=== PATIENT | female | born 1945 | race Caucasian/White ===

== ENCOUNTER 2017-12-04 10:26 | Inpatient (IN) | payer OTHER ==
[2017-12-04] MEDS ORDERED: hydrALAZINE 20 MG/ML VIAL IVP PRN (15:43)
[2017-12-04] MEDS ORDERED: ONDANSETRON 4 MG/2 ML VIAL IV PRN (15:43)
[2017-12-04] MEDS: HYDROCODONE/APAP 5/325 TAB PO PRN ×2 (17:05→21:21)
--- NOTE | 2017-12-04 17:05 | GHP ---
[f rep st] HISTORY AND PHYSICAL POST ADMISSION PHYSICIAN EVALUATION AND REHABILITATION TREATMENT PLAN DATE OF ADMISSION: 12/04/2017 DATE OF EVALUATION: 12/04/2017 TIME OF EVALUATION: 1455 REFERRING FACILITY: [facility] REFERRING PHYSICIAN: Dr. Clemens IMPAIRMENT GROUP: 3.4 DATE OF ONSET: 11/25/2017 REHABILITATION DIAGNOSIS: Debility, status post Guillain-Cushing syndrome. CONSULTING PHYSICIANS: She had consultations with Neurology, Dr. Gill; in Critical Care Dr. Castle. ETIOLOGIC DIAGNOSIS: Guillain-Cushing syndrome. HISTORY OF PRESENT ILLNESS: This patient came to [facility] on 2017, with a 2-day history of fatigue, back pain, and bilateral lower extremity weakness. She was unable to walk. She had been to the emergency department 3 days prior with similar symptoms and was found to be hypokalemic. She was given potassium replacement and sent home at that time, but her symptoms worsened so she came back. She had ascending weakness of the lower extremities , right greater than left. She had loss of reflexes and she had paresthesias bilaterally in the upper and lower extremities. She had an MRI of the lumbar spine, which showed multilevel degenerative disk disease but minimal spinal stenosis. A lumbar puncture was obtained, which showed elevated protein but was otherwise normal. She was diagnosed with Guillain-Cushing syndrome. A PICC line was placed and she received 5 days of IVIG. She had hypoxia. She was monitored in the ICU. She did not require intubation. She had new onset atrial fibrillation and she was noted to be hypertensive. Echocardiogram was done, which showed an ejection fraction of 40% to 45%, grade 2 diastolic dysfunction and elevated right ventricular systolic pressure of 49. There was mild tricuspid insufficiency. Atrial fibrillation was converted with amiodarone. There was constipation and an ileus, which was noted to resolve; there was urinary retention; both were considered to be related to Guillain- Cushing. Other laboratories and studies during her stay, this morning she had a normal white blood cell count. She was mildly anemic with a hemoglobin of 11.7 and hematocrit of 33. Platelets were normal at 279. Basic metabolic profile showed hyponatremia with a sodium of 132. Otherwise, renal function and electrolytes were within normal limits. Liver function tests were normal. Troponin was slightly elevated on 11/30/2017, with a peak of 0.812. TSH was normal. INR was normal. There was a urine culture result collected yesterday and updated today with greater than 100,000 CFU per milliliter of Escherichia coli. MRI of the spine showed multilevel degenerative changes with no greater than mild spinal stenosis. Greatest degree of foraminal stenosis was noted to be moderate at the left L5-S1 level. There was some mild compression of the left S1 nerve. Chest x-ray showed stable perihilar opacities and possible small pleural effusions. It was a single view obtained to evaluate PICC line placement. A nuclear medicine stress test was done. They found normal left ventricle size and wall motion, with symmetric perfusion of the anterior wall, lateral wall, inferior wall, and interventricular septum on stress and resting images. PAST MEDICAL HISTORY: 1. Gastroesophageal reflux disorder. 2. Hypertension. 3. Hypokalemia. 4. Migraine headaches. PAST SURGICAL HISTORY: 1. Cholecystectomy. 2. Eye surgery. 3. Foot fasciotomy on the right. 4. Hysterectomy. 5. Skin biopsy. MEDICATIONS PRIOR TO ADMISSION: 1. Butalbital/acetaminophen/caffeine 1 p.o. daily p.r.n. 2. Diazepam 5 mg p.o. at bedtime p.r.n. 3. Hydrochlorothiazide 25 mg p.o. daily. 4. Hydrocodone/acetaminophen 7.5/325 one p.o. q.6 hours p.r.n. 5. Losartan 50 mg p.o. daily. 6. Omeprazole 20 mg p.o. daily. 7. Zolpidem 10 mg at bedtime p.r.n. ADMISSION MEDICATIONS: 1. Amiodarone 200 mg p.o. daily. 2. Carvedilol 6.25 mg p.o. twice daily. 3. Gabapentin 300 mg p.o. three times daily. 4. Lidocaine patch to lumbar spine daily. 5. Rivaroxaban 20 mg p.o. daily. 6. Butalbital/acetaminophen/caffeine 1 p.o. daily. 7. Diazepam 5 mg p.o. p.r.n. anxiety. 8. Hydrocodone/acetaminophen 7.5/325 one p.o. q.6 hours p.r.n. pain. 9. Losartan 50 mg p.o. daily. 10. Omeprazole 20 mg p.o. daily. 11. Zolpidem 10 mg p.o. at bedtime p.r.n. ALLERGIES: She has GI intolerance to codeine and to penicillin. There are no true allergies. FAMILY HISTORY: Noncontributory. PSYCHOSOCIAL HISTORY: She is retired. She has worked for a [employer] and for the [email or web address]. She is . She has 2 adult children, with a local daughter and a son in [place]. She has 13 grandchildren, including step-grandchildren. She is a nonsmoker. REVIEW OF SYSTEMS: She reports irritation to the left eye. She denies difficulty swallowing. Regarding pain, she has low back pain, which she identifies as sciatic pain, more so down the right leg than the left leg. She has profound weakness of the legs, but she can move her feet and toes. She has weakness of the arms but has better strength than her legs. She has noted that her left eye may not be closing all the way. Sometimes, she feels breathlessness and has accompanying anxiety. She is not sleeping well. She attains sleep adequately, but then awakens and has difficulty regaining sleep. She snores occasionally but this is unchanged from prior to her illness. She denies cough. She denies chest pain or palpitations. She has had constipation , but then has also had frequent bowel movements after taking laxatives. She was found to have urinary retention with a postvoid residual greater than 600 cc in the hospital and she has a Solis catheter in place. She denies joint pain or joint swelling. She denies skin rash or skin breakdown. Otherwise, a 10-point review of systems is negative. PHYSICAL EXAMINATION: VITAL SIGNS: Vitals are not yet available in the chart. Per the hospital discharge summary, blood pressure this morning was 123/64, heart rate 69, respiratory rate 18, oxygen saturation was 95%. GENERAL: This is a well-nourished, well-developed woman, who appears her chronologic age, cooperative, and in no acute distress. HEENT: Extraocular movements are intact. Pupils are equal, round, and reactive to light. She has lid lag, especially with the upper lid on the left eye. Mucous membranes are mildly dry. Dentition is in good condition. She has a crowded airway, Mallampati class III. NECK: Supple. HEART: Regular rate and rhythm with no murmurs, rubs, or gallops. LUNGS: Clear to auscultation bilaterally. ABDOMEN: Soft, somewhat distended, nontender, with normoactive bowel sounds and no hepatosplenomegaly. EXTREMITIES: 1+ edema bilaterally to the lower extremities. There is no cyanosis or clubbing. Radial and dorsalis pedis pulses are 2+ bilaterally. NEUROLOGIC: She is alert and oriented x3. She has impaired ability to close the left labial seal and leaks air when she puffs her cheek out. She has lid lag on the left eye. Otherwise, cranial nerves 2-12 are grossly intact. 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 0/5 at the hip flexors, hamstrings, and quadriceps. 4/5 at the plantar flexors and 3/5 at the foot and great toe dorsiflexors. Sensation is intact to light touch. Deep tendon reflexes are globally absent. Plantar reflex is indeterminate bilaterally. SKIN: No skin rash and there is no skin breakdown. CURRENT LEVEL OF FUNCTION: Per the preadmission screen, regarding diet, feeding , and swallowing, she was on a regular diet. For grooming, she needed maximal assistance of 1-2 people. For bathing, she needed maximal assistance of 1-2 people. For dressing, she needed maximal assistance of 1-2 people. For toileting, she needed maximal assistance of 1-2 people. Regarding bladder, she was placed on a Solis catheter due to urinary retention. Regarding bowel, she was noted to be continent. She had an ileus earlier in her hospital stay, which had resolved. Bed mobility required minimal assist for rolling. Transfers required maximal assist from supine to sit. Static sitting balance required contact guard. Dynamic sitting balance required minimal assist. Endurance was fair. Communication and cognition were noted to be normal. IMPRESSION: This is a 72-year-old woman, who has Guillain-Cushing syndrome with profound weakness, more so in the lower extremities than the upper extremities, following an upper respiratory infection approximately 10 days prior. Hospital complications included ileus, urinary retention, hypoxemia, hyponatremia, and atrial fibrillation. She additionally was diagnosed by echocardiogram with reduced ejection fraction, grade 2 diastolic dysfunction and pulmonary hypertension. She has pain, likely neuropathic, with a likely contribution of lumbar degenerative disk disease of the spine noted on MRI. She has been treated with amiodarone and carvedilol for atrial fibrillation, as well as rivaroxaban due to risk of embolic stroke. She is on a low dose of gabapentin, a lidocaine patch, and hydrocodone/acetaminophen for pain. She knows that the hydrocodone/acetaminophen is effective. She is not sure about the gabapentin and she does not think that the lidocaine has helped her at all. She has anxiety and has been continued on a benzodiazepine. She has hypertension, for which hydrochlorothiazide was discontinued due to hypokalemia, and her blood pressure is controlled with losartan and carvedilol. She has a history of gastroesophageal reflux and has been on omeprazole. She has sleep disturbance, for which she is treated with zolpidem on a p.r.n. basis. Her goal is to complete a rehabilitation stay and then return home with family and supportive services. For a safe discharge, it is anticipated that she will achieve independence with eating and grooming. She will achieve modified independence to contact guard assist for bed mobility and transfers. If she has adequate improvement in her lower extremity strength, she will be able to use a front-wheeled walker for household distances; if not, she will have wheelchair mobility. It is likely she will require assistance for bathing and dressing, and that she will use a wheelchair for community distances. She will have normal bowel and bladder function. She will have therapy with Physical Therapy and Occupational Therapy for 90 minutes per day for each discipline on 5-7 days of the week. Her expected duration of stay is 10-14 days. It is anticipated that upon discharge, she will continue to benefit from home health services, including Nursing, OT and PT. PLAN: 1. Debility, status post Guillain-Cushing syndrome. PT and OT to optimize mobility and functional status with goal of discharge home and ambulation if possible. 2. 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 Assessment and treatment per Speech and Language Pathology. Ophthalmic ouintment at night as she is unable to maintain clsure of the left eye. 3. Neuropathic pain, possible sciatic pain. Will increase gabapentin from 300 mg p.o. three times daily to 600 mg three times daily. Continue Brooks. Lidocaine patch does not appear to have added any benefit and this will now be continued. She will be monitored regarding pain control and medications adjusted as needed. 4. Atrial fibrillation. Continue amiodarone, carvedilol, and rivaroxaban. There is a plan discussed in discharge paperwork regarding followup with Cardiology for a 30-day monitor and for a repeat echocardiogram in 2-3 months. 5. Cardiomyopathy and pulmonary hypertension. She has a low ejection fraction of 40% to 45%, pulmonary hypertension, and and grade 2 diastolic dysfunction. These may complicate her respiratory status and may be etiologic regarding edema. Losartan and carvedilol are appropriate antihypertensives. We will consider diuresis. Will check BNP with labs tomorrow morning. 6. Hypertension. Continue carvedilol and losartan. Monitor blood pressures and adjust as needed. 7. Anxiety related to a sense of breathlessness. Treatment is complicated as she was previously taking diazepam. Will continue current orders, but if she has frequent need for diazepam will consider initiating SSRI. 8. Bowel status with ileus, which resolved. Will initiate the rehabilitation bowel program with a daily suppository. 9. Urinary retention, thought to be a consequence of Guillain-Cushing syndrome. Will not remove Solis catheter immediately. Will hope for improved mobility in terms of being able to transfer to the [facility] and for return of normal bladder function prior to initiating rehabilitation bladder program and removing Solis catheter. 10. History of migraine headaches. Continue the butalbital/acetaminophen/ caffeine combination. 11. Insomnia. A trial of trazodone, as it is likely to be less harmful than zolpidem or diazepam. 12. History of gastroesophageal reflux disorder. Will continue proton pump inhibitor. 13. Hyponatremia. Will repeat labs in the morning. Followup. The patient is to follow up with [facility], Dr. Gill, after discharge and with Cardiology in 2-3 months. /[id number]/MODL MTDD
[2017-12-04] MEDS: GABAPENTIN 300 MG CAP PO SCH ×2 (17:06→20:15)
[2017-12-04] MEDS: CARVEDILOL 6.25 MG TAB PO SCH (18:03)
[2017-12-04] MEDS: LORazepam 0.5 MG TAB PO PRN (19:44)
[2017-12-04] MEDS: PETROLAT,WHT/MIN OIL/SOD CHL 3.5 GM OPHT.OINT LEFTEYE SCH (19:45)
[2017-12-04] MEDS: AMIODARONE HCL 200 MG TAB PO SCH (20:15)
[2017-12-04] MEDS: SENNOSIDES/DOCUSATE SODIUM TAB PO SCH (20:15)
[2017-12-04] MEDS ORDERED: traZODone 50 MG TAB PO SCH (21:00)
[2017-12-05] MEDS: HYDROCODONE/APAP 5/325 TAB PO PRN ×2 (01:25→06:16)
[2017-12-05] MEDS: ACET/CAFFEINE/BUTA FIORICET 1 EACH TAB PO PRN (04:07)
[2017-12-05] MEDS: LORazepam 0.5 MG TAB PO PRN ×2 (04:08→11:13)
[2017-12-05] MEDS: SENNOSIDES/DOCUSATE SODIUM TAB PO SCH ×2 (07:52→21:53)
[2017-12-05] MEDS: AMIODARONE HCL 200 MG TAB PO SCH ×2 (07:59→20:40)
[2017-12-05] MEDS: CARVEDILOL 6.25 MG TAB PO SCH ×2 (07:59→17:12)
[2017-12-05] MEDS: RIVAROXABAN 10 MG TAB PO SCH (08:18)
[2017-12-05] MEDS: GABAPENTIN 300 MG CAP PO SCH ×3 (08:18→20:39)
[2017-12-05 08:49] LABS: PLATELET COUNT 290 10^3/uL (150-400)
[2017-12-05] MEDS ORDERED: BISACODYL 10 MG SUPP PR SCH (09:00)
[2017-12-05] MEDS ORDERED: POLYETHYLENE GLYCOL 3350 17 GM PKT PO SCH (09:00)
[2017-12-05] MEDS ORDERED: GABAPENTIN 300 MG CAP PO ONE (10:00)
--- NOTE | 2017-12-05 10:03 | SOAPPROG ---
SOAP Progress Note Assessment/Plan: Assessment: 72 yo F with Guillaine-[place] syndrome, with onset of symptoms 11/13/2017, and 5 days of IVIG starting 11/25/2017. Had respiratory failure but did not need intubation. Has profound lower > upper extremity weakness. * Debility, status post Guillain-[place] syndrome. * PT and OT to optimize mobility and functional status with goal of discharge home and ambulation if possible. 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 * Assessment and treatment per Speech and Language Pathology. Ophthalmic ointment at night as she is unable to maintain clsure of the left eye. * Neuropathic pain, possible sciatic pain. * Gabapentin increased from 300 mg p.o. three times daily to 600 mg three times daily on 12/04/2017. Increase further to 9-- mg TID n 12/05/2017. * Discontinue Arbela as acetaminophen limits dosing. Initiate oxycodone 5-10 mg q.3 hours p.r.n. starting 12/05/2017. * Lidocaine patch did not provide any benefit and was discontinued on 12/04/2017. * Cardiomyopathy and pulmonary hypertension. She has a low ejection fraction of 40% to 45%, pulmonary hypertension, and and grade 2 diastolic dysfunction. * BNP markedly elevated today 12/05/2017. * Also with hyponatremia. * Will initiate furosemide at 20 mg p.o. q.day and potassium chloride at 10 mEq q.day * Continue losartan and carvedilol. * Repeat BMP, BNP in a.m.. * Hyponatremia. * Unclear whether due to CHF or contribution of SIADH. Serum osmolality and urine studies pending. May improve with furosemide. * Repeat BMP in a.m.. Anxiety related to a sense of breathlessness. Treatment is complicated as she was previously taking diazepam. * Poor response to SSRI in the past. * Will initiate mirtazapine this evening, 12/05/2017. * Psychiatry consult for further management. * Bowel status with ileus, which resolved. * Loose stools this morning 12/05/2017. * Continue scheduled senna as she is also on opiates. Change polyethylene glycol to p.r.n.. * Hypertension. Continue carvedilol and losartan. Monitor blood pressures and adjust as needed. * Atrial fibrillation. * No tachyarrythmia on exam. * Continue amiodarone, carvedilol, and rivaroxaban. * Followup with Cardiology for a 30-day monitor and for a repeat echocardiogram in 2-3 months. * Urinary retention, thought to be a consequence of Guillain-[place] syndrome. * Will not remove Solis catheter immediately. * Initiate rehabilitation bladder program and plan to remove Solis when her neurologic status otherwise improving. * History of migraine headaches. Continue the butalbital/acetaminophen/ caffeine combination. * Insomnia. * Trazodone did not help. * Trial of mirtazapine this evening 12/05/2017. * History of gastroesophageal reflux disorder. Will continue proton pump inhibitor. Followup. The patient is to follow up with [facility], Dr. Gill, after discharge and with Cardiology in 2-3 months. Plan: 12/05/17 10:03 12/05/17 11:59 Subjective: Poor sleep overnight. Awoke with a headache. Was due with Fioricet at 4 in the morning as well as lorazepam. Taken lorazepam to attain sleep earlier at night. Complains of anxiety especially when she feels breathless. Complains of back pain and sciatic pain radiating down both legs left greater than right. Discussed positive urine culture though she had a normal urinalysis at the hospital. She denies having had any in her symptoms other than urinary retention Clotilde no fevers or chills, no flank pain and pelvic discomfort. Objective: Vital Signs Temp Pulse Resp BP Pulse Ox 36.4 C 77 16 121/65 H 97 12/05/17 06:44 12/05/17 09:00 12/05/17 06:44 12/05/17 09:00 12/05/17 06:44 Laboratory Results 12/05/17 06:30 12/05/17 06:30 12/04/17 12/05/17 12/06/17 05:59 05:59 05:59 Intake Total 800 590 Output Total 800 Balance 0 590 Physical Exam - Physical Exam General Appearance: WD/WN, alert, no apparent distress, obese Respiratory: normal breath sounds, No crackles, No rhonchi, No wheezing Cardiac/Chest: regular rate, rhythm, No diastolic murmur, No systolic murmur Skin: normal color, warm/dry Neuro/Psych: alert, normal mood/affect, oriented x 3, motor weakness ICD10 Worksheet Patient Problems: Problems Problem Status Onset Atrial fibrillation Acute Guillain-[place] syndrome Acute
[2017-12-05] MEDS: oxyCODONE IR 5 MG TAB PO PRN ×3 (10:16→23:48)
[2017-12-05] MEDS: BISACODYL 10 MG SUPP PR SCH (12:35)
--- NOTE | 2017-12-05 12:38 | PDOREHIP ---
Admission [facility] - Admission - 3 Day Assessment Period Admission Date/Day 1: 12/04/17 Day 2: 12/05/17 Day 3: 12/06/17 - Active Diagnoses Comorbidities and Co-existing Conditions at Admission: 52077. None of the Above - Skin Conditions Unhealed Pressure Ulcer (1 or more/Stage 1 or >)-Admission: 0. No
[2017-12-05] MEDS: FUROSEMIDE 20 MG TAB PO SCH (13:26)
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
[2017-12-05] MEDS ORDERED: DIAZEPAM 2 MG TAB PO PRN (14:38)
[2017-12-05] MEDS ORDERED: GABAPENTIN 300 MG CAP PO SCH (16:00)
[2017-12-05] MEDS: DIAZEPAM 2 MG TAB PO SCH (20:41)
[2017-12-05] MEDS: TEARS/DEXTRAN 70/HYPROMELLOSE 15 ML OPHT.BTL LEFTEYE PRN (20:41)
[2017-12-05] MEDS: PETROLAT,WHT/MIN OIL/SOD CHL 3.5 GM OPHT.OINT LEFTEYE SCH (20:55)
[2017-12-05] MEDS ORDERED: MIRTAZAPINE 15 MG TAB PO SCH (21:00)
[2017-12-06] MEDS: ACET/CAFFEINE/BUTA FIORICET 1 EACH TAB PO PRN ×2 (02:03→23:30)
[2017-12-06] MEDS: oxyCODONE IR 5 MG TAB PO PRN ×5 (04:36→21:09)
[2017-12-06] MEDS: AMIODARONE HCL 200 MG TAB PO SCH ×2 (09:05→20:54)
[2017-12-06] MEDS: CARVEDILOL 6.25 MG TAB PO SCH ×2 (09:05→18:05)
[2017-12-06] MEDS: GABAPENTIN 300 MG CAP PO SCH ×3 (09:05→20:54)
[2017-12-06] MEDS: FUROSEMIDE 20 MG TAB PO SCH (09:06)
[2017-12-06] MEDS: RIVAROXABAN 10 MG TAB PO SCH (09:06)
[2017-12-06] MEDS: POTASSIUM CL 20 MEQ PKT PO SCH (09:07)
[2017-12-06] MEDS: TEARS/DEXTRAN 70/HYPROMELLOSE 15 ML OPHT.BTL LEFTEYE PRN ×2 (09:19→11:22)
[2017-12-06] MEDS: SENNOSIDES/DOCUSATE SODIUM TAB PO SCH (09:19)
[2017-12-06] MEDS: BISACODYL 10 MG SUPP PR SCH (11:47)
[2017-12-06] MEDS ORDERED: DIAZEPAM 2 MG TAB PO PRN (13:00)
[2017-12-06] MEDS ORDERED: PROMETHAZINE HCL 25 MG/ML INJ IVP PRN (13:10)
[2017-12-06] MEDS ORDERED: ONDANSETRON DISINTEGRATING 4 MG TAB PO PRN (13:10)
[2017-12-06] MEDS: TEARS/DEXTRAN 70/HYPROMELLOSE 15 ML OPHT.BTL EACHEYE PRN ×3 (13:46→18:05)
[2017-12-06] MEDS: CIPROFLOXACIN 3.5 GM OPHT.OINT LEFTEYE SCH ×2 (14:32→16:14)
--- NOTE | 2017-12-06 16:37 | HOSPPROG ---
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 Had respiratory failure but did not need intubation. Has profound lower > upper extremity weakness and subsequent debility, sx outlined below - PT and OT to optimize mobility and functional status with goal of discharge home and ambulation if possible. 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 Controlled on current pain regimen - Cont gabapentin 600 mg three times daily, increase to 900mg tid if requiring ongoing PRNs - Cont oxycodone 5-10 mg q.3 hours p.r.n. # Diarrhea. Acute, likely 2/2 poor anal sphincter control w/ GBS - CDiff neg - give bisacodyl/metamucil at 6 a.m. 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 EF 40% to 45%, pulmonary hypertension, grade 2 diastolic dysfunction. No e/o acute exacerbation - BNP elevated, unclear baseline - Cont on lasix 20/K 10 daily, monitor BMP - Cont ARB/bblocker - Monitor weights, I/O # Hyponatremia. Unclear baseline, Rashid 34, appears euvolemic - Relatively unchanged w/ addition of lasix - Cont to monitor # Anxiety w/ chronic benzodiazepine dependency. Acute on chronic, likely exacerbated by sense of breathlessness. Treatment is complicated as she was previously taking diazepam. - Psych consult appreciated - Per recs, remain on low dose scheduled HS valium and get PRN daily - Psych will reassess this week, consider alternative agent (BuSpar) - Will check TSH/B12 # Hypertension. Chronic, continue carvedilol and losartan. # Atrial fibrillation. Paroxysmal, in NSR on exam - Continue amiodarone, carvedilol, and rivaroxaban. - Followup with Cardiology for a 30-day monitor and for a repeat echocardiogram in 2-3 months. # Acute Urinary retention, thought to be a consequence of Guillain-Tyndall syndrome. - Cont Malhotra catheter immediately. - Initiate rehabilitation bladder program and plan to remove Malhotra when her neurologic status otherwise improving. # History of migraine headaches. Continue the butalbital/acetaminophen/ caffeine combination. # Insomnia. Cont Mirtaz trial # History of gastroesophageal reflux disorder. Will continue proton pump inhibitor. Diet. Regular PPx. High risk, on lovenox Code. Full Followup. The patient is to follow up with [facility], Dr. Gill, after discharge and with Cardiology in 2-3 months. Subjective: nausea this AM w/ PO Rx Objective: Vital Signs Temp Pulse Resp BP Pulse Ox 36.7 C 73 16 145/87 H 96 12/06/17 06:07 12/06/17 09:05 12/06/17 06:07 12/06/17 09:05 12/06/17 06:07 Laboratory Results 12/05/17 06:30 12/06/17 06:00 12/05/17 12/06/17 12/07/17 05:59 05:59 05:59 Intake Total 800 1008 200 Output Total 800 500 Balance 0 508 200 - Physical Exam Constitutional: no apparent distress, appears nourished, not in pain, chronically ill appearing Eyes: PERRL, other (left eye w/ conjuctivitis, viscous exudate, blephritis, R eye w/o conjunctivitis) Cardiovascular: regular rate and rhythym, systolic murmur (I/ at sternum), tachycardia, edema (trace, but reportedly improved), No irregularly irregular Respiratory: no respiratory distress, no rales or rhonchi, clear to auscultation Gastrointestinal: normoactive bowel sounds, no palpable masses, tenderness ( very mild in LLQ), No guarding, No distension Genitourinary: malhotra in urethra Neurologic: AAOx3, weakness (3/5 motor bilat LE; 4/5 motor prox UE), other ( paresthesias bilat hands, legs; left eyelid palsy; left tongue dev) Psychiatric: interacting appropriately, not anxious, not encephalopathic, thought process linear ICD10 Worksheet Patient Problems: Problems Problem Status Onset Sedative dependence with current use Chronic Generalized anxiety disorder Chronic Insomnia Chronic Atrial fibrillation Acute Guillain-Tyndall syndrome Acute
[2017-12-06] MEDS: DIAZEPAM 2 MG TAB PO SCH (20:54)
[2017-12-06] MEDS: PETROLAT,WHT/MIN OIL/SOD CHL 3.5 GM OPHT.OINT EACHEYE SCH (21:03)
[2017-12-06] MEDS: CIPROFLOXACIN 3.5 GM OPHT.OINT EACHEYE SCH (22:16)
[2017-12-07] MEDS: oxyCODONE IR 5 MG TAB PO PRN ×6 (00:36→19:31)
[2017-12-07] MEDS: DIAZEPAM 2 MG TAB PO PRN ×2 (00:37→22:16)
[2017-12-07] MEDS: PANTOPRAZOLE SODIUM 40 MG TAB PO SCH (05:56)
[2017-12-07] MEDS: BISACODYL 10 MG SUPP PR SCH (05:57)
[2017-12-07] MEDS: PSYLLIUM METAMUCIL 1 PKT PO SCH (05:57)
[2017-12-07] MEDS: CARVEDILOL 6.25 MG TAB PO SCH ×2 (08:43→17:40)
[2017-12-07] MEDS: AMIODARONE HCL 200 MG TAB PO SCH ×2 (08:44→20:44)
[2017-12-07] MEDS: RIVAROXABAN 10 MG TAB PO SCH (08:44)
[2017-12-07] MEDS: GABAPENTIN 300 MG CAP PO SCH ×3 (08:44→20:45)
[2017-12-07] MEDS: CIPROFLOXACIN 3.5 GM OPHT.OINT EACHEYE SCH ×3 (08:44→20:46)
[2017-12-07] MEDS: FUROSEMIDE 20 MG TAB PO SCH (08:44)
[2017-12-07] MEDS: POTASSIUM CL 20 MEQ PKT PO SCH (08:44)
--- NOTE | 2017-12-07 12:54 | HOSPPROG ---
Hospitalist Progress Note Assessment/Plan: Assessment: 72 yo F p/w GBS, worsening dysphagia and fatigue Plan: # Fatigue. Worsening today, unclear if 2/2 poor night's sleep, med effect ( received valium PRN and oxy IR o/n), brewing infxn, or worsening GBS - get CBC/liver panel now - lower oxy IR dose range PRN - monitor for improvement/worsening and consider neuro consult if no improvement # Guillaine-Petros Syndrome. Onset of symptoms 11/13/2017, s/p 5 days of IVIG starting 11/25/2017. Had respiratory failure but did not need intubation. Has profound lower > upper extremity weakness and subsequent debility, sx outlined below - PT and OT to optimize mobility and functional status with goal of discharge home and ambulation if possible. 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 Worsening, went from meds w/ sips to meds w/ applesauce - unclear if 2/2 fatigue vs. worsening GBS - cont safe swallow w/ RN - cont BANQUET WAITER/WAITRESS evals - get dietary consult, encourage ensure # Neuropathic pain, possible sciatic pain. Controlled on current pain regimen - increased to 900mg tid today - Cont oxycodone 2.5-10 mg q.3 hours p.r.n. - cont turning patient to prevent pressure injury # Diarrhea. Acute, likely 2/2 poor anal sphincter control w/ GBS - CDiff neg - given bisacodyl/metamucil at 6 a.m. 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 EF 40% to 45%, pulmonary hypertension, grade 2 diastolic dysfunction. No e/o acute exacerbation - BNP elevated, unclear baseline - net neg 1.5L o/n - Cont on lasix 20 daily, monitor BMP - Cont ARB/bblocker - Monitor weights, I/O - if Cr rising or becoming hypovolemic, stop lasix, as her PO intake has begun to decline # Hyponatremia. Unclear baseline, Rashid 34, appears euvolemic - improved w/ lasix - Cont to monitor # Anxiety w/ chronic benzodiazepine dependency. Acute on chronic, likely exacerbated by sense of breathlessness. Treatment is complicated as she was previously taking diazepam. - Psych consult appreciated - Per recs, remain on low dose scheduled HS valium and get PRN daily - Psych will reassess this week, consider alternative agent (BuSpar) - B12/TSH wnl # Hypertension. Chronic, continue carvedilol and losartan. # Atrial fibrillation. Paroxysmal, in NSR on exam - Continue amiodarone, carvedilol, and rivaroxaban. - Followup with Cardiology for a 30-day monitor and for a repeat echocardiogram in 2-3 months. # Acute Urinary retention, thought to be a consequence of Guillain-Petros syndrome. - Cont Malhotra catheter immediately. - Initiate rehabilitation bladder program and plan to remove Malhotra when her neurologic status otherwise improving. # History of migraine headaches. Continue the butalbital/acetaminophen/ caffeine combination. # Insomnia. Added Mirtaz 15 HS, increasing gabapentin today, monitor effect # History of gastroesophageal reflux disorder. Will continue proton pump inhibitor. Diet. Regular PPx. High risk, on xarelto Code. Full Followup. The patient is to follow up with [facility], Dr. Gill, after discharge and with Cardiology in 2-3 months. Subjective: patient w/ pain o/n preventing sleep, fatigued today, poor appetite , watery BM Objective: Vital Signs Temp Pulse Resp BP Pulse Ox 36.5 C 72 15 148/83 H 95 12/07/17 07:30 12/07/17 08:43 12/07/17 07:30 12/07/17 08:43 12/07/17 07:30 Laboratory Results 12/05/17 06:30 12/07/17 06:00 12/06/17 12/07/17 12/08/17 05:59 05:59 05:59 Intake Total 1008 500 Output Total 500 2000 Balance 508 -1500 - Physical Exam Constitutional: no apparent distress, not in pain, chronically ill appearing, uncomfortable Cardiovascular: systolic murmur (I/ at sternum), No irregularly irregular, No tachycardia, No edema Respiratory: no respiratory distress, no rales or rhonchi, clear to auscultation Gastrointestinal: normoactive bowel sounds, soft, non-tender abdomen, no palpable masses Genitourinary: no bladder fullness, malhotra in urethra Musculoskeletal: other (tenderness over right buttock/R lateral troch bursa, sciatic pain w/ straight leg raise RLE, no joint effusion) Neurologic: AAOx3, sensation intact bilaterally (subj paresthesia LE), weakness (significant prox muscles paresis bilat LE, LUE), facial droop (left mouth, left tongue deviation) Psychiatric: interacting appropriately, not anxious, not encephalopathic, thought process linear ICD10 Worksheet Patient Problems: Problems Problem Status Onset Atrial fibrillation Acute Guillain-Petros syndrome Acute Generalized anxiety disorder Chronic Insomnia Chronic Sedative dependence with current use Chronic
[2017-12-07] MEDS: ACETAMINOPHEN 325 MG TAB PO PRN (12:59)
[2017-12-07] MEDS: TEARS/DEXTRAN 70/HYPROMELLOSE 15 ML OPHT.BTL EACHEYE PRN (13:01)
[2017-12-07] MEDS: DIAZEPAM 2 MG TAB PO SCH (20:43)
[2017-12-07] MEDS: MIRTAZAPINE 15 MG ODTAB PO SCH (20:43)
[2017-12-07] MEDS: PETROLAT,WHT/MIN OIL/SOD CHL 3.5 GM OPHT.OINT EACHEYE SCH (23:23)
[2017-12-08] MEDS: oxyCODONE IR 5 MG TAB PO PRN ×5 (00:11→14:37)
[2017-12-08] MEDS: PANTOPRAZOLE SODIUM 40 MG TAB PO SCH (05:53)
[2017-12-08] MEDS: PSYLLIUM METAMUCIL 1 PKT PO SCH (05:53)
[2017-12-08] MEDS: BISACODYL 10 MG SUPP PR SCH (05:53)
[2017-12-08 08:30] LABS: PLATELET COUNT 287 10^3/uL (150-400)
[2017-12-08] MEDS: GABAPENTIN 300 MG CAP PO SCH ×3 (09:24→20:53)
[2017-12-08] MEDS: AMIODARONE HCL 200 MG TAB PO SCH ×2 (09:24→20:54)
[2017-12-08] MEDS: RIVAROXABAN 10 MG TAB PO SCH (09:24)
[2017-12-08] MEDS: FUROSEMIDE 20 MG TAB PO SCH (09:24)
[2017-12-08] MEDS: CARVEDILOL 6.25 MG TAB PO SCH ×2 (09:25→17:50)
[2017-12-08] MEDS: CIPROFLOXACIN 3.5 GM OPHT.OINT EACHEYE SCH ×3 (09:33→20:56)
--- NOTE | 2017-12-08 12:24 | SOAPPROG ---
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 Had respiratory failure but did not need intubation. Has profound lower > upper extremity weakness. * Debility, status post Guillain-Bethlehem syndrome. * Initial FIM 47. Able to sit on edge of bed up to 10 min with 2 assist. Therapy staff concerned regarding continued deterioration. * PT and OT to optimize mobility and functional status with goal of discharge home and ambulation if possible. * Dysphagia. * Diet texture has been downgraded to dysphagia 1. Has decreased oral motor function and has declined during her stay. * CN 7 neuropathy, with left facial weakness. * Assessment and treatment per Speech and Language Pathology. Ophthalmic ointment at night as she is unable to maintain clsure of the left eye. * Neuropathic pain, possible sciatic pain. * Gabapentin increased from 300 mg p.o. three times daily to 600 mg three times daily on 12/04/2017. Increase further to 900 mg TID n 12/05/2017. * Discontinue [place] as acetaminophen limits dosing. Initiate oxycodone 5-10 mg q.3 hours p.r.n. starting 12/05/2017. * Lidocaine patch did not provide any benefit and was discontinued on 12/04/2017. * Cardiomyopathy and pulmonary hypertension. She has a low ejection fraction of 40% to 45%, pulmonary hypertension, and and grade 2 diastolic dysfunction. * BNP markedly elevated 12/05/2017; improved after 1 dose of furosemide on 2017. * Also with hyponatremia, improving. * Continue furosemide at 20 mg p.o. q.day and potassium chloride at 10 mEq q.day * Continue losartan and carvedilol. * Repeat BMP, BNP in a.m.. * Hyponatremia. * Unclear whether due to CHF or contribution of SIADH. 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 * Sodium 134 this morning; was 132 on 12/05/2017; was 136 on 12/07/2017. Continue to monitor. * Intake is too low to institute a meaningful fluid restriction. Anxiety related to a sense of breathlessness. Treatment is complicated as she was previously taking diazepam. * Poor response to SSRI in the past. * Initiated mirtazapine this evening. * Appreciate assistance of Psychiatry. She has had chronic diazepam use. At their recommendation have initiated diazepam 2.5 mg at bedtime and 1 mg during the day p.r.n.. * Bowel status with ileus, which resolved. * Has had loose stools, C diff negative. * Continue scheduled senna as she is also on opiates. Change polyethylene glycol to p.r.n.. * Hypertension. Continue carvedilol and losartan. Monitor blood pressures and adjust as needed. * Atrial fibrillation. * No tachyarrythmia on exam. * Continue amiodarone, carvedilol, and rivaroxaban. * Followup with Cardiology for a 30-day monitor and for a repeat echocardiogram in 2-3 months. * Urinary retention, thought to be a consequence of Guillain-Bethlehem syndrome. * Will not remove Solis catheter immediately. * Initiate rehabilitation bladder program and plan to remove Solis when her neurologic status otherwise improving. * History of migraine headaches. Continue the butalbital/acetaminophen/ caffeine combination. * Insomnia. * Trazodone did not help. * Improved with met as a Pean. * History of gastroesophageal reflux disorder. Will continue proton pump inhibitor. Attended staffing, 15 min. 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 Expect 4-6 weeks to cover sufficient function for discharge home with her . Unclear at present whether she can benefit from inpatient rehabilitation in her current condition; consider discharge to SNF until she has improved function. Discussed with neurologist Dr. Mccall. Efficacy of IVIG can take 10-20 days. Weight 3 4 weeks to assess for failure. However if she declines and is unable to take any nutrition or if she has respiratory decline would intervene sooner. His choice would be plasma exchange rather than repeat IVIG. Will continue therapies and continue to assess on inpatient rehabilitation for several more days. Followup. The patient is to follow up with [facility], Dr. Gill, after discharge and with Cardiology in 2-3 months. 12/08/17 11:19 Objective: Vital Signs Temp Pulse Resp BP Pulse Ox 36.9 C 82 17 161/87 H 87 L 12/07/17 18:16 12/08/17 09:25 12/07/17 18:16 12/08/17 09:25 12/08/17 04:34 Laboratory Results 12/08/17 06:30 12/08/17 06:30 12/07/17 12/08/17 12/09/17 05:59 05:59 05:59 Intake Total 500 218 Output Total 1999 114 Xzcdylo -[id number] -[id number] - Time Spent With Patient Time Spent With Patient: Greater than 35 min 4 times a day, including more than 50% of time in coordination of care during staffing meeting and in discussion with neurologist Dr. Mccall, and counseling patient and family. ICD10 Worksheet Patient Problems: Problems Problem Status Onset Atrial fibrillation Acute Guillain-Bethlehem syndrome Acute Generalized anxiety disorder Chronic Insomnia Chronic Sedative dependence with current use Chronic
[2017-12-08] MEDS: morphINE SR 15 MG TAB PO SCH (20:53)
[2017-12-08] MEDS: MIRTAZAPINE 15 MG ODTAB PO SCH (20:53)
[2017-12-08] MEDS: DIAZEPAM 2 MG TAB PO SCH (20:53)
[2017-12-08] MEDS: PETROLAT,WHT/MIN OIL/SOD CHL 3.5 GM OPHT.OINT EACHEYE SCH (21:25)
[2017-12-09] MEDS: oxyCODONE IR 5 MG TAB PO PRN ×6 (00:54→22:13)
[2017-12-09] MEDS: PANTOPRAZOLE SODIUM 40 MG TAB PO SCH (06:47)
[2017-12-09] MEDS: PSYLLIUM METAMUCIL 1 PKT PO SCH (06:51)
[2017-12-09] MEDS: RIVAROXABAN 10 MG TAB PO SCH (08:35)
[2017-12-09] MEDS: GABAPENTIN 300 MG CAP PO SCH ×3 (08:35→22:11)
[2017-12-09] MEDS: AMIODARONE HCL 200 MG TAB PO SCH ×2 (08:35→22:11)
[2017-12-09] MEDS: CARVEDILOL 6.25 MG TAB PO SCH ×3 (08:35→19:45)
[2017-12-09] MEDS: CIPROFLOXACIN 3.5 GM OPHT.OINT EACHEYE SCH (09:12)
--- NOTE | 2017-12-09 13:52 | SOAPPROG ---
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 Had respiratory failure but did not need intubation. Has profound lower > upper extremity weakness. * Debility, status post Guillain-Orlando syndrome. * Initial FIM 47 on 12/08/2017. Able to sit on edge of bed up to 10 min with 2 assist. Therapy staff concerned regarding continued deterioration. Seems to be stable or slightly improved today 12/09/2017. * PT and OT to optimize mobility and functional status with goal of discharge home and ambulation if possible. * Dysphagia. * Diet texture has been downgraded to dysphagia 1 as of : Back to dysphagia 2 on 12/09/2016. Has decreased oral motor function and has declined during her stay. * CN 7 neuropathy, with left facial weakness. * Assessment and treatment per Speech and Language Pathology. * Ophthalmic ointment at night and monocular goggle as she is unable to maintain closure of the left eye. * Blurred vision, bilateral. * No afferent pupillary defect argues against any optic nerve involvement. Brief literature review revealed very rare cases of optic neuritis with Guillain -Orlando syndrome. * Discontinue ciprofloxacin ointment. Continue to monitor. * Neuropathic pain, possible sciatic pain. * Gabapentin increased from 300 mg p.o. three times daily to 600 mg three times daily on 12/04/2017. Increased further to 900 mg TID n 12/05/2017. * Discontinue [place] as acetaminophen limits dosing. Initiate oxycodone 5-10 mg q.3 hours p.r.n. starting 12/05/2017. * Lidocaine patch did not provide any benefit and was discontinued on 12/04/2017. * Better pain relief and better sleep with long-acting morphine 15 mg at HS starting 12/08/2017. * Cardiomyopathy and pulmonary hypertension. She has a low ejection fraction of 40% to 45%, pulmonary hypertension, and and grade 2 diastolic dysfunction. * BNP markedly elevated 12/05/2017; improved after 1 dose of furosemide on 2017. * Also with hyponatremia, improving. * Discontinued furosemide at 20 mg p.o. q.day and potassium chloride at 10 mEq q.day 12/09/2017. Continue daily weight. * Continue losartan and carvedilol. * BNP much improved 12/09/2017, from greater than 10,000 to 6180. * Monitor for signs and symptoms of congestive heart failure with furosemide discontinued. * Hyponatremia. * Unclear whether due to CHF or contribution of SIADH. 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 * Sodium 134 this morning; was 132 on 12/05/2017; was 136 on 12/07/2017. Overall stable at 134 on 12/08/2017 and 12/09/2017. * Intake is too low to institute a meaningful fluid restriction. Anxiety related to a sense of breathlessness. Treatment is complicated as she was previously taking diazepam. * Poor response to SSRI in the past. * Initiated mirtazapine 12/05/2017. * Appreciate assistance of Psychiatry. She has had chronic diazepam use. At their recommendation have initiated diazepam 2.5 mg at bedtime and 1 mg during the day p.r.n.. * Bowel status with ileus, which resolved. * Has had loose stools, C diff negative. * Has had frequent bowel movements with incontinence. Laxatives changed to p.r.n. on 12/08/2017. * Hypertension. Continue carvedilol and losartan. Monitor blood pressures and adjust as needed. * Check orthostatics supine and seated 12/09/2017. * Atrial fibrillation. * No tachyarrythmia on exam. * Continue amiodarone, carvedilol, and rivaroxaban. * Followup with Cardiology for a 30-day monitor and for a repeat echocardiogram in 2-3 months. 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 * Will not remove Solis catheter immediately. * Initiate rehabilitation bladder program and plan to remove Solis when her neurologic status otherwise improving. * History of migraine headaches. Continue the butalbital/acetaminophen/ caffeine combination PRN. * Insomnia. * Trazodone did not help. * Improved with mirtazapine. * History of gastroesophageal reflux disorder. Will continue proton pump inhibitor. Expect 4-6 weeks to cover sufficient function for discharge home with her . Unclear at present whether she can benefit from inpatient rehabilitation in her current condition; consider discharge to SNF until she has improved function. Discussed with neurologist Dr. Mccall, 12/08/2017. Efficacy of IVIG can take 10 -20 days. Wait 3 4 weeks to assess for failure. However if she declines and is unable to take any nutrition or if she has respiratory decline would intervene sooner. His choice would be plasma exchange rather than repeat IVIG. Will continue therapies and continue to assess on inpatient rehabilitation for several more days. Followup. The patient is to follow up with [facility], Dr. Gill, after discharge and with Cardiology in 2-3 months. 12/09/17 12:56 Subjective: Complains of blurred vision bilateral. OT reports that she was then unable to see any details in o'clock on the wall today. Much better sleep last night and pain better controlled with long-acting morphine. No bowel movement yet today. Objective: Vital Signs Temp Pulse Resp BP Pulse Ox 36.8 C 81 17 168/80 H 94 12/09/17 07:44 12/09/17 08:35 12/09/17 07:44 12/09/17 08:35 12/09/17 07:44 Laboratory Results 12/08/17 06:30 12/09/17 06:45 12/08/17 12/09/17 12/10/17 05:59 05:59 05:59 Intake Total 218 250 240 Output Total 0540 7163 Balance -1727 -1223 240 Physical Exam - Physical Exam General Appearance: WD/WN, alert, no apparent distress Respiratory: normal breath sounds, other (Speaks short sentences.), No crackles , No rhonchi, No wheezing Cardiac/Chest: regular rate, rhythm, No edema, No diastolic murmur, No systolic murmur Skin: normal color, warm/dry Neuro/Psych: alert, normal mood/affect, oriented x 3, motor weakness, speech abnormalities (Mild dysarthria), other (Pupils round and reactive, no afferent pupillary defect) ICD10 Worksheet Patient Problems: Problems Problem Status Onset Atrial fibrillation Acute 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
[2017-12-09] MEDS: TEARS/DEXTRAN 70/HYPROMELLOSE 15 ML OPHT.BTL EACHEYE PRN (18:46)
[2017-12-09] MEDS: MIRTAZAPINE 15 MG ODTAB PO SCH (22:11)
[2017-12-09] MEDS: morphINE SR 15 MG TAB PO SCH (22:11)
[2017-12-09] MEDS: DIAZEPAM 2 MG TAB PO SCH (22:12)
[2017-12-09] MEDS: PETROLAT,WHT/MIN OIL/SOD CHL 3.5 GM OPHT.OINT EACHEYE SCH (22:12)
[2017-12-10] MEDS: ACET/CAFFEINE/BUTA FIORICET 1 EACH TAB PO PRN (01:52)
[2017-12-10] MEDS: oxyCODONE IR 5 MG TAB PO PRN ×6 (03:05→21:03)
[2017-12-10] MEDS: PANTOPRAZOLE SODIUM 40 MG TAB PO SCH (05:50)
[2017-12-10] MEDS: PSYLLIUM METAMUCIL 1 PKT PO SCH (05:50)
[2017-12-10] MEDS: TEARS/DEXTRAN 70/HYPROMELLOSE 15 ML OPHT.BTL EACHEYE PRN ×4 (06:06→21:04)
[2017-12-10] MEDS: GABAPENTIN 300 MG CAP PO SCH ×3 (09:05→21:03)
[2017-12-10] MEDS: RIVAROXABAN 10 MG TAB PO SCH (09:07)
[2017-12-10] MEDS: AMIODARONE HCL 200 MG TAB PO SCH ×2 (09:09→21:03)
[2017-12-10] MEDS: CARVEDILOL 6.25 MG TAB PO SCH ×2 (09:09→17:20)
[2017-12-10] MEDS: LIDOCAINE 5% 1 EA PATCH TD SCH (10:24)
--- NOTE | 2017-12-10 13:57 | SOAPPROG ---
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 Had respiratory failure but did not need intubation. Has profound lower > upper extremity weakness. * Debility, status post Guillain-[place] syndrome. * Initial FIM 47 on 12/08/2017. Able to sit on edge of bed up to 10 min with 2 assist. Therapy staff noting small gains date today. Minimal assist for upper body dressing, maximal assist for lower body. * PT and OT to optimize mobility and functional status with goal of discharge home and ambulation if possible. * Dysphagia. * Diet texture has been downgraded to dysphagia 1 as of : Back to dysphagia 2 on 12/09/2016. * CN 7 neuropathy, with left facial weakness. * Assessment and treatment per Speech and Language Pathology. * Ophthalmic ointment at night and monocular goggle as she is unable to maintain closure of the left eye. * Blurred vision, bilateral. * No afferent pupillary defect argues against any optic nerve involvement. Brief literature review revealed very rare cases of optic neuritis with Guillain -[place] syndrome. * Improved after discontinuation of ciprofloxacin ointment 12/09/2017. Continue to monitor. * Neuropathic pain, possible sciatic pain. * Gabapentin increased from 300 mg p.o. three times daily to 600 mg three times daily on 12/04/2017. Increased further to 900 mg TID n 12/05/2017. * Discontinue [place] as acetaminophen limits dosing. Initiate oxycodone 5-10 mg q.3 hours p.r.n. starting 12/05/2017. * Lidocaine patch did not provides some benefit. * Better pain relief and better sleep with long-acting morphine 15 mg at HS starting 12/08/2017. * Cardiomyopathy and pulmonary hypertension. She has a low ejection fraction of 40% to 45%, pulmonary hypertension, and and grade 2 diastolic dysfunction. * BNP markedly elevated 12/05/2017; improved after 1 dose of furosemide on 2017. * Also with hyponatremia, improving. * Discontinued furosemide at 20 mg p.o. q.day and potassium chloride at 10 mEq q.day 12/09/2017. Continue daily weight. * Continue losartan and carvedilol. * BNP much improved 12/09/2017, from greater than 10,000 to 6180. Recheck . * Monitor for signs and symptoms of congestive heart failure with furosemide discontinued. * Hyponatremia. * Unclear whether due to CHF or contribution of SIADH. 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 * Sodium 134 this morning; was 132 on 12/05/2017; was 136 on 12/07/2017. Overall stable at 134 on 12/08/2017 and 12/09/2017. * Intake is too low to institute a meaningful fluid restriction. * Recheck BMP 12/12/17. Anxiety related to a sense of breathlessness. Treatment is complicated as she was previously taking diazepam. * Poor response to SSRI in the past. * Initiated mirtazapine 12/05/2017. * Appreciate assistance of Psychiatry. She has had chronic diazepam use. At their recommendation have initiated diazepam 2.5 mg at bedtime and 1 mg during the day p.r.n.. * Bowel status with ileus, which resolved. * Has had loose stools, C diff negative. * Has had frequent bowel movements with incontinence. Laxatives changed to p.r.n. on 12/08/2017. * Hypertension. Continue carvedilol and losartan. Monitor blood pressures and adjust as needed. * Check orthostatics supine and seated 12/09/2017. * Atrial fibrillation. * No tachyarrythmia on exam. * Continue amiodarone, carvedilol, and rivaroxaban. * Followup with Cardiology for a 30-day monitor and for a repeat echocardiogram in 2-3 months. 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 * Will not remove Solis catheter immediately. * Initiate rehabilitation bladder program and plan to remove Solis when her neurologic status otherwise improving. * History of migraine headaches. Continue the butalbital/acetaminophen/ caffeine combination PRN. Advised to not use during hours of sleep. * Insomnia. * Trazodone did not help. * Improved with mirtazapine. * History of gastroesophageal reflux disorder. Will continue proton pump inhibitor. Expect 4-6 weeks to cover sufficient function for discharge home with her . Unclear at present whether she can benefit from inpatient rehabilitation in her current condition; consider discharge to SNF until she has improved function. Discussed with neurologist Dr. Mccall, 12/08/2017. Efficacy of IVIG can take 10 -20 days. Wait 3 4 weeks to assess for failure. However if she declines and is unable to take any nutrition or if she has respiratory decline would intervene sooner. His choice would be plasma exchange rather than repeat IVIG. Will continue therapies and continue to assess on inpatient rehabilitation for several more days. Followup. The patient is to follow up with [facility], Dr. Gill, after discharge and with Cardiology in 2-3 months. 12/10/17 13:52 Subjective: Did not sleep well last night as she did the night before. She woke with a headache around 1 o'clock and took a Fioricet. Currently she is fatigued from multiple repositioning stand therapy through the morning. Otherwise without complaint. She thinks lidocaine patches to her back for sciatica are giving her a little bit of relief. Objective: Vital Signs Temp Pulse Resp BP Pulse Ox 36.5 C 73 16 122/62 H 95 12/10/17 06:41 12/10/17 09:09 12/10/17 06:41 12/10/17 09:09 12/10/17 06:41 Laboratory Results 12/08/17 06:30 12/09/17 06:45 12/09/17 12/10/17 12/11/17 05:59 05:59 05:59 Intake Total 250 1005 120 Output Total 1475 1150 325 [facility]7150 -675 -186 Physical Exam - Physical Exam General Appearance: WD/WN, alert, no apparent distress Respiratory: normal breath sounds, No crackles, No rhonchi, No wheezing Cardiac/Chest: regular rate, rhythm, edema (Trace to 1+ bilateral ankles), JVD ( Approximately 5 cm above clavicle), No diastolic murmur, No systolic murmur Skin: normal color, warm/dry Neuro/Psych: alert, normal mood/affect, oriented x 3, motor weakness (Max assist to arise to seated from supine) ICD10 Worksheet Patient Problems: Problems Problem Status Onset Atrial fibrillation Acute 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
[2017-12-10] MEDS: MIRTAZAPINE 15 MG ODTAB PO SCH (21:03)
[2017-12-10] MEDS: morphINE SR 15 MG TAB PO SCH (21:03)
[2017-12-10] MEDS: DIAZEPAM 2 MG TAB PO SCH (21:03)
[2017-12-10] MEDS: PATCH REMOVAL 1 EA PATCH TD SCH (21:03)
[2017-12-10] MEDS: PETROLAT,WHT/MIN OIL/SOD CHL 3.5 GM OPHT.OINT EACHEYE SCH (21:04)
[2017-12-11] MEDS: oxyCODONE IR 5 MG TAB PO PRN ×7 (00:23→19:43)
[2017-12-11] MEDS: TEARS/DEXTRAN 70/HYPROMELLOSE 15 ML OPHT.BTL EACHEYE PRN ×5 (00:32→14:54)
[2017-12-11] MEDS: PANTOPRAZOLE SODIUM 40 MG TAB PO SCH (06:15)
[2017-12-11] MEDS: PSYLLIUM METAMUCIL 1 PKT PO SCH (06:16)
[2017-12-11] MEDS: CARVEDILOL 6.25 MG TAB PO SCH ×2 (07:41→19:44)
[2017-12-11] MEDS: AMIODARONE HCL 200 MG TAB PO SCH ×2 (07:41→21:31)
[2017-12-11] MEDS: RIVAROXABAN 10 MG TAB PO SCH (07:41)
[2017-12-11] MEDS: GABAPENTIN 300 MG CAP PO SCH ×3 (07:42→21:31)
[2017-12-11] MEDS: LIDOCAINE 5% 1 EA PATCH TD SCH (07:42)
[2017-12-11] MEDS ORDERED: BIOTENE DRY MOUTH MOUTHWASH 237 ML BTL MM PRN (07:52)
--- NOTE | 2017-12-11 10:17 | SOAPPROG ---
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 Had respiratory failure but did not need intubation. Has profound lower > upper extremity weakness. Today's update: Weak cough and involvement of proximal muscles concerning for respiratory compromise, getting in touch with Magen Chavarria of respiratory therapy for evaluation and consideration of mechanical insufflator exsufflator, spirometry. He recommended MIP and IS, and will eval the patient in the coming day. Patient otherwise making neurological progress, no anxiety. Significant weight loss since 12/08 going from 77 kg to 58 kg. Ordering labs for tomorrow for monitoring of electrolytes. A total of 35 min was spent on the floor in the care of the patient, the majority of which was spent in the counseling and coordination of care regarding respiratory management. Remainder of rehab plan is relatively unchanged * Debility, status post Guillain-[place] syndrome. * Initial FIM 47 on 12/08/2017. Able to sit on edge of bed up to 10 min with 2 assist. Therapy staff noting small gains date today. Minimal assist for upper body dressing, maximal assist for lower body. * PT and OT to optimize mobility and functional status with goal of discharge home and ambulation if possible. * Dysphagia. * Diet texture has been downgraded to dysphagia 1 as of : Back to dysphagia 2 on 12/09/2016. *Respiratory impairment: Significant proximal muscle involvement from Guillain- [place] syndrome, impaired cough on exam. * RT evaluation for further recommendations, further testing, consideration for cough assist. * CN 7 neuropathy, with left facial weakness. * Assessment and treatment per Speech and Language Pathology. * Ophthalmic ointment at night and monocular goggle as she is unable to maintain closure of the left eye. * Blurred vision, bilateral. * No afferent pupillary defect argues against any optic nerve involvement. Brief literature review revealed very rare cases of optic neuritis with Guillain -[place] syndrome. * Improved after discontinuation of ciprofloxacin ointment 12/09/2017. Continue to monitor. * Neuropathic pain, possible sciatic pain. * Gabapentin increased from 300 mg p.o. three times daily to 600 mg three times daily on 12/04/2017. Increased further to 900 mg TID n 12/05/2017. * Discontinue [place] as acetaminophen limits dosing. Initiate oxycodone 5-10 mg q.3 hours p.r.n. starting 12/05/2017. * Lidocaine patch did not provides some benefit. * Better pain relief and better sleep with long-acting morphine 15 mg at HS starting 12/08/2017. * Cardiomyopathy and pulmonary hypertension. She has a low ejection fraction of 40% to 45%, pulmonary hypertension, and and grade 2 diastolic dysfunction. * BNP markedly elevated 12/05/2017; improved after 1 dose of furosemide on 2017. * Also with hyponatremia, improving. * Discontinued furosemide at 20 mg p.o. q.day and potassium chloride at 10 mEq q.day 12/09/2017. Continue daily weight. * Continue losartan and carvedilol. * BNP much improved 12/09/2017, from greater than 10,000 to 6180. Recheck . * Monitor for signs and symptoms of congestive heart failure with furosemide discontinued. * Hyponatremia. * Unclear whether due to CHF or contribution of SIADH. 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 * Sodium 134 this morning; was 132 on 12/05/2017; was 136 on 12/07/2017. Overall stable at 134 on 12/08/2017 and 12/09/2017. * Intake is too low to institute a meaningful fluid restriction. * Recheck BMP 12/12/17. Anxiety related to a sense of breathlessness. Treatment is complicated as she was previously taking diazepam. * Poor response to SSRI in the past. * Initiated mirtazapine 12/05/2017. * Appreciate assistance of Psychiatry. She has had chronic diazepam use. At their recommendation have initiated diazepam 2.5 mg at bedtime and 1 mg during the day p.r.n.. * Bowel status with ileus, which resolved. * Has had loose stools, C diff negative. * Has had frequent bowel movements with incontinence. Laxatives changed to p.r.n. on 12/08/2017. * Hypertension. Continue carvedilol and losartan. Monitor blood pressures and adjust as needed. * Check orthostatics supine and seated 12/09/2017. * Atrial fibrillation. * No tachyarrythmia on exam. * Continue amiodarone, carvedilol, and rivaroxaban. * Followup with Cardiology for a 30-day monitor and for a repeat echocardiogram in 2-3 months. 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 * Will not remove Solis catheter immediately. * Initiate rehabilitation bladder program and plan to remove Solis when her neurologic status otherwise improving. * History of migraine headaches. Continue the butalbital/acetaminophen/ caffeine combination PRN. Advised to not use during hours of sleep. * Insomnia. * Trazodone did not help. * Improved with mirtazapine. * History of gastroesophageal reflux disorder. Will continue proton pump inhibitor. Expect 4-6 weeks to cover sufficient function for discharge home with her . Unclear at present whether she can benefit from inpatient rehabilitation in her current condition; consider discharge to SNF until she has improved function. Discussed with neurologist Dr. Mccall, 12/08/2017. Efficacy of IVIG can take 10 -20 days. Wait 3 4 weeks to assess for failure. However if she declines and is unable to take any nutrition or if she has respiratory decline would intervene sooner. His choice would be plasma exchange rather than repeat IVIG. Will continue therapies and continue to assess on inpatient rehabilitation for several more days. Followup. The patient is to follow up with [facility], Dr. Gill, after discharge and with Cardiology in 2-3 months. 12/11/17 10:07 Subjective: Chief complaint: Impaired cough No acute events overnight. Patient states that she is overall recovering from a neurological standpoint and making progress in all areas of muscle function. Denies any new shortness of breath or chest pain, notes a weak cough. No new numbness, tingling, or weakness. She feels that sensory impairments are also improving Objective: Vital Signs Temp Pulse Resp BP Pulse Ox 36.8 C 71 16 135/63 H 91 L 12/11/17 07:00 12/11/17 07:41 12/11/17 07:00 12/11/17 07:41 12/11/17 07:00 Laboratory Results 12/08/17 06:30 12/09/17 06:45 12/10/17 12/11/17 12/12/17 05:59 05:59 05:59 Intake Total 1005 550 Output Total 1150 1250 Balance -145 -700 Physical Exam - Physical Exam General Appearance: alert, no apparent distress Respiratory: lungs clear, normal breath sounds, accessory muscle use, decreased breath sounds, other (Poor inspiratory effort, extremely weak cough), No respiratory distress, No rales, No rhonchi, No wheezing Skin: normal color, warm/dry, No cyanosis, No diaphoresis Extremities: No pedal edema, No swelling Neuro/Psych: alert, normal mood/affect, oriented x 3, other (Decreased strength in proximal muscles as well as distal comma antigravity strength in the right shoulder but not on the left.) ICD10 Worksheet Patient Problems: Problems Problem Status Onset Atrial fibrillation Acute 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
--- NOTE | 2017-12-11 12:43 | SOAPPROG ---
SOAP Progress Note Assessment/Plan: Assessment: Psychiatry Follow-up of anxiety/insomnia. Late entry. Patient seen and evaluated on 12/09/17, with family present, also consulted with Dr. Yu after review of medications and initial psychiatric consultation dated 12/05/17. Pt reports slept well last night, awakened once but able to return to sleep without difficulty and slept until 7am. Feels good and well-rested this AM. Denied any anxiety. Wants to continue on current meds as Rxd. Feels addition of MSO4 last pm helped b/c pain was contributing to insomnia. Didn't realize she was on Remeron 15mg, which had been continued through the weekend. Provided with education about this medication and both patient and family felt it was reasonable to continue on this medication for now. Patient also feels scheduled low-dose Valium 2.5mg qhs helpful, prefers to Ambien. States she has not used any prn Ativan in a couple of days. This had actually been discontinued, and she has Valium 1mg bid prn available for anxiety. Denied feeling depressed, no SI, no psychosis. Recommendations: -continue Diazepam 2.5mg qhs, with 1mg bid prn for anxiety/sleep and this is also likely helping with d/c of Ambien 10mg hs -mirtazapine 15mg qhs was not d/cd over weekend, but has not been problematic for patient, she would like to continue on it for now since has sleep and appetite benefits. not reporting any depression, and so if pt continues to improve with consistent sleep and appetite, could decrease to 7.5mg hs then d/c or just d/c. -continue with good sleep hygiene, avoiding unnecessary waking in middle of night (ie/avoid waking to check VS if not clinically necessary), and continue pain mgmt which has helped sleep. -psychiatry will continue to follow as indicated/needed. thank you for consulting behavioral health. 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
[2017-12-11] MEDS: DIAZEPAM 2 MG TAB PO SCH (21:31)
[2017-12-11] MEDS: PATCH REMOVAL 1 EA PATCH TD SCH (21:31)
[2017-12-11] MEDS: MIRTAZAPINE 15 MG ODTAB PO SCH (21:31)
[2017-12-11] MEDS: morphINE SR 15 MG TAB PO SCH (21:31)
[2017-12-11] MEDS: PETROLAT,WHT/MIN OIL/SOD CHL 3.5 GM OPHT.OINT EACHEYE SCH (21:32)
[2017-12-12] MEDS: oxyCODONE IR 5 MG TAB PO PRN ×7 (00:20→23:12)
[2017-12-12] MEDS: PSYLLIUM METAMUCIL 1 PKT PO SCH (06:30)
[2017-12-12] MEDS: PANTOPRAZOLE SODIUM 40 MG TAB PO SCH (06:30)
[2017-12-12] MEDS: RIVAROXABAN 10 MG TAB PO SCH (08:47)
[2017-12-12] MEDS: CARVEDILOL 6.25 MG TAB PO SCH ×2 (08:47→18:31)
[2017-12-12] MEDS: LIDOCAINE 5% 1 EA PATCH TD SCH (08:55)
[2017-12-12] MEDS: GABAPENTIN 300 MG CAP PO SCH ×3 (08:57→20:50)
[2017-12-12] MEDS: AMIODARONE HCL 200 MG TAB PO SCH ×2 (08:57→20:50)
--- NOTE | 2017-12-12 14:44 | SOAPPROG ---
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 Had respiratory failure but did not need intubation. Has profound lower > upper extremity weakness. * Debility, status post Guillain-[place] syndrome. * Initial FIM 47 on 12/08/2017. Able to sit on edge of bed up to 10 min with 2 assist. Therapy staff noting small gains. Minimal assist for upper body dressing, maximal assist for lower body. * PT and OT to optimize mobility and functional status with goal of discharge home and ambulation if possible. * Dysphagia. * Diet texture has been downgraded to dysphagia 1 as of : Back to dysphagia 2 on 12/09/2016. * CN 7 neuropathy, with left facial weakness. * Assessment and treatment per Speech and Language Pathology. * Monocular goggle at night as she is unable to maintain closure of the left eye. She does not like the ophthalmic ointment; prefers eyedrops. Will d/c ophthalmic ointment. Monitor for eye irritation. * Blurred vision, bilateral. * No afferent pupillary defect argues against any optic nerve involvement. Brief literature review revealed very rare cases of optic neuritis with Guillain -[place] syndrome. * Improved after discontinuation of ciprofloxacin ointment 12/09/2017. Continue to monitor. * Neuropathic pain, sciatic pain. * Gabapentin increased from 300 mg p.o. three times daily to 600 mg three times daily on 12/04/2017. Increased further to 900 mg TID n 12/05/2017. * Discontinue [place] as acetaminophen limits dosing. Initiate oxycodone 5-10 mg q.3 hours p.r.n. starting 12/05/2017. * Lidocaine patch did not provides some benefit. * Better pain relief and better sleep with long-acting morphine 15 mg at HS starting 12/08/2017. * Trial of acupuncture, ordered 12/12/2018. * Cardiomyopathy and pulmonary hypertension. She has a low ejection fraction of 40% to 45%, pulmonary hypertension, and and grade 2 diastolic dysfunction. * BNP markedly elevated 12/05/2017; improved after 1 dose of furosemide on 2017. * Also with hyponatremia, resolved. * Discontinued furosemide at 20 mg p.o. q.day and potassium chloride at 10 mEq q.day 12/09/2017. Continue daily weight. * Continue losartan and carvedilol. * BNP much improved 12/09/2017, from greater than 10,000 to 6180. Recheck . * Monitor for signs and symptoms of congestive heart failure with furosemide discontinued. * Hyponatremia. * Resolved on labs 12/12/2018. * Unclear whether due to CHF or contribution of SIADH. 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 * Intake has been too low to institute a meaningful fluid restriction. Anxiety related to a sense of breathlessness. Treatment is complicated as she was previously taking diazepam. * Poor response to SSRI in the past. * Initiated mirtazapine 12/05/2017. * Appreciate assistance of Psychiatry. She has had chronic diazepam use. At their recommendation have initiated diazepam 2.5 mg at bedtime and 1 mg during the day p.r.n.. * Bowel status with ileus, which resolved. * Has had loose stools, C diff negative. * Has had frequent bowel movements with incontinence. Laxatives changed to p.r.n. on 12/08/2017. * Hypertension. Continue carvedilol and losartan. Monitor blood pressures and adjust as needed. * Check orthostatics supine and seated 12/09/2017. * Atrial fibrillation. * No tachyarrythmia on exam. * Continue amiodarone, carvedilol, and rivaroxaban. * Followup with Cardiology for a 30-day monitor and for a repeat echocardiogram in 2-3 months. * Urinary retention, thought to be a consequence of Guillain-Cand[place] syndrome. * Will not remove Solis catheter immediately. * Initiate rehabilitation bladder program and plan to remove Solis when her neurologic status otherwise improving. * History of migraine headaches. Continue the butalbital/acetaminophen/ caffeine combination PRN. Advised to not use during hours of sleep. * Insomnia. * Trazodone did not help. * Improved with mirtazapine. * History of gastroesophageal reflux disorder. Will continue proton pump inhibitor. Expect 4-6 weeks to recover sufficient function for discharge home with her . Unclear at present whether she can benefit from inpatient rehabilitation in her current condition; consider discharge to SNF until she has improved function. Discussed with neurologist Dr. Mccall, 12/08/2017. Efficacy of IVIG can take 10 -20 days. Wait 3 4 weeks to assess for failure. However if she declines and is unable to take any nutrition or if she has respiratory decline would intervene sooner. His choice would be plasma exchange rather than repeat IVIG. Will continue therapies and continue to assess on inpatient rehabilitation for several more days. Followup. The patient is to follow up with [facility], Dr. Gill, after discharge and with Cardiology in 2-3 months. 12/12/17 14:33 Subjective: Requests acupuncture to treat pain. Hopes that will help the tingling sensation in her feet. Otherwise pain is adequately controlled though she needed several doses of oxycodone through the night on top of her 15 mg of long-acting morphine. She notes improvement in her use of her upper extremities but reports fatigue after transfer by [facility]. Objective: Vital Signs Temp Pulse Resp BP Pulse Ox 37.0 C 79 16 131/59 H 93 12/12/17 06:03 12/12/17 08:47 12/12/17 06:03 12/12/17 08:47 12/12/17 06:03 Laboratory Results 12/08/17 06:30 12/12/17 06:20 12/11/17 12/12/17 12/13/17 05:59 05:59 05:59 Intake Total 550 300 300 Output Total 1250 1350 100 Balance -700 -1050 200 Physical Exam - Physical Exam General Appearance: WD/WN, alert, no apparent distress Respiratory: normal breath sounds, decreased breath sounds (Bilateral lower lobes), No crackles, No rhonchi, No wheezing Cardiac/Chest: regular rate, rhythm, No edema, No diastolic murmur, No systolic murmur Skin: normal color, warm/dry Neuro/Psych: alert, normal mood/affect, oriented x 3, motor weakness (Able to use arms to comb her own hair. Maximal assist to arise to seated from supine for lung exam. Has meant bilaterally in her lower legs.) ICD10 Worksheet Patient Problems: Problems Problem Status Onset Atrial fibrillation Acute Guillain-Candor syndrome Acute Generalized anxiety disorder Chronic Insomnia Chronic Sedative dependence with current use Chronic
[2017-12-12] MEDS: DIAZEPAM 2 MG TAB PO SCH (20:50)
[2017-12-12] MEDS: MIRTAZAPINE 15 MG ODTAB PO SCH (20:50)
[2017-12-12] MEDS: morphINE SR 15 MG TAB PO SCH (20:51)
[2017-12-12] MEDS: PATCH REMOVAL 1 EA PATCH TD SCH (20:51)
[2017-12-12] MEDS: PETROLAT,WHT/MIN OIL/SOD CHL 3.5 GM OPHT.OINT EACHEYE SCH (20:52)
[2017-12-13] MEDS: oxyCODONE IR 5 MG TAB PO PRN ×5 (04:11→20:04)
[2017-12-13] MEDS: PANTOPRAZOLE SODIUM 40 MG TAB PO SCH (05:14)
[2017-12-13] MEDS: PSYLLIUM METAMUCIL 1 PKT PO SCH (05:14)
[2017-12-13] MEDS: LIDOCAINE 5% 1 EA PATCH TD SCH (08:15)
[2017-12-13] MEDS: RIVAROXABAN 10 MG TAB PO SCH (08:16)
[2017-12-13] MEDS: GABAPENTIN 300 MG CAP PO SCH ×3 (08:17→21:25)
[2017-12-13] MEDS: AMIODARONE HCL 200 MG TAB PO SCH ×2 (08:17→21:25)
[2017-12-13] MEDS: CARVEDILOL 6.25 MG TAB PO SCH ×2 (08:19→17:26)
[2017-12-13] MEDS: TEARS/DEXTRAN 70/HYPROMELLOSE 15 ML OPHT.BTL EACHEYE PRN ×3 (08:25→21:26)
[2017-12-13] MEDS: ACETAMINOPHEN 325 MG TAB PO PRN (10:02)
--- NOTE | 2017-12-13 14:20 | SOAPPROG ---
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 Had respiratory failure but did not need intubation. Has profound lower > upper extremity weakness. * Debility, status post Guillain-Milan syndrome. * Initial FIM 47 on 12/08/2017. Able to sit on edge of bed up to 10 min with 2 assist. Therapy staff noting small gains. Minimal assist for upper body dressing, maximal assist for lower body. * PT and OT to optimize mobility and functional status with goal of discharge home and ambulation if possible. * Dysphagia. * Diet texture has been downgraded to dysphagia 1 as of : Back to dysphagia 2 on 12/09/2016. * CN 7 neuropathy, with left facial weakness. * Assessment and treatment per Speech and Language Pathology. * Monocular goggle at night as she is unable to maintain closure of the left eye. She does not like the ophthalmic ointment; prefers eyedrops. Will d/c ophthalmic ointment. Monitor for eye irritation. * Blurred vision, bilateral. * No afferent pupillary defect argues against any optic nerve involvement. Brief literature review revealed very rare cases of optic neuritis with Guillain -Milan syndrome. * Improved after discontinuation of ciprofloxacin ointment 12/09/2017. Continue to monitor. * Neuropathic pain, sciatic pain. * Gabapentin increased from 300 mg p.o. three times daily to 600 mg three times daily on 12/04/2017. Increased further to 900 mg TID n 12/05/2017. * Discontinue [place] as acetaminophen limits dosing. Initiate oxycodone 5-10 mg q.3 hours p.r.n. starting 12/05/2017. * Lidocaine patch did not provides some benefit. * Better pain relief and better sleep with long-acting morphine 15 mg at HS starting 12/08/2017. * Trial of acupuncture, ordered 12/12/2018. * Cardiomyopathy and pulmonary hypertension. She has a low ejection fraction of 40% to 45%, pulmonary hypertension, and and grade 2 diastolic dysfunction. * BNP markedly elevated 12/05/2017; improved after 1 dose of furosemide on 2017. * Also with hyponatremia, resolved. * Discontinued furosemide at 20 mg p.o. q.day and potassium chloride at 10 mEq q.day 12/09/2017. Continue daily weight. * Continue losartan and carvedilol. * BNP much improved 12/09/2017, from greater than 10,000 to 6180. Recheck . * Monitor for signs and symptoms of congestive heart failure with furosemide discontinued. * Hyponatremia. * Resolved on labs 12/12/2018. * Unclear whether due to CHF or contribution of SIADH. 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 * Intake has been too low to institute a meaningful fluid restriction. Anxiety related to a sense of breathlessness. Treatment is complicated as she was previously taking diazepam. * Poor response to SSRI in the past. * Initiated mirtazapine 12/05/2017. * Appreciate assistance of Psychiatry. She has had chronic diazepam use. At their recommendation have initiated diazepam 2.5 mg at bedtime and 1 mg during the day p.r.n.. * Bowel status with ileus, which resolved. * Has had loose stools, C diff negative. * Has had frequent bowel movements with incontinence. Laxatives changed to p.r.n. on 12/08/2017. * Hypertension. Continue carvedilol and losartan. Monitor blood pressures and adjust as needed. * Check orthostatics supine and seated 12/09/2017. * Atrial fibrillation. * No tachyarrythmia on exam. * Continue amiodarone, carvedilol, and rivaroxaban. * Followup with Cardiology for a 30-day monitor and for a repeat echocardiogram in 2-3 months. * Urinary retention, thought to be a consequence of Guillain-Milan syndrome. * Will not remove Solis catheter immediately. * Initiate rehabilitation bladder program and plan to remove Solis when her neurologic status otherwise improving. * History of migraine headaches. Continue the butalbital/acetaminophen/ caffeine combination PRN. Advised to not use during hours of sleep. * Insomnia. * Trazodone did not help. * Improved with mirtazapine. * History of gastroesophageal reflux disorder. Will continue proton pump inhibitor. Will continue therapies and continue to assess on inpatient rehabilitation for several more days. Followup. The patient is to follow up with [facility], Dr. Gill, after discharge and with Cardiology in 2-3 months. Plan: 12/13/17 14:19 Subjective: getting stronger especially over last 2 days. pain managable. eating ok. Bp dropping some at night after coreg given but asymptomatic Objective: Vital Signs Temp Pulse Resp BP Pulse Ox 37.2 C 74 18 135/68 H 92 12/13/17 08:00 12/13/17 08:19 12/13/17 08:00 12/13/17 08:19 12/13/17 08:00 Laboratory Results 12/08/17 06:30 12/12/17 06:20 12/12/17 12/13/17 12/14/17 05:59 05:59 05:59 Intake Total 300 660 358 Output Total 1350 1660 Balance -1050 -1000 358 Physical Exam - Physical Exam General Appearance: WD/WN, alert, no apparent distress Respiratory: lungs clear, normal breath sounds Cardiac/Chest: regular rate, rhythm, No edema Neuro/Psych: alert ICD10 Worksheet Patient Problems: Problems Problem Status Onset Atrial fibrillation Acute Guillain-Milan syndrome Acute Generalized anxiety disorder Chronic Insomnia Chronic Sedative dependence with current use Chronic
[2017-12-13] MEDS: PATCH REMOVAL 1 EA PATCH TD SCH (18:29)
--- NOTE | 2017-12-13 21:10 | SOAPPROG ---
SOAP Progress Note Assessment/Plan: 72 yo F with sciatica pain, on and off for 4 years. Currently pain level 9 out of 10, 10 being the worst. Better with pressure. Unable to lift left arm/ shoulder. PT did fascial movement taping aka rock tape around deltoid area. Lower limbs completely weak, can not walk or feel sensation fully. Left eye not able to close completely, constant lacrimation from both eyes but left eye is worse. Has loose stools/diarrhea, was constipated before. Feels extremely cold but to the touch she is warm. Unable to sleep but managed by medications. Extremely thirsty and dry mouth, due to medications. Lastly urinary retention, maybe do to the Guillain- [place] syndrome. Tongue is purple/red, midline cracks. DX: Yin fire. TX: Nourish yin, drain fire. Treatment: Body Acupuncture: Bilateral GB30, 29 Scalp acupuncture: Lower limbs, hip, shoulder, head/face, abdomen Burns retained for one hour and 30 minutes. Patient was able to lift left shoulder completely up without pain! Patient pain level for both sides of glute due to sciatica was reduced to 1/2 out 10(10 being the worst pain). Patient was able to have strong sensation on lower limbs , can feel touch and slight movement in legs. 12/13/17 20:34 12/13/17 21:10 Objective: Vital Signs Temp Pulse Resp BP Pulse Ox 37.2 C 73 18 138/78 H 92 12/13/17 08:00 12/13/17 17:26 12/13/17 08:00 12/13/17 17:26 12/13/17 08:00 Laboratory Results 12/08/17 06:30 12/12/17 06:20 12/12/17 12/13/17 12/14/17 05:59 05:59 05:59 Intake Total 883 925 5403 Output Total 7430 1660 1650 Balance -1050 -1000 -192 ICD10 Worksheet Patient Problems: Problems Problem Status Onset Atrial fibrillation Acute Guillain-[place] syndrome Acute Generalized anxiety disorder Chronic Insomnia Chronic Sedative dependence with current use Chronic
[2017-12-13] MEDS: DIAZEPAM 2 MG TAB PO SCH (21:25)
[2017-12-13] MEDS: MIRTAZAPINE 15 MG ODTAB PO SCH (21:25)
[2017-12-13] MEDS: morphINE SR 15 MG TAB PO SCH (21:25)
[2017-12-13] MEDS: PETROLAT,WHT/MIN OIL/SOD CHL 3.5 GM OPHT.OINT EACHEYE SCH (22:00)
[2017-12-13] MEDS ORDERED: PATCH REMOVAL 1 EA PATCH TD PRN (22:40)
[2017-12-13] MEDS ORDERED: LIDOCAINE 5% 1 EA PATCH TD PRN (22:40)
[2017-12-14] MEDS: TEARS/DEXTRAN 70/HYPROMELLOSE 15 ML OPHT.BTL EACHEYE PRN ×3 (00:42→20:18)
[2017-12-14] MEDS: oxyCODONE IR 5 MG TAB PO PRN ×5 (01:30→18:20)
[2017-12-14] MEDS: PSYLLIUM METAMUCIL 1 PKT PO SCH (05:19)
[2017-12-14] MEDS: PANTOPRAZOLE SODIUM 40 MG TAB PO SCH (05:19)
[2017-12-14] MEDS: LIDOCAINE 5% 1 EA PATCH TD SCH (08:41)
[2017-12-14] MEDS: ACETAMINOPHEN 325 MG TAB PO PRN ×3 (08:42→18:21)
[2017-12-14] MEDS: RIVAROXABAN 10 MG TAB PO SCH (08:42)
[2017-12-14] MEDS: GABAPENTIN 300 MG CAP PO SCH ×3 (08:43→20:16)
[2017-12-14] MEDS: AMIODARONE HCL 200 MG TAB PO SCH ×2 (08:43→20:16)
[2017-12-14] MEDS: CARVEDILOL 6.25 MG TAB PO SCH ×2 (08:44→17:45)
[2017-12-14] MEDS: BISACODYL 10 MG SUPP PR PRN (14:25)
[2017-12-14] MEDS: PHENYLEPHRINE/SHK LV/MO/PET,WH 1 APP/GM OINT PR PRN (18:01)
--- NOTE | 2017-12-14 19:49 | SOAPPROG ---
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 Had respiratory failure but did not need intubation. Has profound lower > upper extremity weakness. * Debility, status post Guillain-Veyo syndrome. * Initial FIM 47 on 12/08/2017. Able to sit on edge of bed up to 10 min with 2 assist. Therapy staff noting small gains. Minimal assist for upper body dressing, maximal assist for lower body. * PT and OT to optimize mobility and functional status with goal of discharge home and ambulation if possible. * Dysphagia. * Diet texture has been downgraded to dysphagia 1 as of : Back to dysphagia 2 on 12/09/2016. * CN 7 neuropathy, with left facial weakness. * Assessment and treatment per Speech and Language Pathology. * Monocular goggle at night as she is unable to maintain closure of the left eye. She does not like the ophthalmic ointment; prefers eyedrops. Will d/c ophthalmic ointment. Monitor for eye irritation. * Blurred vision, bilateral. * No afferent pupillary defect argues against any optic nerve involvement. Brief literature review revealed very rare cases of optic neuritis with Guillain -Veyo syndrome. * Improved after discontinuation of ciprofloxacin ointment 12/09/2017. Continue to monitor. * Neuropathic pain, sciatic pain. * Gabapentin increased from 300 mg p.o. three times daily to 600 mg three times daily on 12/04/2017. Increased further to 900 mg TID n 12/05/2017. * Discontinue [place] as acetaminophen limits dosing. Initiate oxycodone 5-10 mg q.3 hours p.r.n. starting 12/05/2017. * Lidocaine patch did not provides some benefit. * Better pain relief and better sleep with long-acting morphine 15 mg at HS starting 12/08/2017. * Trial of acupuncture, ordered 12/12/2018. * Cardiomyopathy and pulmonary hypertension. She has a low ejection fraction of 40% to 45%, pulmonary hypertension, and and grade 2 diastolic dysfunction. * BNP markedly elevated 12/05/2017; improved after 1 dose of furosemide on 2017. * Also with hyponatremia, resolved. * Discontinued furosemide at 20 mg p.o. q.day and potassium chloride at 10 mEq q.day 12/09/2017. Continue daily weight. * Continue losartan and carvedilol. * BNP much improved 12/09/2017, from greater than 10,000 to 6180. Recheck . * Monitor for signs and symptoms of congestive heart failure with furosemide discontinued. * Hyponatremia. * Resolved on labs 12/12/2018. * Unclear whether due to CHF or contribution of SIADH. 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 * Intake has been too low to institute a meaningful fluid restriction. Anxiety related to a sense of breathlessness. Treatment is complicated as she was previously taking diazepam. * Poor response to SSRI in the past. * Initiated mirtazapine 12/05/2017. * Appreciate assistance of Psychiatry. She has had chronic diazepam use. At their recommendation have initiated diazepam 2.5 mg at bedtime and 1 mg during the day p.r.n.. * Bowel status with ileus, which resolved. * Has had loose stools, C diff negative. * Has had frequent bowel movements with incontinence. Laxatives changed to p.r.n. on 12/08/2017. * Hypertension. Continue carvedilol and losartan. Monitor blood pressures and adjust as needed. * Check orthostatics supine and seated 12/09/2017. * Atrial fibrillation. * No tachyarrythmia on exam. * Continue amiodarone, carvedilol, and rivaroxaban. * Followup with Cardiology for a 30-day monitor and for a repeat echocardiogram in 2-3 months. * Urinary retention, thought to be a consequence of Guillain-Veyo syndrome. * Will not remove Solis catheter immediately. * Initiate rehabilitation bladder program and plan to remove Solis when her neurologic status otherwise improving. * History of migraine headaches. Continue the butalbital/acetaminophen/ caffeine combination PRN. Advised to not use during hours of sleep. * Insomnia. * Trazodone did not help. * Improved with mirtazapine. * History of gastroesophageal reflux disorder. Will continue proton pump inhibitor. Will continue therapies and continue to assess on inpatient rehabilitation for several more days. Followup. The patient is to follow up with [facility], Dr. Gill, after discharge and with Cardiology in 2-3 months. Plan: 12/13/17 14:19 Subjective: doing well. acupuncture helping Objective: Vital Signs Temp Pulse Resp BP Pulse Ox 36.7 C 71 16 124/68 H 93 12/14/17 17:57 12/14/17 17:57 12/14/17 17:57 12/14/17 17:57 12/14/17 17:57 Laboratory Results 12/08/17 06:30 12/12/17 06:20 12/13/17 12/14/17 12/15/17 05:59 05:59 05:59 Intake Total 660 2638 1340 Output Total 1660 2850 1800 Balance -1000 -212 -460 Physical Exam - Physical Exam General Appearance: WD/WN, alert, no apparent distress Respiratory: No respiratory distress Cardiac/Chest: regular rate, rhythm Neuro/Psych: alert, normal mood/affect, oriented x 3 ICD10 Worksheet Patient Problems: Problems Problem Status Onset Atrial fibrillation Acute Guillain-Veyo syndrome Acute Generalized anxiety disorder Chronic Insomnia Chronic Sedative dependence with current use Chronic
[2017-12-14] MEDS: MIRTAZAPINE 15 MG ODTAB PO SCH (20:16)
[2017-12-14] MEDS: morphINE SR 15 MG TAB PO SCH (20:16)
[2017-12-14] MEDS: DIAZEPAM 2 MG TAB PO SCH (20:17)
[2017-12-14] MEDS: PETROLAT,WHT/MIN OIL/SOD CHL 3.5 GM OPHT.OINT EACHEYE SCH (20:18)
[2017-12-15] MEDS: oxyCODONE IR 5 MG TAB PO PRN ×5 (00:36→22:27)
[2017-12-15] MEDS: PSYLLIUM METAMUCIL 1 PKT PO SCH (06:00)
[2017-12-15] MEDS: PANTOPRAZOLE SODIUM 40 MG TAB PO SCH (06:12)
[2017-12-15] MEDS: ACETAMINOPHEN 325 MG TAB PO PRN ×3 (08:21→22:28)
[2017-12-15] MEDS: LIDOCAINE 5% 1 EA PATCH TD SCH (08:22)
[2017-12-15] MEDS: GABAPENTIN 300 MG CAP PO SCH ×3 (08:22→20:36)
[2017-12-15] MEDS: AMIODARONE HCL 200 MG TAB PO SCH ×2 (08:23→20:36)
[2017-12-15] MEDS: CARVEDILOL 6.25 MG TAB PO SCH ×2 (08:23→18:19)
[2017-12-15] MEDS: RIVAROXABAN 10 MG TAB PO SCH (08:23)
--- NOTE | 2017-12-15 12:51 | SOAPPROG ---
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 Had respiratory failure but did not need intubation. Has profound lower > upper extremity weakness. * Debility, status post Guillain-Chester syndrome. * Initial FIM 46 on 12/08/2017, improved to 53 as of 12/15/2017. Continues to require max to total assist for bed mobility, 2 person max assist for sliding board transfer. Transfers by [facility] for nursing. Upper body dressing with minimal to moderate assistance, lower body dressing with maximal assistance, toileting with total assistance. Able to feed herself but fatigues. * Continue PT and OT to optimize mobility and functional status with goal of discharge home and ambulation if possible. * Dysphagia. * Diet texture has been downgraded to dysphagia 1 as of : Back to dysphagia 2 on 12/09/2016. Has oropharyngeal weakness. * Continue [employer]. * CN 7 neuropathy, with left facial weakness. * Assessment and treatment per Speech and Language Pathology. * Monocular goggle at night as she is unable to maintain closure of the left eye. She does not like the ophthalmic ointment; prefers eyedrops. Will d/c ophthalmic ointment. Monitor for eye irritation. * Does not yet have sufficient nerve function to respond to electronic stimulation of muscles. * Neuropathic pain, sciatic pain. * Gabapentin increased from 300 mg p.o. three times daily to 600 mg three times daily on 12/04/2017. Increased further to 900 mg TID n 12/05/2017. She does not want for titration of gabapentin. Discussed 12/15/2017. * Continue oxycodone 5-10 mg q.3 hours p.r.n. starting 12/05/2017. Add long- acting morphine 15 mg q.a.m. starting 12/15/2017. * Lidocaine patch provides some benefit. * Better pain relief and better sleep with long-acting morphine 15 mg at HS starting 12/08/2017. * Blurred vision, bilateral. * No afferent pupillary defect argues against any optic nerve involvement. Brief literature review revealed very rare cases of optic neuritis with Guillain -Chester syndrome. * Improved after discontinuation of ciprofloxacin ointment 12/09/2017. Continue to monitor. Chronic/stable conditions: * Cardiomyopathy and pulmonary hypertension. She has a low ejection fraction of 40% to 45%, pulmonary hypertension, and and grade 2 diastolic dysfunction. * BNP markedly elevated 12/05/2017; improved after 1 dose of furosemide on 2017. * Also with hyponatremia, resolved. * Discontinued furosemide at 20 mg p.o. q.day and potassium chloride at 10 mEq q.day 12/09/2017. Continue daily weight. * Continue losartan and carvedilol. * BNP much improved 12/09/2017, from greater than 10,000 to 6180. Recheck . * Monitor for signs and symptoms of congestive heart failure with furosemide discontinued. * Hyponatremia. * Resolved on labs 12/12/2018. * Unclear whether due to CHF or contribution of SIADH. 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 * Intake has been too low to institute a meaningful fluid restriction. Anxiety related to a sense of breathlessness. Treatment is complicated as she was previously taking diazepam. * Poor response to SSRI in the past. * Initiated mirtazapine 12/05/2017. * Appreciate assistance of Psychiatry. She has had chronic diazepam use. At their recommendation have initiated diazepam 2.5 mg at bedtime and 1 mg during the day p.r.n.. * Bowel status with ileus, which resolved. * Has had loose stools, C diff negative. * Has had frequent bowel movements with incontinence. Laxatives changed to p.r.n. on 12/08/2017. * Hypertension. * Adequate control with carvedilol and losartan. * Atrial fibrillation. * No tachyarrythmia on exam. * Continue amiodarone, carvedilol, and rivaroxaban. * Followup with Cardiology for a 30-day monitor and for a repeat echocardiogram in 2-3 months. * Urinary retention, thought to be a consequence of Guillain-Chester syndrome. * Will not remove Solis catheter immediately. * Initiate rehabilitation bladder program and plan to remove Solis when her neurologic status otherwise improving. * History of migraine headaches. Continue the butalbital/acetaminophen/ caffeine combination PRN. Advised to not use during hours of sleep. * Insomnia. * Trazodone did not help. * Improved with mirtazapine. * History of gastroesophageal reflux disorder. Will continue proton pump inhibitor. Attended staffing, 15 min. Discussed with case management, dietitian, nursing, PT, OT, A[employer] INSTRUCTOR. Making progress. Discharge plan is home family; has good family support. Expect 4-6 weeks rehabilitation stay. Discussed with neurologist Dr. Mccall, 12/08/2017. Efficacy of IVIG can take 10 -20 days. Wait 3 4 weeks to assess for failure. However if she declines and is unable to take any nutrition or if she has respiratory decline would intervene sooner. His choice would be plasma exchange rather than repeat IVIG. Followup. The patient is to follow up with [facility], Dr. Gill, after discharge and with Cardiology in 2-3 months. 12/15/17 12:43 Subjective: Continues with pain, across her back and sciatic type pain down her right leg more than her left leg. Has new tilt in space wheelchair which allows positioning for better comfort. Also has constant tingling in her lower legs. Bowels moving. No cough or dyspnea and no longer needing oxygen. Objective: Vital Signs Temp Pulse Resp BP Pulse Ox 36.6 C 75 18 128/69 H 94 12/15/17 06:27 12/15/17 08:23 12/15/17 06:27 12/15/17 08:23 12/15/17 06:27 Laboratory Results 12/08/17 06:30 12/12/17 06:20 12/14/17 12/15/17 12/16/17 05:59 05:59 05:59 Intake Total 2638 1990 320 Output Total 2850 2900 Balance -212 -910 320 Physical Exam - Physical Exam General Appearance: WD/WN, alert, no apparent distress Respiratory: No respiratory distress, No accessory muscle use Cardiac/Chest: No edema Skin: normal color, warm/dry Neuro/Psych: alert, normal mood/affect, oriented x 3, motor weakness (Able to move feet but unable to extend legs at knees.) ICD10 Worksheet Patient Problems: Problems Problem Status Onset Atrial fibrillation Acute Guillain-Chester syndrome Acute Generalized anxiety disorder Chronic Insomnia Chronic Sedative dependence with current use Chronic
[2017-12-15] MEDS: TEARS/DEXTRAN 70/HYPROMELLOSE 15 ML OPHT.BTL EACHEYE PRN ×2 (14:20→18:23)
[2017-12-15] MEDS: morphINE SR 15 MG TAB PO SCH (18:20)
[2017-12-15] MEDS: PATCH REMOVAL 1 EA PATCH TD SCH ×2 (19:54→23:43)
[2017-12-15] MEDS: DIAZEPAM 2 MG TAB PO SCH (20:36)
[2017-12-15] MEDS: MIRTAZAPINE 15 MG ODTAB PO SCH (20:37)
[2017-12-15] MEDS: PETROLAT,WHT/MIN OIL/SOD CHL 3.5 GM OPHT.OINT EACHEYE SCH (22:29)
[2017-12-16] MEDS: PANTOPRAZOLE SODIUM 40 MG TAB PO SCH (04:56)
[2017-12-16] MEDS: oxyCODONE IR 5 MG TAB PO PRN ×5 (04:56→23:13)
[2017-12-16] MEDS: PSYLLIUM METAMUCIL 1 PKT PO SCH (04:57)
[2017-12-16] MEDS: morphINE SR 15 MG TAB PO SCH ×2 (06:07→18:26)
[2017-12-16] MEDS: AMIODARONE HCL 200 MG TAB PO SCH ×2 (07:38→20:17)
[2017-12-16] MEDS: GABAPENTIN 300 MG CAP PO SCH ×3 (07:38→20:22)
[2017-12-16] MEDS: RIVAROXABAN 10 MG TAB PO SCH (07:38)
[2017-12-16] MEDS: TEARS/DEXTRAN 70/HYPROMELLOSE 15 ML OPHT.BTL EACHEYE PRN ×4 (07:39→20:33)
[2017-12-16] MEDS: LIDOCAINE 5% 1 EA PATCH TD SCH (07:39)
[2017-12-16] MEDS: CARVEDILOL 6.25 MG TAB PO SCH ×2 (07:43→18:37)
--- NOTE | 2017-12-16 08:39 | SOAPPROG ---
SOAP Progress Note Assessment/Plan: 72 yo F with Guillain-[place]to[place] syndrome, with onset of symptoms 11/13/2017, and 5 days of IVIG starting 11/25/2017. Had respiratory failure but did not need intubation. Has profound lower > upper extremity weakness. Today's update: Good participation, has not had any nausea, anxiety limited only to when she is using the Sadie lift. I health appears to be good and symptoms are improving. She is having progressive neurological recovery. Appreciate assistance from respiratory therapy. * Debility and impaired mobility and self-care, status post Guillain-Altoona syndrome. * Initial FIM 46 on 12/08/2017, improved to 53 as of 12/15/2017. Continues to require max to total assist for bed mobility, 2 person max assist for sliding board transfer. Transfers by [facility] for nursing. Upper body dressing with minimal to moderate assistance, lower body dressing with maximal assistance, toileting with total assistance. Able to feed herself but fatigues. * Continue PT and OT to optimize mobility and functional status with goal of discharge home and ambulation if possible. * Dysphagia. * Diet texture has been downgraded to dysphagia 1 as of : Back to dysphagia 2 on 12/09/2016. Has oropharyngeal weakness. * Continue [employer]. * CN 7 neuropathy, with left facial weakness. * Assessment and treatment per Speech and Language Pathology. * Monocular goggle at night as she is unable to maintain closure of the left eye. She does not like the ophthalmic ointment; prefers eyedrops. Will d/c ophthalmic ointment during day, continue at night. Monitor for eye irritation. * Does not yet have sufficient nerve function to respond to electronic stimulation of muscles. * Neuropathic pain, sciatic pain. * Gabapentin increased from 300 mg p.o. three times daily to 600 mg three times daily on 12/04/2017. Increased further to 900 mg TID n 12/05/2017. She does not want for titration of gabapentin. Discussed 12/15/2017. * Continue oxycodone 5-10 mg q.3 hours p.r.n. starting 12/05/2017. Added long- acting morphine 15 mg q.a.m. starting 12/15/2017. * Lidocaine patch provides some benefit. * Better pain relief and better sleep with long-acting morphine 15 mg at HS starting 12/08/2017. * Blurred vision, bilateral. Improving on the right, still blurry on the left * No afferent pupillary defect argues against any optic nerve involvement. Brief literature review revealed very rare cases of optic neuritis with Guillain -Altoona syndrome. * Improved after discontinuation of ciprofloxacin ointment 12/09/2017. Continue to monitor. Chronic/stable conditions: * Cardiomyopathy and pulmonary hypertension. She has a low ejection fraction of 40% to 45%, pulmonary hypertension, and and grade 2 diastolic dysfunction. * BNP markedly elevated 12/05/2017; improved after 1 dose of furosemide on 2017. * Also with hyponatremia, resolved. * Discontinued furosemide at 20 mg p.o. q.day and potassium chloride at 10 mEq q.day 12/09/2017. Continue daily weight. * Continue losartan and carvedilol. * BNP much improved 12/09/2017, from greater than 10,000 to 6180. Recheck . * Monitor for signs and symptoms of congestive heart failure with furosemide discontinued. * Hyponatremia. * Resolved on labs 12/12/2018. * Unclear whether due to CHF or contribution of SIADH. 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 * Intake has been too low to institute a meaningful fluid restriction. Anxiety related to a sense of breathlessness. Treatment is complicated as she was previously taking diazepam. * Poor response to SSRI in the past. * Initiated mirtazapine 12/05/2017. * Appreciate assistance of Psychiatry. She has had chronic diazepam use. At their recommendation have initiated diazepam 2.5 mg at bedtime and 1 mg during the day p.r.n.. * Bowel status with ileus, which resolved. * Has had loose stools, C diff negative. * Has had frequent bowel movements with incontinence. Laxatives changed to p.r.n. on 12/08/2017. * Hypertension. * Adequate control with carvedilol and losartan. * Atrial fibrillation. * No tachyarrythmia on exam. * Continue amiodarone, carvedilol, and rivaroxaban. * Followup with Cardiology for a 30-day monitor and for a repeat echocardiogram in 2-3 months. * Urinary retention, thought to be a consequence of Guillain-Altoona syndrome. * Will not remove Solis catheter immediately. * Initiate rehabilitation bladder program and plan to remove Solis when her neurologic status otherwise improving. * History of migraine headaches. Continue the butalbital/acetaminophen/ caffeine combination PRN. Advised to not use during hours of sleep. * Insomnia. * Trazodone did not help. * Improved with mirtazapine. * History of gastroesophageal reflux disorder. Will continue proton pump inhibitor. Continue promethazine for occasional nausea she experienced as patient on acute care Discharge plan is home family; has good family support. Expect 4-[address] Yu Discussed with neurologist Dr. Mccall, 12/08/2017. Efficacy of IVIG can take 10-20 days. Wait 3-4 weeks to assess for failure. However if she declines and is unable to take any nutrition or if she has respiratory decline would intervene sooner. His choice would be plasma exchange rather than repeat IVIG. Followup. The patient is to follow up with [facility], Dr. Gill, after discharge and with Cardiology in 2-3 months. 12/11/17 10:07 12/16/17 08:36 12/16/17 09:17 Subjective: Chief complaint: Neurological recovery new No acute events overnight. Patient continues to endorse increasing strength and sensation in her hands and feet. No new shortness of breath or chest pain, no new numbness, tingling, or weakness. Patient was evaluated by respiratory therapy and the patient has been following through with recommendations. No cough assist was recommended. Patient is appreciating the orange spent in her left eye at night, drops during the day. She endorses that she has a history of nausea and would prefer to leave the promethazine on her medication list. She feels therapy is going well and she is making progress. No new concerns. Objective: Vital Signs Temp Pulse Resp BP Pulse Ox 36.5 C 74 16 148/74 H 92 12/16/17 06:03 12/16/17 07:43 12/16/17 06:03 12/16/17 07:43 12/16/17 06:03 Laboratory Results 12/08/17 06:30 12/12/17 06:20 12/15/17 12/16/17 12/17/17 05:59 05:59 05:59 Intake Total 1989 1370 Output Total 2900 1200 Balance -910 170 Physical Exam - Physical Exam General Appearance: alert, no apparent distress Neck: No lymphadenopathy (R), No lymphadenopathy (L) Respiratory: No respiratory distress, No accessory muscle use Cardiac/Chest: normal peripheral pulses, regular rate, rhythm, No edema Peripheral Pulses: 2+: dorsalis-pedis (R), dorsalis-pedis (L) Skin: normal color, warm/dry, No cyanosis, No diaphoresis Extremities: No pedal edema, No swelling Neuro/Psych: alert, normal mood/affect, other (Weakness bilaterally in upper and lower limbs, she has greater than 3 at great toe extensors, however less than 3 on ankle dorsiflexors.) ICD10 Worksheet Patient Problems: Problems Problem Status Onset Atrial fibrillation Acute Guillain-Altoona syndrome Acute Generalized anxiety disorder Chronic Insomnia Chronic Sedative dependence with current use Chronic
[2017-12-16] MEDS: ACETAMINOPHEN 325 MG TAB PO PRN ×3 (10:30→23:12)
[2017-12-16] MEDS: BISACODYL 10 MG SUPP PR PRN (16:11)
[2017-12-16] MEDS: PHENYLEPHRINE/SHK LV/MO/PET,WH 1 APP/GM OINT PR PRN (18:27)
[2017-12-16] MEDS: MIRTAZAPINE 15 MG ODTAB PO SCH (20:17)
[2017-12-16] MEDS: DIAZEPAM 2 MG TAB PO SCH (20:17)
[2017-12-16] MEDS: PETROLAT,WHT/MIN OIL/SOD CHL 3.5 GM OPHT.OINT EACHEYE SCH (20:33)
[2017-12-16] MEDS: PATCH REMOVAL 1 EA PATCH TD SCH (21:49)
[2017-12-17] MEDS: oxyCODONE IR 5 MG TAB PO PRN ×5 (02:49→20:38)
[2017-12-17] MEDS: PSYLLIUM METAMUCIL 1 PKT PO SCH (05:11)
[2017-12-17] MEDS: PANTOPRAZOLE SODIUM 40 MG TAB PO SCH (06:05)
[2017-12-17] MEDS: morphINE SR 15 MG TAB PO SCH ×2 (06:05→18:12)
[2017-12-17] MEDS: RIVAROXABAN 10 MG TAB PO SCH (08:27)
[2017-12-17] MEDS: CARVEDILOL 6.25 MG TAB PO SCH ×2 (08:27→18:12)
[2017-12-17] MEDS: GABAPENTIN 300 MG CAP PO SCH ×3 (08:27→20:04)
[2017-12-17] MEDS: AMIODARONE HCL 200 MG TAB PO SCH ×2 (08:27→20:05)
[2017-12-17] MEDS: ACETAMINOPHEN 325 MG TAB PO PRN ×2 (08:29→16:22)
[2017-12-17] MEDS: LIDOCAINE 5% 1 EA PATCH TD SCH (10:44)
[2017-12-17] MEDS: TEARS/DEXTRAN 70/HYPROMELLOSE 15 ML OPHT.BTL EACHEYE PRN ×3 (10:44→18:18)
--- NOTE | 2017-12-17 12:36 | SOAPPROG ---
SOAP Progress Note Assessment/Plan: Assessment: 72 yo F with Guillain-[place] syndrome, with onset of symptoms 11/13/2017, and 5 days of IVIG starting 11/25/2017. Had respiratory failure but did not need intubation. Has profound lower > upper extremity weakness. * Debility, status post Guillain-[place] syndrome. * Initial FIM 46 on 12/08/2017, improved to 53 as of 12/15/2017. Continues to require max to total assist for bed mobility, 2 person max assist for sliding board transfer. Transfers by [facility] for nursing. Upper body dressing with minimal to moderate assistance, lower body dressing with maximal assistance, toileting with total assistance. Able to feed herself but fatigues. Can do grooming and hygiene from a seated position with only setup required. * Continue PT and OT to optimize mobility and functional status with goal of discharge home and ambulation if possible. * Dysphagia. * Diet texture has been downgraded to dysphagia 1 as of : Back to dysphagia 2 on 12/09/2016. Has oropharyngeal weakness. * Continue [employer]. * CN 7 neuropathy, with left facial weakness. * Assessment and treatment per Speech and Language Pathology. * Monocular goggle at night as she is unable to maintain closure of the left eye. She does not like the ophthalmic ointment; prefers eyedrops. Will d/c ophthalmic ointment. Monitor for eye irritation. * Does not yet have sufficient nerve function to respond to electronic stimulation of muscles. * Neuropathic pain, sciatic pain. * Gabapentin increased from 300 mg p.o. three times daily to 600 mg three times daily on 12/04/2017. Increased further to 900 mg TID n 12/05/2017. She does not want for titration of gabapentin. Discussed 12/15/2017. * Continue oxycodone 5-10 mg q.3 hours p.r.n. starting 12/05/2017. Add long- acting morphine 15 mg q.a.m. starting 12/15/2017. * Lidocaine patch provides some benefit. * Better pain relief and better sleep with long-acting morphine 15 mg at HS starting 12/08/2017. * Blurred vision, bilateral. * No afferent pupillary defect argues against any optic nerve involvement. Brief literature review revealed very rare cases of optic neuritis with Guillain -[place] syndrome. * Improved after discontinuation of ciprofloxacin ointment 12/09/2017. Continue to monitor. * Bowel status with ileus, which resolved. * Has had loose stools, C diff negative. * Had frequent bowel movements with incontinence. Laxatives changed to p.r.n. on 12/08/2017. * Resume scheduled polyethylene glycol 12/17/2017 for distention and discomfort. * Urinary retention, possible neurogenic bladder. * Discussed removing Solis 12/17/2017; she prefers to wait several days. Chronic/stable conditions: * Cardiomyopathy and pulmonary hypertension. She has a low ejection fraction of 40% to 45%, pulmonary hypertension, and and grade 2 diastolic dysfunction. * BNP markedly elevated 12/05/2017; improved after 1 dose of furosemide on 2017. * Also with hyponatremia, resolved. * Discontinued furosemide at 20 mg p.o. q.day and potassium chloride at 10 mEq q.day 12/09/2017. Continue daily weight. * Continue losartan and carvedilol. * BNP much improved 12/09/2017, from greater than 10,000 to 6180. Recheck . * Monitor for signs and symptoms of congestive heart failure with furosemide discontinued. * Hyponatremia. * Resolved on labs 12/12/2018. * Unclear whether due to CHF or contribution of SIADH. 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 * Intake has been too low to institute a meaningful fluid restriction. Anxiety related to a sense of breathlessness. Treatment is complicated as she was previously taking diazepam. * Poor response to SSRI in the past. * Initiated mirtazapine 12/05/2017. * Appreciate assistance of Psychiatry. She has had chronic diazepam use. At their recommendation have initiated diazepam 2.5 mg at bedtime and 1 mg during the day p.r.n.. * Hypertension. * Adequate control with carvedilol and losartan. * Atrial fibrillation. * No tachyarrythmia on exam. * Continue amiodarone, carvedilol, and rivaroxaban. * Followup with Cardiology for a 30-day monitor and for a repeat echocardiogram in 2-3 months. * Urinary retention, thought to be a consequence of Guillain-[place] syndrome. * Will not remove Solis catheter immediately. * Initiate rehabilitation bladder program and plan to remove Solis when her neurologic status otherwise improving. * History of migraine headaches. Continue the butalbital/acetaminophen/ caffeine combination PRN. Advised to not use during hours of sleep. * Insomnia. * Trazodone did not help. * Improved with mirtazapine. * History of gastroesophageal reflux disorder. Will continue proton pump inhibitor. * Discontinue PICC line today, 12/17/2017. Attended family conference, 30 min. Patient and daughter in attendance , other daughter participating by cell phone. Discussed with case management, dietitian, nursing, PT, OT, [employer]. Making progress. Has good family support. Discharge date set for 01/02/2018, home with family verses to [facility] facility depending on progress. Discussed with neurologist Dr. Mccall, 12/08/2017. Efficacy of IVIG can take 10 -20 days. Wait 3 4 weeks to assess for failure. However if she declines and is unable to take any nutrition or if she has respiratory decline would intervene sooner. His choice would be plasma exchange rather than repeat IVIG. Followup. The patient is to follow up with [facility], Dr. Gill, after discharge and with Cardiology in 2-3 months. 12/17/17 12:36 Subjective: No complaints. Pain is adequately controlled. Daughter has some concern about fatigue which seems to have increased with the initiation of long-acting morphine during the day. She has some increased abdominal distension and some lower abdominal discomfort. She finds the SCDs uncomfortable especially when she also has an ankle contracture boot; through the night the ankle contracts boot and the multiple his mood are placed on alternating legs. She is awakened every 2 hr to be turned but otherwise is sleeping well. Objective: Vital Signs Temp Pulse Resp BP Pulse Ox 36.7 C 76 18 132/76 H 91 L 12/17/17 08:00 12/17/17 08:27 12/17/17 08:00 12/17/17 08:27 12/17/17 08:00 Laboratory Results 12/08/17 06:30 12/12/17 06:20 12/16/17 12/17/17 12/18/17 05:59 05:59 05:59 Intake Total 1370 2280 118 Output Total 1200 1300 850 Balance 170 485 -202 - Time Spent With Patient Time Spent With Patient: Greater than 35 min floor time today, including more than 50% of time in coordination of care and counseling patient and family during family conference. Physical Exam - Physical Exam General Appearance: WD/WN, alert, no apparent distress Respiratory: No respiratory distress, No accessory muscle use Abdomen: normal bowel sounds, non-tender (Except mild tenderness bilateral lower abdomen), soft, distended (Mildly) Skin: normal color, warm/dry Neuro/Psych: alert, normal mood/affect, oriented x 3, motor weakness (Improving and upper extremities. Continues to have significant weakness in the lower extremities.) ICD10 Worksheet Patient Problems: Problems Problem Status Onset Atrial fibrillation Acute Guillain-[place] syndrome Acute Generalized anxiety disorder Chronic Insomnia Chronic Sedative dependence with current use Chronic
--- NOTE | 2017-12-17 12:56 | SOAPPROG ---
SOAP Progress Note Assessment/Plan: Assessment: 72 yo F with Guillain-[place] syndrome, with onset of symptoms 11/13/2017, and 5 days of IVIG starting 11/25/2017. Had respiratory failure but did not need intubation. Has profound lower > upper extremity weakness. * Debility, status post Guillain-[place] syndrome. * Initial FIM 46 on 12/08/2017, improved to 53 as of 12/15/2017. Continues to require max to total assist for bed mobility, 2 person max assist for sliding board transfer. Transfers by [facility] for nursing. Upper body dressing with minimal to moderate assistance, lower body dressing with maximal assistance, toileting with total assistance. Able to feed herself but fatigues. Can do grooming and hygiene from a seated position with only setup required. * Continue PT and OT to optimize mobility and functional status with goal of discharge home and ambulation if possible. * Dysphagia. * Diet texture has been downgraded to dysphagia 1 as of : Back to dysphagia 2 on 12/09/2016. Has oropharyngeal weakness. * Continue [employer]. * CN 7 neuropathy, with left facial weakness. * Assessment and treatment per Speech and Language Pathology. * Monocular goggle at night as she is unable to maintain closure of the left eye. She does not like the ophthalmic ointment; prefers eyedrops. Will d/c ophthalmic ointment. Monitor for eye irritation. * Does not yet have sufficient nerve function to respond to electronic stimulation of muscles. * Neuropathic pain, sciatic pain. * Gabapentin increased from 300 mg p.o. three times daily to 600 mg three times daily on 12/04/2017. Increased further to 900 mg TID n 12/05/2017. She does not want for titration of gabapentin. Discussed 12/15/2017. * Continue oxycodone 5-10 mg q.3 hours p.r.n. starting 12/05/2017. Add long- acting morphine 15 mg q.a.m. starting 12/15/2017. * Lidocaine patch provides some benefit. * Better pain relief and better sleep with long-acting morphine 15 mg at HS starting 12/08/2017. * Blurred vision, bilateral. * No afferent pupillary defect argues against any optic nerve involvement. Brief literature review revealed very rare cases of optic neuritis with Guillain -Rochester syndrome. * Improved after discontinuation of ciprofloxacin ointment 12/09/2017. Continue to monitor. * Bowel status with ileus, which resolved. * Has had loose stools, C diff negative. * Had frequent bowel movements with incontinence. Laxatives changed to p.r.n. on 12/08/2017. * Resume scheduled polyethylene glycol 12/17/2017 for distention and discomfort. * Urinary retention, possible neurogenic bladder. * Discussed removing Solis 12/17/2017; she prefers to wait several days. Chronic/stable conditions: * Cardiomyopathy and pulmonary hypertension. She has a low ejection fraction of 40% to 45%, pulmonary hypertension, and and grade 2 diastolic dysfunction. * BNP markedly elevated 12/05/2017; improved after 1 dose of furosemide on 2017. * Also with hyponatremia, resolved. * Discontinued furosemide at 20 mg p.o. q.day and potassium chloride at 10 mEq q.day 12/09/2017. Continue daily weight. * Continue losartan and carvedilol. * BNP much improved 12/09/2017, from greater than 10,000 to 6180. Recheck . * Monitor for signs and symptoms of congestive heart failure with furosemide discontinued. * Hyponatremia. * Resolved on labs 12/12/2018. * Unclear whether due to CHF or contribution of SIADH. 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 * Intake has been too low to institute a meaningful fluid restriction. Anxiety related to a sense of breathlessness. Treatment is complicated as she was previously taking diazepam. * Poor response to SSRI in the past. * Initiated mirtazapine 12/05/2017. * Appreciate assistance of Psychiatry. She has had chronic diazepam use. At their recommendation have initiated diazepam 2.5 mg at bedtime and 1 mg during the day p.r.n.. * Hypertension. * Adequate control with carvedilol and losartan. * Atrial fibrillation. * No tachyarrythmia on exam. * Continue amiodarone, carvedilol, and rivaroxaban. * Followup with Cardiology for a 30-day monitor and for a repeat echocardiogram in 2-3 months. 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 * Will not remove Solis catheter immediately. * Initiate rehabilitation bladder program and plan to remove Solis when her neurologic status otherwise improving. * History of migraine headaches. Continue the butalbital/acetaminophen/ caffeine combination PRN. Advised to not use during hours of sleep. * Insomnia. * Trazodone did not help. * Improved with mirtazapine. * History of gastroesophageal reflux disorder. Will continue proton pump inhibitor. * Discontinue PICC line today, 12/17/2017. Attended family conference, 30 min. Patient and daughter in attendance , other daughter participating by cell phone. Discussed with case management, dietitian, nursing, PT, OT, [employer]. Making progress. Has good family support. Discharge date set for 01/02/2018, home with family verses to halfway facility depending on progress. Discussed with neurologist Dr. Mccall, 12/08/2017. Efficacy of IVIG can take 10 -20 days. Wait 3 4 weeks to assess for failure. However if she declines and is unable to take any nutrition or if she has respiratory decline would intervene sooner. His choice would be plasma exchange rather than repeat IVIG. Followup. The patient is to follow up with [facility], Dr. Gill, after discharge and with Cardiology in 2-3 months. 12/17/17 12:36 Subjective: Right foot is leasing machine tender. No fevers or chills. Slept well on increased dose of trazodone last night however was awakened at midnight for dose of cephalexin. Continues to have positional vertigo; symptoms lasts a few seconds with position changes; does not interfere with therapy. No nausea or vomiting. Objective: Vital Signs Temp Pulse Resp BP Pulse Ox 36.7 C 76 18 132/76 H 91 L 12/17/17 08:00 12/17/17 08:27 12/17/17 08:00 12/17/17 08:27 12/17/17 08:00 Laboratory Results 12/08/17 06:30 12/12/17 06:20 12/16/17 12/17/17 12/18/17 05:59 05:59 05:59 Intake Total 1370 2280 118 Output Total 1200 1300 850 Balance 170 980 -732 Physical Exam - Physical Exam General Appearance: WD/WN, alert, no apparent distress Respiratory: No respiratory distress, No accessory muscle use Cardiac/Chest: edema (Trace to 1+ bilateral lower extremities) Skin: normal color, warm/dry Extremities: other (Right ankle and foot warm, no erythema, tender proximal lateral volar foot.) Neuro/Psych: alert, normal mood/affect, oriented x 3, motor weakness (Left upper and lower extremity) ICD10 Worksheet Patient Problems: Problems Problem Status Onset Atrial fibrillation Acute Guillain-[place] syndrome Acute Generalized anxiety disorder Chronic Insomnia Chronic Sedative dependence with current use Chronic
[2017-12-17] MEDS: POLYETHYLENE GLYCOL 3350 17 GM PKT PO PRN (18:17)
[2017-12-17] MEDS: DIAZEPAM 2 MG TAB PO SCH (20:05)
[2017-12-17] MEDS: MIRTAZAPINE 15 MG ODTAB PO SCH (20:05)
[2017-12-17] MEDS: PETROLAT,WHT/MIN OIL/SOD CHL 3.5 GM OPHT.OINT EACHEYE SCH (20:09)
[2017-12-17] MEDS: PATCH REMOVAL 1 EA PATCH TD SCH (21:41)
[2017-12-18] MEDS: oxyCODONE IR 5 MG TAB PO PRN ×7 (01:06→23:35)
[2017-12-18] MEDS: ACETAMINOPHEN 325 MG TAB PO PRN ×2 (04:11→16:05)
[2017-12-18] MEDS: PANTOPRAZOLE SODIUM 40 MG TAB PO SCH (05:37)
[2017-12-18] MEDS: morphINE SR 15 MG TAB PO SCH ×2 (05:37→18:14)
[2017-12-18] MEDS: PSYLLIUM METAMUCIL 1 PKT PO SCH (05:37)
[2017-12-18] MEDS: CARVEDILOL 6.25 MG TAB PO SCH ×2 (08:17→18:14)
[2017-12-18] MEDS: RIVAROXABAN 10 MG TAB PO SCH (08:17)
[2017-12-18] MEDS: GABAPENTIN 300 MG CAP PO SCH ×3 (08:17→21:26)
[2017-12-18] MEDS: AMIODARONE HCL 200 MG TAB PO SCH ×2 (08:17→21:26)
[2017-12-18] MEDS: POLYETHYLENE GLYCOL 3350 17 GM PKT PO PRN (08:18)
[2017-12-18] MEDS: TEARS/DEXTRAN 70/HYPROMELLOSE 15 ML OPHT.BTL EACHEYE PRN ×3 (08:18→15:58)
[2017-12-18] MEDS: LIDOCAINE 5% 1 EA PATCH TD SCH (08:18)
--- NOTE | 2017-12-18 08:49 | SOAPPROG ---
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 Had respiratory failure but did not need intubation. Has profound lower > upper extremity weakness. Today's update: Participating well in therapies, making slow but steady neurological recovery. I symptoms on the left are similar if not improving. Counseled her on adjustment of the boot for prevention of contractures. 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 * Initial FIM 46 on 12/08/2017, improved to 53 as of 12/15/2017. Continues to require max to total assist for bed mobility, 2 person max assist for sliding board transfer. Transfers by [facility] for nursing. Upper body dressing with minimal to moderate assistance, lower body dressing with maximal assistance, toileting with total assistance. Able to feed herself but fatigues. Can do grooming and hygiene from a seated position with only setup required. * Continue PT and OT to optimize mobility and functional status with goal of discharge home and ambulation if possible. * Dysphagia. * Diet texture has been downgraded to dysphagia 1 as of : Back to dysphagia 2 on 12/09/2016. Has oropharyngeal weakness. 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 * CN 7 neuropathy, with left facial weakness. * Assessment and treatment per Speech and Language Pathology. * Monocular goggle at night as she is unable to maintain closure of the left eye. She does not like the ophthalmic ointment; prefers eyedrops. Will d/c ophthalmic ointment. Monitor for eye irritation. * Does not yet have sufficient nerve function to respond to electronic stimulation of muscles. * Neuropathic pain, sciatic pain. * Gabapentin increased from 300 mg p.o. three times daily to 600 mg three times daily on 12/04/2017. Increased further to 900 mg TID n 12/05/2017. She does not want for titration of gabapentin. Discussed 12/15/2017. * Continue oxycodone 5-10 mg q.3 hours p.r.n. starting 12/05/2017. Add long- acting morphine 15 mg q.a.m. starting 12/15/2017. * Lidocaine patch provides some benefit. * Better pain relief and better sleep with long-acting morphine 15 mg at HS starting 12/08/2017. * Blurred vision, bilateral. * No afferent pupillary defect argues against any optic nerve involvement. Brief literature review revealed very rare cases of optic neuritis with Guillain -[place] syndrome. * Improved after discontinuation of ciprofloxacin ointment 12/09/2017. Continue to monitor. * Bowel status with ileus, which resolved. * Has had loose stools, C diff negative. * Had frequent bowel movements with incontinence. Laxatives changed to p.r.n. on 12/08/2017. * Resume scheduled polyethylene glycol 12/17/2017 for distention and discomfort. * Urinary retention, possible neurogenic bladder. * Discussed removing Solis 12/17/2017; she prefers to wait several days. Chronic/stable conditions: * Cardiomyopathy and pulmonary hypertension. She has a low ejection fraction of 40% to 45%, pulmonary hypertension, and and grade 2 diastolic dysfunction. * BNP markedly elevated 12/05/2017; improved after 1 dose of furosemide on 2017. * Also with hyponatremia, resolved. * Discontinued furosemide at 20 mg p.o. q.day and potassium chloride at 10 mEq q.day 12/09/2017. Continue daily weight. * Continue losartan and carvedilol. * BNP much improved 12/09/2017, from greater than 10,000 to 6180. Recheck . * Monitor for signs and symptoms of congestive heart failure with furosemide discontinued. * Hyponatremia. * Resolved on labs 12/12/2018. * Unclear whether due to CHF or contribution of SIADH. 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 * Intake has been too low to institute a meaningful fluid restriction. Anxiety related to a sense of breathlessness. Treatment is complicated as she was previously taking diazepam. * Poor response to SSRI in the past. * Initiated mirtazapine 12/05/2017. * Appreciate assistance of Psychiatry. She has had chronic diazepam use. At their recommendation have initiated diazepam 2.5 mg at bedtime and 1 mg during the day p.r.n.. * Hypertension. * Adequate control with carvedilol and losartan. * Atrial fibrillation. * No tachyarrythmia on exam. * Continue amiodarone, carvedilol, and rivaroxaban. * Followup with Cardiology for a 30-day monitor and for a repeat echocardiogram in 2-3 months. * Urinary retention, thought to be a consequence of Guillain-Glen [place] syndrome. * Will not remove Solis catheter immediately. * Initiate rehabilitation bladder program and plan to remove Solis when her neurologic status otherwise improving. * History of migraine headaches. Continue the butalbital/acetaminophen/ caffeine combination PRN. Advised to not use during hours of sleep. * Insomnia. * Trazodone did not help. * Improved with mirtazapine. * History of gastroesophageal reflux disorder. Will continue proton pump inhibitor. * Discontinue PICC line today, 12/17/2017. Making progress. Has good family support. Discharge date set for 01/02/2018, home with family verses to [facility] facility depending on progress. Dr. Yu Discussed with neurologist Dr. Mccall, 12/08/2017. Efficacy of IVIG can take 10-20 days. Wait 3 4 weeks to assess for failure. However if she declines and is unable to take any nutrition or if she has respiratory decline would intervene sooner. His choice would be plasma exchange rather than repeat IVIG. Followup. The patient is to follow up with [facility], Dr. Gill, after discharge and with Cardiology in 2-3 months. 12/11/17 10:07 12/16/17 08:36 12/16/17 09:17 12/18/17 08:45 Subjective: Chief complaint: Neurological progress No acute events overnight. Patient is participating well in therapies. Denies any new shortness of breath or chest pain, no new numbness, tingling, or weakness, also notes that she is getting improved sensation in her feet and hands and also improve strength in her ankle dorsiflexion and internal and external rotation. She is somewhat constipated today, requesting a suppository that is scheduled as needed. She had good effect with the last 1. She has no left eye pain, still has difficulty closing the completely and is using ointment at night. She had no other concerns or questions, she felt things are going well today, she had a bit of a rough day in therapy yesterday but felt better at the end of the day. Objective: Vital Signs Temp Pulse Resp BP Pulse Ox 36.8 C 67 18 112/60 91 L 12/18/17 07:41 12/18/17 08:17 12/18/17 07:41 12/18/17 08:17 12/18/17 07:41 Laboratory Results 12/08/17 06:30 12/12/17 06:20 12/17/17 12/18/17 12/19/17 05:59 05:59 05:59 Intake Total 7900 518 Output Total 7652 1270 Balance 980 -1232 Physical Exam - Physical Exam General Appearance: alert, no apparent distress Respiratory: normal breath sounds, No respiratory distress, No accessory muscle use Cardiac/Chest: normal peripheral pulses, regular rate, rhythm, No edema Abdomen: distended Skin: normal color, warm/dry, No cyanosis, No diaphoresis Extremities: other (No ankle plantar flexion contractures), No pedal edema, No swelling Neuro/Psych: alert, normal mood/affect, oriented x 3, other (Still has weakness of the bilateral lower limbs, less than 3 ankle dorsiflexion, 4/5 great toe extension on both sides.) ICD10 Worksheet Patient Problems: Problems Problem Status Onset Atrial fibrillation Acute Guillain-Glen [place] syndrome Acute Generalized anxiety disorder Chronic Insomnia Chronic Sedative dependence with current use Chronic
[2017-12-18] MEDS: BETHANECHOL 10 MG TAB PO SCH ×3 (15:58→21:32)
[2017-12-18] MEDS: PETROLAT,WHT/MIN OIL/SOD CHL 3.5 GM OPHT.OINT EACHEYE SCH (21:26)
[2017-12-18] MEDS: MIRTAZAPINE 15 MG ODTAB PO SCH (21:26)
[2017-12-18] MEDS: PATCH REMOVAL 1 EA PATCH TD SCH (21:27)
[2017-12-18] MEDS: DIAZEPAM 2 MG TAB PO SCH (21:27)
[2017-12-19] MEDS: oxyCODONE IR 5 MG TAB PO PRN ×6 (04:23→22:09)
[2017-12-19] MEDS: BETHANECHOL 10 MG TAB PO SCH ×3 (05:02→18:34)
[2017-12-19] MEDS: PSYLLIUM METAMUCIL 1 PKT PO SCH (05:02)
[2017-12-19] MEDS: morphINE SR 15 MG TAB PO SCH ×2 (05:02→18:47)
[2017-12-19] MEDS: PANTOPRAZOLE SODIUM 40 MG TAB PO SCH (05:02)
[2017-12-19] MEDS: TEARS/DEXTRAN 70/HYPROMELLOSE 15 ML OPHT.BTL EACHEYE PRN ×3 (08:09→17:05)
[2017-12-19] MEDS: ACETAMINOPHEN 325 MG TAB PO PRN ×2 (08:09→18:46)
[2017-12-19] MEDS: GABAPENTIN 300 MG CAP PO SCH ×3 (08:09→21:10)
[2017-12-19] MEDS: LIDOCAINE 5% 1 EA PATCH TD SCH (08:10)
[2017-12-19] MEDS: RIVAROXABAN 10 MG TAB PO SCH (08:10)
[2017-12-19] MEDS: AMIODARONE HCL 200 MG TAB PO SCH ×2 (08:10→21:10)
[2017-12-19] MEDS: POLYETHYLENE GLYCOL 3350 17 GM PKT PO PRN (08:10)
[2017-12-19] MEDS: CARVEDILOL 6.25 MG TAB PO SCH ×2 (08:10→18:51)
[2017-12-19 11:40] LABS: PLATELET COUNT 284 10^3/uL (150-400)
--- NOTE | 2017-12-19 12:20 | SOAPPROG ---
SOAP Progress Note Assessment/Plan: Assessment: 72 yo F with Guillain-[place] syndrome, with onset of symptoms 11/13/2017, and 5 days of IVIG starting 11/25/2017. Had respiratory failure but did not need intubation. Has profound lower > upper extremity weakness. * Debility, status post Guillain-[place] syndrome. * Initial FIM 46 on 12/08/2017, improved to 53 as of 12/15/2017. Continues to require max to total assist for bed mobility, 2 person max assist for sliding board transfer. Transfers by [facility] for nursing. Upper body dressing with minimal to moderate assistance, lower body dressing with maximal assistance, toileting with total assistance. Able to feed herself but fatigues. Can do grooming and hygiene from a seated position with only setup required. * Continue PT and OT to optimize mobility and functional status with goal of discharge home and ambulation if possible. * Dysphagia. * Diet texture has been downgraded to dysphagia 1 as of : Back to dysphagia 2 on 12/09/2016. Has oropharyngeal weakness. 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 * CN 7 neuropathy, with left facial weakness. * Assessment and treatment per Speech and Language Pathology. * Monocular goggle at night as she is unable to maintain closure of the left eye. Continue ophthalmic ointment at HS. Monitor for eye irritation. * Does not yet have sufficient nerve function to respond to electronic stimulation of muscles. * Neuropathic pain, sciatic pain. * Gabapentin increased from 300 mg p.o. three times daily to 600 mg three times daily on 12/04/2017. Increased further to 900 mg TID n 12/05/2017. She does not want for titration of gabapentin. Discussed 12/15/2017. * Continue oxycodone 5-10 mg q.3 hours p.r.n. starting 12/05/2017. Add long- acting morphine 15 mg q.a.m. starting 12/15/2017. * Lidocaine patch provides some benefit. * Better pain relief and better sleep with long-acting morphine 15 mg at HS starting 12/08/2017. * Urinary retention, possible neurogenic bladder. * Solis removed 12/18/2017 in urinalysis obtained due to hematuria in the morning. * Continues to have urinary retention and is requiring straight catheterization. * Increased bethanechol from 10 mg four times daily to 20 mg four times daily. If she continues to require straight catheterization by the end of today 2017, will replace Solis. UTI? * Lacks specific symptoms. More likely colonization. Await culture but will not plan to treat unless she has specific symptoms. * Blurred vision, bilateral. * No afferent pupillary defect argues against any optic nerve involvement. Brief literature review revealed very rare cases of optic neuritis with Guillain -[place] syndrome. * Improved after discontinuation of ciprofloxacin ointment 12/09/2017. Continue to monitor. * Bowel status with ileus, which resolved. * Has had loose stools, C diff negative. * Had frequent bowel movements with incontinence. Laxatives changed to p.r.n. on 12/08/2017. * Resume scheduled polyethylene glycol 12/17/2017 for distention and discomfort. Chronic/stable conditions: * Cardiomyopathy and pulmonary hypertension. She has a low ejection fraction of 40% to 45%, pulmonary hypertension, and and grade 2 diastolic dysfunction. * BNP markedly elevated 12/05/2017; improved after 1 dose of furosemide on 2017. * Also with hyponatremia, resolved. * Discontinued furosemide at 20 mg p.o. q.day and potassium chloride at 10 mEq q.day 12/09/2017. Continue daily weight. * Continue losartan and carvedilol. * BNP much improved 12/09/2017, from greater than 10,000 to 6180. Recheck . * Monitor for signs and symptoms of congestive heart failure with furosemide discontinued. * Hyponatremia. * Resolved on labs 12/12/2018. * Unclear whether due to CHF or contribution of SIADH. 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 * Intake has been too low to institute a meaningful fluid restriction. Anxiety related to a sense of breathlessness. Treatment is complicated as she was previously taking diazepam. * Poor response to SSRI in the past. * Initiated mirtazapine 12/05/2017. * Appreciate assistance of Psychiatry. She has had chronic diazepam use. At their recommendation have initiated diazepam 2.5 mg at bedtime and 1 mg during the day p.r.n.. * Hypertension. * Adequate control with carvedilol and losartan. * Atrial fibrillation. * No tachyarrythmia on exam. * Continue amiodarone, carvedilol, and rivaroxaban. * Followup with Cardiology for a 30-day monitor and for a repeat echocardiogram in 2-3 months. * Urinary retention, thought to be a consequence of Guillain-[place] syndrome. * Will not remove Solis catheter immediately. * Initiate rehabilitation bladder program and plan to remove Solis when her neurologic status otherwise improving. * History of migraine headaches. Continue the butalbital/acetaminophen/ caffeine combination PRN. Advised to not use during hours of sleep. * Insomnia. * Trazodone did not help. * Improved with mirtazapine. * History of gastroesophageal reflux disorder. Will continue proton pump inhibitor. * Discontinue PICC line today, 12/17/2017. Making progress. Has good family support. Discharge date set for 01/02/2018, [facility] on progress. Discussed with neurologist Dr. Mccall, 12/08/2017. Efficacy of IVIG can take 10 -20 days. Wait 3 4 weeks to assess for failure. However if she declines and is unable to take any nutrition or if she has respiratory decline would intervene sooner. His choice would be plasma exchange rather than repeat IVIG. Followup. The patient is to follow up with [facility], Dr. Gill, after discharge and with Cardiology in 2-3 months. Plan: 12/19/17 12:13 Subjective: Has left thoracic back pain. Not aware of dysuria. Had a mildly elevated temperature but has not experienced fevers or chills. Objective: Vital Signs Temp Pulse Resp BP Pulse Ox 37.2 C 64 16 122/64 H 91 L 12/19/17 08:00 12/19/17 08:10 12/19/17 08:00 12/19/17 08:10 12/19/17 08:00 Laboratory Results 12/19/17 11:00 12/12/17 06:20 12/18/17 12/19/17 12/20/17 05:59 05:59 05:59 Intake Total 518 386 220 Output Total 1750 3550 525 [facility]1232 -[id number] -305 Physical Exam - Physical Exam General Appearance: WD/WN, alert, no apparent distress Respiratory: normal breath sounds, No crackles, No rhonchi, No wheezing Cardiac/Chest: regular rate, rhythm, No edema, No diastolic murmur, No systolic murmur Abdomen: other (No flank tenderness) Skin: normal color, warm/dry Neuro/Psych: alert, normal mood/affect, oriented x 3, motor weakness ICD10 Worksheet Patient Problems: Problems Problem Status Onset Atrial fibrillation Acute Guillain-[place] syndrome Acute Generalized anxiety disorder Chronic Insomnia Chronic Sedative dependence with current use Chronic
[2017-12-19] MEDS: MIRTAZAPINE 15 MG ODTAB PO SCH (21:10)
[2017-12-19] MEDS: DIAZEPAM 2 MG TAB PO SCH (21:11)
[2017-12-19] MEDS: PATCH REMOVAL 1 EA PATCH TD SCH (21:11)
[2017-12-19] MEDS: PETROLAT,WHT/MIN OIL/SOD CHL 3.5 GM OPHT.OINT EACHEYE SCH (21:11)
[2017-12-20] MEDS: oxyCODONE IR 5 MG TAB PO PRN ×7 (01:15→22:11)
[2017-12-20] MEDS: PANTOPRAZOLE SODIUM 40 MG TAB PO SCH (05:55)
[2017-12-20] MEDS: morphINE SR 15 MG TAB PO SCH ×2 (05:55→18:06)
[2017-12-20] MEDS: PSYLLIUM METAMUCIL 1 PKT PO SCH (05:55)
[2017-12-20] MEDS: GABAPENTIN 300 MG CAP PO SCH ×3 (07:54→20:49)
[2017-12-20] MEDS: LIDOCAINE 5% 1 EA PATCH TD SCH (07:54)
[2017-12-20] MEDS: RIVAROXABAN 10 MG TAB PO SCH (07:55)
[2017-12-20] MEDS: CARVEDILOL 6.25 MG TAB PO SCH ×2 (07:55→18:03)
[2017-12-20] MEDS: TEARS/DEXTRAN 70/HYPROMELLOSE 15 ML OPHT.BTL EACHEYE PRN ×4 (07:58→21:11)
[2017-12-20] MEDS: AMIODARONE HCL 200 MG TAB PO SCH ×2 (07:59→20:50)
--- NOTE | 2017-12-20 14:13 | SOAPPROG ---
SOAP Progress Note Assessment/Plan: Assessment: 72 yo F with Guillain-[place] syndrome, with onset of symptoms 11/13/2017, and 5 days of IVIG starting 11/25/2017. Had respiratory failure but did not need intubation. Has profound lower > upper extremity weakness. * Debility, status post Guillain-[place] syndrome. * Initial FIM 46 on 12/08/2017, improved to 53 as of 12/15/2017. Continues to require max to total assist for bed mobility, 2 person max assist for sliding board transfer. Transfers by [facility] for nursing. Upper body dressing with minimal to moderate assistance, lower body dressing with maximal assistance, toileting with total assistance. Able to feed herself but fatigues. Can do grooming and hygiene from a seated position with only setup required. * Continue PT and OT to optimize mobility and functional status with goal of discharge home and ambulation if possible. * Dysphagia. * Diet texture dysphagia 2 on 12/09/2016. 2/2 oropharyngeal weakness. 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 * CN 7 neuropathy, with left facial weakness. * Assessment and treatment per Speech and Language Pathology. * Monocular goggle at night as she is unable to maintain closure of the left eye. Continue ophthalmic ointment at HS. Monitor for eye irritation. * Does not yet have sufficient nerve function to respond to electronic stimulation of muscles. * Neuropathic pain, sciatic pain. * Gabapentin increased from 300 mg p.o. three times daily to 600 mg three times daily on 12/04/2017. Increased further to 900 mg TID n 12/05/2017. She does not want for titration of gabapentin. Discussed 12/15/2017. * Continue oxycodone 5-10 mg q.3 hours p.r.n. starting 12/05/2017. Add long- acting morphine 15 mg q.a.m. starting 12/15/2017. * Lidocaine patch provides some benefit. * Better pain relief and better sleep with long-acting morphine 15 mg at HS starting 12/08/2017. * Urinary retention, possible neurogenic bladder. * Solis removed 12/18/2017 and then reinserted 12/19 2/2 retention. UTI? * Only symptom is day 3 of chills. 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 Will initiate treatment with Levoquin which covers GNR's, recheck when final ID and sensitivities avail * Blurred vision, bilateral. * No afferent pupillary defect argues against any optic nerve involvement. Brief literature review revealed very rare cases of optic neuritis with Guillain -[place] syndrome. * Improved after discontinuation of ciprofloxacin ointment 12/09/2017. Continue to monitor. * Bowel status with ileus, which resolved. * Has had loose stools, C diff negative. * Had frequent bowel movements with incontinence. Laxatives changed to p.r.n. on 12/08/2017. * Resume scheduled polyethylene glycol 12/17/2017 for distention and discomfort. Chronic/stable conditions: * Cardiomyopathy and pulmonary hypertension. She has a low ejection fraction of 40% to 45%, pulmonary hypertension, and and grade 2 diastolic dysfunction. * BNP markedly elevated 12/05/2017; improved after 1 dose of furosemide on 2017. * Also with hyponatremia, resolved. * Discontinued furosemide at 20 mg p.o. q.day and potassium chloride at 10 mEq q.day 12/09/2017. Continue daily weight. * Continue losartan and carvedilol. * BNP much improved 12/09/2017, from greater than 10,000 to 6180. Recheck . * Monitor for signs and symptoms of congestive heart failure with furosemide discontinued. * Hyponatremia. * Resolved on labs 12/12/2018. * Unclear whether due to CHF or contribution of SIADH. 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 * Intake has been too low to institute a meaningful fluid restriction. Anxiety related to a sense of breathlessness. Treatment is complicated as she was previously taking diazepam. * Poor response to SSRI in the past. * Initiated mirtazapine 12/05/2017. * Appreciate assistance of Psychiatry. She has had chronic diazepam use. At their recommendation have initiated diazepam 2.5 mg at bedtime and 1 mg during the day p.r.n.. * Hypertension. * Adequate control with carvedilol and losartan. * Atrial fibrillation. * No tachyarrythmia on exam. * Continue amiodarone, carvedilol, and rivaroxaban. * Followup with Cardiology for a 30-day monitor and for a repeat echocardiogram in 2-3 months. * Urinary retention, thought to be a consequence of Guillain-[place] syndrome. * Will re-trial removing Solis catheter at later date * Initiate rehabilitation bladder program and plan to remove Solis when her neurologic status otherwise improving. * History of migraine headaches. Continue the butalbital/acetaminophen/ caffeine combination PRN. Advised to not use during hours of sleep. * Insomnia. * Trazodone did not help. * Improved with mirtazapine. * History of gastroesophageal reflux disorder. Will continue proton pump inhibitor. * Discontinue PICC line 12/17/2017. Making progress. Has good family support. Discharge date set for 01/02/2018, home with family verses to group home facility depending on progress. Discussed with neurologist Dr. Mccall, 12/08/2017. Efficacy of IVIG can take 10 -20 days. Wait 3- 4 weeks to assess for failure. However if she declines and is unable to take any nutrition or if she has respiratory decline would intervene sooner. His choice would be plasma exchange rather than repeat IVIG. Followup. The patient is to follow up with [facility], Dr. Gill, after discharge and with Cardiology in 2-3 months. Plan: Cont Dr Oden rehab treatment plan. Initiate antibiotic for probable GNR UTI 12/20/17 14:13 12/20/17 14:40 Subjective: Comfortable, despite the chills Cant get warm Temp 98.8 O2 low at rest (high 80's) normalize with deep breathing or upright positioning No N/V No SOB/CP Objective: Vital Signs Temp Pulse Resp BP Pulse Ox 36.7 C 71 16 125/70 H 95 12/20/17 08:00 12/20/17 08:00 12/20/17 08:00 12/20/17 08:00 12/20/17 08:00 Microbiology 12/18/17 16:40 Urine Culture - Final Urine,Clean Catch Gram Neg Kam Lactose Displayer Laboratory Results 12/19/17 11:00 12/12/17 06:20 12/19/17 12/20/17 12/21/17 05:59 05:59 05:59 Intake Total 386 560 290 Output Total 2608 9563 300 [facility] -4 Physical Exam - Physical Exam General Appearance: alert, no apparent distress Neck: supple Respiratory: lungs clear Cardiac/Chest: regular rate, rhythm Abdomen: normal bowel sounds, soft Skin: normal color, warm/dry, No cyanosis, No decubitus (mild blanching errythema on sacrum, protected with occlusive dressing.) Extremities: No pedal edema, No calf tenderness Neuro/Psych: alert, normal mood/affect, oriented x 3, facial droop, motor weakness, other (No acute changes), No cognition abnormalities ICD10 Worksheet Patient Problems: Problems Problem Status Onset Atrial fibrillation Acute Guillain-[place] syndrome Acute Generalized anxiety disorder Chronic Insomnia Chronic Sedative dependence with current use Chronic
[2017-12-20] MEDS: PROMETHAZINE HCL 25 MG TAB PO PRN (18:05)
[2017-12-20] MEDS: MIRTAZAPINE 15 MG ODTAB PO SCH (20:49)
[2017-12-20] MEDS: PETROLAT,WHT/MIN OIL/SOD CHL 3.5 GM OPHT.OINT EACHEYE SCH (20:50)
[2017-12-20] MEDS: PATCH REMOVAL 1 EA PATCH TD SCH (20:50)
[2017-12-20] MEDS: DIAZEPAM 2 MG TAB PO SCH (20:50)
[2017-12-20] MEDS ORDERED: ONDANSETRON DISINTEGRATING 4 MG TAB PO ONE (23:15)
[2017-12-21] MEDS: PROMETHAZINE HCL 25 MG TAB PO PRN ×3 (00:21→19:38)
[2017-12-21] MEDS: oxyCODONE IR 5 MG TAB PO PRN ×7 (03:28→23:01)
[2017-12-21] MEDS: morphINE SR 15 MG TAB PO SCH ×2 (06:01→17:50)
[2017-12-21] MEDS: PANTOPRAZOLE SODIUM 40 MG TAB PO SCH (06:02)
[2017-12-21] MEDS: PSYLLIUM METAMUCIL 1 PKT PO SCH (06:02)
[2017-12-21] MEDS: LIDOCAINE 5% 1 EA PATCH TD SCH (09:11)
[2017-12-21] MEDS: GABAPENTIN 300 MG CAP PO SCH ×3 (09:12→21:01)
[2017-12-21] MEDS: AMIODARONE HCL 200 MG TAB PO SCH ×2 (09:12→21:01)
[2017-12-21] MEDS: RIVAROXABAN 10 MG TAB PO SCH (09:12)
[2017-12-21] MEDS: CARVEDILOL 6.25 MG TAB PO SCH ×2 (09:12→17:42)
[2017-12-21] MEDS: TEARS/DEXTRAN 70/HYPROMELLOSE 15 ML OPHT.BTL EACHEYE PRN ×3 (09:15→15:26)
--- NOTE | 2017-12-21 12:01 | SOAPPROG ---
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 Had respiratory failure but did not need intubation. Has profound lower > upper extremity weakness. Weekend update: Getting stronger daily. Mild dysuria associated with indwelling malhotra. Still with chills if not under the K-pad. * Debility, status post Guillain-Temple syndrome. * FIM 53 as of 12/15/2017. Continues to require max to total assist for bed mobility, 2 person max assist for sliding board transfer. Transfers by [facility] for nursing. Upper body dressing with minimal to moderate assistance, lower body dressing with maximal assistance, toileting with total assistance. Able to feed herself but fatigues. Can do grooming and hygiene from a seated position with only setup required. * Continue PT and OT to optimize mobility and functional status with goal of discharge home and ambulation if possible. * Dysphagia. * Diet texture dysphagia 2 on 12/09/2016. 2/2 oropharyngeal weakness. 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 * CN 7 neuropathy, with left facial weakness. * Assessment and treatment per Speech and Language Pathology. * Monocular goggle at night as she is unable to maintain closure of the left eye. Continue ophthalmic ointment at HS. Monitor for eye irritation. * Does not yet have sufficient nerve function to respond to electronic stimulation of muscles. * Neuropathic pain, sciatic pain. * Gabapentin increased from 300 mg p.o. three times daily to 600 mg three times daily on 12/04/2017. Increased further to 900 mg TID n 12/05/2017. She does not want for titration of gabapentin. Discussed 12/15/2017. * Continue oxycodone 5-10 mg q.3 hours p.r.n. starting 12/05/2017. Add long- acting morphine 15 mg q.a.m. starting 12/15/2017. * Lidocaine patch provides some benefit. * Better pain relief and better sleep with long-acting morphine 15 mg at HS starting 12/08/2017. * Urinary retention, possible neurogenic bladder. * Failed voiding trial (malhotra removed) 12/18/2017 and then reinserted 12/19 2/2 retention. UTI? * Only symptom is day 4 of chills. 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 Initiated treatment with Levoquin 750mg daily PO on 12/19/17, which covers GNR's, recheck when final ID and sensitivities avail. Formal ID and BERNADETTE requested Wednesday 12/20. Monitor for improvement of SX. * Blurred vision, bilateral. * No afferent pupillary defect argues against any optic nerve involvement. Brief literature review revealed very rare cases of optic neuritis with Guillain -Temple syndrome. * Improved after discontinuation of ciprofloxacin ointment 12/09/2017. Continue to monitor. * Bowel status with ileus, which resolved. * Has had loose stools, C diff negative. * Had frequent bowel movements with incontinence. Laxatives changed to p.r.n. on 12/08/2017. * Resume scheduled polyethylene glycol 12/17/2017 for distention and discomfort. Chronic/stable conditions: * Cardiomyopathy and pulmonary hypertension. She has a low ejection fraction of 40% to 45%, pulmonary hypertension, and and grade 2 diastolic dysfunction. * BNP markedly elevated 12/05/2017; improved after 1 dose of furosemide on 2017. * Also with hyponatremia, resolved. * Discontinued furosemide at 20 mg p.o. q.day and potassium chloride at 10 mEq q.day 12/09/2017. Continue daily weight. * Continue losartan and carvedilol. * BNP much improved 12/09/2017, from greater than 10,000 to 6180. Recheck . * Monitor for signs and symptoms of congestive heart failure with furosemide discontinued. * Hyponatremia. * Resolved on labs 12/12/2018. * Unclear whether due to CHF or contribution of SIADH. 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 * Intake has been too low to institute a meaningful fluid restriction. Anxiety related to a sense of breathlessness. Treatment is complicated as she was previously taking diazepam. * Poor response to SSRI in the past. * Initiated mirtazapine 12/05/2017. * Appreciate assistance of Psychiatry. She has had chronic diazepam use. At their recommendation have initiated diazepam 2.5 mg at bedtime and 1 mg during the day p.r.n.. * Hypertension. * Adequate control with carvedilol and losartan. * Atrial fibrillation. * No tachyarrythmia on exam. * Continue amiodarone, carvedilol, and rivaroxaban. * Followup with Cardiology for a 30-day monitor and for a repeat echocardiogram in 2-3 months. * Urinary retention, thought to be a consequence of Guillain-Temple syndrome. * Will re-trial removing Malhotra catheter at later date * Initiate rehabilitation bladder program and plan to remove Malhotra when her neurologic status otherwise improving. * History of migraine headaches. Continue the butalbital/acetaminophen/ caffeine combination PRN. Advised to not use during hours of sleep. * Insomnia. * Trazodone did not help. * Improved with mirtazapine. * History of gastroesophageal reflux disorder. Will continue proton pump inhibitor. * Discontinue PICC line 12/17/2017. Making progress. Has good family support. Discharge date set for 01/02/2018, home with family verses to intermediate facility depending on progress. Discussed with neurologist Dr. Mccall, 12/08/2017. Efficacy of IVIG can take 10 -20 days. Wait 3- 4 weeks to assess for failure. However if she declines and is unable to take any nutrition or if she has respiratory decline would intervene sooner. His choice would be plasma exchange rather than repeat IVIG. Followup. The patient is to follow up with [facility], Dr. Gill, after discharge and with Cardiology in 2-3 months. Plan: Cont Dr Yu's rehab treatment plan. Initiated antibiotic for probable GNR UTI 12/21/17 12:03 Subjective: Feeling overall better, tolerating the chills No F/SOB/CP/D/C Has some nausea associated with Levaquin. 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 Laboratory Results 12/19/17 11:00 12/12/17 06:20 12/20/17 12/21/17 12/22/17 05:59 05:59 05:59 Intake Total 560 290 175 Output Total 2127 4220 Balance -2014 175 Physical Exam - Physical Exam General Appearance: alert, no apparent distress Neck: supple Respiratory: normal breath sounds, decreased breath sounds (R base), No crackles , No rales, No rhonchi Cardiac/Chest: regular rate, rhythm Skin: normal color, warm/dry Extremities: No pedal edema, No calf tenderness Neuro/Psych: alert, normal mood/affect, oriented x 3, motor weakness (moving hand and feet better.), other (no gross changes) ICD10 Worksheet Patient Problems: Problems Problem Status Onset Atrial fibrillation Acute Guillain-Temple syndrome Acute Generalized anxiety disorder Chronic Insomnia Chronic Sedative dependence with current use Chronic
[2017-12-21] MEDS: BISACODYL 10 MG SUPP PR PRN (13:54)
[2017-12-21] MEDS: DIAZEPAM 2 MG TAB PO SCH (21:01)
[2017-12-21] MEDS: MIRTAZAPINE 15 MG ODTAB PO SCH (21:01)
[2017-12-21] MEDS: PETROLAT,WHT/MIN OIL/SOD CHL 3.5 GM OPHT.OINT EACHEYE SCH (21:22)
[2017-12-21] MEDS: PATCH REMOVAL 1 EA PATCH TD SCH (21:22)
[2017-12-22] MEDS: oxyCODONE IR 5 MG TAB PO PRN ×5 (02:15→20:25)
[2017-12-22] MEDS: PSYLLIUM METAMUCIL 1 PKT PO SCH (05:59)
[2017-12-22] MEDS: PANTOPRAZOLE SODIUM 40 MG TAB PO SCH (05:59)
[2017-12-22] MEDS: morphINE SR 15 MG TAB PO SCH ×2 (05:59→17:58)
[2017-12-22] MEDS: CARVEDILOL 6.25 MG TAB PO SCH ×2 (08:33→17:57)
[2017-12-22] MEDS: GABAPENTIN 300 MG CAP PO SCH ×3 (08:36→20:24)
[2017-12-22] MEDS: RIVAROXABAN 10 MG TAB PO SCH (08:37)
[2017-12-22] MEDS: AMIODARONE HCL 200 MG TAB PO SCH ×2 (08:37→20:26)
[2017-12-22] MEDS: POLYETHYLENE GLYCOL 3350 17 GM PKT PO PRN (08:43)
[2017-12-22] MEDS: LIDOCAINE 5% 1 EA PATCH TD SCH (08:48)
[2017-12-22] MEDS: TEARS/DEXTRAN 70/HYPROMELLOSE 15 ML OPHT.BTL EACHEYE PRN ×3 (08:50→15:24)
--- NOTE | 2017-12-22 11:26 | SOAPPROG ---
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 Had respiratory failure but did not need intubation. Has profound lower > upper extremity weakness. * Debility, status post Guillain-Sherman syndrome. * Initial FIM 46 on 12/08/2017, improved to 53 as of 12/15/2017; stable at 53 as of 12/22/2017; has improved balance and participation in transfers ut not yet reflected in FIM.. Continues to require max to total assist for bed mobility, 2 person max assist for sliding board transfer. Transfers by [facility] for nursing. Upper body dressing with minimal to moderate assistance, lower body dressing with maximal assistance, toileting with total assistance. Able to feed herself but fatigues. Can do grooming and hygiene from a seated position with only setup required. * Continue PT and OT to optimize mobility and functional status with goal of discharge home and ambulation if possible. * Dysphagia. * Diet texture has been downgraded to dysphagia 1 as of 12/08/2017: Back to dysphagia 2 on 12/09/2017. Upgraded to DD 3 as of 12/22/2017. Has oropharyngeal weakness. * Continue EDGE BASTER. * CN 7 neuropathy, with left facial weakness. * Assessment and treatment per Speech and Language Pathology. * Monocular goggle at night as she is unable to maintain closure of the left eye. Continue ophthalmic ointment at HS. Monitor for eye irritation. * Does not yet have sufficient nerve function to respond to electronic stimulation of muscles. * Neuropathic pain, sciatic pain. * Gabapentin increased from 300 mg p.o. three times daily to 600 mg three times daily on 12/04/2017. Increased further to 900 mg TID n 12/05/2017. She does not want for titration of gabapentin. Discussed 12/15/2017. * Continue oxycodone 5-10 mg q.3 hours p.r.n. starting 12/05/2017. Added long- acting morphine 15 mg q.a.m. starting 12/15/2017; subsequently increased to twice daily. * Lidocaine patch provides some benefit. * Better pain relief and better sleep with long-acting morphine 15 mg at HS starting 12/08/2017. * Urinary retention, possible neurogenic bladder. * Solis removed 12/18/2017 in urinalysis obtained due to hematuria in the morning. * Continues to have urinary retention and is requiring straight catheterization. * Increased bethanechol from 10 mg four times daily to 20 mg four times daily. If she continues to require straight catheterization by the end of today 2017, will replace Solis. UTI? * On levofloxacin x2 days. Id and susceptibility will be available 12/23/2017. Chronic/stable conditions: * Blurred vision, bilateral. * No afferent pupillary defect argues against any optic nerve involvement. Brief literature review revealed very rare cases of optic neuritis with Guillain -Sherman syndrome. * Improved after discontinuation of ciprofloxacin ointment 12/09/2017. Continue to monitor. * Bowel status with ileus, which resolved. * Has had loose stools, C diff negative. * Had frequent bowel movements with incontinence. Laxatives changed to p.r.n. on 12/08/2017. * Resume scheduled polyethylene glycol 12/17/2017 for distention and discomfort. * Cardiomyopathy and pulmonary hypertension. She has a low ejection fraction of 40% to 45%, pulmonary hypertension, and and grade 2 diastolic dysfunction. * BNP markedly elevated 12/05/2017; improved after 1 dose of furosemide on 2017. * Also with hyponatremia, resolved. * Discontinued furosemide at 20 mg p.o. q.day and potassium chloride at 10 mEq q.day 12/09/2017. Continue daily weight. * Continue losartan and carvedilol. * BNP much improved 12/09/2017, from greater than 10,000 to 6180. Recheck . * Monitor for signs and symptoms of congestive heart failure with furosemide discontinued. * Hyponatremia. * Resolved on labs 12/12/2018. * Unclear whether due to CHF or contribution of SIADH. 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 * Intake has been too low to institute a meaningful fluid restriction. Anxiety related to a sense of breathlessness. Treatment is complicated as she was previously taking diazepam. * Poor response to SSRI in the past. * Initiated mirtazapine 12/05/2017. * Appreciate assistance of Psychiatry. She has had chronic diazepam use. At their recommendation have initiated diazepam 2.5 mg at bedtime and 1 mg during the day p.r.n.. * Hypertension. * Adequate control with carvedilol and losartan. * Atrial fibrillation. * No tachyarrythmia on exam. * Continue amiodarone, carvedilol, and rivaroxaban. * Followup with Cardiology for a 30-day monitor and for a repeat echocardiogram in 2-3 months. * Urinary retention, thought to be a consequence of Guillain-Sherman syndrome. * Will not remove Solis catheter immediately. * Initiate rehabilitation bladder program and plan to remove Solis when her neurologic status otherwise improving. * History of migraine headaches. Continue the butalbital/acetaminophen/ caffeine combination PRN. Advised to not use during hours of sleep. * Insomnia. * Trazodone did not help. * Improved with mirtazapine. * History of gastroesophageal reflux disorder. Will continue proton pump inhibitor. * Discontinue PICC line today, 12/17/2017. Attended staffing, 15 min. Discussed with case management in a dietitian, nursing, PT, OT, EDGE BASTER. Making progress but not yet reflected in FIM gain. Has good family support. Discharge date set for 01/02/2018, home with family verses to alf facility depending on progress. Continue tentative discharge date of 01/02/2018. Discussed with neurologist Dr. Mccall, 12/08/2017. Efficacy of IVIG can take 10 -20 days. Wait 3 4 weeks to assess for failure. However if she declines and is unable to take any nutrition or if she has respiratory decline would intervene sooner. His choice would be plasma exchange rather than repeat IVIG. Followup. The patient is to follow up with [facility], Dr. Gill, after discharge and with Cardiology in 2-3 months. Plan: 12/19/17 12:13 12/22/17 11:22 Subjective: She thinks chills are a little bit better. Still has back pain. Denies cough or dyspnea. She has some nausea and thinks that it may be the antibiotics. Objective: Vital Signs Temp Pulse Resp BP Pulse Ox 36.6 C 76 18 128/60 H 94 12/22/17 06:10 12/22/17 08:33 12/22/17 06:10 12/22/17 08:33 12/22/17 06:10 Laboratory Results 12/19/17 11:00 12/12/17 06:20 12/21/17 12/22/17 12/23/17 05:59 05:59 05:59 Intake Total 290 915 236 Output Total 8988 4331 Balance -8891 -8191 236 - Time Spent With Patient Time Spent With Patient: Greater than 35 min floor time today, including more than 50% of time in coordination of care during staffing meeting, and counseling patient and . Physical Exam - Physical Exam General Appearance: WD/WN, alert, no apparent distress Respiratory: normal breath sounds, No crackles, No rhonchi, No wheezing Cardiac/Chest: regular rate, rhythm, No edema, No JVD, No diastolic murmur, No systolic murmur Skin: normal color, warm/dry Neuro/Psych: alert, normal mood/affect, oriented x 3 ICD10 Worksheet Patient Problems: Problems Problem Status Onset Atrial fibrillation Acute Guillain-Sherman syndrome Acute Generalized anxiety disorder Chronic Insomnia Chronic Sedative dependence with current use Chronic
[2017-12-22] MEDS: ACETAMINOPHEN 325 MG TAB PO PRN (15:21)
[2017-12-22] MEDS: DIAZEPAM 2 MG TAB PO SCH (20:25)
[2017-12-22] MEDS: MIRTAZAPINE 15 MG ODTAB PO SCH (20:26)
[2017-12-22] MEDS: PETROLAT,WHT/MIN OIL/SOD CHL 3.5 GM OPHT.OINT EACHEYE SCH (20:33)
[2017-12-22] MEDS: PATCH REMOVAL 1 EA PATCH TD SCH (20:34)
[2017-12-23] MEDS: oxyCODONE IR 5 MG TAB PO PRN ×6 (01:05→21:42)
[2017-12-23] MEDS: morphINE SR 15 MG TAB PO SCH ×2 (05:15→18:19)
[2017-12-23] MEDS: PSYLLIUM METAMUCIL 1 PKT PO SCH (05:15)
[2017-12-23] MEDS: PANTOPRAZOLE SODIUM 40 MG TAB PO SCH (05:21)
[2017-12-23] MEDS: RIVAROXABAN 10 MG TAB PO SCH (08:03)
[2017-12-23] MEDS: LIDOCAINE 5% 1 EA PATCH TD SCH (08:05)
[2017-12-23] MEDS: GABAPENTIN 300 MG CAP PO SCH ×3 (08:06→20:48)
[2017-12-23] MEDS: AMIODARONE HCL 200 MG TAB PO SCH ×2 (08:06→20:47)
[2017-12-23] MEDS: CARVEDILOL 6.25 MG TAB PO SCH ×2 (08:07→18:21)
[2017-12-23] MEDS: POLYETHYLENE GLYCOL 3350 17 GM PKT PO PRN (08:53)
[2017-12-23] MEDS: ACETAMINOPHEN 325 MG TAB PO PRN ×3 (09:31→18:41)
[2017-12-23] MEDS: TEARS/DEXTRAN 70/HYPROMELLOSE 15 ML OPHT.BTL EACHEYE PRN (09:34)
[2017-12-23] MEDS: PROMETHAZINE HCL 25 MG TAB PO PRN (10:41)
--- NOTE | 2017-12-23 13:15 | SOAPPROG ---
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 Had respiratory failure but did not need intubation. Has profound lower > upper extremity weakness. * Debility, status post Guillain-Custer syndrome. * Initial FIM 46 on 12/08/2017, improved to 53 as of 12/15/2017; stable at 53 as of 12/22/2017; has improved balance and participation in transfers but not yet reflected in FIM. Continues to require max to total assist for bed mobility, 2 person max assist for sliding board transfer. Transfers by [facility] for nursing. Upper body dressing with minimal to moderate assistance, lower body dressing with maximal assistance, toileting with total assistance. Able to feed herself but fatigues. Can do grooming and hygiene from a seated position with only setup required. * Continue PT and OT to optimize mobility and functional status with goal of discharge home and ambulation if possible. * Dysphagia. * Diet texture has been downgraded to dysphagia 1 as of 12/08/2017: Back to dysphagia 2 on 12/09/2017. Upgraded to DD 3 as of 12/22/2017. Has oropharyngeal weakness. 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 * CN 7 neuropathy, with left facial weakness. * Assessment and treatment per Speech and Language Pathology. * Monocular goggle at night as she is unable to maintain closure of the left eye. Continue ophthalmic ointment at HS. Monitor for eye irritation. * Does not yet have sufficient nerve function to respond to electronic stimulation of muscles. * Neuropathic pain, sciatic pain. * Gabapentin increased from 300 mg p.o. three times daily to 600 mg three times daily on 12/04/2017. Increased further to 900 mg TID n 12/05/2017. She does not want for titration of gabapentin. Discussed 12/15/2017. * Continue oxycodone 5-10 mg q.3 hours p.r.n. starting 12/05/2017. Added long- acting morphine 15 mg q.a.m. starting 12/15/2017; subsequently increased to twice daily. Adequate pain control; used 35 mg oxyIR yesterday 12/22/2017; down from 55 mg the previous day. * Lidocaine patch provides some benefit. * Better pain relief and better sleep with long-acting morphine 15 mg at HS starting 12/08/2017. * Urinary retention, possible neurogenic bladder. * Failed voiding trial 12/19/- 12/21/2017 despite titration of bethanechol to 20 mg QID. * Plan to repeat voiding trial when improved mobility is consistent with more neurologic recovery. UTI? * On levofloxacin since 12/20/2017. 5000 CFU/ml E. coli. Change to nitrofurantoin 100 mg BID on 12/23/2017 to complete 7 days; she's taken it previously and tolerated without nausea. Still unclear re infection vs. colonization. Chronic/stable conditions: * Blurred vision, bilateral. * No afferent pupillary defect argues against any optic nerve involvement. Brief literature review revealed very rare cases of optic neuritis with Guillain -Custer syndrome. * Improved after discontinuation of ciprofloxacin ointment 12/09/2017. Continue to monitor. * Bowel status with ileus, which resolved. * Has had loose stools, C diff negative. * Had frequent bowel movements with incontinence. Laxatives changed to p.r.n. on 12/08/2017. * Resume scheduled polyethylene glycol 12/17/2017 for distention and discomfort. * Cardiomyopathy and pulmonary hypertension. She has a low ejection fraction of 40% to 45%, pulmonary hypertension, and and grade 2 diastolic dysfunction. * BNP markedly elevated 12/05/2017; improved after 1 dose of furosemide on 2017. * Also with hyponatremia, resolved. * Discontinued furosemide at 20 mg p.o. q.day and potassium chloride at 10 mEq q.day 12/09/2017. Continue daily weight. * Continue losartan and carvedilol. * BNP much improved 12/09/2017, from greater than 10,000 to 6180. * Monitor for signs and symptoms of congestive heart failure with furosemide discontinued. * Hyponatremia. * Resolved on labs 12/12/2018. * Unclear whether due to CHF or contribution of SIADH. 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 * Intake has been too low to institute a meaningful fluid restriction. Anxiety related to a sense of breathlessness. Treatment is complicated as she was previously taking diazepam. * Poor response to SSRI in the past. * Initiated mirtazapine 12/05/2017. * Appreciate assistance of Psychiatry. She has had chronic diazepam use. At their recommendation have initiated diazepam 2.5 mg at bedtime and 1 mg during the day p.r.n.. * Hypertension. * Adequate control with carvedilol and losartan. * Atrial fibrillation. * No tachyarrythmia on exam. * Continue amiodarone, carvedilol, and rivaroxaban. * Followup with Cardiology for a 30-day monitor and for a repeat echocardiogram in 2-3 months. * History of migraine headaches. Continue the butalbital/acetaminophen/ caffeine combination PRN. Advised to not use during hours of sleep. * Insomnia. * Trazodone did not help. * Improved with mirtazapine. * History of gastroesophageal reflux disorder. Will continue proton pump inhibitor. * Discontinued PICC line, 12/17/2017. Making progress but not yet reflected in FIM gain. Has good family support. Discharge date set for 01/02/2018, home with family verses to custodial facility depending on progress. Continue tentative discharge date of 01/02/2018. Discussed with neurologist Dr. Mccall, 12/08/2017. Efficacy of IVIG can take 10 -20 days. Wait 3 4 weeks to assess for failure. However if she declines and is unable to take any nutrition or if she has respiratory decline would intervene sooner. His choice would be plasma exchange rather than repeat IVIG. Followup. The patient is to follow up with [facility], Dr. Gill, after discharge and with Cardiology in 2-3 months. Plan: 12/19/17 12:13 12/22/17 11:22 12/23/17 13:15 Subjective: C/O nausea from levofloxacin. Feels that she's getting stronger. Has done some transfers with therapies. Objective: Vital Signs Temp Pulse Resp BP Pulse Ox 36.7 C 71 14 110/52 L 93 12/23/17 09:01 12/23/17 09:01 12/23/17 09:01 12/23/17 09:01 12/23/17 09:01 Microbiology 12/18/17 16:40 Urine Culture - Final Urine,Clean Catch Escherichia Coli Laboratory Results 12/19/17 11:00 12/12/17 06:20 12/22/17 12/23/17 12/24/17 05:59 05:59 05:59 Intake Total 915 1234 250 Output Total 2100 1400 Balance -1185 -166 250 Physical Exam - Physical Exam General Appearance: WD/WN, alert, no apparent distress Respiratory: normal breath sounds, No crackles, No rhonchi, No wheezing Cardiac/Chest: regular rate, rhythm, No edema, No diastolic murmur, No systolic murmur Abdomen: normal bowel sounds, non-tender, soft, No distended Skin: normal color, warm/dry Neuro/Psych: alert, normal mood/affect, oriented x 3, motor weakness (Assist to arise to seated from supine.) ICD10 Worksheet Patient Problems: Problems Problem Status Onset Atrial fibrillation Acute Guillain-Custer syndrome Acute Generalized anxiety disorder Chronic Insomnia Chronic Sedative dependence with current use Chronic
[2017-12-23] MEDS: PHENYLEPHRINE/SHK LV/MO/PET,WH 1 APP/GM OINT PR PRN (20:46)
[2017-12-23] MEDS: MIRTAZAPINE 15 MG ODTAB PO SCH (20:47)
[2017-12-23] MEDS: DIAZEPAM 2 MG TAB PO SCH (20:47)
[2017-12-23] MEDS: NITROFURANTOIN MACROBID 100 MG CAP PO SCH (20:48)
[2017-12-23] MEDS: PETROLAT,WHT/MIN OIL/SOD CHL 3.5 GM OPHT.OINT EACHEYE SCH (20:49)
[2017-12-24] MEDS: oxyCODONE IR 5 MG TAB PO PRN ×5 (01:50→20:45)
[2017-12-24] MEDS: PATCH REMOVAL 1 EA PATCH TD SCH ×2 (05:22→20:46)
[2017-12-24] MEDS: PSYLLIUM METAMUCIL 1 PKT PO SCH (05:30)
[2017-12-24] MEDS: morphINE SR 15 MG TAB PO SCH ×2 (05:30→18:53)
[2017-12-24] MEDS: PANTOPRAZOLE SODIUM 40 MG TAB PO SCH (05:30)
[2017-12-24] MEDS: LIDOCAINE 5% 1 EA PATCH TD SCH (07:20)
[2017-12-24] MEDS: BISACODYL 10 MG SUPP PR PRN (07:21)
[2017-12-24] MEDS: RIVAROXABAN 10 MG TAB PO SCH (09:28)
[2017-12-24] MEDS: GABAPENTIN 300 MG CAP PO SCH ×3 (09:29→20:45)
[2017-12-24] MEDS: CARVEDILOL 6.25 MG TAB PO SCH ×2 (09:29→16:53)
[2017-12-24] MEDS: AMIODARONE HCL 200 MG TAB PO SCH ×2 (09:29→20:45)
[2017-12-24] MEDS: NITROFURANTOIN MACROBID 100 MG CAP PO SCH ×2 (09:29→20:45)
[2017-12-24] MEDS: PHENYLEPHRINE/SHK LV/MO/PET,WH 1 APP/GM OINT PR PRN (09:46)
[2017-12-24] MEDS: TEARS/DEXTRAN 70/HYPROMELLOSE 15 ML OPHT.BTL EACHEYE PRN (09:46)
[2017-12-24] MEDS: ACETAMINOPHEN 325 MG TAB PO PRN ×2 (11:20→16:45)
--- NOTE | 2017-12-24 11:50 | SOAPPROG ---
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 Had respiratory failure but did not need intubation. Has profound lower > upper extremity weakness. 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 * Initial FIM 46 on 12/08/2017, improved to 53 as of 12/15/2017; stable at 53 as of 12/22/2017; has improved balance and participation in transfers but not yet reflected in FIM. Continues to require max to total assist for bed mobility, 2 person max assist for sliding board transfer. Transfers by [facility] for nursing. Upper body dressing with minimal to moderate assistance, lower body dressing with maximal assistance, toileting with total assistance. Able to feed herself but fatigues. Can do grooming and hygiene from a seated position with only setup required. * Continue PT and OT to optimize mobility and functional status with goal of discharge home and ambulation if possible. * Dysphagia. * Diet texture has been downgraded to dysphagia 1 as of 12/08/2017: Back to dysphagia 2 on 12/09/2017. Upgraded to DD 3 as of 12/22/2017. Has oropharyngeal weakness. 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 * CN 7 neuropathy, with left facial weakness. * Assessment and treatment per Speech and Language Pathology. * Monocular goggle at night as she is unable to maintain closure of the left eye. Continue ophthalmic ointment at HS. Monitor for eye irritation. * Does not yet have sufficient nerve function to respond to electronic stimulation of muscles. * Neuropathic pain, sciatic pain. * Gabapentin increased from 300 mg p.o. three times daily to 600 mg three times daily on 12/04/2017. Increased further to 900 mg TID n 12/05/2017. She does not want for titration of gabapentin. Discussed 12/15/2017. * Continue oxycodone 5-10 mg q.3 hours p.r.n. starting 12/05/2017. Added long- acting morphine 15 mg q.a.m. starting 12/15/2017; subsequently increased to twice daily. Adequate pain control; used 35 mg oxyIR 12/22/2017; down from 55 mg the previous day. 30 mg used on 12/23/2017. * Lidocaine patch provides some benefit. * Better pain relief and better sleep with long-acting morphine 15 mg at HS starting 12/08/2017. * Urinary retention, possible neurogenic bladder. * Failed voiding trial - 12/21/2017 despite titration of bethanechol to 20 mg QID. * Plan to repeat voiding trial when improved mobility is consistent with more neurologic recovery. UTI? * On levofloxacin since 12/20/2017. 5000 CFU/ml E. coli. Change to nitrofurantoin 100 mg BID on 12/23/2017 to complete 7 days; she's taken it previously and tolerated without nausea. Still unclear re infection vs. colonization. * Hypertension. * Adequate control with carvedilol. * Occasionally elevated. Watch for trend. Consider resuming losartan. Chronic/stable conditions: * Blurred vision, bilateral. * No afferent pupillary defect argues against any optic nerve involvement. Brief literature review revealed very rare cases of optic neuritis with Guillain -Wolf [place] syndrome. * Improved after discontinuation of ciprofloxacin ointment 12/09/2017. Continue to monitor. * Bowel status with ileus, which resolved. * Has had loose stools, C diff negative. * Had frequent bowel movements with incontinence. Laxatives changed to p.r.n. on 12/08/2017. * Resume scheduled polyethylene glycol 12/17/2017 for distention and discomfort. * Cardiomyopathy and pulmonary hypertension. She has a low ejection fraction of 40% to 45%, pulmonary hypertension, and and grade 2 diastolic dysfunction. * BNP markedly elevated 12/05/2017; improved after 1 dose of furosemide on 2017. * Also with hyponatremia, resolved. * Discontinued furosemide at 20 mg p.o. q.day and potassium chloride at 10 mEq q.day 12/09/2017. Continue daily weight. * Continue losartan and carvedilol. * BNP much improved 12/09/2017, from greater than 10,000 to 6180. * Monitor for signs and symptoms of congestive heart failure with furosemide discontinued. * Hyponatremia. * Resolved on labs 12/12/2018. * Unclear whether due to CHF or contribution of SIADH. 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 * Intake has been too low to institute a meaningful fluid restriction. Anxiety related to a sense of breathlessness. Treatment is complicated as she was previously taking diazepam. * Poor response to SSRI in the past. * Initiated mirtazapine 12/05/2017. * Appreciate assistance of Psychiatry. She has had chronic diazepam use. At their recommendation have initiated diazepam 2.5 mg at bedtime and 1 mg during the day p.r.n.. * Atrial fibrillation. * No tachyarrythmia on exam. * Continue amiodarone, carvedilol, and rivaroxaban. * Followup with Cardiology for a 30-day monitor and for a repeat echocardiogram in 2-3 months. * History of migraine headaches. Continue the butalbital/acetaminophen/ caffeine combination PRN. Advised to not use during hours of sleep. * Insomnia. * Trazodone did not help. * Improved with mirtazapine. * History of gastroesophageal reflux disorder. Will continue proton pump inhibitor. * Discontinued PICC line, 12/17/2017. Making progress but not yet reflected in FIM gain. Has good family support. Discharge date set for 01/02/2018, home with family verses to retirement facility depending on progress. Continue tentative discharge date of 01/02/2018. Discussed with neurologist Dr. Mccall, 12/08/2017. Efficacy of IVIG can take 10 -20 days. Wait 3 4 weeks to assess for failure. However if she declines and is unable to take any nutrition or if she has respiratory decline would intervene sooner. His choice would be plasma exchange rather than repeat IVIG. Followup. The patient is to follow up with [facility], Dr. Gill, after discharge and with Cardiology in 2-3 months. Plan: 12/19/17 12:13 12/22/17 11:22 12/23/17 13:15 12/24/17 11:46 Subjective: No complaints. pain is improving. Says she stood with therapies today. Sleeping well. Had bowel movement after suppository today. Objective: Vital Signs Temp Pulse Resp BP Pulse Ox 36.9 C 71 16 138/82 H 91 L 12/24/17 10:45 12/24/17 10:45 12/24/17 10:45 12/24/17 10:45 12/24/17 10:45 Microbiology 12/18/17 16:40 Urine Culture - Final Urine,Clean Catch Escherichia Coli Laboratory Results 12/19/17 11:00 12/12/17 06:20 12/23/17 12/24/17 12/25/17 05:59 05:59 05:59 Intake Total 1234 750 100 Output Total 1400 950 Balance -166 -200 100 Physical Exam - Physical Exam General Appearance: WD/WN, alert, no apparent distress EENT: other (Able to close L eye completely but still has upper lid lag otherwise) Respiratory: No respiratory distress, No accessory muscle use Skin: normal color, warm/dry Neuro/Psych: alert, normal mood/affect, oriented x 3 ICD10 Worksheet Patient Problems: Problems Problem Status Onset Atrial fibrillation Acute 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
[2017-12-24] MEDS ORDERED: BISACODYL 10 MG SUPP PR PRN (11:52)
[2017-12-24] MEDS: PROMETHAZINE HCL 25 MG TAB PO PRN (20:45)
[2017-12-24] MEDS: MIRTAZAPINE 15 MG ODTAB PO SCH (20:45)
[2017-12-24] MEDS: PETROLAT,WHT/MIN OIL/SOD CHL 3.5 GM OPHT.OINT EACHEYE SCH (20:46)
[2017-12-24] MEDS: DIAZEPAM 2 MG TAB PO SCH (20:46)
[2017-12-25] MEDS: oxyCODONE IR 5 MG TAB PO PRN ×6 (02:01→22:55)
[2017-12-25] MEDS: PANTOPRAZOLE SODIUM 40 MG TAB PO SCH (06:22)
[2017-12-25] MEDS: PSYLLIUM METAMUCIL 1 PKT PO SCH (06:22)
[2017-12-25] MEDS: morphINE SR 15 MG TAB PO SCH ×2 (06:22→16:59)
[2017-12-25] MEDS: LIDOCAINE 5% 1 EA PATCH TD SCH (07:14)
[2017-12-25] MEDS: GABAPENTIN 300 MG CAP PO SCH ×3 (07:49→21:10)
[2017-12-25] MEDS: RIVAROXABAN 10 MG TAB PO SCH (07:50)
[2017-12-25] MEDS: NITROFURANTOIN MACROBID 100 MG CAP PO SCH ×2 (07:50→21:10)
[2017-12-25] MEDS: AMIODARONE HCL 200 MG TAB PO SCH ×2 (07:50→21:10)
[2017-12-25] MEDS: CARVEDILOL 6.25 MG TAB PO SCH ×2 (07:50→16:59)
[2017-12-25] MEDS: TEARS/DEXTRAN 70/HYPROMELLOSE 15 ML OPHT.BTL EACHEYE PRN ×3 (07:51→14:47)
--- NOTE | 2017-12-25 08:38 | SOAPPROG ---
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 Had respiratory failure but did not need intubation. Has profound lower > upper extremity weakness. Today's update: Patient doing well in therapy, making slow but steady progress. Continue rehabilitation plan below. Consider AFO particularly on the left foot for functional mobility with a goal of discharge home. * Debility, and impaired mobility and self-care status post Guillain-Wooster syndrome. * Initial FIM 46 on 12/08/2017, improved to 53 as of 12/15/2017; stable at 53 as of 12/22/2017; has improved balance and participation in transfers but not yet reflected in FIM. Continues to require max to total assist for bed mobility, 2 person max assist for sliding board transfer. Transfers by [facility] for nursing. Upper body dressing with minimal to moderate assistance, lower body dressing with maximal assistance, toileting with total assistance. Able to feed herself but fatigues. Can do grooming and hygiene from a seated position with only setup required. * Continue PT and OT to optimize mobility and functional status with goal of discharge home and ambulation if possible. * Dysphagia. * Diet texture has been downgraded to dysphagia 1 as of 12/08/2017: Back to dysphagia 2 on 12/09/2017. Upgraded to DD 3 as of 12/22/2017. Has oropharyngeal weakness. 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 * CN 7 neuropathy, with left facial weakness. * Assessment and treatment per Speech and Language Pathology. * Monocular goggle at night as she is unable to maintain closure of the left eye. Continue ophthalmic ointment at . Monitor for eye irritation. * Does not yet have sufficient nerve function to respond to electronic stimulation of muscles. * Neuropathic pain, sciatic pain. * Gabapentin increased from 300 mg p.o. three times daily to 600 mg three times daily on 12/04/2017. Increased further to 900 mg TID n 12/05/2017. She does not want for titration of gabapentin. Discussed 12/15/2017. * Continue oxycodone 5-10 mg q.3 hours p.r.n. starting 12/05/2017. Added long- acting morphine 15 mg q.a.m. starting 12/15/2017; subsequently increased to twice daily. Adequate pain control; used 35 mg oxyIR 12/22/2017; down from 55 mg the previous day. 30 mg used on 12/23/2017. * Lidocaine patch provides some benefit. * Better pain relief and better sleep with long-acting morphine 15 mg at HS starting 12/08/2017. * Urinary retention, possible neurogenic bladder. * Failed voiding trial - 12/21/2017 despite titration of bethanechol to 20 mg QID. * Plan to repeat voiding trial when improved mobility is consistent with more neurologic recovery. UTI? * On levofloxacin since 12/20/2017. 5000 CFU/ml E. coli. Change to nitrofurantoin 100 mg BID on 12/23/2017 to complete 7 days; she's taken it previously and tolerated without nausea. Still unclear re infection vs. colonization. * Hypertension. * Adequate control with carvedilol. * Occasionally elevated. Watch for trend. Consider resuming losartan. Chronic/stable conditions: * Blurred vision, bilateral. * No afferent pupillary defect argues against any optic nerve involvement. Brief literature review revealed very rare cases of optic neuritis with Guillain -Wooster syndrome. * Improved after discontinuation of ciprofloxacin ointment 12/09/2017. Continue to monitor. * Bowel status with ileus, which resolved. * Has had loose stools, C diff negative. * Had frequent bowel movements with incontinence. Laxatives changed to p.r.n. on 12/08/2017. * Resume scheduled polyethylene glycol 12/17/2017 for distention and discomfort. * Cardiomyopathy and pulmonary hypertension. She has a low ejection fraction of 40% to 45%, pulmonary hypertension, and and grade 2 diastolic dysfunction. * BNP markedly elevated 12/05/2017; improved after 1 dose of furosemide on 2017. * Also with hyponatremia, resolved. * Discontinued furosemide at 20 mg p.o. q.day and potassium chloride at 10 mEq q.day 12/09/2017. Continue daily weight. * Continue losartan and carvedilol. * BNP much improved 12/09/2017, from greater than 10,000 to 6180. * Monitor for signs and symptoms of congestive heart failure with furosemide discontinued. * Hyponatremia. * Resolved on labs 12/12/2018. * Unclear whether due to CHF or contribution of SIADH. 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 * Intake has been too low to institute a meaningful fluid restriction. Anxiety related to a sense of breathlessness. Treatment is complicated as she was previously taking diazepam. * Poor response to SSRI in the past. * Initiated mirtazapine 12/05/2017. * Appreciate assistance of Psychiatry. She has had chronic diazepam use. At their recommendation have initiated diazepam 2.5 mg at bedtime and 1 mg during the day p.r.n.. * Atrial fibrillation. * No tachyarrythmia on exam. * Continue amiodarone, carvedilol, and rivaroxaban. * Followup with Cardiology for a 30-day monitor and for a repeat echocardiogram in 2-3 months. * History of migraine headaches. Continue the butalbital/acetaminophen/ caffeine combination PRN. Advised to not use during hours of sleep. * Insomnia. * Trazodone did not help. * Improved with mirtazapine. * History of gastroesophageal reflux disorder. Will continue proton pump inhibitor. * Discontinued PICC line, 12/17/2017. Making progress but not yet reflected in FIM gain. Has good family support. Discharge date set for 01/02/2018, home with family verses to residential facility depending on progress. Continue tentative discharge date of 01/02/2018. Dr. Yu Discussed with neurologist Dr. Mccall, 12/08/2017. Efficacy of IVIG can take 10-20 days. Wait 3-4 weeks to assess for failure. However if she declines and is unable to take any nutrition or if she has respiratory decline would intervene sooner. His choice would be plasma exchange rather than repeat IVIG. Followup. The patient is to follow up with [facility], Dr. Gill, after discharge and with Cardiology in 2-3 months. 12/11/17 10:07 12/16/17 08:36 12/16/17 09:17 12/18/17 08:45 12/25/17 08:32 Subjective: Chief complaint: Neurological recovery Patient doing well today without any new concerns. No new shortness of breath or chest pain, no new numbness, tingling, or weakness. She states that her strength is getting better and she has not had any anxiety. Able to better close her left eye Objective: Vital Signs Temp Pulse Resp BP Pulse Ox 36.6 C 73 16 118/62 90 L 12/25/17 07:48 12/25/17 07:50 12/25/17 07:48 12/25/17 07:50 12/25/17 07:48 Laboratory Results 12/19/17 11:00 12/12/17 06:20 12/24/17 12/25/17 12/26/17 05:59 05:59 05:59 Intake Total 750 670 Output Total 1200 1350 Balance -450 -680 Physical Exam - Physical Exam General Appearance: alert, no apparent distress Respiratory: other (Cough still weak but increasingly strong), No respiratory distress, No accessory muscle use Skin: normal color, warm/dry, No cyanosis, No diaphoresis Extremities: No pedal edema, No swelling Neuro/Psych: alert, normal mood/affect (Global weakness, but improving facial gestures. Right ankle dorsiflexion is 4-/5, left-sided ankle dorsiflexion is less than 3) ICD10 Worksheet Patient Problems: Problems Problem Status Onset Atrial fibrillation Acute Guillain-Wooster syndrome Acute Generalized anxiety disorder Chronic Insomnia Chronic Sedative dependence with current use Chronic
[2017-12-25] MEDS: MIRTAZAPINE 15 MG ODTAB PO SCH (21:10)
[2017-12-25] MEDS: PATCH REMOVAL 1 EA PATCH TD SCH (21:10)
[2017-12-25] MEDS: DIAZEPAM 2 MG TAB PO SCH (21:10)
[2017-12-25] MEDS: PETROLAT,WHT/MIN OIL/SOD CHL 3.5 GM OPHT.OINT EACHEYE SCH (21:10)
[2017-12-25] MEDS: PROMETHAZINE HCL 25 MG TAB PO PRN (21:16)
[2017-12-26] MEDS: oxyCODONE IR 5 MG TAB PO PRN ×6 (03:08→23:49)
[2017-12-26] MEDS: PSYLLIUM METAMUCIL 1 PKT PO SCH (05:31)
[2017-12-26] MEDS: PANTOPRAZOLE SODIUM 40 MG TAB PO SCH (05:31)
[2017-12-26] MEDS: morphINE SR 15 MG TAB PO SCH ×2 (05:31→17:26)
[2017-12-26] MEDS: CARVEDILOL 6.25 MG TAB PO SCH ×2 (08:36→17:26)
[2017-12-26] MEDS: AMIODARONE HCL 200 MG TAB PO SCH ×2 (08:36→20:19)
[2017-12-26] MEDS: GABAPENTIN 300 MG CAP PO SCH ×3 (08:37→23:50)
[2017-12-26] MEDS: RIVAROXABAN 10 MG TAB PO SCH (08:40)
[2017-12-26] MEDS: NITROFURANTOIN MACROBID 100 MG CAP PO SCH (08:40)
[2017-12-26] MEDS: ACETAMINOPHEN 325 MG TAB PO PRN (08:41)
[2017-12-26] MEDS: LIDOCAINE 5% 1 EA PATCH TD SCH (10:43)
--- NOTE | 2017-12-26 11:46 | SOAPPROG ---
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 Had respiratory failure but did not need intubation. Has profound lower > upper extremity weakness. Today's update: Staffing meeting today with therapy team. Patient is max assist x2 for bed mobility, transfers with a [facility] lift. Patient's fem score has improved by 2 this past week. And therapy team indicates patient most likely will need transfer to nursing home facility unless she make significant improvement in functional scores by Friday. * Debility, and impaired mobility and self-care status post Guillain-Avilla syndrome. Discussed with therapy team that it would not be unusual for patient to start making dramatic improvement in the next few days due to natural course of Guillain-Avilla recovery. Hopefully her FIM scores will improve by 7 or 8 in the next few days. * Initial FIM 46 on 12/08/2017, improved to 53 as of 12/15/2017; stable at 53 as of 12/22/2017; has improved balance and participation in transfers but not yet reflected in FIM. Continues to require max to total assist for bed mobility, 2 person max assist for sliding board transfer. Transfers by [facility] for nursing. Upper body dressing with minimal to moderate assistance, lower body dressing with maximal assistance, toileting with total assistance. Able to feed herself but fatigues. Can do grooming and hygiene from a seated position with only setup required. * Continue PT and OT to optimize mobility and functional status with goal of discharge home and ambulation if possible. * Dysphagia. * Diet texture has been downgraded to dysphagia 1 as of 12/08/2017: Back to dysphagia 2 on 12/09/2017. Upgraded to DD 3 as of 12/22/2017. Has oropharyngeal weakness. * Continue PSYCHOLOGIST. * CN 7 neuropathy, with left facial weakness. * Assessment and treatment per Speech and Language Pathology. * Monocular goggle at night as she is unable to maintain closure of the left eye. Continue ophthalmic ointment at HS. Monitor for eye irritation. * Does not yet have sufficient nerve function to respond to electronic stimulation of muscles. * Neuropathic pain, sciatic pain. * Gabapentin increased from 300 mg p.o. three times daily to 600 mg three times daily on 12/04/2017. Increased further to 900 mg TID n 12/05/2017. She does not want for titration of gabapentin. Discussed 12/15/2017. REPORTS CURRENT PAIN LEVEL 4-5/10 BUT THIS WAS INCREASED SECONDARY TO TRFER W/[facility] LIFT. * Continue oxycodone 5-10 mg q.3 hours p.r.n. starting 12/05/2017. Added long- acting morphine 15 mg q.a.m. starting 12/15/2017; subsequently increased to twice daily. Adequate pain control; used 35 mg oxyIR 12/22/2017; down from 55 mg the previous day. 30 mg used on 12/23/2017. * Lidocaine patch provides some benefit. * Better pain relief and better sleep with long-acting morphine 15 mg at HS starting 12/08/2017. * Urinary retention, possible neurogenic bladder. * Failed voiding trial - 12/21/2017 despite titration of bethanechol to 20 mg QID. * Plan to repeat voiding trial when improved mobility is consistent with more neurologic recovery. UTI? * On levofloxacin since 12/20/2017. 5000 CFU/ml E. coli. Change to nitrofurantoin 100 mg BID on 12/23/2017 to complete 7 days; she's taken it previously and tolerated without nausea. Still unclear re infection vs. colonization. * Hypertension. bp this am 115/62 * Adequate control with carvedilol. * Occasionally elevated. Watch for trend. Consider resuming losartan. Chronic/stable conditions: * Blurred vision, bilateral. * No afferent pupillary defect argues against any optic nerve involvement. Brief literature review revealed very rare cases of optic neuritis with Guillain -Avilla syndrome. * Improved after discontinuation of ciprofloxacin ointment 12/09/2017. Continue to monitor. * Bowel status with ileus, which resolved. * Has had loose stools, C diff negative. * Had frequent bowel movements with incontinence. Laxatives changed to p.r.n. on 12/08/2017. * Resume scheduled polyethylene glycol 12/17/2017 for distention and discomfort. * Cardiomyopathy and pulmonary hypertension. She has a low ejection fraction of 40% to 45%, pulmonary hypertension, and and grade 2 diastolic dysfunction. * BNP markedly elevated 12/05/2017; improved after 1 dose of furosemide on 2017. * Also with hyponatremia, resolved. * Discontinued furosemide at 20 mg p.o. q.day and potassium chloride at 10 mEq q.day 12/09/2017. Continue daily weight. * Continue losartan and carvedilol. * BNP much improved 12/09/2017, from greater than 10,000 to 6180. * Monitor for signs and symptoms of congestive heart failure with furosemide discontinued. Anxiety related to a sense of breathlessness. WILL ASK PHYSICAL THERAPY TO INSTRUCT PATIENT ON EXERCISES TO STRENGTHEN THE ACCESSORY BREATHING MUSCLES, INCENTIVE SPIROMETRY 10 PUFFS SEVERAL TIMES PER DAY. Treatment is complicated as she was previously taking diazepam. * Poor response to SSRI in the past. * Initiated mirtazapine 12/05/2017. * Appreciate assistance of Psychiatry. She has had chronic diazepam use. At their recommendation have initiated diazepam 2.5 mg at bedtime and 1 mg during the day p.r.n.. * Atrial fibrillation. * No tachyarrythmia on exam. * Continue amiodarone, carvedilol, and rivaroxaban. * Followup with Cardiology for a 30-day monitor and for a repeat echocardiogram in 2-3 months. * History of migraine headaches. Continue the butalbital/acetaminophen/ caffeine combination PRN. Advised to not use during hours of sleep. * Insomnia. CONTINUES TO BE AN ISSUE INTERMITTENTLY. * Trazodone did not help. * Improved with mirtazapine. * History of gastroesophageal reflux disorder. Will continue proton pump inhibitor. * Discontinued PICC line, 12/17/2017. Making progress but not yet reflected in FIM gain. Has good family support. Discharge date set for 01/02/2018, home with family verses to nursing home facility depending on progress. Continue tentative discharge date of 01/02/2018. Dr. Yu Discussed with neurologist Dr. Mccall, 12/08/2017. Efficacy of IVIG can take 10-20 days. Wait 3-4 weeks to assess for failure. However if she declines and is unable to take any nutrition or if she has respiratory decline would intervene sooner. His choice would be plasma exchange rather than repeat IVIG. Followup. The patient is to follow up with [facility], Dr. Gill, after discharge and with Cardiology in 2-3 months. Plan: 12/26/17 11:48 12/26/17 11:58 Subjective: She reports she has low back and bilateral lower extremity pain due to sciatica , superimposed on lower extremity neuropathic pain from Guillain-Avilla syndrome. Nursing and therapy staff indicate that she is beginning to make improvements in lower extremity strength. Objective: Vital Signs Temp Pulse Resp BP Pulse Ox 36.6 C 69 16 116/52 L 89 L 12/26/17 07:25 12/26/17 07:25 12/26/17 07:25 12/26/17 07:25 12/26/17 07:25 Laboratory Results 12/19/17 11:00 12/12/17 06:20 12/25/17 12/26/17 12/27/17 05:59 05:59 05:59 Intake Total 670 250 100 Output Total 1350 1125 Balance -680 -875 100 Physical Exam - Physical Exam General Appearance: WD/WN, alert, no apparent distress Respiratory: lungs clear, normal breath sounds Cardiac/Chest: No edema Abdomen: normal bowel sounds, non-tender Pelvic Exam: other (malhotra in place) Extremities: No swelling, No Davonte's sign Neuro/Psych: motor weakness (Distal greater than proximal upper and lower extremity motor return 4-/5 right and left ankle plantar flexors, 2/5 right and left ankle dorsiflexors. 2-/5 right and left hip flexors. 2-3/5 biceps and triceps, 2/5 wrist extensors.) ICD10 Worksheet Patient Problems: Problems Problem Status Onset Atrial fibrillation Acute Guillain-Avilla syndrome Acute Generalized anxiety disorder Chronic Insomnia Chronic Sedative dependence with current use Chronic
[2017-12-26] MEDS: TEARS/DEXTRAN 70/HYPROMELLOSE 15 ML OPHT.BTL EACHEYE PRN ×3 (13:46→20:25)
[2017-12-26] MEDS: DIAZEPAM 2 MG TAB PO SCH (20:19)
[2017-12-26] MEDS: MIRTAZAPINE 15 MG ODTAB PO SCH (20:19)
[2017-12-26] MEDS: PETROLAT,WHT/MIN OIL/SOD CHL 3.5 GM OPHT.OINT EACHEYE SCH (22:36)
[2017-12-26] MEDS: PATCH REMOVAL 1 EA PATCH TD SCH (22:36)
[2017-12-27] MEDS: oxyCODONE IR 5 MG TAB PO PRN ×3 (03:12→16:28)
[2017-12-27] MEDS: PSYLLIUM METAMUCIL 1 PKT PO SCH (05:26)
[2017-12-27] MEDS: PANTOPRAZOLE SODIUM 40 MG TAB PO SCH (05:26)
[2017-12-27] MEDS: morphINE SR 15 MG TAB PO SCH ×2 (05:26→18:31)
[2017-12-27] MEDS: CARVEDILOL 6.25 MG TAB PO SCH ×2 (09:11→18:30)
[2017-12-27] MEDS: RIVAROXABAN 10 MG TAB PO SCH (09:12)
[2017-12-27] MEDS: GABAPENTIN 300 MG CAP PO SCH ×2 (09:15→16:28)
[2017-12-27] MEDS: AMIODARONE HCL 200 MG TAB PO SCH (09:15)
--- NOTE | 2017-12-27 09:50 | SOAPPROG ---
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 Had respiratory failure but did not need intubation. Has profound lower > upper extremity weakness. * Debility, and impaired mobility and self-care status post Guillain-Lansford syndrome. Discussed with therapy team that it would not be unusual for patient to start making dramatic improvement in the next few days due to natural course of Guillain-Lansford recovery. Hopefully her FIM scores will improve by 7 or 8 in the next few days. * Initial FIM 46 on 12/08/2017, improved to 53 as of 12/15/2017; stable at 53 as of 12/22/2017; has improved balance and participation in transfers but not yet reflected in FIM. Continues to require max to total assist for bed mobility, 2 person max assist for sliding board transfer. Transfers by Sadie for nursing. Upper body dressing with minimal to moderate assistance, lower body dressing with maximal assistance, toileting with total assistance. Able to feed herself but fatigues. Can do grooming and hygiene from a seated position with only setup required. * Continue PT and OT to optimize mobility and functional status with goal of discharge home and ambulation if possible. * Dysphagia. * Diet texture has been downgraded to dysphagia 1 as of 12/08/2017: Back to dysphagia 2 on 12/09/2017. Upgraded to DD 3 as of 12/22/2017. Has oropharyngeal weakness. * Continue [employer]. * CN 7 neuropathy, with left facial weakness. * Assessment and treatment per Speech and Language Pathology. * Monocular goggle at night as she is unable to maintain closure of the left eye. Continue ophthalmic ointment at . Monitor for eye irritation. * Does not yet have sufficient nerve function to respond to electronic stimulation of muscles. * Neuropathic pain, sciatic pain. * Gabapentin increased from 300 mg p.o. three times daily to 600 mg three times daily on 12/04/2017. Increased further to 900 mg TID n 12/05/2017. She does not want for titration of gabapentin. Discussed 12/15/2017. REPORTS CURRENT PAIN LEVEL 4-5/10 BUT THIS WAS INCREASED SECONDARY TO TRFER W/SADIE LIFT. * Continue oxycodone 5-10 mg q.3 hours p.r.n. starting 12/05/2017. Added long- acting morphine 15 mg q.a.m. starting 12/15/2017; subsequently increased to twice daily. Adequate pain control; used 35 mg oxyIR 12/22/2017; down from 55 mg the previous day. 30 mg used on 12/23/2017. * Lidocaine patch provides some benefit. * Better pain relief and better sleep with long-acting morphine 15 mg at HS starting 12/08/2017. * Urinary retention, possible neurogenic bladder. * Failed voiding trial - 12/21/2017 despite titration of bethanechol to 20 mg QID. * Plan to repeat voiding trial when improved mobility is consistent with more neurologic recovery. UTI? * On levofloxacin since 12/20/2017. 5000 CFU/ml E. coli. Change to nitrofurantoin 100 mg BID on 12/23/2017 to complete 7 days; she's taken it previously and tolerated without nausea. Still unclear re infection vs. colonization. * Hypertension. bp this am 115/62 * Adequate control with carvedilol. * Occasionally elevated. Watch for trend. Consider resuming losartan. Chronic/stable conditions: * Blurred vision, bilateral. * No afferent pupillary defect argues against any optic nerve involvement. Brief literature review revealed very rare cases of optic neuritis with Guillain -Lansford syndrome. * Improved after discontinuation of ciprofloxacin ointment 12/09/2017. Continue to monitor. * Bowel status with ileus, which resolved. * Has had loose stools, C diff negative. * Had frequent bowel movements with incontinence. Laxatives changed to p.r.n. on 12/08/2017. * Resume scheduled polyethylene glycol 12/17/2017 for distention and discomfort. * Cardiomyopathy and pulmonary hypertension. She has a low ejection fraction of 40% to 45%, pulmonary hypertension, and and grade 2 diastolic dysfunction. * BNP markedly elevated 12/05/2017; improved after 1 dose of furosemide on 2017. * Also with hyponatremia, resolved. * Discontinued furosemide at 20 mg p.o. q.day and potassium chloride at 10 mEq q.day 12/09/2017. Continue daily weight. * Continue losartan and carvedilol. * BNP much improved 12/09/2017, from greater than 10,000 to 6180. * Monitor for signs and symptoms of congestive heart failure with furosemide discontinued. Anxiety related to a sense of breathlessness. WILL ASK PHYSICAL THERAPY TO INSTRUCT PATIENT ON EXERCISES TO STRENGTHEN THE ACCESSORY BREATHING MUSCLES, INCENTIVE SPIROMETRY 10 PUFFS SEVERAL TIMES PER DAY. Treatment is complicated as she was previously taking diazepam. * Poor response to SSRI in the past. * Initiated mirtazapine 12/05/2017. * Appreciate assistance of Psychiatry. She has had chronic diazepam use. At their recommendation have initiated diazepam 2.5 mg at bedtime and 1 mg during the day p.r.n.. * Atrial fibrillation. * No tachyarrythmia on exam. * Continue amiodarone, carvedilol, and rivaroxaban. * Followup with Cardiology for a 30-day monitor and for a repeat echocardiogram in 2-3 months. * History of migraine headaches. Continue the butalbital/acetaminophen/ caffeine combination PRN. Advised to not use during hours of sleep. * Insomnia. CONTINUES TO BE AN ISSUE INTERMITTENTLY. * Trazodone did not help. * Improved with mirtazapine. * History of gastroesophageal reflux disorder. Will continue proton pump inhibitor. * Discontinued PICC line, 12/17/2017. * Increase O2 Requirement - Potentially multiple instigators - pt without reports of difficulty recently with diet but has altered diet. Known CHF - potentially increased fluid accumulation. Also could have HAP - mild fevers. Will get CXR today and repeat labs - CBC, CMP, BNP. Making progress but not yet reflected in FIM gain. Has good family support. Discharge date set for 01/02/2018, home with family verses to group home facility depending on progress. Continue tentative discharge date of 01/02/2018. Dr. Yu Discussed with neurologist Dr. Mccall, 12/08/2017. Efficacy of IVIG can take 10-20 days. Wait 3-4 weeks to assess for failure. However if she declines and is unable to take any nutrition or if she has respiratory decline would intervene sooner. His choice would be plasma exchange rather than repeat IVIG. Followup. The patient is to follow up with [facility], Dr. Gill, after discharge and with Cardiology in 2-3 months. Changes Today - Pt with slightly increased O2 needs today. Had mild fevers overnight to 100.8. Has several factors that could be contributing include CHF/ Cardiomyopathy vs Aspiration vs Respiratory fatigue 2/2 GBS. Will need to get a CXR to determine PNA vs fluid overload - will also get associated labs to guide interventions. Just completed a course of ABX - nitrofurantoin for bladder infection. Not toxic appearing at time of visit. Less likely that PE given weakness has been present for 6 weeks already and on Xeralto full dosing at baseline 12/27/17 09:44 Subjective: Feeling a little more SOB today- per RN is requiring more O2 today- had required higher levels at admission but recently these have decreased and was doing pretty well even on RA during the day but now back on on O2. no other concerns. No fevers/chills right now - did have Fever last night. no recent obvious episodes of aspiration. Objective: Vital Signs Temp Pulse Resp BP Pulse Ox 37.1 C 73 16 128/61 H 93 12/27/17 09:35 12/27/17 09:18 12/27/17 06:28 12/27/17 09:18 12/27/17 09:18 Laboratory Results 12/19/17 11:00 12/12/17 06:20 12/26/17 12/27/17 12/28/17 05:59 05:59 05:59 Intake Total 250 600 Output Total 1125 1500 Balance -875 -900 Physical Exam - Physical Exam General Appearance: alert, mild distress EENT: normal ENT inspection Respiratory: other (Minimally decreased at bases - no overt crackles appreciated on exam. Slightly decreased respiratory effort) Cardiac/Chest: regular rate, rhythm Abdomen: normal bowel sounds, non-tender Skin: other (no LE sores -) Extremities: other (Did not appreciate LE edema ) Neuro/Psych: alert ICD10 Worksheet Patient Problems: Problems Problem Status Onset Atrial fibrillation Acute Guillain-Lansford syndrome Acute Generalized anxiety disorder Chronic Insomnia Chronic Sedative dependence with current use Chronic
[2017-12-27] MEDS: TEARS/DEXTRAN 70/HYPROMELLOSE 15 ML OPHT.BTL EACHEYE PRN ×2 (10:45→16:29)
[2017-12-27 12:21] LABS: PLATELET COUNT 241 10^3/uL (150-400)
[2017-12-27] MEDS ORDERED: FUROSEMIDE 40 MG TAB PO ONE (12:53)
[2017-12-27] MEDS: LIDOCAINE 5% 1 EA PATCH TD SCH (13:19)
[2017-12-27 16:24] VITALS: RESP 20; O2SAT 89
[2017-12-27 18:24] VITALS: TEMP 99.5
[2017-12-27 18:29] VITALS: BP 105/50; PULSE 78
--- NOTE | 2017-12-29 20:39 | GDS ---
[f rep st] DISCHARGE SUMMARY ADMITTING DIAGNOSIS: Debility due to Guillain-Deering syndrome. DISCHARGE DIAGNOSIS: Debility due to Guillain-Deering syndrome. OTHER DISCHARGE DIAGNOSES: 1. Congestive heart failure. 2. Dysphagia. 3. Cranial nerve 7 neuropathy. 4. Neuropathic pain. 5. Urinary retention. 6. Atrial fibrillation. CONSULTATIONS: Psychiatry, Dr. Reyes and by acupuncture Dr. Romero. PROCEDURES: She had acupuncture. COMPLICATIONS: Fever and hypoxia and diagnosis of congestive heart failure. HISTORY AND HOSPITAL COURSE: This patient was admitted from [facility], where she had been diagnosed with Guillain-Deering syndrome. She received 5 days of IVIG. She had new onset atrial fibrillation and an echocardiogram which showed ejection fraction of 40% to 45%, grade 2 diastolic dysfunction, and an elevated right ventricular systolic pressure of 49. Atrial fibrillation converted with amiodarone. She had improvement in rehabilitation, but it was gradual. Her initial functional independence measure was 46 on 12/08/2017, which is consistent with needing assistance with all aspects of mobility and activities of daily living at the residential level. She required a Sadie lift for transfers. She had marked lower extremity and truncal weakness, and she had weakness of the upper extremities as well. She had improvement in balance and participation in transfers, but these were not yet reflected in her functional independence measure. She had improvement in dysphagia and improvement in her cranial nerve 7 neuropathy. Diet texture improved from dysphagia 1 on 12/08/2017 to dysphagia 3 diet on 12/22/2017. Regarding the cranial nerve neuropathy on the left, she was treated with ophthalmic ointment at night and with a monocular goggle, as she was unable to maintain eye closure. She had neuropathic pain related to the Guillain-Deering syndrome, and she had sciatic pain with a known history of sciatica. It was thought that this was likely exacerbated due to core and truncal weakness. She was titrated on gabapentin to 900 mg t.i.d., and she was treated with oxycodone. Long-acting morphine was added at 15 mg b.i.d. Additionally, a lidocaine patch provided some benefit. Overall, she had adequate pain relief . There was urinary retention and possibly neurogenic bladder. She failed a voiding trial, despite titration of bethanechol, and it was thought that a voiding trial would be appropriate again when her mobility was considerably improved. She was treated for a possible UTI. Symptoms were subtle. She grew 5000 CFU per milliliter of E coli. Initially, she was treated with levofloxacin and, ultimately, she was changed to nitrofurantoin to complete a 7-day course. Hypertension was adequately controlled with carvedilol which also provided rate control, and she was maintained on rivaroxaban as well for anticoagulation. She developed acutely worsening hypoxemia and a fever. X-ray showed mild interstitial edema with left greater than right pleural effusion. She did not have leukocytosis. She had a trial of furosemide, but her symptoms did not improve, so she was discharged to the [facility] Emergency Department and, from there, she was admitted for further treatment of congestive heart failure. DISCHARGE PLAN: Condition upon discharge is fair. Activity is mobilize as much as possible and continue therapies to encourage functional improvement while she is hospitalized. Diet is regular with a dysphagia 3 texture. Date of next appointment: She will follow up with the hospitalist service. MEDICATIONS AT DISCHARGE: 1. Albuterol nebulizer q.6 hours. 2. Albuterol nebulizer q.2 hours p.r.n. 3. Amiodarone 200 mg p.o. twice daily. 4. Bisacodyl 10 mg daily p.r.n. 5. Carvedilol 6.25 mg p.o. b.i.d. 6. Diazepam 1 mg p.o. b.i.d. p.r.n. and 2.5 mg at h.s. scheduled. 7. Gabapentin 900 mg p.o. t.i.d. 8. Mirtazapine 15 mg p.o. q.h.s. 9. Morphine 15 mg p.o. b.i.d. 10. Oxycodone 2.5 to 10 mg p.o. q.3 hours p.r.n. 11. Pantoprazole 40 mg p.o. daily. 12. Polyethylene glycol 17 g p.o. daily. 13. Rivaroxaban 20 mg p.o. daily. 14. Senna/docusate 1-2 tabs p.o. daily. ISSUES TO BE ADDRESSED AT FOLLOWUP: It is expected that she will be treated for congestive heart failure and, when she has responded, she can return to the inpatient rehabilitation unit to continue her recovery from Guillain-Deering syndrome. /[id number]/MODL MTDD
== END 2017-12-27 23:30 | disposition still patient (30) | DRG 95 ==
LOC: BREH 14:05 → UNDODISIN 12-25 23:30
PROVIDERS: ADMIT Internal Medicine; ATTEND Internal Medicine
PROC: F0636ZZ Communicative/Cognitive Integration Skills Treatment of Neurological System - Whole Body (ICD-10-PCS; principal; 2017-12-04)
PROC: F08Z7ZZ Vocational Activities and Functional Community or Work Reintegration Skills Treatment (ICD-10-PCS; principal; 2017-12-04)
PROC: F07M3ZZ Motor Function Treatment of Musculoskeletal System - Whole Body (ICD-10-PCS; principal; 2017-12-04)
DX: G61.0 Guillain-Barre syndrome (principal); H02.534 Eyelid retraction left upper eyelid; M79.2 Neuralgia and neuritis, unspecified; N31.8 Other neuromuscular dysfunction of bladder; E87.1 Hypo-osmolality and hyponatremia; I48.0 Paroxysmal atrial fibrillation; I42.9 Cardiomyopathy, unspecified; I27.20 Pulmonary hypertension, unspecified; G47.00 Insomnia, unspecified; F41.9 Anxiety disorder, unspecified; K21.9 Gastro-esophageal reflux disease without esophagitis; I10 Essential (primary) hypertension; G43.909 Migraine, unspecified, not intractable, without status migrainosus
CPT/HCPCS: 82607-90; 92507-GN; 92526-GN; 92610-GN; 97110-GO; 97110-GP; 97112-GO; 97112-GP; 97140-GO; 97140-GP; 97162-GP; 97167-GO; 97530-GO; 97530-GP; 97535-GO; 97542-GO; 99366-GO

== ENCOUNTER 2017-12-27 19:17 | Inpatient (IN) | payer OTHER ==
--- NOTE | 2017-12-27 19:35 | CPEKG ---
Heart Rate: 72 RR Interval: 833 P-R Interval: 160 QRSD Interval: 112 QT Interval: 476 QTC Interval: 522 P [place]: 56 QRS [place]: 49 T Wave [place]: 94 EKG Severity - ABNORMAL ECG - EKG Impression: SINUS RHYTHM EKG Impression: INCOMPLETE RIGHT BUNDLE BRANCH BLOCK Electronically Signed By: Ramone Dean 27-Dec-2017 20:50:49
[2017-12-27] MEDS ORDERED: IOPAMIDOL (ISOVUE-300) 100 ML BTL ONE (20:02)
[2017-12-27 20:06] LABS: PLATELET COUNT 251 10^3/uL (150-400)
--- NOTE | 2017-12-27 20:28 | EDPHY ---
H & P Stated Complaint: SOB Time Seen by Provider: 12/27/17 19:21 HPI/ROS: Chief Complaint: Shortness of breath HPI: 72-year-old woman who is diagnosed with Guillain-Linden on the beginning of November of this year. She has been in the rehab facility at the [facility] for the last couple of weeks. She has had increasing shortness of breath and fevers for the last 2 days. Chest x-ray showed worsening pleural effusions consistent with congestive heart failure. She has had increasing oxygen requirements and now requires 2 L via nasal cannula with increasing tachypnea. She also been complaining of increasing abdominal pain and distension. No nausea or vomiting. No diarrhea. Has had some constipation. She has got generalized extremity weakness but improving sensations secondary to her Guillain-Linden. ROS: 10 point Review of Systems is negative except as noted in the HPI. PMH: Guillain-Linden Social History: No smoking, no alcohol, no recreational drug use Family History: non-contributory Physical Exam: Gen: Awake, Alert, No Distress HEENT: Nose: no rhinorrhea Eyes: PERRLA, EOMI Mouth: Moist mucosa Neck: Supple, no JVD Chest: nontender, breath sounds at both lung bases Heart: S1, S2 normal, no murmur Abd: Soft, distended, mild to moderate diffuse tenderness Back: no CVA tenderness, no midline tenderness Ext: no edema, non-tender Skin: no rash Neuro: CN II-XII intact, Sensation grossly intact, strength is 3/5 proximally and 4/5 distally in bilateral upper lower extremities - Personal History Current Tetanus/Diphtheria Vaccine: Unsure Current Tetanus Diphtheria and Acellular Pertussis (TDAP): Unsure - Medical/Surgical History Hx Asthma: No Hx Chronic Respiratory Disease: No Hx Diabetes: No Hx Cardiac Disease: No Hx Renal Disease: No Hx Cirrhosis: No Hx Alcoholism: No Hx HIV/AIDS: No Hx Splenectomy or Spleen Trauma: No Other PMH: htn, hystorectomy, cateracts x2, basil cell - Social History Smoking Status: Never smoked Constitutional: Initial Vital Signs Temperature (C) 38.0 C 12/27/17 19:27 Heart Rate 75 12/27/17 19:27 Respiratory Rate 18 12/27/17 19:27 Blood Pressure 130/60 H 02/03/18 19:27 O2 Sat (%) 85 L 12/27/17 19:27 O2 Delivery Mode Room Air Allergies/Adverse Reactions: codeine Allergy (Mild, Verified 12/27/17 19:26) Penicillins Allergy (Unknown, Verified 12/27/17 19:26) Home Medications: Medication Instructions Recorded Acetaminophen [Tylenol 325mg (*)] 650 mg PO Q4 PRN 12/04/17 Amiodarone HCl [Pacerone (*)] 200 mg PO BID 12/04/17 Bisacodyl [Dulcolax] 10 mg RC DAILY 12/04/17 Bisacodyl [Dulcolax] 10 mg RC DAILY PRN 12/04/17 Carvedilol [Coreg (*)] 6.25 mg PO BIDMEAL 12/04/17 Gabapentin [Neurontin 300 MG (*)] 300 mg PO TID 12/04/17 Hydrocodone/Acetaminophen [Bath 1 - 2 tab PO Q4H PRN 12/04/17 5/325 (*)] LORazepam [Ativan (*)] 0.5 - 1 mg PO Q4 PRN 12/04/17 Lidocaine 5% [Lidoderm 5% Patch 1 ea TD DAILY 12/04/17 (*)] Ondansetron HCl Pf [Zofran 4 mg 4 mg IV Q4 PRN 12/04/17 Inj (*)] Pantoprazole Sodium [Protonix IV 40 mg IV DAILY 12/04/17 (*)] Polyethylene Glycol 3350 [Miralax 17 gm PO DAILY 12/04/17 17 gm (*)] Promethazine HCl [Phenergan 6.25 mg IV Q6 PRN 12/04/17 Injection (RX)] Rivaroxaban [Xarelto 10mg (*)] 20 mg PO DAILY 12/04/17 Sennosides/Docusate Sodium 1 each PO BID 12/04/17 [Senna-S Tablet] hydrALAZINE [Apresoline] 10 mg IV Q8 PRN 12/04/17 morphINE [morphINE 2mg/ml Inj (*)] 1 - 2 mg IVP Q4 PRN 12/04/17 Medical Decision Making ED Course/Re-evaluation: 72-year-old with Guillain-Linden with worsening shortness of breath abdominal distention and a chest x-ray consistent with congestive heart failure. Patient has had increasing oxygen requirements and fever. She has abdominal tenderness. Bloods have been ordered. CT scan of her abdomen and pelvis has been ordered as well. Urinalysis will be sent as well. The patient is not tachycardic or hypotensive. Her oxygen saturations are in the low 90s on supplemental oxygen. She is not septic in appearance. I have discussed with Dr. Ayala, hospitalist. She will admit to her service for further care. - Data Points Laboratory Results: Laboratory Results 12/27/17 19:30 12/27/17 12/27/17 12/27/17 19:40 19:30 19:30 WBC 8.29 10^3/uL 10^3/uL (3.80-9.50) RBC 3.30 10^6/uL L 10^6/uL (4.18-5.33) Hgb 10.7 g/dL L g/dL (12.6-16.3) Hct 32.1 % L % (38.0-47.0) MCV 97.3 fL fL (81.5-99.8) MCH 32.4 pg pg (27.9-34.1) MCHC 33.3 g/dL g/dL (32.4-36.7) RDW 14.6 % % (11.5-15.2) Plt Count 251 10^3/uL 10^3/uL (150-400) MPV 9.6 fL fL (8.7-11.7) Neut % (Auto) 84.7 % H % (39.3-74.2) Lymph % (Auto) 7.8 % L % (15.0-45.0) Smyth % (Auto) 6.9 % % (4.5-13.0) Eos % (Auto) 0.0 % L % (0.6-7.6) Baso % (Auto) 0.2 % L % (0.3-1.7) Nucleat RBC Rel Count 0.0 % % (0.0-0.2) Absolute Neuts (auto) 7.02 10^3/uL H 10^3/uL (1.70-6.50) Absolute Lymphs (auto) 0.65 10^3/uL L 10^3/uL (1.00-3.00) Absolute Monos (auto) 0.57 10^3/uL 10^3/uL (0.30-0.80) Absolute Eos (auto) 0.00 10^3/uL L 10^3/uL (0.03-0.40) Absolute Basos (auto) 0.02 10^3/uL 10^3/uL (0.02-0.10) Absolute Nucleated RBC 0.00 10^3/uL 10^3/uL (0-0.01) Immature Gran % 0.4 % % (0.0-1.1) Immature Gran # 0.03 10^3/uL 10^3/uL (0.00-0.10) Sodium Pending Potassium Pending Chloride Pending Carbon Dioxide Pending Anion Gap Pending BUN Pending Creatinine Pending Estimated GFR Pending Glucose Pending Calcium Pending Total Bilirubin Pending AST Pending ALT Pending Alkaline Phosphatase Pending Troponin I Pending Total Protein Pending Albumin Pending Urine Color Pending Urine Appearance Pending Urine pH Pending Ur Specific [place] Pending Urine Protein Pending Urine Ketones Pending Urine Blood Pending Urine Nitrate Pending Urine Bilirubin Pending Urine Urobilinogen Pending Ur Leukocyte Esterase Pending Urine Glucose Pending Departure - Departure Disposition: [facility] Inpatient Acute Clinical Impression: Guillain-Linden syndrome, Congestive heart failure, Fever Condition: Fair Referrals: BRIAN HICKEY [Primary Care Provider] - As per Instructions
[2017-12-27] MEDS ORDERED: MAGNESIUM HYDROXIDE 30 ML UDCUP PO PRN (22:35)
[2017-12-27] MEDS ORDERED: LACTULOSE 20 GM/30 ML UDCUP PO PRN (22:36)
[2017-12-27] MEDS ORDERED: BISACODYL 10 MG SUPP PR PRN (22:36)
[2017-12-27] MEDS ORDERED: POLYETHYLENE GLYCOL 3350 17 GM PKT PO PRN (22:36)
[2017-12-27] MEDS ORDERED: FUROSEMIDE 40 MG/4 ML VIAL IVP ONE (22:40)
--- NOTE | 2017-12-27 22:58 | PDGENHP ---
History and Physical - Chief Complaint Shortness of breath, fever - History of Present Illness Source-patient provides history appears reliable. Case discussed with ED provider in EMR reviewed. Attempted to review [facility] records from [facility] but was not successful in finding documentation. HPI - very pleasant 72-year-old female with past medical history recently of Guillain-Medway who was admitted seen [facility] in November for upper respiratory viral illness with subsequent lower and upper extremity weakness. 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 Patient reports that during her hospital stay she did develop atrial fibrillation on and was placed on amiodarone and Pradaxa. Patient was subsequently discharged to [facility] acute rehab where she reports her strength had been improving significantly. In the last 3 days however patient states that she subsequently has developed teeth chattering chills an yesterday developed a fever to 100.8 and again this afternoon to 100.6. Patient denies any nasal congestion, rhinorrhea, sore throat, cough. He has been experiencing some dyspnea with exertion and more fatigued than normal. She has had significantly declined appetite in the last 3 days as well and feels dry. Patient has had increasing oxygen requirement from 1 up to 3 L this afternoon with increasing could tachypnea. Patient's chest x-ray obtained outpatient was also noted to have a left greater than right pleural effusion. Per H&P from rehab department this does not appear to be new. I spoke with the franchise field consultant PMNR provider who reported that patient had a documented history of pulmonary hypertension and CHF however patient denies when this is reviewed. She only is aware of atrial fibrillation. Patient denies any increased lower extremity edema from baseline. She denies any orthopnea. No PND reported. Patient has a chronic indwelling Malhotra catheter in place for urinary retention suspected due to neurogenic bladder with her history of Guillain-Medway. Patient states that she was diagnosed with UTI and completed a few days of antibiotic which is noted in the chart to be Levaquin and subsequently transitioned to Macrobid. Patient denies any bladder pain or flank pain. She does report increasing abdominal distention and discomfort related constipation. Her last bowel movement was 40 patient without any previous history of diarrhea. She responds appropriately to suppositories. History Information - Allergies/Home Medication List Allergies/Adverse Reactions: codeine Allergy (Mild, Verified 02/03/18 19:26) Penicillins Allergy (Unknown, Verified 12/27/17 19:26) Home Medications: Acetaminophen [Tylenol 325mg (*)] 650 mg PO Q4 PRN 12/04/17 [Last Taken 12/26/17 ] Amiodarone HCl [Pacerone (*)] 200 mg PO BID 12/04/17 [Last Taken 12/31/17 09:00] Carvedilol [Coreg (*)] 6.25 mg PO BIDMEAL 12/04/17 [Last Taken 12/31/17 08:09] Gabapentin [Neurontin 300 MG (*)] 900 mg PO TID 12/04/17 [Last Taken 12/31/17 09 :00] Lidocaine 5% [Lidoderm 5% Patch (*)] 2 ea TD DAILY 12/04/17 [Last Taken 12/31/17 ] Rivaroxaban [Xarelto 10mg (*)] 20 mg PO DAILY 12/04/17 [Last Taken 12/31/17 08: 09] Diazepam 1 mg PO BID PRN 12/27/17 [Last Taken 12/30/17 23:19] Gluc Oxid/l-Peroxid/Muramidase [Biotene Mouthwash (*)] 30 ml MM QID PRN [Last Taken 12/31/17 09:00] MIRTAZAPINE [Remeron 7.5 mg] 15 mg PO HS 12/27/17 [Last Taken 12/30/17 20:40] Morphine Sulfate [Ms Contin] 15 mg PO 12/27/17 [Last Taken 12/31/17 06:18] Ondansetron HCl Pf [Zofran 4 mg Inj (*)] 4 mg IV Q4 PRN 12/27/17 [Last Taken ] Ondansetron Odt [Zofran Odt 4 mg (*)] 4 mg PO Q4 PRN 12/27/17 [Last Taken Unknown] Pantoprazole Sodium [Protonix 40mg (*)] 40 mg PO DAILY@0600 12/27/17 [Last Taken 12/31/17 06:18] Petrolat,Wht/Min Oil/Sod Chl [REFRESH P.M. OINTMENT P-F] 1 pasquale OP HS 12/27/17 [ Last Taken 12/30/17] Promethazine HCl [Phenergan 25mg (*)] 6.25 - 12.5 mg PO Q6 PRN 12/27/17 [Last Taken Unknown] Promethazine HCl [Phenergan] 6.25 - 12.5 mg IVP Q6 PRN 12/27/17 [Last Taken Unknown] Psyllium Husk/Aspartame [Metamucil Fiber Singles Packet] 3.4 gm PO DAILY@0600 [Last Taken 12/31/17] Tears/Dextran 70/Hypromellose [Natural Balance Tears (*)] 1 drop EACHEYE Q2 PRN 12/27/17 [Last Taken 12/30/17] oxyCODONE IR [Oxycodone Ir (*)] 2.5 - 10 mg PO Q3 PRN 12/27/17 [Last Taken 12/31 11:13] I have personally reviewed and updated: family history, medical history, social history, surgical history - Past Medical History Additional medical history: Guillain barre with peripheral paresthesias, GERD, HTN, hypokalemia, migraine headaches, bilateral sciatica - Surgical History Additional surgical history: Cholecystectomy, bilateral cataract extraction with lens placement, right foot fasciotomy, hysterectomy, skin biopsy on her nose, tendon repair on the left wrist after, - Family History Additional family history: Mother-diabetes, mother and father with history CHF in ther 80s - Social History Smoking Status: Former smoker (Quitting teen 70s) Tobacco Use: Cigarettes Alcohol Use: None Drug Use: None Additional social history: . Patient lives with her . Two adult children are supportive. One is local. Cor status is full Review of Systems Review of Systems: ROS: 10pt was reviewed & negative except for what was stated in HPI & below Constitutional: Reports: chills, fever, malaise, recent illness, weakness. Denies: weight loss EENMT: Reports: blurred vision (Chronic nothing acute.). Denies: ear discharge , ear pain, nose congestion, sore throat, throat swelling Cardiac: Reports: no symptoms. Denies: edema, palpitations Respiratory: Reports: shortness of breath. Denies: cough, orthopnea Gastrointestinal: Reports: no symptoms, abdominal distention, constipation. Denies: black stools, blood streaked stools, abdominal pain, nausea Genitourinary: Reports: other (Chronic indwelling Malhotra catheter.). Denies: dysuria, incontinence Muscolosketal: Reports: back pain, other (Bilateral lower extremity weakness> distal upper extremities.) Skin: Reports: no symptoms, change in color. Denies: rash Neurological: Reports: numbness, paresthesia, tingling, weakness (See HPI). Denies: anxiety, depressed, emotional problems, headache Hematologic/Lymphatic: Reports: anemia, other (Bruising to abdomen at sites of Lovenox injections small left abdomen) Physical Exam Physical Exam: Selected Entries 12/27/17 19:27 Blood Pressure Automatic Method Heart Rate 75 Respiratory 18 Rate O2 Sat (%) 85 L Temperature (C) 38.0 C Blood Pressure 130/60 H Mean Arterial 83 Pressure (MAP) O2 Delivery Room Air Mode Temperature Oral Source Temp Pulse Resp BP Pulse Ox 37.6 C 78 16 126/52 H 98 12/27/17 22:00 12/27/17 22:00 12/27/17 22:00 12/27/17 22:00 12/27/17 22:00 O2 (L/minute) 3 Constitutional: no apparent distress, chronically ill appearing, other (ND. Frail acute on chronically ill female is lying quietly in bed awake. Patient does not appear toxic. is at bedside.) Eyes: PERRL, anicteric sclera, EOMI, No scleral injection Ears, Nose, Mouth, Throat: hearing normal, dry mucous membranes, No poor dentition Cardiovascular: regular rate and rhythym (Slightly distant heart sounds), no murmur, rub, or gallop, No edema Peripheral Pulses: 1+: dorsalis-pedis (R), dorsalis-pedis (L) Respiratory: no respiratory distress, clear to auscultation, reduced air movement (Basilar. Diminished on the left greater than the right lower lung shukla.) Gastrointestinal: normoactive bowel sounds, soft, non-tender abdomen, no palpable masses, distension (Soft but full abdomen), No tenderness, No guarding Genitourinary: no bladder tenderness, malhotra in urethra Skin: warm, normal color, no rashes or abrasions, other (Pallor) Musculoskeletal: generalized weakness, other (Slightly weaker on the left lower extremity compared to the right. Patient's distal strength of her upper extremities is diminished but.) Neurologic: AAOx3, sensation intact bilaterally, weakness (See note above), CN II-XII Intact, No facial droop Lab Data & Imaging Review 12/29/17 03:16 12/31/17 03:11 WBC 8.29 10^3/uL (3.80-9.50) 12/27/17 19:30 RBC 3.30 10^6/uL (4.18-5.33) L 12/27/17 19:30 Hgb 10.7 g/dL (12.6-16.3) L 12/27/17 19:30 Hct 32.1 % (38.0-47.0) L 12/27/17 19:30 MCV 97.3 fL (81.5-99.8) 12/27/17 19:30 MCH 32.4 pg (27.9-34.1) 12/27/17 19:30 MCHC 33.3 g/dL (32.4-36.7) 12/27/17 19:30 RDW 14.6 % (11.5-15.2) 12/27/17 19:30 Plt Count 251 10^3/uL (150-400) 12/27/17 19:30 MPV 9.6 fL (8.7-11.7) 12/27/17 19:30 Neut % (Auto) 84.7 % (39.3-74.2) H 12/27/17 19:30 Lymph % (Auto) 7.8 % (15.0-45.0) L 12/27/17 19:30 Baldwin % (Auto) 6.9 % (4.5-13.0) 12/27/17 19:30 Eos % (Auto) 0.0 % (0.6-7.6) L 12/27/17 19:30 Baso % (Auto) 0.2 % (0.3-1.7) L 12/27/17 19:30 Nucleat RBC Rel Count 0.0 % (0.0-0.2) 12/27/17 19:30 Absolute Neuts (auto) 7.02 10^3/uL (1.70-6.50) H 12/27/17 19:30 Absolute Lymphs (auto) 0.65 10^3/uL (1.00-3.00) L 12/27/17 19:30 Absolute Monos (auto) 0.57 10^3/uL (0.30-0.80) 12/27/17 19:30 Absolute Eos (auto) 0.00 10^3/uL (0.03-0.40) L 12/27/17 19:30 Absolute Basos (auto) 0.02 10^3/uL (0.02-0.10) 12/27/17 19:30 Absolute Nucleated RBC 0.00 10^3/uL (0-0.01) 12/27/17 19:30 Immature Gran % 0.4 % (0.0-1.1) 12/27/17 19:30 Immature Gran # 0.03 10^3/uL (0.00-0.10) 12/27/17 19:30 VBG Lactic Acid 1.0 mmol/L (0.7-2.1) 12/27/17 21:00 Sodium 141 mEq/L (135-145) 12/27/17 19:30 Potassium 4.1 mEq/L (3.5-5.2) 12/27/17 19:30 Chloride 103 mEq/L (97-110) 12/27/17 19:30 Carbon Dioxide 24 mEq/l (22-31) 12/27/17 19:30 Anion Gap 14 mEq/L (8-16) 12/27/17 19:30 BUN 14 mg/dL (7-23) 12/27/17 19:30 Creatinine 0.7 mg/dL (0.6-1.0) 12/27/17 19:30 Estimated GFR > 60 12/27/17 19:30 Glucose 140 mg/dL (70-100) H 12/27/17 19:30 Calcium 8.6 mg/dL (8.5-10.4) 12/27/17 19:30 Total Bilirubin 0.6 mg/dL (0.1-1.4) 12/27/17 19:30 AST 22 IU/L (14-46) 12/27/17 19:30 ALT 33 IU/L (9-52) 12/27/17 19:30 Alkaline Phosphatase 62 IU/L (38-126) 12/27/17 19:30 Troponin I < 0.012 ng/mL (0.000-0.034) 12/27/17 19:30 Total Protein 6.3 g/dL (6.3-8.2) 12/27/17 19:30 Albumin 3.0 g/dL (3.5-5.0) L 12/27/17 19:30 Urine Color PALE YELLOW 12/27/17 19:40 Urine Appearance CLEAR 12/27/17 19:40 Urine pH 5.0 (5.0-7.5) 12/27/17 19:40 Ur Specific Soldier 1.004 (1.002-1.030) 12/27/17 19:40 Urine Protein NEGATIVE (NEGATIVE) 12/27/17 19:40 Urine Ketones NEGATIVE (NEGATIVE) 12/27/17 19:40 Urine Blood NEGATIVE (NEGATIVE) 12/27/17 19:40 Urine Nitrate NEGATIVE (NEGATIVE) 12/27/17 19:40 Urine Bilirubin NEGATIVE (NEGATIVE) 12/27/17 19:40 Urine Urobilinogen NEGATIVE EU (0.2-1.0) 12/27/17 19:40 Ur Leukocyte Esterase NEGATIVE (NEGATIVE) 12/27/17 19:40 Urine Glucose NEGATIVE (NEGATIVE) 12/27/17 19:40 Imaging Review: PA and Lateral Chest Indication: Shortness of breath. Comparison: None Findings: Small to moderate left pleural effusion and left basilar consolidation obscures left costophrenic angle. Trace edema is present right base. Heart is enlarged with cephalization and minimal interstitial edema. Impression: Mild CHF with associated effusions, larger left than right, and bibasilar atelectasis. Findings discussed with physician, Allen Cuello MD at 12/27/2017 11:47. 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 Her surgical history is notable for a prior cholecystectomy and a hysterectomy. Technique: Neither antegrade oral nor retrograde rectal contrast was administered. Following the uncomplicated intravenous administration of 80 mL of Isovue-300, a multidetector helical CT scan was obtained from the lung bases inferiorly through the proximal femora, with images reformatted at 5.00 and 1.50 mm increments, and reviewed at a variety of window and level settings. Parasagittal and paracoronal reconstructed images are reviewed on the workstation. The DFOV is 39.0 cm. Dose reduction techniques were utilized. Comparison Study: Chest radiography from earlier this morning at 11:25 AM. Findings: Lung Bases: There are small bilateral pleural effusions with bibasilar parenchymal consolidation, consistent with compressive atelectasis and pneumonia (there are a few air bronchograms present), and there is peribronchial thickening. There is mild cardiomegaly, and a tiny pericardial effusion is present. Liver: There is an 8 x 8 mm "too small to characterize" hypodensity in the anterior portion of the caudate lobe. There is mild intra and extrahepatic bile duct dilatation, with a capacious common duct which tapers at the pancreatic head and ampulla. The common hepatic duct measures 11 mm in diameter, and the periportal aspect of the common bile duct measures 13 mm in diameter, however at the pancreatic head level, the common bile duct measures 6 mm in diameter. This could represent a capacious "reservoir" type affect in this postcholecystectomy patient. Does she have elevation of her bilirubin level? Gallbladder: Surgically absent. Pancreas: Normal. Spleen: Normal. Adrenal Glands: Normal. Kidneys/Ureters/Urinary Bladder: The kidneys are normal in position and there are bilateral renal cortical cysts. The largest is seen in the posteromedial mid pole of the left kidney measuring 3.9 x 4.4 cm with a Hounsfield unit measurement of -1. There is no hydronephrosis or perinephric fluid. The ureters are not dilated. There is a Malhotra catheter in the nondistended urinary bladder. GI Tract: The stomach, small bowel, and the appendix appear normal.] There is moderate constipation , from the cecum to the rectosigmoid. Retroperitoneum: There is no adenopathy. Mesentery/Omentum/Peritoneum: There is no ascites, free air, or localized fluid collection.] There is no mesenteric edema or adenopathy. Vessels: The abdominal aorta is normal in size, and tapers normally. There are renal veins passing anterior and posterior in a circumaortic fashion. The IVC is normal in caliber. The splenic vein, superior mesenteric vein, and the main portal vein are patent. Reproductive Organs: The uterus is surgically absent. There is no adnexal mass. There is some mild presacral edema versus fibrosis. Abdominal Wall: There is a benign-appearing lipoma seen anterior to the right femoral diaphysis. Osseous Structures: There is mild degenerative disk space narrowing L3-L4. Ventral traction osteophytes are observed. There is no aggressive osseous lesion. There is a mild levolumbar scoliosis. There are mild degenerative changes of the hips. Impression: 1. Moderate constipation, with no mechanical bowel obstruction. 2. Cardiomegaly with small pleural effusions and bibasilar consolidation, consistent with atelectasis and infiltrates (and previously demonstrated CHF). 3. Subcentimeter (too small to characterize) caudate lobe hypodense lesion. 4. Status post cholecystectomy with mild intra and extrahepatic bile duct dilatation; correlation with bilirubin level is suggested to determine if this is merely related to a capacious reservoir type effect. 5. Bilateral renal cortical cysts. 6. Status post hysterectomy. The patient was admitted to the hospitalist service, and this information was made available for Tiny Ayala M.D. Chest X-Ray results: effusion Visualized and Interpreted EKG results: Yes EKG Interpretation: Positive for: normal sinsus rhythm, right bundle branch block EKG additional interpertation: NSR in the 70s. Incomplete right bundle branch block. No acute ST changes. QT 476, QTC 522. Assessment & Plan Assessment: Assessment and plan: Pleasant 72-year-old female with recent history of Guillain-Medway status post IV IG transferred to acute rehab at [facility] who is now transferred to ER for further evaluation of increasing oxygen needs due to hypoxia with finding is a of bilateral pleural effusions. #Hypoxia-patient with bilateral pleural effusions evidence of CHF. Will plan to continue with diuresis and further echocardiogram in the morning as noted below. Continue with supplemental oxygen to maintain saturation greater than 90 %. Try to titrate down as tolerated. Incentive spirometry has been ordered. #Congestive heart failure (Acute) per report diastolic and systolic but awaiting echo in AM- patient with evidence of CHF on imaging. Per report it was discussed with Dr. Oneill that patient has an underlying history of CHF and pulmonary hypertension. When asked the patient she denies. I do not have sufficient records available for review in [facility] at this time. Will plan to obtain an echocardiogram in the morning. Patient will continue with IV diuresis. Per previous discussions with PM&R patient had underlying systolic diastolic CHF with pulmonary hypertension. Will need to monitor patient's fluid status and mobilization quite closely. Also Monitor blood pressures which are currently normal low normal. #Fever (Acute) - etiology is not quite clear. UA is unremarkable. lactic acid WNL. Patient without significant change per review available records regarding these pleural effusions. She also has some atelectasis which could be contributing. Patient will have incentive spirometer ordered. Patient without any evidence of abdominal etiology in but is current constipated. #Atrial fibrillation - patient currently normal sinus rhythm. rate is controlled at this time. Resume patient's Xarelto, amiodarone, and Coreg. #Guillain-Medway syndrome (Acute) - status post IV IG. PT OT consultation #Constipation-changes in BM related to Guillain-Medway. Patient will have bowel regimen ordered and particular stops suppository which patient reports she responds very well to. No evidence of obstruction on imaging. #Lung nodule-may require additional follow-up on outpatient basis. #Dilated intra and extrahepatic ducts height in setting of cholecystectomy with normal LFTs postsurgical related. Patient denies any right upper quadrant abdominal pain. #GERD-resume patient's Protonix. #Benign essential hypertension-patient's blood pressure is kind of low normal. Will continue with aggressive IV diuresis and monitor blood pressures. Once stabilized patient will require replacement on her beta-tylor for rate control with history of [place] #Anemia of chronic disease. Monitor H&H. No evidence of active bleeding. #Hypoalbuminemia-likely secondary to patient's chronic illnesses. Patient also admits to poor dietary intake recently. Dietary consult will be ordered. FEN - SLIV. fluid restriction 1500 mls/ 24 hours. salt restricted. PPX - on xarelto. will continue once med list avail for reconciliation. COR - FULL. Dispo - Admit to inpatient status on PCU for close cardiac monitoring in CHF exacerbation.
--- NOTE | 2017-12-28 00:01 | PDMN ---
Medical Necessity Medical necessity: C/M review: est. > 2 MN LOS for eval and TX of acute and persistent CHF exacerbation, hypoxia, bilateral pleural effusions, fever, hypoalbuminemia requiring planned echocardiogram, Dietary consult, ongoing IV Lasix, cardiac monitoring, pulse oximetry, supplemental O2, acute inpt PT/OT, comorbid recent history of Guillain-[place] syndrome S/P IV IG with hospitalization at [facility] acute inpt rehab just prior to this admission, atrial fibrillation, constipation, lung nodule, dilated intra and extrahepatic ducts in the setting of acute cholecystitis with normal LFTs postsurgical related, GERD, benign essential hypertension, neurogenic bladder with chronic indwelling Solis catheter per H/P.
[2017-12-28] MEDS ORDERED: DIAZEPAM 2 MG TAB PO PRN (00:29)
[2017-12-28] MEDS: DIAZEPAM 5 MG TAB PO SCH ×3 (01:09→21:03)
[2017-12-28] MEDS: oxyCODONE IR 5 MG TAB PO PRN ×6 (01:10→21:02)
[2017-12-28 04:15] LABS: PLATELET COUNT 195 10^3/uL (150-400)
[2017-12-28 04:23] LABS: CREATINE KINASE < 20 IU/L (0-156)
[2017-12-28] MEDS: morphINE SR 15 MG TAB PO SCH ×2 (06:09→17:59)
[2017-12-28] MEDS: PANTOPRAZOLE SODIUM 40 MG TAB PO SCH (06:10)
[2017-12-28] MEDS: FUROSEMIDE 40 MG/4 ML VIAL IVP SCH ×2 (10:11→16:45)
[2017-12-28] MEDS: SENNOSIDES/DOCUSATE SODIUM TAB PO SCH ×3 (10:15→21:04)
[2017-12-28] MEDS: GABAPENTIN 300 MG CAP PO SCH ×3 (10:15→21:02)
[2017-12-28] MEDS: AMIODARONE HCL 200 MG TAB PO SCH ×3 (10:16→21:04)
[2017-12-28] MEDS: RIVAROXABAN 20 MG TAB PO SCH (10:16)
[2017-12-28] MEDS: CARVEDILOL 6.25 MG TAB PO SCH ×2 (10:16→17:59)
--- NOTE | 2017-12-28 10:27 | ECHO ---
[email or web address] [address] [address] Main: [phone] Fax: Transthoracic Echocardiogram Name: WALDEMAR MATAMOROS MR#: [id number] Study Date: 12/28/2017 Study Time: 08:24 AM Date of : 1945 Age: 72 year(s) Height: 157.5 cm (62 in.) Weight: 65.77 kg (145 lb.) BSA: 1.67 m2 Gender: Female Examination: Echo Indication: Dyspnea/effusions/CHF Image Quality: Contrast: Requested by: Tiny Ayala BP: 138 mmHg/55 mmHg Heart Rate: Rhythm: Indication: Dyspnea/effusions/CHF Procedure Staff Consumer Insights Intern: Rubina Valentin [facility] Reading Physician: Nolan Rene Requesting Provider: Conclusions: Mild concentric LV hypertrophy. Normal global systolic LV function. No regional wall motion abnormality. Trivial mitral valve regurgitation. Trivial tricuspid valve regurgitation. There is no previous echocardiogram for comparison. Measurements: Chambers Valvular Assessment AV/MV Valvular Assessment TV/PV Normal Normal Normal Name Value Range Name Value Range Name Value Range Ao Briana (MM): 2.8 cm (2.2 cm-3.7 AV meanP mmHg ( - ) cm) MV E Vmax: 0.63 m/s ( - ) IVSd (2D): 0.9 cm (0.6 cm-1.1 MV A Vmax: 0.91 m/s ( - ) cm) MV E/A: 0.69 ( - ) LVDd (2D): 4.3 cm (3.9 cm-5.3 cm) LVDs (2D): 2.1 cm (2.1 cm-4 cm) LVPWd (2D): 1.0 cm ( - ) LVEF (2D): 84 (>=54 %) EF Range: 70-75 % Continued Measurements: Chambers Valvular Assessment AV/MV Name Value Name Value LADs: 3.0 cm MV E/E' Septal: 12.90 MV E/E' Lateral: 11.90 Patient: WALDEMAR MATAMOROS Study Date: 12/28/2017 Page 1 of 2 08:24 AM Findings: Left Ventricle: Normal size left ventricle. Mild concentric LV hypertrophy. Normal global systolic LV function. The ejection fraction is estimated to be 70-75 %. No regional wall motion abnormality. Normal diastolic LV function. Right Ventricle: Normal size right ventricle. Left Atrium: The left atrium is normal in size. Right Atrium: The right atrium is normal in size. Mitral Valve: The mitral valve is normal in appearance and function. Trivial mitral valve regurgitation. Aortic Valve: The aortic valve is normal in appearance and function. Tricuspid Valve: The tricuspid valve is normal in appearance and function. Trivial tricuspid valve regurgitation. Pulmonic Valve: The pulmonic valve is normal in appearance and function. Aorta: The aorta is normal. Pericardium: No pericardial effusion. Left side pleural effusion. (No Signature Object) Patient: WALDEMAR MATAMOROS Study Date: 12/28/2017 Page 2 of 2 08:24 AM [id number]
--- NOTE | 2017-12-28 12:24 | WOCRNPDOC ---
WOCRN Advanced Assessment Note - Skin Integrity Problem, Advanced Assess Coccyx Dressing Type: Allevyn Life Dressing Description: Soiled (stool on distal aspect of dressing) Exudate Amount: None Exudate Characteristic(s): None Integumentary Issue Intervention: Dressing Removed Dipika Wound Tissue: Blanching, Intact Dipika Wound Swelling: None Skin Integrity Problem Comment: Two discrete areas of blanching erythema noted, one over patient's coccyx and one on patient's L medial buttocks. Not a pressure injury at this point, but given patient's diagnosis of Guillain-Mad[place] and her inability to reposition herself, she is high-risk for skin breakdown. Removed existing Allevyn placed by nursing, as there is no wound present at this time. Recommend turns q2, off-loading sacrum/coccyx at all times using TAPS wedges. In addition, will have nursing apply dimethicone cream to patient' s buttocks and perineum during pericare to help keep skin moisturized and intact. Wound RN does not need to follow patient ongoing. Please reconsult if site worsens.
[2017-12-28] MEDS: POLYETHYLENE GLYCOL 3350 17 GM PKT PO SCH (12:44)
[2017-12-28] MEDS ORDERED: ALBUTEROL 3 ML DEYVIAL IH PRN (13:38)
--- NOTE | 2017-12-28 13:39 | HOSPPROG ---
Hospitalist Progress Note Assessment/Plan: Assessment and plan: Massimo 72-year-old female with recent history of Guillain-Gambell status post IV IG transferred to acute rehab at [facility] who is now transferred to ER for further evaluation of increasing oxygen needs due to hypoxia with finding is a of bilateral pleural effusions. # acute diastolic Congestive heart failure * Echocardiogram with normal EF but could have diastolic dysfunction * Does have bilateral pleural effusions and some pulmonary edema * Will continue with IV Lasix # chills with low-grade fever * etiology is not quite clear. UA is unremarkable. lactic acid WNL * CT abdomen does not show source * Prolactin is fairly low * Respiratory panel negative * I guess it could be atelectasis #Atrial fibrillation - patient currently normal sinus rhythm. rate is controlled at this time. Resume patient's Xarelto, amiodarone, and Coreg. 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 PT OT consultation #Constipation-changes in BM related to Guillain-Gambell. Patient will have bowel regimen ordered and particular stops suppository which patient reports she responds very well to. No evidence of obstruction on imaging. #Lung nodule-may require additional follow-up on outpatient basis. #Dilated intra and extrahepatic ducts height setting of acute cholecystitis with normal LFTs postsurgical related. Patient denies any right upper quadrant abdominal pain. #GERD-resume patient's Protonix. #Benign essential hypertension-patient's blood pressure is kind of low normal. Will continue with aggressive IV diuresis and monitor blood pressures. Once stabilized patient will require replacement on her beta-tylor for rate control with history of [place] #Anemia of chronic disease. Monitor H&H. No evidence of active bleeding. #Hypoalbuminemia-likely secondary to patient's chronic illnesses. Patient also admits to poor dietary intake recently. Dietary consult will be ordered. Dispo - Admit to inpatient status on PCU for close cardiac monitoring in CHF exacerbation. Subjective: Feels about the same. Having some low-grade fevers. No chills today. No abdominal pain. No diarrhea Objective: Vital Signs Temp Pulse Resp BP Pulse Ox 37.0 C 71 16 92/41 L 95 12/28/17 11:40 12/28/17 11:40 12/28/17 11:40 12/28/17 11:40 12/28/17 11:40 Microbiology 12/27/17 21:40 Respiratory Panel (PCR) - Final Nasal, Sinus - Swab No Organism Detected Laboratory Results 12/28/17 03:28 12/28/17 03:28 12/27/17 12/28/17 12/29/17 05:59 05:59 05:59 Intake Total 1150 Output Total 1000 Balance 150 - Physical Exam Constitutional: no apparent distress, appears nourished, not in pain Eyes: anicteric sclera, EOMI Ears, Nose, Mouth, Throat: moist mucous membranes, hearing normal Cardiovascular: regular rate and rhythym, no murmur, rub, or gallop Respiratory: no respiratory distress, no rales or rhonchi, clear to auscultation Gastrointestinal: normoactive bowel sounds, soft, non-tender abdomen, no palpable masses Skin: warm Neurologic: AAOx3 Psychiatric: interacting appropriately, not anxious, not encephalopathic, thought process linear ICD10 Worksheet Patient Problems: Problems Problem Status Onset Congestive heart failure Acute Fever Acute Guillain-Gambell syndrome Acute Atrial fibrillation Acute Generalized anxiety disorder Chronic Insomnia Chronic Sedative dependence with current use Chronic
--- NOTE | 2017-12-28 14:10 | ASMTCMCOM ---
CM Note CM Note Notes: 72 year old female who was admitted from [facility] In-pt Rehab due to CHF, Fever, L pleural effusion. She was recently at [facility] and dx with Guillain-Burlington's synd. She has a hx of anxiety diso, Insomnia, smoking. Wound Care watching potential reddness on coccyx and L buttocks. Therapies recommending that patient return to In-pt Rehab on discharge. CM to follow. Date Signed: 12/28/2017 02:09 PM Electronically Signed By:Madie Jaquez LCSW
[2017-12-28] MEDS: MIRTAZAPINE 15 MG TAB PO SCH (21:00)
[2017-12-28] MEDS: ALBUTEROL 3 ML DEYVIAL IH SCH ×2 (21:21)
[2017-12-29 04:41] LABS: PLATELET COUNT 192 10^3/uL (150-400)
[2017-12-29] MEDS: ALBUTEROL 3 ML DEYVIAL IH SCH ×4 (05:31→22:30)
[2017-12-29] MEDS: morphINE SR 15 MG TAB PO SCH ×2 (05:59→18:00)
[2017-12-29] MEDS: PANTOPRAZOLE SODIUM 40 MG TAB PO SCH (05:59)
--- NOTE | 2017-12-29 07:57 | HOSPPROG ---
Hospitalist Progress Note Assessment/Plan: #Acute hypoxic resp failure: small effusions. Neg resp panel. -consider PE, but has been on AC #Small BL pleural effusions -query diastolic HFwith milld LVH and elevated BNP. Normal EF. I/Os: -1L #Guillain-Bard: recently hospitalized at OSH, s/p IVIG. PT/OT #Mild fever: 38.1 2/3. Negative CT abd, normal LFTs. Negative blood cultures and resp panel. Prolactin min up. Observe for now #A fib: NSR. Coreg, Amio, Xarelto #Lung nodule: repeat outpatient imaging #GERD: PPI #Benign HTN: home meds #Normocytic anemia: H/H stable #Diet: regular #DVT ppx: Xarelto #Disp: return to rehab once medically stable. Cont IV Lasix Subjective: constipated. SOB improved. Mild abd distention Objective: Vital Signs Temp Pulse Resp BP Pulse Ox 37.6 C 76 12 125/56 H 93 12/29/17 07:34 12/29/17 07:34 12/29/17 07:34 12/29/17 07:34 12/29/17 07:34 Microbiology 12/27/17 21:40 Respiratory Panel (PCR) - Final Nasal, Sinus - Swab No Organism Detected Laboratory Results 12/29/17 03:16 12/29/17 03:16 12/28/17 12/29/17 12/30/17 05:59 05:59 05:59 Intake Total 1150 500 Output Total 1000 1650 Balance 150 -1150 - Physical Exam Constitutional: no apparent distress Eyes: PERRL Ears, Nose, Mouth, Throat: moist mucous membranes Cardiovascular: regular rate and rhythym, no murmur, rub, or gallop, No edema Respiratory: no respiratory distress, other (decreased BS at bases) Gastrointestinal: normoactive bowel sounds, soft, non-tender abdomen Skin: warm Musculoskeletal: other (5/5 UE strength) Neurologic: AAOx3, weakness, CN II-XII Intact Psychiatric: interacting appropriately ICD10 Worksheet Patient Problems: Problems Problem Status Onset Congestive heart failure Acute Fever Acute Guillain-Bard syndrome Acute Atrial fibrillation Acute Generalized anxiety disorder Chronic Insomnia Chronic Sedative dependence with current use Chronic
[2017-12-29] MEDS: POLYETHYLENE GLYCOL 3350 17 GM PKT PO SCH (08:08)
[2017-12-29] MEDS: GABAPENTIN 300 MG CAP PO SCH ×3 (08:12→20:28)
[2017-12-29] MEDS: RIVAROXABAN 20 MG TAB PO SCH (08:12)
[2017-12-29] MEDS: CARVEDILOL 6.25 MG TAB PO SCH ×2 (08:13→18:00)
[2017-12-29] MEDS: FUROSEMIDE 40 MG/4 ML VIAL IVP SCH ×2 (08:14→14:17)
[2017-12-29] MEDS: oxyCODONE IR 5 MG TAB PO PRN ×3 (08:22→16:00)
[2017-12-29] MEDS ORDERED: POTASSIUM CL 20 MEQ/15 ML UDCUP PO ONE (11:09)
[2017-12-29] MEDS: MIRTAZAPINE 15 MG TAB PO SCH (20:20)
[2017-12-29] MEDS: DIAZEPAM 5 MG TAB PO SCH (20:20)
[2017-12-29] MEDS: AMIODARONE HCL 200 MG TAB PO SCH (20:20)
[2017-12-29] MEDS: SENNOSIDES/DOCUSATE SODIUM TAB PO SCH (20:23)
[2017-12-30] MEDS: PANTOPRAZOLE SODIUM 40 MG TAB PO SCH (05:40)
[2017-12-30] MEDS: morphINE SR 15 MG TAB PO SCH ×2 (05:40→17:44)
[2017-12-30] MEDS: ALBUTEROL 3 ML DEYVIAL IH SCH ×4 (05:51→23:51)
[2017-12-30] MEDS: oxyCODONE IR 5 MG TAB PO PRN ×4 (07:42→23:11)
[2017-12-30] MEDS: CARVEDILOL 6.25 MG TAB PO SCH ×2 (09:57→17:24)
[2017-12-30] MEDS: SENNOSIDES/DOCUSATE SODIUM TAB PO SCH ×2 (09:57→20:40)
[2017-12-30] MEDS: AMIODARONE HCL 200 MG TAB PO SCH ×2 (09:57→20:40)
[2017-12-30] MEDS: GABAPENTIN 300 MG CAP PO SCH ×3 (09:57→20:39)
[2017-12-30] MEDS: FUROSEMIDE 40 MG/4 ML VIAL IVP SCH (09:58)
[2017-12-30] MEDS: RIVAROXABAN 20 MG TAB PO SCH (09:58)
[2017-12-30] MEDS: POLYETHYLENE GLYCOL 3350 17 GM PKT PO SCH (09:58)
--- NOTE | 2017-12-30 12:22 | ASMTCMCOM ---
CM Note CM Note Notes: 12/30/2017 Case Management Note Reviewed pt in rounds. Phone call from Katherine at inpatient rehab requesting potential d/c date and new order to assess. Per MD pt likely to d/c Friday or . Case Management d/c poc: anticipating return to inpatient rehab. Case Management to assist with transportation at d/c. Case Management to follow. Date Signed: 12/30/2017 12:22 PM Electronically Signed By:Katie King RN
[2017-12-30] MEDS: FUROSEMIDE 40 MG TAB PO SCH (15:01)
--- NOTE | 2017-12-30 16:36 | HOSPPROG ---
Hospitalist Progress Note Assessment/Plan: #Acute hypoxic resp failure: improved with diuresis. Change to oral Lasix. Neg resp panel. -consider PE, but has been on AC #Small BL pleural effusions: query diastolic HF with milld LVH and elevated BNP. Normal EF. Change to PO Lasix #Guillain-Bearden: recently hospitalized at OSH, s/p IVIG. PT/OT #Mild fever: 38.1 2/3. Negative CT abd, normal LFTs. Negative blood cultures and resp panel. Prolactin min up. Observe for now #A fib: NSR. Coreg, Amio, Xarelto #Lung nodule: repeat outpatient imaging #Constipation: having BMs now #GERD: PPI #Benign HTN: home meds #Normocytic anemia: H/H stable #Diet: regular #DVT ppx: Xarelto #Disp: return to rehab tomorrow if clinically stable with PO Lasix Subjective: had BM last night. SOB improved Objective: Vital Signs Temp Pulse Resp BP Pulse Ox 36.8 C 60 18 110/61 95 12/30/17 12:00 12/30/17 12:08 12/30/17 12:08 12/30/17 12:00 12/30/17 12:08 Laboratory Results 12/29/17 03:16 12/29/17 03:16 12/29/17 12/30/17 12/31/17 05:59 05:59 05:59 Intake Total 500 740 Output Total 1650 1875 Balance -1150 -1135 - Physical Exam Constitutional: no apparent distress Eyes: PERRL Ears, Nose, Mouth, Throat: moist mucous membranes Cardiovascular: regular rate and rhythym Respiratory: other (few crackles left base) Gastrointestinal: normoactive bowel sounds, soft, non-tender abdomen, other ( less distension) Genitourinary: no bladder fullness, malhotra in urethra Skin: warm Neurologic: AAOx3, CN II-XII Intact Psychiatric: interacting appropriately ICD10 Worksheet Patient Problems: Problems Problem Status Onset Congestive heart failure Acute Fever Acute Guillain-Bearden syndrome Acute Atrial fibrillation Acute Generalized anxiety disorder Chronic Insomnia Chronic Sedative dependence with current use Chronic
[2017-12-30] MEDS: DIAZEPAM 5 MG TAB PO SCH (20:40)
[2017-12-30] MEDS: MIRTAZAPINE 15 MG TAB PO SCH (20:40)
[2017-12-31 04:20] VITALS: RESP 16
[2017-12-31] MEDS: ALBUTEROL 3 ML DEYVIAL IH SCH ×2 (05:37→11:34)
[2017-12-31] MEDS: PANTOPRAZOLE SODIUM 40 MG TAB PO SCH (06:18)
[2017-12-31] MEDS: morphINE SR 15 MG TAB PO SCH (06:18)
[2017-12-31] MEDS: RIVAROXABAN 20 MG TAB PO SCH (08:09)
[2017-12-31] MEDS: GABAPENTIN 300 MG CAP PO SCH (08:09)
[2017-12-31] MEDS: FUROSEMIDE 40 MG TAB PO SCH (08:09)
[2017-12-31] MEDS: CARVEDILOL 6.25 MG TAB PO SCH (08:09)
[2017-12-31] MEDS: SENNOSIDES/DOCUSATE SODIUM TAB PO SCH (08:09)
[2017-12-31] MEDS: POLYETHYLENE GLYCOL 3350 17 GM PKT PO SCH (08:09)
[2017-12-31] MEDS: AMIODARONE HCL 200 MG TAB PO SCH (08:09)
[2017-12-31] MEDS: oxyCODONE IR 5 MG TAB PO PRN ×2 (08:14→11:13)
--- NOTE | 2017-12-31 09:47 | PDIAF ---
- Diagnosis Diagnosis: Hypoxia Code Status: Full Code - Medication Management Discharge Medications: Medications to Continue on Transfer Acetaminophen [Tylenol 325mg (*)] 650 mg PO Q4 PRN 12/04/17 [Last Taken 12/26/17 ] Amiodarone HCl [Pacerone (*)] 200 mg PO BID 12/04/17 [Last Taken 12/27/17 09:15] Bisacodyl [Dulcolax] 10 mg RC Q2D PRN 12/04/17 [Last Taken Unknown] Carvedilol [Coreg (*)] 6.25 mg PO BIDMEAL 12/04/17 [Last Taken 12/26/17 08:00] Gabapentin [Neurontin 300 MG (*)] 900 mg PO TID 12/04/17 [Last Taken 12/27/17 16 :20] Lidocaine 5% [Lidoderm 5% Patch (*)] 2 ea TD DAILY 12/04/17 [Last Taken 12/27/17 ] Polyethylene Glycol 3350 [Miralax 17 gm (*)] 17 gm PO DAILY PRN 12/04/17 [Last Taken 12/04/17] Promethazine HCl [Phenergan Injection (RX)] 6.25 mg IV Q6 PRN 12/04/17 [Last Taken Unknown] Rivaroxaban [Xarelto 10mg (*)] 20 mg PO DAILY 12/04/17 [Last Taken 12/27/17] Diazepam 1 mg PO BID PRN 12/27/17 [Last Taken Unknown] Diazepam [Valium 5 MG (*)] 2.5 mg PO HS 12/27/17 [Last Taken 12/26/17] Gluc Oxid/l-Peroxid/Muramidase [Biotene Mouthwash (*)] 30 ml MM QID PRN [Last Taken Unknown] MIRTAZAPINE [Remeron 7.5 mg] 15 mg PO HS 12/27/17 [Last Taken 12/26/17] Morphine Sulfate [Ms Contin] 15 mg PO 12/27/17 [Last Taken 12/27/17 18:31] Ondansetron HCl Pf [Zofran 4 mg Inj (*)] 4 mg IV Q4 PRN 12/27/17 [Last Taken Unknown] Ondansetron Odt [Zofran Odt 4 mg (*)] 4 mg PO Q4 PRN 12/27/17 [Last Taken Unknown] Pantoprazole Sodium [Protonix 40mg (*)] 40 mg PO DAILY@0600 12/27/17 [Last Taken 12/27/17] Petrolat,Wht/Min Oil/Sod Chl [REFRESH P.M. OINTMENT P-F] 1 pasquale OP HS 12/27/17 [ Last Taken Unknown] Promethazine HCl [Phenergan 25mg (*)] 6.25 - 12.5 mg PO Q6 PRN 12/27/17 [Last Taken Unknown] Promethazine HCl [Phenergan] 6.25 - 12.5 mg IJ Q6 PRN 12/27/17 [Last Taken Unknown] Psyllium Husk/Aspartame [Metamucil Fiber Singles Packet] 3.4 gm PO DAILY@0600 [Last Taken 12/27/17] Tears/Dextran 70/Hypromellose [Natural Balance Tears (*)] 1 drop EACHEYE Q2 PRN 12/27/17 [Last Taken Unknown] oxyCODONE IR [Oxycodone Ir (*)] 2.5 - 10 mg PO Q3 PRN 12/27/17 [Last Taken 12/27 16:28 5MG] Discharge Medications: Refer to the Discharge Home Medication list for PRN reason. - Orders Services needed: Registered Nurse, Master Cabinet Installer, Physical Therapy, Occupational Therapy Diet Recommendation: sodium restricted - Labs/Radiology BMP Date: 01/02/18 - Follow Up Care Current Providers and Referrals: BRIAN HICKEY [Primary Care Provider] - As per Instructions
[2017-12-31 12:05] VITALS: BP 93/40; PULSE 62; TEMP 97.6; O2SAT 94
--- NOTE | 2017-12-31 13:12 | GDS ---
[f rep st] DISCHARGE SUMMARY DISCHARGE DIAGNOSES: 1. Acute hypoxic respiratory failure. 2. Volume overload. 3. Guillain-Lubbock. 4. Mild fever. 5. Atrial fibrillation. 6. Lung nodule. 7. Constipation. 8. Gastroesophageal reflux disease. 9. Benign hypertension. HISTORY OF PRESENT ILLNESS: A pleasant 72-year-old female with a recent diagnosis of Guillain-Lubbock, who was seen at [facility] and was treated with IVIG for 5 days. During that stay, she developed atrial fibrillation, was placed on amiodarone and Pradaxa. Echo there showed Grade 2 diastolic HF, pulmonary HTN. She was discharged to [facility] acute rehab, in which she says her strength has been improving. Last few days, she did develop teeth-chattering chills and a fever to 100.8. She denied any nasal congestion, rhinorrhea, sore throat, or cough. She had been experiencing dyspnea and more fatigue than normal. HOSPITAL COURSE BY PROBLEM: 1. Acute hypoxic respiratory failure: Imaging demonstrated bilateral pleural effusions. Echocardiogram showed mild TR, MR, normal LV function and diastolic function. She has diuresed well and will transition to Lasix 20 mg b.i.d. with potassium supplements. Also, encourage incentive spirometry. 2. Fever, low-grade. No evidence of pneumonia. CT abdomen did not show an abscess, along with a normal UA. She has been afebrile since 12/28. Blood cultures remain negative and normal respiratory panel. 3. Atrial fibrillation. Normal sinus rhythm. Rate controlled on Coreg and amiodarone. Continue Xarelto. 4. Constipation: Is now having bowel movements. This was demonstrated on CT. Continue bowel regimen at discharge. 5. Guillain-Lubbock, status post IVIG for 5 days. She is improving with inpatient rehab, as where she will be discharged. 6. Lung nodule noted on imaging. Will need followup as an outpatient. 7. Gastroesophageal reflux disease. Protonix. 8. Anemia of chronic disease. Hemoglobin and hematocrit are stable. Hypoalbuminemia is likely secondary to chronic illness. DISPOSITION: Patient is stable for discharge to inpatient rehab. NEW MEDICATIONS: Lasix 20 mg b.i.d. FOLLOWUP: 1. BMP on 01/02/2018. 2. Monitor oxygen sat, hopefully can discontinue once volume status improves. SUBJECTIVE: Feeling much better today. Denies shortness of breath. PHYSICAL EXAMINATION: VITAL SIGNS: Temperature 36.4, blood pressure 93/40, heart rate in the 70s, respirations 16, 94% on 2 L. HEENT: PERRLA. EOMI. Oropharynx clear. CV: Regular rate and rhythm. No murmurs, gallops, or rubs. LUNGS: Minimal crackles left lower lobe. ABDOMEN: Soft, nondistended. Positive bowel sounds. : Positive Solis. MUSCULOSKELETAL: Moving upper extremities. NEURO: 2 through 12 intact. PSYCH: Alert and oriented x3. /[id number]/MODL MTDD
== END 2017-12-31 13:01 | DRG 291 ==
LOC: EDUNIT# → F2W 22:04
PROVIDERS: ADMIT Family Medicine; ATTEND Family Medicine
DX: I11.0 Hypertensive heart disease with heart failure (principal); I50.31 Acute diastolic (congestive) heart failure; J96.01 Acute respiratory failure with hypoxia; G61.0 Guillain-Barre syndrome; I48.91 Unspecified atrial fibrillation; R91.1 Solitary pulmonary nodule; K59.09 Other constipation; K21.9 Gastro-esophageal reflux disease without esophagitis; I27.20 Pulmonary hypertension, unspecified; D63.8 Anemia in other chronic diseases classified elsewhere; E88.09 Other disorders of plasma-protein metabolism, not elsewhere classified; Z87.891 Personal history of nicotine dependence
CPT/HCPCS: 97112-GO; 97112-GP; 97162-GP; 97167-GO; 97530-GO; 97530-GP; 97535-GO; G8978-GP-CM; G8979-GP-CK; G8987-GO-CN; G8988-GO-CL; J1940; J7613; Q9967

== ENCOUNTER 2017-12-31 13:27 | Inpatient (IN) | payer OTHER ==
[2017-12-31] MEDS ORDERED: PROMETHAZINE HCL 25 MG TAB PO PRN (14:12)
[2017-12-31] MEDS ORDERED: oxyCODONE IR 5 MG TAB PO PRN (14:12)
[2017-12-31] MEDS ORDERED: BIOTENE DRY MOUTH MOUTHWASH 237 ML BTL MM PRN (14:12)
[2017-12-31] MEDS ORDERED: TEARS/DEXTRAN 70/HYPROMELLOSE 15 ML OPHT.BTL EACHEYE PRN (14:12)
[2017-12-31] MEDS ORDERED: ACETAMINOPHEN 325 MG TAB PO PRN (14:12)
[2017-12-31] MEDS ORDERED: BISACODYL 10 MG SUPP PR PRN (14:12)
[2017-12-31] MEDS ORDERED: ALBUTEROL 3 ML DEYVIAL IH PRN (14:12)
[2017-12-31] MEDS ORDERED: POLYETHYLENE GLYCOL 3350 17 GM PKT PO PRN (14:12)
[2017-12-31] MEDS ORDERED: ONDANSETRON DISINTEGRATING 4 MG TAB PO PRN (14:12)
[2017-12-31] MEDS ORDERED: DIAZEPAM 2 MG TAB PO PRN (14:12)
[2017-12-31] MEDS ORDERED: FUROSEMIDE 40 MG TAB PO SCH (15:00)
--- NOTE | 2017-12-31 15:03 | PDOREHIP ---
Admission [facility] - Admission - 3 Day Assessment Period Admission Date/Day 1: 12/31/17 Day 2: 01/01/18 Day 3: 01/02/18 - Active Diagnoses Comorbidities and Co-existing Conditions at Admission: [id number]. None of the Above - Skin Conditions Unhealed Pressure Ulcer (1 or more/Stage 1 or >)-Admission: 0. No
--- NOTE | 2017-12-31 15:58 | GHP ---
[f rep st] HISTORY AND PHYSICAL POST ADMISSION PHYSICIAN EVALUATION AND REHABILITATION TREATMENT PLAN DATE OF ADMISSION: 12/31/2017 DATE OF EVALUATION: 12/31/2017 TIME OF EVALUATION: 1415 REFERRING FACILITY: [facility]. REFERRING PHYSICIAN: Dr. 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 REFERRING PHYSICIAN: Dr. Drummond. CONSULTING PHYSICIANS: None. 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 HISTORY OF PRESENT ILLNESS: This patient returns to [facility] after for a 4-day stay at [facility]. She was transferred from inpatient rehabilitation with hypoxia and fever. BNP was elevated at 2270 and chest x-ray showed mild congestive heart failure with associated pleural effusions, larger on the left than the right, as well as bibasilar atelectasis. She was treated with IV Lasix diuresis, which she tolerated with regard to blood pressure. She continued to have an oxygen requirement. She had gradual improvement overall until she was ready for return to inpatient rehabilitation. For details of her prior rehabilitation stay, please see notes from that stay of 12/04/2017, through 12/27/2017. In brief, she had improvement in balance and participation in rehabilitation but was still requiring Sadie lift for transfer and had marked lower extremity and truncal weakness. She was admitted with dysphagia, which improved and she was on a dysphagia 3 diet. Medications were adjusted to control neuropathic and sciatic pain. She had persistent urinary retention and failed a voiding trial, and she was treated for a possible UTI. Other studies and labs in her recent hospitalization, she had anemia. Hemoglobin on 12/27/2017, was 10.7 and hematocrit was 32.1, and she had some worsening with a hemoglobin of 9.7 and hematocrit of 29.2 on 12/29/2017. She had no leukocytosis and her platelet count remained normal. Chemistry studies on the day of discharge revealed normal renal function and electrolytes. Myocardial ischemia was ruled out with a normal troponin x2. TSH was normal at 0.486. Procalcitonin was mildly elevated at 0.18, not consistent with severe infection or sepsis. Liver function tests were within normal limits. Urinalysis was completely normal and venous blood lactic acid was normal at 1.0. PRECAUTIONS: She is a fall risk and she has aspiration precautions. ACTIVE COMORBIDITIES: She has the tier 2 comorbidity of dysphagia, and she has the tier 3 comorbidity of hemiparesis but actually, it is bilateral and more so in the lower extremities than the upper extremities. PAST MEDICAL HISTORY: 1. Gastroesophageal reflux disorder. 2. Hypertension. 3. Hypokalemia. 4. Migraine headaches. PAST SURGICAL HISTORY: 1. Cholecystectomy. 2. Eye surgery. 3. Foot fasciotomy on the right. 4. Hysterectomy. 5. Skin biopsy. MEDICATIONS PRIOR TO ADMISSION: Unchanged from her current admission medications with the exception of furosemide and potassium chloride. ADMISSION MEDICATIONS: 1. Acetaminophen 650 mg p.o. q.4 hours p.r.n. 2. Albuterol nebulizer q.2 hours p.r.n. 3. Amiodarone 200 mg p.o. twice daily. 4. Bisacodyl 10 mg [place] q. 2 days p.r.n. 5. Carvedilol 6.125 mg p.o. twice daily with meals. 6. Diazepam 1 mg p.o. twice daily p.r.n. 7. Diazepam 2.5 mg p.o. at bedtime. 8. Furosemide 20 mg p.o. twice daily at 0900 and 1500. 9. Gabapentin 900 mg p.o. three times daily. 10. Biotene mouth rinse p.r.n. 11. Lidocaine patches. 12. Mirtazapine 15 mg p.o. at bedtime. 13. Morphine 15 mg p.o. twice daily at 0600 and 1800. 14. Ondansetron 4 mg p.o. q.4 hours p.r.n. 15. Oxycodone 2.5-10 mg p.o. q.3 hours p.r.n. 16. Pantoprazole 40 mg p.o. daily. 17. Petrolatum/mineral oil ophthalmic ointment to the left eye at bedtime. 18. Polyethylene glycol 17 g p.o. daily p.r.n. 19. Potassium chloride 20 mg mEq p.o. daily. 20. Promethazine 12.5 mg p.o. q.6 hours p.r.n. 21. Rivaroxaban 20 mg p.o. daily. 22. Artificial Tears 1 drop q.2 hours each eye p.r.n. PSYCHOSOCIAL HISTORY: She is . She lives with her . 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 She has 2 adult children, including a local adult daughter and a son in [place]. She is a nonsmoker. FAMILY HISTORY: Noncontributory. REVIEW OF SYSTEMS: She denies cough or dyspnea. She says her breathing is not different lying down as compared to sitting up. She denies lightheadedness when she is upright. She denies chest pain or palpitations. She denies fevers or chills. She denies nausea, vomiting, constipation, or diarrhea. She continues to have a Solis catheter in place and denies any pelvic discomfort. She feels that her muscles are getting stronger. Otherwise, a 10-point review of systems is negative. PHYSICAL EXAMINATION: VITAL SIGNS: Vitals are not yet available in the chart. Her weight is 67.4 kg for a body mass index of 27.2. GENERAL: This is a well -nourished, well-developed woman, overweight appearing, lying in bed in a hospital gown, cooperative, and in no acute distress. HEENT: Extraocular movements are intact. Pupils are equal, round, and reactive to light. Mucous membranes are moist. Dentition is in good condition. She has an uncrowded airway, Mallampati class I. There are no oropharyngeal mucosal lesions seen. NECK: Supple. HEART: Regular rate and rhythm with no murmurs, rubs, or gallops. LUNGS: Clear to auscultation bilaterally with somewhat reduced air movement. ABDOMEN: Soft, nontender, nondistended, with normoactive bowel sounds and no hepatosplenomegaly. EXTREMITIES: There is no cyanosis, clubbing , or edema. Radial and dorsalis pedis pulses are 2+ bilaterally. NEUROLOGIC: She is alert and oriented x3. Cranial nerves 2-12 are grossly intact, but she may have mild dysarthria. She has weakness in all extremities. The upper extremities hand voting machine mechanic are 3/5 bilaterally, slightly stronger on the left than on the right. Triceps are 3 to 4 over 5, equal. Biceps are 3/5, slightly stronger on the left. Deltoids are 4/5 on the left and 3/5 on the right. She has antigravity strength in her hip flexors and her quadriceps. Foot plantar flexors are 5/5 and dorsiflexors are 3/5. Sensation is intact to light touch. She requires some assistance to roll in bed. CURRENT LEVEL OF FUNCTION: Per the pre-admission screen. Regarding diet, feeding, and swallowing, she is on a regular textures diet with thin liquids. For grooming, she was encouraged to use the left upper extremity during ADLs. Bathing was done with a sponge and total assist. Dressing required total assist. Toileting required total assist. She was continent of bowel. Bed mobility required moderate assistance of 2 for supine to sit and maximal assistance to return to supine from sitting. Regarding balance, she could sit with contact guard to max assist. Endurance was fair. Communication and cognition were within normal limits. On today's exam, there are no changes from the preadmission screen. 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 She had slow progress in inpatient rehabilitation, but her stay was interrupted by respiratory decompensation. She was diagnosed with congestive heart failure and treated with furosemide. Interestingly, her echocardiogram was read as normal, whereas on a previous hospitalization, echocardiogram showed an ejection fraction of 40% to 45%, grade 2 diastolic dysfunction, and elevated right ventricular systolic pressure of 49 mmHg. 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 Chest x-ray, however, with pleural effusions and pulmonary congestion, as well as brain natriuretic peptide were consistent with congestive heart failure. She was treated with diuretics and has had improvement in her condition. She is appropriate to return to inpatient rehabilitation. She will benefit from physical therapy and occupational therapy to optimize mobility and activities of daily living towards return to home with family and supportive services versus to a [facility] facility, depending on her progress. For a safe discharge home, it is anticipated that she would be able to perform eating and grooming tasks with modified independence, to come to the edge of the bed with minimal assist of 1 person, to do slide board for transfers to wheelchair, toilet, and bath bench with minimal assist of 1 person , and to initiate propulsion of a wheelchair for short distances. She may require minimal to moderate assistance for bathing and dressing. She will require assistance for shopping, meal preparation, and household management. She will receive therapy with Physical Therapy and Occupational Therapy for 60- 90 minutes each day on 5-7 days of the week. Her expected duration of stay is 14-21 days. It is anticipated that upon discharge home, she will continue to benefit from home health services, including nursing, a nurse's aide, occupational therapy, and physical therapy. PLAN: 1. Guillain-[place] syndrome. PT and OT to optimize mobility and activities of daily living towards minimal assist level of 1 person. 2. Congestive heart failure. Continue furosemide as ordered out of the hospital. Recheck basic metabolic profile, as well as brain natriuretic peptide in the morning to assess for tolerance of furosemide, as well as improvement in BNP. Continue carvedilol. Consider restarting losartan if she has adequate blood pressure. With comparison of echocardiogram reports from her recent hospitalization compared to her prior hospitalization, she has had improvement in cardiomyopathy. 3. Diastolic function was not mentioned in the echocardiogram at her recent hospitalization; however, she had diastolic dysfunction as well as pulmonary hypertension on her echocardiogram from her initial hospitalization. 4. Pain management. Continue morphine 15 mg long-acting twice daily, as well as oxycodone 2.5-10 mg q.3 hours p.r.n., gabapentin 900 mg p.o. three times daily, and p.r.n. acetaminophen. 5. Anxiety and insomnia. She had a Psychiatry consult on her initial rehabilitation stay and will continue medications with mirtazapine 15 mg at bedtime, diazepam 2.5 mg at bedtime, and diazepam 1 mg twice daily p.r.n. 6. Atrial fibrillation. Continue rate control with carvedilol, rhythm control with amiodarone, and anticoagulation with rivaroxaban. 7. Anemia, on anticoagulation. Recheck labs in the morning to determine whether it is worsening or improving and consider other diagnostic tests, including an iron panel and reticulocyte count depending on result tomorrow. 8. Lung nodule was noted on imaging and she should have followup for this after her discharge. 9. Bowel function. She had constipation, but it has normalized. She has a p.r.n. order for polyethylene glycol. I will schedule that and also have p.r.n. senna and p.r.n. bisacodyl suppository available. 10. Urinary retention, likely due to Guillain-[place] syndrome. When her mobility improves, will consider repeating a voiding trial. 11. History of hypertension, appears to be adequately controlled on carvedilol. She will be monitored. 12. Prophylaxis. She is at elevated risk for DVT with immobility. Rivaroxaban is adequate for DVT prophylaxis. 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 If this continues to be an issue, she will be continued on the ophthalmic ointment at night, as well as a monocular goggle. /[id number]/MODL MTDD
[2017-12-31] MEDS ORDERED: GABAPENTIN 300 MG CAP PO SCH (16:00)
[2017-12-31 17:18] VITALS: BP 108/54; PULSE 65; RESP 16; TEMP 98.8
--- NOTE | 2017-12-31 17:20 | SOAPPROG ---
SOAP Progress Note Assessment/Plan: Assessment: Hypoxia. Obtained chest XR which shows cardiomegaly and large effusions. Sending to ED for further evaluation. Consider chest CT to R/O PE, consider thoracentesis. 12/31/17 17:19 Subjective: Dramatic desaturation when O2 removed. Neding 3.5 - 4 L to maintain O2 saturation. 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
[2017-12-31] MEDS ORDERED: CARVEDILOL 6.25 MG TAB PO SCH (18:00)
[2017-12-31] MEDS ORDERED: morphINE SR 15 MG TAB PO SCH (18:00)
[2017-12-31] MEDS ORDERED: AMIODARONE HCL 200 MG TAB PO SCH (21:00)
[2017-12-31] MEDS ORDERED: DIAZEPAM 5 MG TAB PO SCH (21:00)
[2017-12-31] MEDS ORDERED: MIRTAZAPINE 15 MG TAB PO SCH (21:00)
[2017-12-31] MEDS ORDERED: PETROLAT,WHT/MIN OIL/SOD CHL 3.5 GM OPHT.OINT OP SCH (21:00)
[2018-01-01] MEDS ORDERED: NON-FORMULARY NEW DRUG (Psyllium Husk/Aspartame [Metamucil Fiber Singles Packet] 3.4 GM) PO SCH (06:00)
[2018-01-01] MEDS ORDERED: PANTOPRAZOLE SODIUM 40 MG TAB PO SCH (06:00)
[2018-01-01 06:27] VITALS: O2SAT 90
[2018-01-01] MEDS ORDERED: POLYETHYLENE GLYCOL 3350 17 GM PKT PO SCH (09:00)
[2018-01-01] MEDS ORDERED: RIVAROXABAN 10 MG TAB PO SCH (09:00)
[2018-01-01] MEDS ORDERED: POTASSIUM CL 20 MEQ TAB PO SCH (09:00)
[2018-01-01] MEDS ORDERED: LIDOCAINE 5% 1 EA PATCH TD SCH (09:00)
== END 2017-12-31 17:10 | disposition still patient (30) | DRG 95 ==
LOC: BREH 13:27
PROVIDERS: ADMIT Internal Medicine; ATTEND Internal Medicine
PROC: F07M3ZZ Motor Function Treatment of Musculoskeletal System - Whole Body (ICD-10-PCS; principal; 2017-12-31)
PROC: F0636ZZ Communicative/Cognitive Integration Skills Treatment of Neurological System - Whole Body (ICD-10-PCS; principal; 2017-12-31)
DX: G61.0 Guillain-Barre syndrome (principal); G81.91 Hemiplegia, unspecified affecting right dominant side; G81.94 Hemiplegia, unspecified affecting left nondominant side; I48.0 Paroxysmal atrial fibrillation; I27.20 Pulmonary hypertension, unspecified; G47.00 Insomnia, unspecified; F41.9 Anxiety disorder, unspecified; K21.9 Gastro-esophageal reflux disease without esophagitis; R09.02 Hypoxemia; I11.0 Hypertensive heart disease with heart failure; I50.9 Heart failure, unspecified; R13.10 Dysphagia, unspecified; G51.8 Other disorders of facial nerve; D64.9 Anemia, unspecified; R91.1 Solitary pulmonary nodule; R33.9 Retention of urine, unspecified

== ENCOUNTER 2017-12-31 17:52 | Inpatient (IN) | payer OTHER ==
--- NOTE | 2017-12-31 18:06 | EDPHY ---
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 She was discharged on 2-3 L and daily Lasix. She does also has a history of atrial fibrillation and is on rivaroxaban. At the rehabilitation facility she had increased shortness of breath and O2 requirements. She required 4 L of oxygen. They did a repeat chest x-ray which showed increased pulmonary edema. They sent her back here for readmission. She did have an echocardiogram while she was admitted in the hospital that was read as normal. She had had previous echocardiograms that revealed an ejection fraction of 40-45 %. She is not febrile. She denies chest pain. No leg pain or swelling. She remains weak in her extremities but at baseline. REVIEW OF SYSTEMS: Constitutional: denies: chills, fever, recent illness, recent injury EENTM: denies: blurred vision, double vision, nose congestion Respiratory: denies: cough, shortness of breath Cardiac: denies: chest pain, irregular heart rate, lightheadedness, palpitations Gastrointestinal/Abdominal: denies: abdominal pain, diarrhea, nausea, vomiting, blood streaked stools Genitourinary: denies: dysuria, frequency, hematuria, pain Musculoskeletal: denies: joint pain, muscle pain Skin: denies: lesions, rash, jaundice, bruising Neurological: denies: headache, numbness, paresthesia, tingling, dizziness, weakness Hematologic/Lymphatic: denies: blood clots, easy bleeding, easy bruising Immunologic/allergic: denies: HIV/AIDS, transplant EXAM: GENERAL: Well-appearing, well-nourished and in no acute distress. HEAD: Atraumatic, normocephalic. EYES: Pupils equal round and reactive to light, extraocular movements intact, sclera anicteric, conjunctiva are normal. ENT: TMs normal, nares patent, oropharynx clear without exudates. Moist mucous membranes. NECK: Normal range of motion, supple without lymphadenopathy or JVD. LUNGS: Diffuse rhonchi HEART: Regular rate and rhythm without murmurs, rubs or gallops. ABDOMEN: Soft, nontender, normoactive bowel sounds. No guarding, no rebound. No masses appreciated. BACK: No CVA tenderness, no spinal tenderness, step-offs or deformities EXTREMITIES: Normal range of motion, no pitting or edema. No clubbing or cyanosis. NEUROLOGICAL: Cranial nerves II through XII grossly intact. Normal speech, normal gait. 3/5 strength in lower extremities, 4/5 in the upper extremities., normal movement in all extremities, normal sensation PSYCH: Normal mood, normal affect. pleasant SKIN: Warm, dry, normal turgor, no visible rashes or lesions. Source: Patient Exam Limitations: No limitations - Personal History Current Tetanus/Diphtheria Vaccine: Unsure Current Tetanus Diphtheria and Acellular Pertussis (TDAP): Unsure - Medical/Surgical History Hx Asthma: No Hx Chronic Respiratory Disease: No Hx Diabetes: No Hx Cardiac Disease: No Hx Renal Disease: No Hx Cirrhosis: No Hx Alcoholism: No Hx HIV/AIDS: No Hx Splenectomy or Spleen Trauma: No Other PMH: htn, hystorectomy, cateracts x2, basil cell - Family History Significant Family History: No pertinent family hx - Social History Smoking Status: Former smoker Alcohol Use: Sober Drug Use: None Constitutional: Initial Vital Signs Temperature (C) 37.7 C 12/31/17 17:58 Heart Rate 75 12/31/17 17:58 Respiratory Rate 18 12/31/17 17:58 Blood Pressure 147/65 H 12/31/17 17:58 O2 Sat (%) 91 L 12/31/17 17:58 O2 Delivery Mode Room Air Allergies/Adverse Reactions: codeine Allergy (Mild, Verified 12/27/17 19:26) Penicillins Allergy (Unknown, Verified 12/27/17 19:26) Home Medications: Medication Instructions Recorded Acetaminophen [Tylenol 325mg (*)] 650 mg PO Q4 PRN 12/04/17 Amiodarone HCl [Pacerone (*)] 200 mg PO BID 12/04/17 Carvedilol [Coreg (*)] 6.25 mg PO BIDMEAL 12/04/17 Gabapentin [Neurontin 300 MG (*)] 900 mg PO TID 12/04/17 Lidocaine 5% [Lidoderm 5% Patch 2 ea TD DAILY 12/04/17 (*)] Rivaroxaban [Xarelto 10mg (*)] 20 mg PO DAILY 12/04/17 Diazepam 1 mg PO BID PRN 12/27/17 Gluc Oxid/l-Peroxid/Muramidase 30 ml MM QID PRN 12/27/17 [Biotene Mouthwash (*)] MIRTAZAPINE [Remeron 7.5 mg] 15 mg PO HS 12/27/17 Morphine Sulfate [Ms Contin] 15 mg PO 06,18 12/27/17 Ondansetron HCl Pf [Zofran 4 mg 4 mg IV Q4 PRN 12/27/17 Inj (*)] Ondansetron Odt [Zofran Odt 4 mg 4 mg PO Q4 PRN 12/27/17 (*)] Pantoprazole Sodium [Protonix 40mg 40 mg PO DAILY@0600 12/27/17 (*)] Petrolat,Wht/Min Oil/Sod Chl 1 pasquale OP HS 12/27/17 [REFRESH P.M. OINTMENT P-F] Promethazine HCl [Phenergan 25mg 6.25 - 12.5 mg PO Q6 PRN 12/27/17 (*)] Promethazine HCl [Phenergan] 6.25 - 12.5 mg IVP Q6 PRN 12/27/17 Psyllium Husk/Aspartame [Metamucil 3.4 gm PO DAILY@0600 12/27/17 Fiber Singles Packet] Tears/Dextran 70/Hypromellose 1 drop EACHEYE Q2 PRN 12/27/17 [Natural Balance Tears (*)] oxyCODONE IR [Oxycodone Ir (*)] 2.5 - 10 mg PO Q3 PRN 12/27/17 Albuterol [Proventil Neb] 3 ml IH Q2 PRN deyvial 12/31/17 Furosemide [Lasix 40 MG (*)] 20 mg PO BID@0900,1500 tab 12/31/17 Polyethylene Glycol 3350 [Miralax 17 gm PO DAILY PRN pkt 12/31/17 17 gm (*)] Potassium Chloride 20 meq PO DAILY #30 tablet.er 12/31/17 Medical Decision Making - Diagnostics EKG Interpretation: An EKG obtained and was read and documented in trace view. Please see trace view for full reading and report. Bundle branch block, T-wave inversions, unchanged from previous ED Course/Re-evaluation: 6:34 p.m. I discussed the case with Dr. Gomez who will admit to the PCU. Patient's family was unhappy with the care she received here previously. We discussed this at length. Initially there requesting to be transferred somewhere else. I apologized and asked that they give us another chance. They eventually agreed. They were unhappy with the speed in which her call rodriguez was answered last time and the fact that she did not get a repeat chest x-ray prior to discharge. I did review the outside images. Differential Diagnosis: Partial list of the Differential diagnosis considered include but were not limited to; pulmonary edema, pleural effusion, CHF and although unlikely based on the history and physical exam, I also considered acute coronary disease, PE. - Data Points Laboratory Results: Laboratory Results 12/31/17 18:00 12/31/17 18:00 Medications Given: Amiodarone HCl (Amiodarone Hcl) 200 mg PO BID [facility] Stop: 06/30/18 08:59 Last Admin: 01/01/18 08:55 Dose: 200 mg Carvedilol (Coreg) 3.125 mg PO BIDMEAL [facility] Stop: 06/30/18 08:59 Last Admin: 01/01/18 08:54 Dose: 3.125 mg Diazepam (Valium) 1 mg PO BID PRN PRN Reason: Anxiety Stop: 06/29/18 22:31 Last Admin: 12/31/17 23:03 Dose: 1 mg Furosemide (Lasix Injection) 40 mg IVP BIDDIUR [facility] Stop: 06/29/18 22:59 Last Admin: 01/01/18 09:03 Dose: 40 mg Gabapentin (Neurontin) 900 mg PO TID [facility] Stop: 06/30/18 08:59 Last Admin: 01/01/18 08:55 Dose: 900 mg Morphine Sulfate (Ms Contin/Oramorph) 15 mg PO [facility] Stop: 01/11/18 05:59 Last Admin: 01/01/18 05:17 Dose: 15 mg Oxycodone HCl (Oxycodone Ir) 2.5 - 10 mg PO Q3 PRN PRN Reason: SEVERE PAIN Stop: 01/10/18 22:31 Last Admin: 01/01/18 08:54 Dose: 5 mg Pantoprazole Sodium (Protonix) 40 mg PO DAILY@0600 [facility] Stop: 06/30/18 05:59 Last Admin: 01/01/18 05:17 Dose: 40 mg Potassium Chloride (Klor-Con) 20 meq PO DAILY [facility] Stop: 06/30/18 08:59 Last Admin: 01/01/18 08:55 Dose: 20 meq Psyllium Hydrophilic Mucilloid (Metamucil/Konsyl) 1 each PO DAILY@0600 [facility] Stop: 06/30/18 05:59 Last Admin: 01/01/18 05:17 Dose: 1 each Discontinued Medications Carvedilol (Coreg) 6.25 mg PO BIDMEAL [facility] Stop: 06/29/18 22:44 Last Admin: 01/01/18 09:04 Dose: Not Given Furosemide (Lasix Injection) 60 mg IVP BIDDIUR [facility] Stop: 06/29/18 22:59 Last Admin: 12/31/17 23:33 Dose: 60 mg Gabapentin (Neurontin) 900 mg PO ONCE ONE Stop: 12/31/17 23:16 Last Admin: 12/31/17 23:34 Dose: 900 mg Morphine Sulfate (Ms Contin/Oramorph) 15 mg PO ONCE ONE Stop: 12/31/17 23:16 Last Admin: 12/31/17 23:34 Dose: 15 mg Departure - Departure Disposition: [facility] Acute Clinical Impression: Acute exacerbation of congestive heart failure, Guillain-Ripley syndrome Condition: Fair
[2017-12-31 18:24] LABS: PLATELET COUNT 265 10^3/uL (150-400)
[2017-12-31 18:32] LABS: INR 4.38 (0.83-1.16); PROTIME(PATIENT) 41.4 SEC (12.0-15.0)
--- NOTE | 2017-12-31 18:43 | CPEKG ---
Heart Rate: 71 RR Interval: 845 P-R Interval: 160 QRSD Interval: 118 QT Interval: 484 QTC Interval: 527 P [place]: 52 QRS [place]: 40 T Wave [place]: 82 EKG Severity - ABNORMAL ECG - EKG Impression: SINUS RHYTHM EKG Impression: INCOMPLETE RIGHT BUNDLE BRANCH BLOCK EKG Impression: Unchanged from previous Electronically Signed By: Eddi Soto 31-Dec-2017 18:46:04
[2017-12-31] MEDS ORDERED: PROMETHAZINE HCL 25 MG TAB PO PRN (22:32)
[2017-12-31] MEDS ORDERED: ONDANSETRON DISINTEGRATING 4 MG TAB PO PRN (22:32)
[2017-12-31] MEDS ORDERED: ACETAMINOPHEN 325 MG TAB PO PRN (22:32)
[2017-12-31] MEDS ORDERED: TEARS/DEXTRAN 70/HYPROMELLOSE 15 ML OPHT.BTL EACHEYE PRN (22:32)
[2017-12-31] MEDS ORDERED: PROMETHAZINE HCL 25 MG/ML INJ IVP PRN (22:32)
[2017-12-31] MEDS ORDERED: ONDANSETRON 4 MG/2 ML VIAL IV PRN (22:32)
[2017-12-31] MEDS ORDERED: ALBUTEROL 3 ML DEYVIAL IH PRN (22:32)
[2017-12-31] MEDS ORDERED: BIOTENE DRY MOUTH MOUTHWASH 237 ML BTL MM PRN (22:32)
[2017-12-31] MEDS ORDERED: FUROSEMIDE 100 MG/10 ML VIAL IVP SCH (23:00)
--- NOTE | 2017-12-31 23:01 | PDGENHP ---
History and Physical - Chief Complaint SOB - History of Present Illness The patient was discharged today to Rehab but became increasingly hypoxic. CXR shows worse pulm edema. O2 needs went up and she was sent to the E.D. for further evaluation She denies any CP. Feels a littler SOB. Is needing 5 L. Afebrile. No new weakness. No significant pedal edema CXR reviewed and per above BNP elevated Afebrile BP ok Most recent TTE shows diastolic dysfunction, preserved LVEF. No wall abnormalities. - Past Medical History Additional medical history: Guillain barre with peripheral paresthesias, GERD, HTN, hypokalemia, migraine headaches, bilateral sciatica - Surgical History Additional surgical history: Cholecystectomy, bilateral cataract extraction with lens placement, right foot fasciotomy, hysterectomy, skin biopsy on her nose, tendon repair on the left wrist after, - Family History Additional family history: Mother-diabetes, mother and father with history CHF in ther 80s - Social History Smoking Status: Former smoker (Quitting teen 70s) Tobacco Use: Cigarettes Alcohol Use: None Drug Use: None Additional social history: . Patient lives with her . Two adult children are supportive. One is local. Cor status is full History Information - Allergies/Home Medication List Allergies/Adverse Reactions: codeine Allergy (Mild, Verified 12/27/17 19:26) Penicillins Allergy (Unknown, Verified 12/27/17 19:26) Home Medications: Acetaminophen [Tylenol 325mg (*)] 650 mg PO Q4 PRN 12/04/17 [Last Taken 12/26/17 ] Amiodarone HCl [Pacerone (*)] 200 mg PO BID 12/04/17 [Last Taken 12/31/17 09:00] Carvedilol [Coreg (*)] 6.25 mg PO BIDMEAL 12/04/17 [Last Taken 12/31/17 08:09] Gabapentin [Neurontin 300 MG (*)] 900 mg PO TID 12/04/17 [Last Taken 12/31/17 09 :00] Lidocaine 5% [Lidoderm 5% Patch (*)] 2 ea TD DAILY 12/04/17 [Last Taken 12/31/17 ] Rivaroxaban [Xarelto 10mg (*)] 20 mg PO DAILY 12/04/17 [Last Taken 12/31/17 08: 09] Diazepam 1 mg PO BID PRN 12/27/17 [Last Taken 12/30/17 23:19] Gluc Oxid/l-Peroxid/Muramidase [Biotene Mouthwash (*)] 30 ml MM QID PRN [Last Taken 12/31/17 09:00] MIRTAZAPINE [Remeron 7.5 mg] 15 mg PO 12/27/17 [Last Taken 12/30/17 20:40] Morphine Sulfate [Ms Contin] 15 mg PO 12/27/17 [Last Taken 12/31/17 06:18] Ondansetron HCl Pf [Zofran 4 mg Inj (*)] 4 mg IV Q4 PRN 12/27/17 [Last Taken ] Ondansetron Odt [Zofran Odt 4 mg (*)] 4 mg PO Q4 PRN 12/27/17 [Last Taken Unknown] Pantoprazole Sodium [Protonix 40mg (*)] 40 mg PO DAILY@0600 12/27/17 [Last Taken 12/31/17 06:18] Petrolat,Wht/Min Oil/Sod Chl [REFRESH P.M. OINTMENT P-F] 1 pasquale OP 12/27/17 [ Last Taken 12/30/17] Promethazine HCl [Phenergan 25mg (*)] 6.25 - 12.5 mg PO Q6 PRN 12/27/17 [Last Taken Unknown] Promethazine HCl [Phenergan] 6.25 - 12.5 mg IVP Q6 PRN 12/27/17 [Last Taken Unknown] Psyllium Husk/Aspartame [Metamucil Fiber Singles Packet] 3.4 gm PO DAILY@0600 [Last Taken 12/31/17] Tears/Dextran 70/Hypromellose [Natural Balance Tears (*)] 1 drop EACHEYE Q2 PRN 12/27/17 [Last Taken 12/30/17] oxyCODONE IR [Oxycodone Ir (*)] 2.5 - 10 mg PO Q3 PRN 12/27/17 [Last Taken 12/31 11:13] I have personally reviewed and updated: medical history, social history - Past Medical History Additional medical history: Guillain barre with peripheral paresthesias, GERD, HTN, hypokalemia, migraine headaches, bilateral sciatica - Surgical History Additional surgical history: Cholecystectomy, bilateral cataract extraction with lens placement, right foot fasciotomy, hysterectomy, skin biopsy on her nose, tendon repair on the left wrist after, - Family History Additional family history: Mother-diabetes, mother and father with history CHF in ther 80s - Social History Smoking Status: Former smoker Alcohol Use: Sober Drug Use: None Additional social history: . Patient lives with her . Two adult children are supportive. One is local. Cor status is full Review of Systems Review of Systems: ROS: 10pt was reviewed & negative except for what was stated in HPI & below Physical Exam Physical Exam: Temp Pulse Resp BP Pulse Ox 37.4 C 69 17 106/42 L 92 12/31/17 20:00 12/31/17 20:00 12/31/17 20:00 12/31/17 20:00 12/31/17 20:00 O2 (L/minute) 5 Constitutional: no apparent distress Eyes: PERRL, EOMI Ears, Nose, Mouth, Throat: moist mucous membranes, hearing normal Cardiovascular: regular rate and rhythym, JVD, edema (trace LE) Respiratory: reduced air movement, other (coarse) Gastrointestinal: normoactive bowel sounds, soft, non-tender abdomen Skin: warm Musculoskeletal: generalized weakness Neurologic: AAOx3 Psychiatric: interacting appropriately, not anxious, not encephalopathic Lymph, Heme, Immunologic: No petechiae Lab Data & Imaging Review 12/31/17 18:00 12/31/17 18:00 WBC 7.29 10^3/uL (3.80-9.50) 12/31/17 18:00 RBC 3.44 10^6/uL (4.18-5.33) L 12/31/17 18:00 Hgb 10.9 g/dL (12.6-16.3) L 12/31/17 18:00 Hct 33.1 % (38.0-47.0) L 12/31/17 18:00 MCV 96.2 fL (81.5-99.8) 12/31/17 18:00 MCH 31.7 pg (27.9-34.1) 12/31/17 18:00 MCHC 32.9 g/dL (32.4-36.7) 12/31/17 18:00 RDW 14.1 % (11.5-15.2) 12/31/17 18:00 Plt Count 265 10^3/uL (150-400) D 12/31/17 18:00 MPV 10.1 fL (8.7-11.7) 12/31/17 18:00 Neut % (Auto) 80.0 % (39.3-74.2) H 12/31/17 18:00 Lymph % (Auto) 10.6 % (15.0-45.0) L 12/31/17 18:00 [place] % (Auto) 8.5 % (4.5-13.0) 12/31/17 18:00 Eos % (Auto) 0.0 % (0.6-7.6) L 12/31/17 18:00 Baso % (Auto) 0.5 % (0.3-1.7) 12/31/17 18:00 Nucleat RBC Rel Count 0.0 % (0.0-0.2) 12/31/17 18:00 Absolute Neuts (auto) 5.83 10^3/uL (1.70-6.50) 12/31/17 18:00 Absolute Lymphs (auto) 0.77 10^3/uL (1.00-3.00) L 12/31/17 18:00 Absolute Monos (auto) 0.62 10^3/uL (0.30-0.80) 12/31/17 18:00 Absolute Eos (auto) 0.00 10^3/uL (0.03-0.40) L 12/31/17 18:00 Absolute Basos (auto) 0.04 10^3/uL (0.02-0.10) 12/31/17 18:00 Absolute Nucleated RBC 0.00 10^3/uL (0-0.01) 12/31/17 18:00 Immature Gran % 0.4 % (0.0-1.1) 12/31/17 18:00 Immature Gran # 0.03 10^3/uL (0.00-0.10) 12/31/17 18:00 PT 41.4 SEC (12.0-15.0) H 12/31/17 18:00 INR 4.38 (0.83-1.16) H 12/31/17 18:00 APTT 44.7 SEC (23.0-38.0) H 12/31/17 18:00 Sodium 135 mEq/L (135-145) 12/31/17 18:00 Potassium 4.0 mEq/L (3.5-5.2) 12/31/17 18:00 Chloride 93 mEq/L (97-110) L 12/31/17 18:00 Carbon Dioxide 33 mEq/l (22-31) H 12/31/17 18:00 Anion Gap 9 mEq/L (8-16) 12/31/17 18:00 BUN 17 mg/dL (7-23) 12/31/17 18:00 Creatinine 0.8 mg/dL (0.6-1.0) 12/31/17 18:00 Estimated GFR > 60 12/31/17 18:00 Glucose 109 mg/dL (70-100) H 12/31/17 18:00 Calcium 8.8 mg/dL (8.5-10.4) 12/31/17 18:00 Total Bilirubin 0.8 mg/dL (0.1-1.4) 12/31/17 18:00 Conjugated Bilirubin 0.6 mg/dL (0.0-0.5) H 12/31/17 18:00 Unconjugated Bilirubin 0.2 mg/dL (0.0-1.1) 12/31/17 18:00 AST 27 IU/L (14-46) 12/31/17 18:00 ALT 32 IU/L (9-52) 12/31/17 18:00 Alkaline Phosphatase 72 IU/L (38-126) 12/31/17 18:00 Troponin I 0.018 ng/mL (0.000-0.034) 12/31/17 18:00 NT-Pro-B Natriuret Pep 1290 pg/mL (0-125) H 12/31/17 18:00 Total Protein 6.9 g/dL (6.3-8.2) 12/31/17 18:00 Albumin 3.1 g/dL (3.5-5.0) L 12/31/17 18:00 Assessment & Plan Assessment: #CHF-E, diastolic per recent TTE #Acute respiratory failure due to pulm edema from CHF-E #volume overload #GB, with recent IVIG #Afib, not in afib -on amio, coreg #chronic AC, on Xarelto #Generalized Weakness Plan: Admission IV Lasix BID Repeat CXR in a.m, would expect some improvement PT/OT Full code
[2017-12-31] MEDS: DIAZEPAM 2 MG TAB PO PRN (23:03)
[2017-12-31] MEDS: oxyCODONE IR 5 MG TAB PO PRN (23:03)
[2017-12-31] MEDS ORDERED: GABAPENTIN 300 MG CAP PO ONE (23:15)
[2017-12-31] MEDS ORDERED: morphINE SR 15 MG TAB PO ONE (23:15)
[2018-01-01] MEDS: CARVEDILOL 6.25 MG TAB PO SCH ×2 (03:51→09:04)
[2018-01-01] MEDS: oxyCODONE IR 5 MG TAB PO PRN ×6 (03:52→21:06)
[2018-01-01 04:36] LABS: PLATELET COUNT 222 10^3/uL (150-400)
[2018-01-01] MEDS: PANTOPRAZOLE SODIUM 40 MG TAB PO SCH (05:17)
[2018-01-01] MEDS: PSYLLIUM METAMUCIL 1 PKT PO SCH (05:17)
[2018-01-01] MEDS: morphINE SR 15 MG TAB PO SCH ×2 (05:17→18:39)
[2018-01-01] MEDS ORDERED: FUROSEMIDE 100 MG/10 ML VIAL IVP SCH (08:06)
--- NOTE | 2018-01-01 08:06 | HOSPPROG ---
Hospitalist Progress Note Assessment/Plan: #Acutely decompensated grade 2 diastolic HF: new flash edema on CXR last night -personally reviewmary ann NEELY. Echo 12/01 with grade 2 diastolic dysfunction, pulm HTN 57mmHg. Negative nuclear stress 12/02 @ [facility]. Repeat TTE here showed reserved systolic/diastolic function. -TSH NL at OSH, negative trops here - EKG here shows incomplete RBBB, no signs a fib with RVR. Consider PE, but on Xarelto -repeat echo today with preserved EF -per literature review, there can be cardiac involvement with Guillain-Franklin including bradycardia, atrial tach, cardiomyopathy -appreciated Cards consultation. Will need L/R heart cath in future -cont IV Lasix #Supratherapeutic INR: suspect due to Xarelto, but may have component of auto- anticoagulation. LFTs normal No bleeding. Will hold and repeat in morning. -if truly due to med, may need different AC #Hypotension: decreased Coreg dose and Lasix dose, improved this afternoon #Guillian-barre: s/p IVIG. PT/OT #Permanent atrial fibrillation: rate-controlled, decreased Coreg with hypotension, hold Xarelto #Acute hypoxic resp failure: increased edema on CXR last night. Edema much improved on CXR today #Diet: 2gm Na, 2L fluid restriction #DVT ppx: SCDs #Dips: warrants inpatient admission for IV diuresis, telemetry Time spent on visit: 60 min reviewing OSH records, labs/imagining here. Discussed treatment plan with daughter and Cardiology Subjective: SOB last night with standing. None this morning Objective: Vital Signs Temp Pulse Resp BP Pulse Ox 37.0 C 65 18 113/49 L 95 01/01/18 07:14 01/01/18 07:14 01/01/18 07:14 01/01/18 07:14 01/01/18 07:14 Laboratory Results 01/01/18 03:59 01/01/18 03:59 12/31/17 01/01/18 01/02/18 05:59 05:59 05:59 Intake Total 440 Output Total 1350 Balance -910 PT 41.4 SEC (12.0-15.0) H 12/31/17 18:00 INR 4.38 (0.83-1.16) H 02/07/18 18:00 - Time Spent With Patient Time Spent with Patient: greater than 35 minutes Time Spent with Patient: Greater than 35 minutes spent on this patients care, greater than 50% of time spent counseling, educating, and coordinating care regarding the above mentioned plan. - Physical Exam Constitutional: no apparent distress Eyes: PERRL Ears, Nose, Mouth, Throat: moist mucous membranes Cardiovascular: regular rate and rhythym, No edema Respiratory: no respiratory distress, inspiratory crackles (at bases) Gastrointestinal: normoactive bowel sounds, soft, non-tender abdomen Genitourinary: no bladder fullness, malhotra in urethra Skin: warm Musculoskeletal: full muscle strength (UEs) Neurologic: AAOx3 ICD10 Worksheet Patient Problems: Problems Problem Status Onset Acute exacerbation of congestive heart failure Acute Guillain-Franklin syndrome Acute chronic disease mgmt/transitional care Acute Atrial fibrillation Acute Congestive heart failure Acute Fever Acute Generalized anxiety disorder Chronic Insomnia Chronic Sedative dependence with current use Chronic
[2018-01-01] MEDS: CARVEDILOL 3.125 MG TAB PO SCH ×2 (08:54→18:37)
[2018-01-01] MEDS: POTASSIUM CL 20 MEQ TAB PO SCH (08:55)
[2018-01-01] MEDS: GABAPENTIN 300 MG CAP PO SCH ×3 (08:55→21:06)
[2018-01-01] MEDS ORDERED: RIVAROXABAN 10 MG TAB PO SCH (09:00)
[2018-01-01] MEDS ORDERED: FUROSEMIDE 40 MG/4 ML VIAL IVP SCH (09:00)
[2018-01-01] MEDS ORDERED: AMIODARONE HCL 200 MG TAB PO SCH (09:00)
--- NOTE | 2018-01-01 10:08 | PDMN ---
Medical Necessity Medical necessity: est los>2mn for acute resp failure r/t pulmonary edema r/t diastolic CHF w/volume overload; admit for IV Lasix, PT/OT; comorbid Roseline [place] w/peripheral paresthesias, GERD, HTN, readmit on day of d/c and readmit from acute rehab for increasing hypoxia, increased O2 needs, and worsening pulmonary edema; per order and H&P
[2018-01-01] MEDS: LIDOCAINE 5% 1 EA PATCH TD SCH (10:36)
--- NOTE | 2018-01-01 11:44 | ASMTCASEMG ---
Living Arrangements What is your living Answers: With Spouse arrangement? Who do you live with? Type Of Residence What kind of residence do Answers: House you live in? Discharge Plan Comments Coordination Status Comments Notes: Discussed pts case in morning rounds. Pt is a 72 y/o female admitted for shortness of breath. Pt was discharged yesterday to [facility] inpatient rehab. Therapies have been ordered. Therapies have been ordered. Inpatient rehab has been ordered. Pt will most likely d/c back to inpatient rehab when medically stable. CM to follow. Plan: TBD; pending therapy recommendations Date Signed: 01/01/2018 11:44 AM Electronically Signed By:HEBER Benjamin
--- NOTE | 2018-01-01 15:32 | GCON ---
[f rep st] CONSULTATION CARDIAC CONSULTATION DATE OF CONSULTATION: 01/01/2018 CHIEF COMPLAINT: Acute shortness of breath. HISTORY OF PRESENT ILLNESS: The patient is a 72-year-old female who was recently diagnosed with Gullain-Whitney Point in November, and treated at [facility] with 5 days of IVIG. During her hospitalization, she was diagnosed with paroxysmal atrial fibrillation and started on amiodarone and Pradaxa. After 5 days of treatment, she was discharged to a rehab facility and initially did well. After a few days of residing at the rehab facility, she developed a low- grade fever with fatigue and shortness of breath. She was admitted to [facility] and ruled out for causes of infection. Blood cultures were negative. She was found to be volume overloaded secondary to diastolic dysfunction, and therefore started on IV Lasix. She diuresed well and was discharged back to rehab on December 31. A few hours after residing at rehab facility, she developed increased oxygen requirements with shortness of breath and fatigue. She was readmitted to the hospital with flash pulmonary edema. She has responded well to IV Lasix. Her oxygen requirements have decreased to 3 L. She continues to complain of some fatigue. She had a nuclear stress test done while at [facility], which was negative for ischemia. Her most recent echo was at [facility], which showed preserved LV function without diastolic dysfunction or significant valvular abnormalities. On her most recent admission, her INR was found to be elevated at 4.38. Her BNP was also elevated at 1290. Her troponins have been negative x2. PAST MEDICAL HISTORY: Guillain-Whitney Point, reflux, hypertension, migraines, sciatica. PAST SURGICAL HISTORY: Cholecystectomy, cataract surgery, hysterectomy, tendon repair of the left wrist, and right foot fasciotomy. FAMILY HISTORY: Negative for premature coronary artery disease. SOCIAL HISTORY: She is currently accompanied by her and daughter. She denies any ongoing tobacco or drug use. She currently lives with her and has children nearby. ALLERGIES: Codeine and penicillin. HOME MEDICATIONS: Amiodarone 200 mg twice daily, Coreg 6.25 mg twice daily, Neurontin 300 mg 3 tabs three times daily, Xarelto 20 mg daily, diazepam p.r.n. , Remeron at bedtime, Zofran p.r.n., Protonix 40 mg daily, Phenergan p.r.n., Metamucil daily, oxycodone IR p.r.n. REVIEW OF SYSTEMS: Negative except for what is stated in the History and Physical, but she does complain of mild nausea and abdominal distention. PHYSICAL EXAMINATION: GENERAL: Patient appears in no acute distress, but she is mildly sedated. VITAL SIGNS: Blood pressure 100/44, heart rate 56, oxygen saturation of 94% on room air. Afebrile. NECK: No carotid bruits or JVD present. LUNGS: Mild crackles at the bilateral bases. CARDIAC: Regular rate and rhythm without any significant murmurs, rubs, or gallops appreciated. ABDOMEN: Soft, nontender, nondistended. EXTREMITIES: Palpable pulses bilaterally without any evidence of edema. NEUROLOGIC: Nonfocal. PSYCHIATRIC : Mood and affect appropriate. SKIN: No obvious rashes or ecchymosis identified. LABORATORY: Troponin negative x2. BNP 1290. Sodium 141, potassium 3.6, chloride 99, bicarb 33, BUN 18, creatinine 0.7, AST 27, ALT 32, alkaline phosphatase 72. INR 4.38. Hemoglobin 10.5, hematocrit 31.8, white blood cell count 6.28, platelets 222. REPORTS: Her initial chest x-ray shows bilateral effusions. Her most recent chest x-ray shows an improvement in effusions. Her EKG reveals normal sinus rhythm with diffuse ST-T wave changes which are nonspecific. Her JT is prolonged at just over 400 msec. ASSESSMENT: The patient is a 72-year-old female with a history of diastolic congestive heart failure and recent diagnosis of Guillain-Whitney Point and paroxysmal atrial fibrillation, who presented with acute flash pulmonary edema. PLAN: 1. The patient is a 72-year-old female who has had a complicated course over the last 4-6 weeks. Most recently, she was readmitted to [facility] after only a few hours at her rehab facility with flash pulmonary edema. She has responded well to IV diuretics and her oxygen requirements are down. The cause for her flash pulmonary edema is unclear at this time. Her troponins are negative and she had a normal nuclear stress test at [facility] 4 weeks ago. I would recommend we continue to diurese her with IV Lasix but ultimately, she will need a right and left heart catheterization for further assessment of her coronary status. It is possible that paroxysmal atrial fibrillation played a part in her recent admission. She was asymptomatic with it in the past. I will recheck a limited echo to ensure she does not have a new wall motion abnormality. 2. Paroxysmal atrial fibrillation, was being treated with rate control and anticoagulation. She was asymptomatic with atrial fibrillation in the past. Her Xarelto is currently on hold secondary to an INR of 4.3. I also like to reduce her dose of amiodarone to 200 mg daily secondary to her long QT. 3. Labile blood pressures, likely related to Guillain-Whitney Point. 4. Prolonged QT is likely secondary to amiodarone. Other QTc prolonging agents should be avoided. I have reduced her dose of amiodarone to 200 mg daily. Also, Phenergan and Zofran have been discontinued. 5. Elevated INR of 4.3. Xarelto is currently on hold. LFTs are currently normal. We will plan to repeat an INR tomorrow. /[id number]/MODL MTDD
[2018-01-01] MEDS: FUROSEMIDE 40 MG/4 ML VIAL IVP SCH (16:06)
--- NOTE | 2018-01-01 17:53 | ECHO ---
[email or web address] [address] [address] Main: [phone] Fax: Transthoracic Echocardiogram Name: WALDEMAR MATAMOROS MR#: [id number] Study Date: 01/01/2018 Study Time: 02:19 PM Date of : 1945 Age: 72 year(s) Height: 154.9 cm (61 in.) Weight: 65.32 kg (144 lb.) BSA: 1.64 m2 Gender: Female Examination: Limited Echo Indication: Flash Pulmonary Edema Image Quality: Contrast: Requested by: Radha Antonio BP: 100 mmHg/44 mmHg Heart Rate: Rhythm: Normal sinus rhythm Indication: Flash Pulmonary Edema Procedure Staff Roadability Machine Operator: Marty Aviles RDCS Reading Physician: Hunter Olivarez Requesting Provider: Conclusions: This is a limited echocardiogram to evaluate LV function. The ejection fraction appears to be normal. There is a trivial pericardial effusion. There are no regional wall motion abnormalities. A moderate left pleural effusion is appreciated. Trivial tricuspid regurgitation is noted. Measurements: Chambers Valvular Assessment AV/MV Valvular Assessment TV/PV Normal Normal Normal Name Value Range Name Value Range Name Value Range IVSd (2D): 1.0 cm (0.6 cm-1.1 TR Vmax: 2.25 mm/s ( - ) cm) TR PGmax: 20 mmHg ( - ) LVDd (2D): 3.9 cm (3.9 cm-5.3 syst. PAP: 25 mmHg ( - ) cm) LVDs (2D): 2.2 cm (2.1 cm-4 cm) LVPWd (2D): 1.1 cm ( - ) LVEF (2D): 74 (>=54 %) Continued Measurements: Valvular Assessment TV/PV Name Value CVP (est.): 5 mmHg (No Signature Object) Patient: WALDEMRA MATAMOROS Study Date: 01/01/2018 Page 1 of 2 02:19 PM Patient: WALDEMAR MATAMOROS Study Date: 01/01/2018 Page 2 of 2 02:19 PM [id number]
[2018-01-01] MEDS: MIRTAZAPINE 15 MG TAB PO SCH (21:06)
[2018-01-01] MEDS: DIAZEPAM 2 MG TAB PO PRN (21:06)
[2018-01-01] MEDS: PETROLAT,WHT/MIN OIL/SOD CHL 3.5 GM OPHT.OINT OP SCH (21:18)
[2018-01-02 04:14] LABS: INR 1.38 (0.83-1.16); PROTIME(PATIENT) 17.1 SEC (12.0-15.0)
[2018-01-02] MEDS: PANTOPRAZOLE SODIUM 40 MG TAB PO SCH (05:49)
[2018-01-02] MEDS: morphINE SR 15 MG TAB PO SCH ×2 (05:49→17:19)
[2018-01-02] MEDS: PSYLLIUM METAMUCIL 1 PKT PO SCH (05:49)
[2018-01-02] MEDS: FUROSEMIDE 40 MG/4 ML VIAL IVP SCH ×4 (08:09→17:31)
[2018-01-02] MEDS: GABAPENTIN 300 MG CAP PO SCH ×3 (08:10→21:14)
[2018-01-02] MEDS: POTASSIUM CL 20 MEQ TAB PO SCH (08:10)
[2018-01-02] MEDS: CARVEDILOL 3.125 MG TAB PO SCH ×2 (08:10→17:23)
[2018-01-02] MEDS: LIDOCAINE 5% 1 EA PATCH TD SCH (08:10)
[2018-01-02] MEDS: oxyCODONE IR 5 MG TAB PO PRN ×3 (08:14→21:14)
[2018-01-02] MEDS ORDERED: AMIODARONE HCL 200 MG TAB PO SCH (09:00)
--- NOTE | 2018-01-02 09:05 | CPEKG ---
Heart Rate: 66 RR Interval: 909 P-R Interval: 144 QRSD Interval: 120 QT Interval: 472 QTC Interval: 495 P Melvin: 50 QRS Melvin: 28 T Wave Melvin: 67 EKG Severity - ABNORMAL ECG - EKG Impression: SINUS RHYTHM EKG Impression: IVCD, CONSIDER ATYPICAL RBBB EKG Impression: QTc PROLONGATION NOTED Electronically Signed By: Agustin Villavicencio 03-Jan-2018 08:23:27
--- NOTE | 2018-01-02 09:45 | WOCRNPDOC ---
WOCRN Advanced Assessment Note - Skin Integrity Problem, Advanced Assess Sacrum Dressing Type: Allevyn Life Exudate Amount: None Exudate Characteristic(s): None Integumentary Issue Intervention: Dressing Removed, Lotion/Cream Applied ( dimethicone applied, per order) Dipika Wound Tissue: Blanching, Intact Dipika Wound Swelling: None Skin Integrity Problem Comment: Received additional consult request to assess patient's buttocks and sacrum for pressure injury. Patient assessed and noted to have blanching erythema over her sacrum, no pressure injury noted. Orders already in place for turns q2, TAPS, and dimethicone cream BID. Reported to stone polisher Sandra that patient does not need Allevyn dressing as there is no wound and dressing is not pressure-relieving. No need for wound care to follow this patient. Please reconsult PRN.
[2018-01-02] MEDS ORDERED: ACETAMINOPHEN 325 MG TAB PO PRN (09:54)
[2018-01-02] MEDS ORDERED: FAMOTIDINE 20 MG TAB PO ONE (09:54)
[2018-01-02] MEDS ORDERED: ASPIRIN EC 325 MG TAB PO ONE (09:54)
[2018-01-02] MEDS ORDERED: TEMAZEPAM 15 MG CAP PO PRN (09:54)
[2018-01-02] MEDS ORDERED: diphenhydrAMINE 25 MG CAP PO ONE ×2 (09:54→11:26)
[2018-01-02] MEDS ORDERED: NITROGLYCERIN 0.4 MG BTL SL PRN (09:54)
[2018-01-02 10:47] LABS: PLATELET COUNT 280 10^3/uL (150-400)
--- NOTE | 2018-01-02 11:51 | PDCARPN ---
Cardiology Progress Note Chief Complaint: SOB Assessment/Plan: Assessment: Ansley is a 72 y/o F who was diagnosed with Guillain Cabins in early Nov and treated with IVIG x5 days. She was diagnosed with PAF at that time and started on Amio and Pradaxa. She was d/c to SNF and did well for a few days. She was then admitted with a low grade fever and SOB and found to be in DCHF. No source of infection was identified. She was diuresed and then d/c back to SNF on 12/31. She returned with flash pulmonary edema a few hours later. She has responded well to Lasix and is only mildly fluid overloaded at this time. Her INR was 4.3 on admission. Xarelto was d/c and her INR is now 1.38. Plan: 1. Flash pulmonary edema with normal EF by echo. Trops have been negative and nuclear stress test a month ago was negative for ischemia. Obstructive CAD is unlikely but she will have a R and L heart cath today. R/B/A discussed with the patient and her and she would like to proceed. 2. PAF- Currently in NSR. Continue Amio and Coreg. Anticoagulation is on hold. INR increased to 4.3 while on Xarelto. I would recommended Eliquis 5mg BID post cath. 3. prolonged QT- improved with reducing Amio to 200mg daily. Continue to monitor. 4. Guillain Cabins- Diagnosed and treated 1 month ago. Still complaining of fatigue. 5. Hypotension- variable pressures likely related to Guillain Cabins- 01/02/18 12:33 Subjective: Pt SOB has improved. She denies any CP. Energy level is improving. Reviewed/Discussed With: hospitalist Objective: Vital Signs (8 Hrs) Temp Pulse Resp BP Pulse Ox 01/02/18 07:51 37.5 C 69 18 133/46 H 90 L 01/02/18 04:00 37.1 C 71 14 130/44 H 93 Intake/Output (24 Hrs) 01/01/18 01/02/18 01/03/18 05:59 05:59 05:59 Intake Total 440 1550 Output Total 1350 1375 Balance -910 175 Intake: Oral (ml) 440 1550 Output: Urine (ml) 1350 1375 Catheter 1350 1375 Other: Weight 65.7 kg Intake Quantity Yes Sufficient Result Diagrams: 01/01/18 03:59 01/02/18 03:50 Cardiac Labs: Cardiac Lab Results (72 Hrs) 01/01/18 04:00 Troponin I < 0.012 Telemetry: NSR - Physical Exam Cardiovascular: regular rate and rhythm, no murmurs, no rubs, no gallops Peripheral Pulses: 2+: dorsalis-pedis (R), dorsalis-pedis (L) Respiratory: other (crackles at the bilateral bases.) Skin: no edema Neurologic: AAOx3 ICD10 Worksheet Patient Problems: Problems Problem Status Onset Acute exacerbation of congestive heart failure Acute Guillain-Cabins syndrome Acute chronic disease mgmt/transitional care Acute Atrial fibrillation Acute Congestive heart failure Acute Fever Acute Generalized anxiety disorder Chronic Insomnia Chronic Sedative dependence with current use Chronic
--- NOTE | 2018-01-02 13:30 | PDPROPOC ---
Sedation Plan of Care Sedation Plan of Care: vital signs stable, mental status noted, patient educated of risks, benefits, alternatives, patient can tolerate sedation ASA Classification: ASA 2 Planned drugs: fentanyl, midazolam Mallampati Score: Class 2 Mallampati Reference Image: Patient passed 3-3-2 rule?: Yes
--- NOTE | 2018-01-02 13:30 | PDHPUP ---
History & Physical Update H&P update statement: This history and physical update is based on an assessment of the patient which was completed after admission or registration (within 24 hours), but prior to the surgery/procedure. H&P update: H&P reviewed & patient examined, no change in patient's condition since H&P completed
--- NOTE | 2018-01-02 13:35 | HOSPPROG ---
Hospitalist Progress Note Assessment/Plan: #Acutely decompensated grade 2 diastolic HF: new flash edema -IV Lasix, cont with current dose -Unclear why she decompensated so abruptly -She is scheduled for cardiac cath today #Supratherapeutic INR: -Likely due to Xarelto -INR is improving -Consider starting low dose Eliquis, d/w Cards #Hypotension: decreased Coreg dose and Lasix dose, resolving #Guillian-barre: s/p IVIG. PT/OT #Permanent atrial fibrillation: rate-controlled, decreased Coreg with hypotension, hold Xarelto #Acute hypoxic resp failure: due to pulm edema. cont IV Lasix #Diet: 2gm Na, 2L fluid restriction #DVT ppx: SCDs #Dips: warrants inpatient admission for IV diuresis, telemetry Subjective: will have cardiac cath today. SOB is improving. BP is stable and appropriate. No CP. No palpitations. Objective: Vital Signs Temp Pulse Resp BP Pulse Ox 37.5 C 69 18 133/46 H 90 L 01/02/18 07:51 01/02/18 07:51 01/02/18 07:51 01/02/18 07:51 01/02/18 07:51 Laboratory Results 01/02/18 10:30 01/02/18 03:50 01/01/18 01/02/18 01/03/18 05:59 05:59 05:59 Intake Total 440 1550 Output Total 1350 1375 Balance -910 175 PT 17.1 SEC (12.0-15.0) H D 01/02/18 03:50 INR 1.38 (0.83-1.16) H 01/02/18 03:50 - Physical Exam Constitutional: no apparent distress Eyes: PERRL Ears, Nose, Mouth, Throat: moist mucous membranes, hearing normal Cardiovascular: regular rate and rhythym, No edema Respiratory: reduced air movement Gastrointestinal: normoactive bowel sounds, soft, non-tender abdomen Skin: warm Musculoskeletal: generalized weakness Neurologic: AAOx3 Psychiatric: interacting appropriately, not anxious, not encephalopathic ICD10 Worksheet Patient Problems: Problems Problem Status Onset Acute exacerbation of congestive heart failure Acute Guillain-[place] syndrome Acute chronic disease mgmt/transitional care Acute Atrial fibrillation Acute Congestive heart failure Acute Fever Acute Generalized anxiety disorder Chronic Insomnia Chronic Sedative dependence with current use Chronic
[2018-01-02] MEDS ORDERED: fentaNYL 100 MCG/2 ML INJ ONE (13:39)
[2018-01-02] MEDS ORDERED: LIDOCAINE 1% 300 MG/30 ML SDV ONE (13:39)
[2018-01-02] MEDS ORDERED: MIDAZOLAM 2 MG/2 ML VIAL ONE (13:39)
[2018-01-02] MEDS ORDERED: IOPAMIDOL (ISOVUE-370) 150 ML BTL IV ONE (13:39)
--- NOTE | 2018-01-02 14:54 | PDDXCAT ---
Diagnostic Cath Note - . Date: 01/02/18 Sales Attendant: Juanis Indication: other (Episodes of flash pulmonary edema.) - Procedure Access: right groin Procedure: left heart catheterization, coronary angiography, left ventriculogram , right heart catheterization - Materials Left Heart Cath size: 5F Left Heart Cath materials: standard multipack (JL4, JR4, pigtail) Right Heart Cath size: 7F Right Heart Cath materials: PWP catheter - Findings-Left Heart Catheterization LM: Normal. Appropriate bifurcation into the left anterior descending and circumflex vessels. LAD: Large caliber transapical vessel. Single diagonal branch identified. Angiographically normal. LCX: Large caliber, dominant vessel. 2 obtuse marginal branches and the PDA are identified. Angiographically normal. RCA: Small caliber, non dominant. Angiographically normal. EDP: 86/2/19 mmHg. LVEF: 70%. Wall motion: Normal. - Findings-Right Heart Catheterization RA: 4 mmHg. RV: 30/2/7 mmHg. PA: 30/12/18 mmHg. Pulmonary artery saturation of 67%. PAOP: 9 mmHg. AO: 94/44/58 mmHg. Non selective renal arteriogram performed with single bilateral renal arteries and no significant obstruction. CO: 3.76 liters/minute. CI: 2.26 liters/minute per meter squared. Complications: None. Estimated blood loss: <50ml Closure method: Angioseal Assessment: 1. Angiographically normal epicardial coronary arteries with a left -dominant system. 2. Normal left ventricular systolic function with an ejection fraction of 70% and normal wall motion. 3. Well compensated hemodynamics on right heart catheterization with low normal cardiac output. 4. Normal non selective renal arteriogram. 5. No explanation provided by this study for the patient's episodes of acute respiratory failure. Plan: For her Intervention: None. Patient Problems: Problems Problem Status Onset Acute exacerbation of congestive heart failure Acute Guillain-[place] syndrome Acute chronic disease mgmt/transitional care Acute Atrial fibrillation Acute Congestive heart failure Acute Fever Acute Generalized anxiety disorder Chronic Insomnia Chronic Sedative dependence with current use Chronic
--- NOTE | 2018-01-02 14:54 | ASMTCMCOM ---
CM Note CM Note Notes: 01/02/2018 Case Management Note Spoke w/Katherine from inpatient rehab. Katherine to reassess pt on Friday for possible placement at inpatient rehab. If pt to d/c prior to Friday, will need SNF rehab. Pt is followed by transitional care. Case Management d/c poc: anticipating inpatient rehab on Friday. Case Management to follow. Date Signed: 01/02/2018 02:53 PM Electronically Signed By:Katie King RN
[2018-01-02] MEDS: PETROLAT,WHT/MIN OIL/SOD CHL 3.5 GM OPHT.OINT OP SCH (21:15)
[2018-01-02] MEDS: MIRTAZAPINE 15 MG TAB PO SCH (21:15)
[2018-01-03] MEDS: oxyCODONE IR 5 MG TAB PO PRN ×4 (03:51→19:27)
[2018-01-03 05:09] LABS: INR 1.33 (0.83-1.16); PROTIME(PATIENT) 16.7 SEC (12.0-15.0)
[2018-01-03] MEDS: morphINE SR 15 MG TAB PO SCH ×2 (06:07→17:12)
[2018-01-03] MEDS: PSYLLIUM METAMUCIL 1 PKT PO SCH (06:07)
[2018-01-03] MEDS: PANTOPRAZOLE SODIUM 40 MG TAB PO SCH (06:07)
--- NOTE | 2018-01-03 06:07 | CPEKG ---
Heart Rate: 68 RR Interval: 882 P-R Interval: 164 QRSD Interval: 118 QT Interval: 440 QTC Interval: 469 P Frederick: 57 QRS Frederick: 50 T Wave Frederick: 85 EKG Severity - ABNORMAL ECG - EKG Impression: SINUS ARRHYTHMIA, RATE 61-75 EKG Impression: VENTRICULAR PREMATURE COMPLEX EKG Impression: INCOMPLETE RIGHT BUNDLE BRANCH BLOCK EKG Impression: QTc PROLONGATION CONTINUES TO BE NOTED Electronically Signed By: Agustin Villavicencio 03-Jan-2018 08:23:54
[2018-01-03] MEDS: APIXABAN 5 MG TAB PO SCH ×2 (08:48→21:27)
[2018-01-03] MEDS: POTASSIUM CL 20 MEQ TAB PO SCH (08:48)
[2018-01-03] MEDS: GABAPENTIN 300 MG CAP PO SCH ×3 (08:48→21:27)
[2018-01-03] MEDS: CARVEDILOL 3.125 MG TAB PO SCH ×2 (08:48→17:12)
[2018-01-03] MEDS: LIDOCAINE 5% 1 EA PATCH TD SCH (08:48)
[2018-01-03] MEDS: FUROSEMIDE 20 MG TAB PO SCH (08:48)
--- NOTE | 2018-01-03 12:43 | HOSPPROG ---
Hospitalist Progress Note Assessment/Plan: #Acutely decompensated grade 2 diastolic HF: new flash edema -now on PO Lasix -Unclear why she decompensated so abruptly -cardiac cath negative #Supratherapeutic INR: -Likely due to Xarelto -INR is improving -now on Eliquis #Hypotension: resolved with decreasing meds #Guillian-barre: s/p IVIG. PT/OT #Permanent atrial fibrillation: rate-controlled -Coreg -Amiodarone stopped 01/02 -Eliquis, low dose given high INR #Acute hypoxic resp failure: due to pulm edema #Diet: 2gm Na, 2L fluid restriction #DVT ppx: SCDs #Dips: warrants inpatient admission for IV diuresis, telemetry Plan: PO Lasix Coreg, Eliquis Needs OP Event monitor recheck CXR will likely d/c back to inpatient on Friday Subjective: doing well. No CP or SOB. Can take a deep breath w/o difficuty. Objective: Vital Signs Temp Pulse Resp BP Pulse Ox 36.4 C 90 14 94/42 L 96 01/03/18 11:51 01/03/18 11:51 01/03/18 11:51 01/03/18 11:51 01/03/18 11:51 Laboratory Results 01/02/18 10:30 01/03/18 03:36 01/02/18 01/03/18 01/04/18 05:59 05:59 05:59 Intake Total 1550 1220 Output Total 1375 550 Balance 175 670 PT 16.7 SEC (12.0-15.0) H 01/03/18 03:36 INR 1.33 (0.83-1.16) H 01/03/18 03:36 - Physical Exam Constitutional: no apparent distress Eyes: PERRL, EOMI Ears, Nose, Mouth, Throat: moist mucous membranes Cardiovascular: regular rate and rhythym, No edema Respiratory: no respiratory distress, reduced air movement Gastrointestinal: normoactive bowel sounds Skin: warm Musculoskeletal: generalized weakness Neurologic: AAOx3 Psychiatric: interacting appropriately, not anxious, not encephalopathic Lymph, Heme, Immunologic: No petechiae ICD10 Worksheet Patient Problems: Problems Problem Status Onset Acute exacerbation of congestive heart failure Acute Guillain-[place] syndrome Acute chronic disease mgmt/transitional care Acute Atrial fibrillation Acute Congestive heart failure Acute Fever Acute Generalized anxiety disorder Chronic Insomnia Chronic Sedative dependence with current use Chronic
[2018-01-03] MEDS: MIRTAZAPINE 15 MG TAB PO SCH (21:27)
[2018-01-03] MEDS: PETROLAT,WHT/MIN OIL/SOD CHL 3.5 GM OPHT.OINT OP SCH (21:27)
[2018-01-04] MEDS: oxyCODONE IR 5 MG TAB PO PRN ×3 (04:18→13:26)
[2018-01-04 04:59] LABS: INR 1.59 (0.83-1.16); PROTIME(PATIENT) 19.1 SEC (12.0-15.0)
[2018-01-04] MEDS: PSYLLIUM METAMUCIL 1 PKT PO SCH (05:24)
[2018-01-04] MEDS: morphINE SR 15 MG TAB PO SCH ×2 (05:24→16:15)
[2018-01-04] MEDS: PANTOPRAZOLE SODIUM 40 MG TAB PO SCH (05:24)
[2018-01-04] MEDS: CARVEDILOL 3.125 MG TAB PO SCH ×2 (08:49→16:15)
[2018-01-04] MEDS: APIXABAN 5 MG TAB PO SCH ×2 (08:49→21:09)
[2018-01-04] MEDS: FUROSEMIDE 20 MG TAB PO SCH (08:50)
[2018-01-04] MEDS: LIDOCAINE 5% 1 EA PATCH TD SCH (08:50)
[2018-01-04] MEDS: GABAPENTIN 300 MG CAP PO SCH ×3 (08:50→21:09)
[2018-01-04] MEDS: POTASSIUM CL 20 MEQ TAB PO SCH (08:50)
[2018-01-04] MEDS ORDERED: FUROSEMIDE 20 MG/2 ML VIAL IVP ONE (12:48)
--- NOTE | 2018-01-04 12:51 | HOSPPROG ---
Hospitalist Progress Note Assessment/Plan: #Acutely decompensated grade 2 diastolic HF: new flash edema -now on PO Lasix -Unclear why she decompensated so abruptly -cardiac cath negative #Supratherapeutic INR: -Likely due to Xarelto -INR is improving -now on Eliquis #Hypotension: resolved with decreasing meds #Guillian-barre: s/p IVIG. PT/OT #Permanent atrial fibrillation: rate-controlled -Coreg -Amiodarone stopped 01/02 -Eliquis, low dose given high INR #Acute hypoxic resp failure: due to pulm edema #Diet: 2gm Na, 2L fluid restriction #DVT ppx: SCDs #Dips: warrants inpatient admission for IV diuresis, telemetry Plan: PO Lasix, after reviewing the CXR today, she still has some residual pulm edema , will give one time dose of Lasix IV. Cont scheduled PO Lasix at 20 Coreg, Eliquis Needs OP Event monitor will likely d/c back to inpatient on Friday Subjective: Still on 3-4 LO2 Objective: Vital Signs Temp Pulse Resp BP Pulse Ox 37.2 C 64 13 110/44 L 93 01/04/18 07:26 01/04/18 07:26 01/04/18 07:26 01/04/18 07:26 01/04/18 07:26 Laboratory Results 01/02/18 10:30 01/03/18 03:36 01/03/18 01/04/18 01/05/18 05:59 05:59 05:59 Intake Total 1220 1200 Output Total 550 605 Balance 670 595 PT 19.1 SEC (12.0-15.0) H 01/04/18 04:08 INR 1.59 (0.83-1.16) H 01/04/18 04:08 - Physical Exam Constitutional: no apparent distress Eyes: PERRL, EOMI Ears, Nose, Mouth, Throat: moist mucous membranes, hearing normal Cardiovascular: regular rate and rhythym, No edema Respiratory: no respiratory distress, reduced air movement Gastrointestinal: normoactive bowel sounds, soft, non-tender abdomen Genitourinary: no bladder fullness Skin: warm Musculoskeletal: generalized weakness Neurologic: AAOx3 Psychiatric: interacting appropriately, not anxious, not encephalopathic Lymph, Heme, Immunologic: No petechiae ICD10 Worksheet Patient Problems: Problems Problem Status Onset Acute exacerbation of congestive heart failure Acute Guillain-[place] syndrome Acute chronic disease mgmt/transitional care Acute Atrial fibrillation Acute Congestive heart failure Acute Fever Acute Generalized anxiety disorder Chronic Insomnia Chronic Sedative dependence with current use Chronic
[2018-01-04] MEDS: POLYETHYLENE GLYCOL 3350 17 GM PKT PO PRN (16:15)
[2018-01-04] MEDS: MIRTAZAPINE 15 MG TAB PO SCH (21:09)
[2018-01-04] MEDS: PETROLAT,WHT/MIN OIL/SOD CHL 3.5 GM OPHT.OINT OP SCH (21:10)
[2018-01-05 04:31] LABS: INR 1.68 (0.83-1.16); PROTIME(PATIENT) 19.9 SEC (12.0-15.0)
[2018-01-05] MEDS: morphINE SR 15 MG TAB PO SCH ×2 (05:37→18:02)
[2018-01-05] MEDS: PSYLLIUM METAMUCIL 1 PKT PO SCH (05:37)
[2018-01-05] MEDS: PANTOPRAZOLE SODIUM 40 MG TAB PO SCH (05:37)
[2018-01-05] MEDS: LIDOCAINE 5% 1 EA PATCH TD SCH (09:27)
[2018-01-05] MEDS: FUROSEMIDE 20 MG TAB PO SCH (09:37)
[2018-01-05] MEDS: CARVEDILOL 3.125 MG TAB PO SCH ×2 (09:37→18:02)
[2018-01-05] MEDS: GABAPENTIN 300 MG CAP PO SCH ×3 (09:37→22:11)
[2018-01-05] MEDS: POTASSIUM CL 20 MEQ TAB PO SCH (09:37)
[2018-01-05] MEDS: APIXABAN 5 MG TAB PO SCH ×2 (09:37→19:50)
[2018-01-05] MEDS: oxyCODONE IR 5 MG TAB PO PRN ×3 (09:41→22:50)
[2018-01-05] MEDS ORDERED: FUROSEMIDE 40 MG/4 ML VIAL IVP ONE (15:15)
--- NOTE | 2018-01-05 15:59 | ASMTCMCOM ---
CM Note CM Note Notes: 01/05/2018 Case Management Note Reviewed pt in rounds today. Contacted Katherine at Inpatient Rehab. Katherine to re eval on Friday for admission. RN notified. notified. Case Management d/c poc: to inpatient rehab pending acceptance. Case Management to follow. Date Signed: 01/05/2018 03:59 PM Electronically Signed By:Katie King RN
--- NOTE | 2018-01-05 17:53 | HOSPPROG ---
Hospitalist Progress Note Assessment/Plan: * Acute respiratory failure - due to pulmonary edema and chest wall weakness from GBS * Acute diastolic CHF -cardiac cath negative for ischemia -continue IV lasix * Atelectasis - needs increased support for pulmonary hygiene -OOB with meals (requires Sadie) -start EZ PAP, acapella * GBS s/p IVIG -still profoundly weak, required Sadie -back to inpatient rehab when med stable * Afib -Coreg, eliquis -stop amiodarone per cardiology in case contributing to pulmonary sx -outpatient event monitor * Urinary retention -chronic malhotra * Sciatica -gabapentin + MS contin Subjective: Upset regarding lack of OOB over the weekend Objective: Vital Signs Temp Pulse Resp BP Pulse Ox 37.0 C 67 18 115/45 L 92 01/05/18 15:59 01/05/18 16:02 01/05/18 16:02 01/05/18 15:59 01/05/18 16:02 Laboratory Results 01/02/18 10:30 01/05/18 03:32 01/04/18 01/05/18 01/06/18 05:59 05:59 05:59 Intake Total 1200 900 700 Output Total 605 1800 850 Balance 595 -900 -150 PT 19.9 SEC (12.0-15.0) H 01/05/18 03:32 INR 1.68 (0.83-1.16) H 01/05/18 03:32 case d/w dr anne - desires stable pulmonary status prior to return to rehab CXR viewed, my personal interpretation is - ongoing mild CHF - Physical Exam Constitutional: no apparent distress, appears nourished, not in pain Cardiovascular: regular rate and rhythym, no murmur, rub, or gallop Respiratory: no respiratory distress, no rales or rhonchi, clear to auscultation Gastrointestinal: normoactive bowel sounds, soft, non-tender abdomen, no palpable masses Skin: no rashes or abrasions, no fluctuance, no induration Neurologic: AAOx3, sensation intact bilaterally Psychiatric: interacting appropriately, not anxious, not encephalopathic, thought process linear ICD10 Worksheet Patient Problems: Problems Problem Status Onset Acute exacerbation of congestive heart failure 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
[2018-01-05] MEDS: POLYETHYLENE GLYCOL 3350 17 GM PKT PO PRN (18:05)
[2018-01-05] MEDS: MIRTAZAPINE 15 MG TAB PO SCH (19:50)
[2018-01-05] MEDS: PETROLAT,WHT/MIN OIL/SOD CHL 3.5 GM OPHT.OINT OP SCH (19:53)
[2018-01-06] MEDS: PSYLLIUM METAMUCIL 1 PKT PO SCH (04:53)
[2018-01-06] MEDS: PANTOPRAZOLE SODIUM 40 MG TAB PO SCH (04:53)
[2018-01-06] MEDS: morphINE SR 15 MG TAB PO SCH (04:53)
[2018-01-06 05:09] LABS: PLATELET COUNT 252 10^3/uL (150-400)
[2018-01-06] MEDS: CARVEDILOL 3.125 MG TAB PO SCH (09:01)
[2018-01-06] MEDS: GABAPENTIN 300 MG CAP PO SCH ×2 (09:02→14:57)
[2018-01-06] MEDS: oxyCODONE IR 5 MG TAB PO PRN (09:02)
[2018-01-06] MEDS: POTASSIUM CL 20 MEQ TAB PO SCH (09:03)
[2018-01-06] MEDS ORDERED: RIVAROXABAN 10 MG TAB PO SCH ×2 (12:30→12:45)
[2018-01-06] MEDS: LIDOCAINE 5% 1 EA PATCH TD SCH (13:08)
[2018-01-06 13:11] VITALS: BP 95/42; PULSE 64; RESP 19; TEMP 98.6; O2SAT 95
[2018-01-06] MEDS: APIXABAN 5 MG TAB PO SCH (13:28)
--- NOTE | 2018-01-06 13:43 | GCON ---
[f rep st] CONSULTATION CHEST CONSULTATION REASON FOR CONSULTATION: Nocturnal hypoxemia. HISTORY OF PRESENT ILLNESS: The patient is an extremely pleasant 72-year-old white female with a pas t medical history of Guillain-[place] with peripheral paresthesias, gastroesophageal reflux disease, hy pertension, hypokalemia, migraines. She was admitted to the hospital on 12/31/2017 for hypoxemia and increased oxygen requirements. She was admitted with acute respiratory failure, pulmonary edema fel t to be secondary to congestive heart failure and fluid overload. Over the course of her hospitaliza tion, she has made slow but steady improvement. Her oxygen requirements have diminished but oxygen r equirements do go up at night. In discussion with the patient, she states overall she feels markedly improved. She has begun physical therapy and getting out of bed in the last 48 hours. She states s he has been tested for obstructive sleep apnea and it was negative. She denies any cough or producti on of sputum. There is no chest pain, pleuritic-type chest pain, or angina equivalent. She denies a ny fever or night sweats. Currently, she is resting comfortably on supplemental oxygen. PAST MEDICAL HISTORY: Again, significant for Guaillin-[place], atrial fibrillation, sciatica, hyperten geena, migraines. PAST SURGERIES: Cholecystectomy, cataract repair, hysterectomy, tendon repair to left wrist. FAMILY HISTORY: Noncontributory. SOCIAL HISTORY: Previous tobacco use, none since 1970s. No significant alcohol use. Work history: She is retired. She is and her at the bedside. She has excellent family support. MEDICATIONS: At home include Tylenol, amiodarone, carvedilol, Neurontin, lidocaine patch, Xarelto, d iazepam, Remeron, MS Contin, Zofran, Protonix, Phenergan, and oxycodone. REVIEW OF SYSTEMS: Ten-point review of systems was performed and was negative except for what was re vealed in HPI. PHYSICAL EXAM: VITAL SIGNS: Blood pressure is 108/48, pulse is 62, respirations 18, temperature 37. 1, oxygen saturation 97% on 5 L. GENERAL: She is a well-developed 72-year-old white female who is r esting comfortably on supplemental oxygen. HEENT: Eyes CECILIA, EOMI. Throat shows no erythema nor to nsillar hypertrophy. NECK: Supple. There is no cervical adenopathy. HEART: Regular rate and rhyt hm without murmurs, rubs, or gallops. LUNGS: Diminished breath sounds but no wheeze. There are no crackles present. ABDOMEN: Soft, nontender. Bowel sounds present in all 4 quadrants. EXTREMITIES: No clubbing, cyanosis, or edema. LABORATORIES: White count is 5.8, hemoglobin 9.4, hematocrit 29, platelet count is 252. Sodium 140, potassium 4.1, chloride 102, CO2 is 29, BUN 14, creatinine 0.9, glucose is 106. Echocardiogram date d to 01/01/2018, shows a left ventricular ejection fraction of 74%. Chest x-ray dated 01/04/2018, sh ows improvement in left lower lobe consolidation. IMPRESSION: 1. Guillain-C[place]. 2. Acute diastolic congestive heart failure, stable. 3. Acute respiratory failure, markedly improved. 4. Nocturnal hypoxemia. I feel this is multifactorial, likely a combination of her neuromuscular we akness and the fact that she breathes shallow when she is sleeping. Patient states she has had a neg ative sleep study. 5. Atrial fibrillation, stable. 6. Sciatica. 7. Atelectasis, improved. RECOMMENDATIONS: 1. Would continue supplemental oxygen. My recommendation for nighttime would be to increase her FiO 2 prior to sleep. She is currently on 2 L. I would recommend 4-5 at bedtime. 2. Continue aggressive pulmonary toilet. 3. Continue incentive spirometer, Acapella. 4. Ambulation, if possible. 5. Wean FiO2 keeping sats greater than 90. Thank you very much for allowing me to participate in the care of this patient. If there is any furt her information you require, please do not hesitate to contact me. /[id number]/MODL
--- NOTE | 2018-01-06 14:06 | PDIAF ---
- Diagnosis Diagnosis: GBS, diastolic CHF - Medication Management Discharge Medications: Medications to Continue on Transfer Acetaminophen [Tylenol 325mg (*)] 650 mg PO Q4 PRN 12/04/17 [Last Taken 12/26/17 ] Gabapentin [Neurontin 300 MG (*)] 900 mg PO TID 12/04/17 [Last Taken 12/31/17 09 :00] Lidocaine 5% [Lidoderm 5% Patch (*)] 2 ea TD DAILY 12/04/17 [Last Taken 12/31/17 ] Rivaroxaban [Xarelto 10mg (*)] 20 mg PO DAILY 12/04/17 [Last Taken 12/31/17 08: 09] Diazepam 1 mg PO BID PRN 12/27/17 [Last Taken 12/30/17 23:19] Gluc Oxid/l-Peroxid/Muramidase [Biotene Mouthwash (*)] 30 ml MM QID PRN [Last Taken 12/31/17 09:00] MIRTAZAPINE [Remeron 7.5 mg] 15 mg PO HS 12/27/17 [Last Taken 12/30/17 20:40] Ondansetron Odt [Zofran Odt 4 mg (*)] 4 mg PO Q4 PRN 12/27/17 [Last Taken Unknown] Pantoprazole Sodium [Protonix 40mg (*)] 40 mg PO DAILY@0600 12/27/17 [Last Taken 12/31/17 06:18] Petrolat,Wht/Min Oil/Sod Chl [REFRESH P.M. OINTMENT P-F] 1 pasquale OP 12/27/17 [ Last Taken 12/30/17] Promethazine HCl [Phenergan 25mg (*)] 6.25 - 12.5 mg PO Q6 PRN 12/27/17 [Last Taken Unknown] Promethazine HCl [Phenergan] 6.25 - 12.5 mg IVP Q6 PRN 12/27/17 [Last Taken Unknown] Psyllium Husk/Aspartame [Metamucil Fiber Singles Packet] 3.4 gm PO DAILY@0600 [Last Taken 12/31/17] Tears/Dextran 70/Hypromellose [Natural Balance Tears (*)] 1 drop EACHEYE Q2 PRN 12/27/17 [Last Taken 12/30/17] oxyCODONE IR [Oxycodone Ir (*)] 2.5 - 10 mg PO Q3 PRN 12/27/17 [Last Taken 12/31 11:13] Albuterol [Proventil Neb] 3 ml IH Q2 PRN deyvial 12/31/17 [Last Taken 12/31/17 09:00] Polyethylene Glycol 3350 [Miralax 17 gm (*)] 17 gm PO DAILY PRN pkt 12/31/17 [ Last Taken 12/30/17] Potassium Chloride 20 meq PO DAILY #30 tablet.er 12/31/17 [Last Taken 12/31/17] Carvedilol [Coreg (*)] 3.125 mg PO BIDMEAL #60 tab 01/06/18 [Last Taken Unknown] Furosemide [Lasix] 40 mg PO BID #60 tab 01/06/18 [Last Taken Unknown] Discharge Medications: Refer to the Discharge Home Medication list for PRN reason. - Orders Services needed: Physical Therapy, Occupational Therapy, Speech Language Pathologist Oxygen: 2L during day, 4-5L at night Diet Recommendation: no restrictions on diet Solis: Yes Activity/Weight Bearing Restrictions: Reduce narcotics as able, especially at night. Additional: Spirometer, acapella - hourly while awake - Follow Up Care Current Providers and Referrals: Patient,NotPresent [Unknown] - As per Instructions
--- NOTE | 2018-01-06 15:37 | ASDISCHSUM ---
Discharge Information Plan Status:Inpatient Rehab Medically Cleared to Leave:01/05/2018 Discharge Date:01/06/2018 03:03 PM CM D/C Disposition:[facility] Acute ADT D/C Disposition:[facility] IP Projected Discharge Date:01/06/2018 03:03 PM Transportation at D/C:ALS/BLS Discharge Delay Reason: Follow-Up Date:01/06/2018 03:03 PM Discharge Slot: Final Diagnosis: Placement Information Patient Contact Information Contact Name:MALGORZATA Relationship: Address:[address] City:[place] Alternate Phone: [facility]/Zip Code:[place] [address] Email: Financial Information Financial Class:Medicare Primary Plan Desc:MEDICARE INPATIENT Primary Plan Number:[id number] Secondary Plan Desc:[employer] Secondary Plan Number:[id number] Assessment Information [facility] Initial CM Assessment Living Arrangements What is your living Answers: With Spouse arrangement? Who do you live with? Type Of Residence What kind of residence do Answers: House you live in? Discharge Plan Comments Coordination Status Comments Notes: Discussed pts case in morning rounds. Pt is a 72 y/o female admitted for shortness of breath. Pt was discharged yesterday to [facility] inpatient rehab. Therapies have been ordered. Therapies have been ordered. Inpatient rehab has been ordered. Pt will most likely d/c back to inpatient rehab when medically stable. CM to follow. Plan: TBD; pending therapy recommendations Date Signed: 01/01/2018 11:44 AM Electronically Signed By:HEBER Benjamin [facility] CM Progress Note CM Note CM Note Notes: 01/02/2018 Case Management Note Spoke w/Katherine from inpatient rehab. Katherine to reassess pt on Friday for possible placement at inpatient rehab. If pt to d/c prior to Friday, will need SNF rehab. Pt is followed by transitional care. Case Management d/c poc: anticipating inpatient rehab on Friday. Case Management to follow. Date Signed: 01/02/2018 02:53 PM Electronically Signed By:Katie King RN [facility] CM Progress Note CM Note CM Note Notes: 01/05/2018 Case Management Note Reviewed pt in rounds today. Contacted Katherine at Inpatient Rehab. Katherine to re eval on Friday for admission. RN notified. notified. Case Management d/c poc: to inpatient rehab pending acceptance. Case Management to follow. Date Signed: 01/05/2018 03:59 PM Electronically Signed By:Katie King RN Case Management Discharge Plan Note Case Management Discharge Discharge Order Complete? Answers: Yes Patient to Obtain Answers: Other Notes: Inpatient Rehab Medications Transportation Arranged Answers: [employer] Transport will Pick (Date 01/06/2018 03:00 PM & Time) Case Management Transport Answers: Yes Form Complete Faxed Final Orders Answers: Yes Agency/Facility Transfer Answers: Yes Report Printed & Faxed to Receiving Agency Family Notified Answers: Yes Notes: In room Discharge Comments Notes: 01/06/2018 Case Management Note Arranged transport through [facility] [employer] d/t guiallan barre syndrome. Pt unable to sit upright without assistance. Notified Katherine at Inpatient Rehab of d/c. Faxed final orders. Family in room. Pt d/c to inpatient rehab. Date Signed: 01/06/2018 03:36 PM Electronically Signed By:Katie King RN Intervention Information Intervention Type:*Incorrect Registration Date of Service:01/01/2018 09:55 AM Patient Type:Observation Staff Member:LAURA Duran, Gail Hours: Discipline: Severity: Comment: Intervention Type:*IM-Signed Date of Service:01/06/2018 02:40 PM Patient Type:Inpatient Staff Member:Maglay Florian Hours: Discipline: Severity: Comment:
--- NOTE | 2018-01-06 21:10 | GDS ---
[f rep st] DISCHARGE SUMMARY DISCHARGE DIAGNOSES: 1. 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 2. Acute respiratory failure due to pulmonary edema and chest wall weakness from Guillain-[place] synd andrea. 3. Acute diastolic congestive heart failure. 4. Atelectasis and respiratory muscle weakness. 5. Atrial fibrillation. 6. Urinary retention with chronic Solis catheter. 7. Sciatica. HISTORY: The patient is a 72-year-old female, who was recently hospitalized at [facility] for Guillain-[place] syndrome and received IVIG. During this hospitalization right she recei janeth very large amounts of IV fluid and became massively edematous. She was discharged to rehab and w as being diuresed but she subsequently developed worsening respiratory failure and pulmonary edema an d was transferred to the hospital. She was successfully diuresed here and seen in consultation with Cardiology. Cardiac catheterization was performed and negative for any coronary artery disease. Eventually, she became euvolemic and sh e was switched back to oral Lasix. She has a persistent oxygen requirement of 2 L which goes up to 4-5 L every night. The residual resp iratory issues are felt to be due to ongoing respiratory weakness from her Guillain-[place]. She was s een here in consultation with Pulmonary Medicine. She needs increased support for pulmonary hygiene and received EzPAP, incentive spirometer and Acapella during this hospitalization. She needs to get out of bed as much as possible. Narcotics should be minimized and her MS Contin was discontinued. S he has previously undergone testing for obstructive sleep apnea and is not felt to have this conditio n. Please refer to consultation by Dr. Axel Parry. He recommends 2 L of oxygen during the day and 4 -5 L of oxygen at bedtime, which will likely be her chronic state until she becomes stronger. Regarding her atrial fibrillation, Cardiology stopped her amiodarone in case it was contributing to h er pulmonary symptoms. She is now controlled on Coreg with Xarelto for stroke prevention. She devel oped a rash during this hospitalization and her only new medication was Eliquis. On presentation, sh e was switched from Xarelto to Eliquis for an elevated INR. I do not think she needs to be switched off Xarelto for this indication as INRs are irrelevant on this type of therapy. Given the new rash a nd the concern for Eliquis being the inciting drug, we are switching her back to Xarelto at discharge which she was tolerating without difficulty. Cardiology recommends outpatient event monitoring. DISCHARGE MEDICATIONS: Please see computer record for full detailed list. New medications: 1. Coreg decreased to 3.125 mg p.o. twice daily. 2. Lasix increased to 40 mg p.o. twice daily. 3. Amiodarone, discontinued. 4. MS Contin, discontinued. ADDITIONAL DISCHARGE INSTRUCTIONS: 1. Transfer to [facility] inpatient rehabilitation. 2. This case was discussed with Dr. Yu, rehab physician. 3. Follow up with Cardiology post discharge for outpatient event monitoring. 4. Solis catheter management per rehabilitation with voiding trials when she becomes more ambulatory . 5. Minimize narcotics as much as able as this compromises her already weakened respiratory state. 6. 2 L of oxygen during the day, 4-5 L of oxygen at night. 7. Continue incentive spirometer and Acapella hourly while awake. Greater than 30 minutes of time was spent arranging this discharge. Patient seen and examined by me on the day of discharge. /[id number]/MODL
== END 2018-01-06 15:03 | DRG 94 ==
LOC: EDUNIT# → F2W 20:00 → OBSVTOIN 22:56
PROVIDERS: ADMIT Family Medicine; ATTEND Family Medicine
PROC: B2151ZZ Fluoroscopy of Left Heart using Low Osmolar Contrast (ICD-10-PCS; principal; 2018-01-02)
PROC: 4A023N8 Measurement of Cardiac Sampling and Pressure, Bilateral, Percutaneous Approach (ICD-10-PCS; principal; 2018-01-02)
PROC: B2111ZZ Fluoroscopy of Multiple Coronary Arteries using Low Osmolar Contrast (ICD-10-PCS; principal; 2018-01-02)
DX: G61.0 Guillain-Barre syndrome (principal); J96.01 Acute respiratory failure with hypoxia; I11.0 Hypertensive heart disease with heart failure; I50.31 Acute diastolic (congestive) heart failure; J98.11 Atelectasis; I48.2 Chronic atrial fibrillation; R33.9 Retention of urine, unspecified; Z79.01 Long term (current) use of anticoagulants; Z87.891 Personal history of nicotine dependence
CPT/HCPCS: 97110-GP; 97116-GP; 97162-GP; 97165-GO; 97530-GO; 97530-GP; 97535-GO; C1760; G8978-GP-CM; G8979-GP-CK; G8987-GO-CK; G8988-GO-CI; J1644; J1940; J2250; J3010; Q9967

== ENCOUNTER 2018-01-06 15:30 | Inpatient (IN) | payer OTHER ==
[2018-01-06] MEDS ORDERED: ALBUTEROL 3 ML DEYVIAL IH PRN (16:09)
[2018-01-06] MEDS ORDERED: BIOTENE DRY MOUTH MOUTHWASH 237 ML BTL MM PRN (16:09)
[2018-01-06] MEDS ORDERED: DIAZEPAM 2 MG TAB PO PRN (16:09)
[2018-01-06] MEDS ORDERED: ACETAMINOPHEN 325 MG TAB PO PRN (16:09)
[2018-01-06] MEDS ORDERED: TEARS/DEXTRAN 70/HYPROMELLOSE 15 ML OPHT.BTL EACHEYE PRN (16:09)
[2018-01-06] MEDS ORDERED: ONDANSETRON DISINTEGRATING 4 MG TAB PO PRN (16:09)
[2018-01-06] MEDS: oxyCODONE IR 5 MG TAB PO PRN ×2 (16:26→19:31)
--- NOTE | 2018-01-06 17:26 | PDOREHIP ---
Admission [facility] - Admission - 3 Day Assessment Period Admission Date/Day 1: 01/06/18 Day 2: 01/07/18 Day 3: 01/08/18 - Active Diagnoses Comorbidities and Co-existing Conditions at Admission: 56130. None of the Above - Skin Conditions Unhealed Pressure Ulcer (1 or more/Stage 1 or >)-Admission: 0. No
[2018-01-06] MEDS: CARVEDILOL 3.125 MG TAB PO SCH (18:12)
--- NOTE | 2018-01-06 18:31 | GHP ---
[f rep st] HISTORY AND PHYSICAL POST ADMISSION PHYSICIAN EVALUATION AND REHABILITATION TREATMENT PLAN DATE OF ADMISSION: 01/06/2018 DATE OF EVALUATION: January 06, 2018. TIME OF EVALUATION: 1640. REFERRING FACILITY: [facility]. REFERRING PHYSICIAN: Dr. Anne IMPAIRMENT GROUP: 3.4. DATE OF ONSET: 11/25/2017. CONSULTING PHYSICIAN: She was seen in consultation by Pulmonology, Dr. Garcia and pecan cleaner, Dr. Olivarez. 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 HISTORY OF PRESENT ILLNESS: This patient is readmitted to inpatient rehabilitation following a 6 day stay at [facility] for respiratory failure. She had increased oxygen need and she had marked desaturation into the 70s when oxygen was removed. Evaluation at the hospital included an echocardiogram which was interpreted as having diastolic dysfunction. Cardiac catheterization showed normal heart pressures on the right and left heart and no significant coronary artery disease. She was seen by Respiratory Therapy as well and was noted to have weakened muscles of respiration. She was begun on EzPAP positive airway pressure device to maintain lung expansion and increase functional residual capacity. She was seen by the pulmonology senior management consultant and was noted to have nocturnal hypoxemia which was likely multifactorial, combination of neuromuscular weakness and shallow breathing while sleeping. Recommendation was to increase oxygen overnight to 4-5 L and otherwise she was maintaining on 2 L, to continue incentive spirometer and the EzPAP. Chest x-ray showed resolving left lower lung field consolidation. OTHER LABS AND STUDIES IN THE HOSPITAL: She had anemia. Her hemoglobin was 9.4 , hematocrit 29.4 on day of discharge, 01/06/2018. Previously it had been 10.3 and 31.4. Coagulation studies revealed a coagulopathy with an INR of 4.38. This was thought to be due to apixaban, which was discontinued and she was started on rivaroxaban. Subsequently, she was put back on apixaban, as she had developed a rash on rivaroxaban. Serum chemistries revealed overall normal renal function and electrolytes. Her blood glucoses were elevated most recently at 106 on the day of discharge. BNP 2 days prior to discharge was at 737. Lipid panel showed a low cholesterol of 100, with a low LDL of 54, HDL was also low at 23. PRECAUTIONS: She is a fall risk. ACTIVE COMORBIDITIES: She has the tier 3 comorbidity of hemiparesis, though she is able to move all of her extremities, she has marked weakness in the lower extremities. Otherwise, there are no tier 1, tier 2 or tier 3 comorbidities. 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 2. Atrial fibrillation. 3. Sciatica. 4. Hypertension. 5. Migraines. PAST SURGICAL HISTORY: She has had a cholecystectomy, cataract surgery, hysterectomy and tendon repair to the left wrist. MEDICATIONS: No longer have a good list of pre-hospital medications and she has been hospitalized since early November. ADMISSION MEDICATIONS: Are as follows: 1. Acetaminophen 650 mg p.o. q.4 hours p.r.n. 2. Gabapentin 900 mg p.o. t.i.d. 3. Lidocaine patch daily. 4. Rivaroxaban 20 mg p.o. daily. 5. Diazepam 1 mg p.o. b.i.d. p.r.n. 6. Biotene mouthwash p.r.n. 7. Mirtazapine 15 mg p.o. at q.h.s. 8. Ondansetron 4 mg p.o. q.4 hours p.r.n. 9. Pantoprazole 40 mg p.o. daily. 10. Refresh P.M. ointment q.h.s. 11. Promethazine 6.25 to 12.5 mg p.o. q.6 hours p.r.n. 12. Metamucil daily. 13. Artificial tears 1 drop each eye q.2 hours p.r.n. 14. Oxycodone 2.5 to 10 mg p.o. q.3 hours p.r.n. 15. Albuterol nebulizer q.2 hours p.r.n. 16. Polyethylene glycol 17 g p.o. daily p.r.n. 17. Potassium chloride 20 mEq p.o. daily. 18. Furosemide 40 mg p.o. daily 19. Carvedilol 3.125 mg p.o. b.i.d. ALLERGIES: Listed to codeine and penicillins and per report she also had a reaction to apixaban with a rash. PSYCHOSOCIAL HISTORY: She is . She lives with her . She has adult children who are involved in her care. She is a former smoker. FAMILY HISTORY: Noncontributory. REVIEW OF SYSTEMS: She says she feels stronger. She did not attempt to ambulate during her hospitalization. She sat on the edge of the bed. She says her breathing felt worse and now feels better. She denies a cough. She denies dyspnea. She denies nausea, vomiting, constipation, or diarrhea. She continues to have a Solis catheter. She denies fevers or chills. She denies flank pain. She continues to have some pain in her low back and neuropathic symptoms in her feet. Otherwise, a 10-point review of systems is negative. PHYSICAL EXAMINATION: VITAL SIGNS: Blood pressure is 104/46, heart rate is 66 , respiratory rate is 14, oxygen saturation is 93% on 2 L of oxygen, temperature is 36.8 degrees centigrade. Her last weight in the hospital was 69.3 kg. GENERAL: This is a well-nourished, well-developed woman lying in bed in a hospital gown, cooperative and in no acute distress. HEENT: Extraocular movements are intact. Pupils are equal, round, reactive to light. Mucous membranes are moist. Dentition is in good condition. She has an uncrowded airway, Mallampati class 2. NECK: Supple. HEART: There is a regular rate and rhythm, with no murmurs, rubs, or gallops. There is jugular venous distention, though she is not sitting up fully upright. There is no edema. LUNGS: Clear to auscultation bilaterally. ABDOMEN: Soft, nontender, nondistended with normoactive bowel sounds and no hepatosplenomegaly. EXTREMITIES: There is no cyanosis, clubbing, or edema. Radial and dorsalis pedis pulses are 2+ bilaterally. NEUROLOGIC: She is alert and oriented x3. She has good strength bilaterally in upper extremities. She can move her lower extremities, but in general her lower extremity strength is approximately 3/5. Sensation is intact to light touch. SKIN: She has diffuse lacy rash over her legs and arms it is blanching and nursing reports she has blanching erythema over her buttocks. CURRENT LEVEL OF FUNCTION: Per the pre-admission screen. Regarding diet, feeding, and swallowing, she was on a regular diet but needed assistance to open containers. For grooming she required setup for oral care and washing her face, and assist to open toothpaste. She needed assistance for bathing. She was able to dress the upper body with moderate assistance and the lower body with maximal assistance and voice cues. She required assistance for toileting. Regarding bladder, she was on a Solis catheter. Bed mobility, supine to sit required moderate assistance of 2. Sit to supine required maximal assistance of 2. She was able to sit on the edge of the bed for 20 minutes with standby assist or contact guard assist. Transfers were done with Sadie lift. Balance seated required standby to contact guard assist. Endurance was fair. Communication and cognition were normal. It was noted that she was able to maintain oxygen saturation throughout her activities with PT and OT. There are no changes from the preadmission screen on today's exam. IMPRESSION: This patient is a 72-year-old woman with Guillain-[place] syndrome who has had gradual improvement. Her rehabilitation stay was interrupted by acute respiratory failure. She was treated for congestive heart failure, which was considered diastolic, with a repeat echocardiogram being done while in the hospital. She had extensive diuresis. Cardiac catheterization ruled out ischemic coronary artery disease. Neuromuscular weakness of respiratory muscles was considered also to be etiologic and she was begun on EzPAP positive airway pressure device. Her medical condition stabilized and she was appropriate to return to inpatient rehabilitation. When she was admitted to the hospital, she had a markedly elevated INR greater than 4. This was attributed to rivaroxaban. She was switched to apixaban, but developed a rash and then was returned to rivaroxaban. There were never any bleeding complications. She is appropriate for inpatient rehabilitation where she will benefit from physical and occupational therapy to optimize mobility and activities of daily living. She needs nursing care for fall risk, Sadie lift transfers, bowel and bladder, skin integrity, medication administration, and medication education. She needs the care of a physician regarding cardiopulmonary status, anticoagulation and pain control. Her goal is to complete a rehabilitation stay and then return home with her family and supportive services or possibly to a SNF, with reduced burden of care pending progress in rehabilitation. For a safe discharge it is anticipated that she will achieve modified independence for eating and grooming. She will require minimal to moderate assistance of 1 person for bathing and dressing. She will be on an effective bowel and bladder management program. She will be able to come to the edge of the bed with minimal assistance of 1 person. She will be able to perform slide board transfers to wheelchair, toilet and bath bench with minimal assist of 1. She will be able to propel herself in a wheelchair for short distances. It is likely she will continue to require assistance for shopping, meal preparation and household management. There will need to be family education regarding her impairments and how to assist her. She will have therapy with physical therapy and occupational therapy for 60-90 minutes per day for each discipline on 5-7 days of the week. Her expected duration of stay is 14-21 days. It is expected that upon discharge she will continue to benefit from home health services including a nurse's aide, occupational therapy and physical therapy. PLAN: 1. Debility due to Guillain-[place] syndrome with gradual improvement. Continue physical and occupational therapy towards discharge to home or fpc facility with burden of care reduced to 1 person assist rather than 2 person assist. 2. Hypoxemia, multifactorial,, due to neuromuscular weakness of respiratory muscles as well as diastolic congestive heart failure. Continue furosemide. Continue incentive spirometry and continue EzPAP positive airway pressure device. If she has further respiratory decompensation, consider a chest CT to evaluate for other possible etiologies. 3. Atrial fibrillation. She has rate control with carvedilol and anticoagulation with rivaroxaban. 4. Congestive heart failure. Continue carvedilol and furosemide. We will recheck BMP on 01/08/2018. 5. Anxiety. She has used diazepam for a long time. There was a psychiatric consult on her first rehabilitation stay. We will continue diazepam at 1 mg p.o. twice daily p.r.n., and we will continue mirtazapine. 6. Pain control. Continue gabapentin 900 mg p.o. t.i.d., as well as acetaminophen and oxycodone both on a p.r.n. basis. 7. 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 8. Urinary retention with possible neurogenic bladder. We will continue the plan to attempt a voiding trial once her mobility is improved. 9. Prophylaxis. Continue rivaroxaban. We will check INR from time to time, but is likely not a significant finding as she is on rivaroxaban rather than on a vitamin K antagonist. FOLLOWUP: She is to follow up with [facility], Dr. Gill, after discharge and she is to follow up with Cardiology in 1-2 months. /[id number]/MODL MTDChun
[2018-01-06] MEDS: GABAPENTIN 300 MG CAP PO SCH (20:56)
[2018-01-06] MEDS: MIRTAZAPINE 15 MG TAB PO SCH (20:57)
[2018-01-06] MEDS: FUROSEMIDE 40 MG TAB PO SCH (20:57)
[2018-01-06] MEDS ORDERED: SOD CHL OP SCH (21:00)
[2018-01-06] MEDS ORDERED: MIN OIL OP SCH (21:00)
[2018-01-06] MEDS: PETROLAT,WHT/MIN OIL/SOD CHL 3.5 GM OPHT.OINT OP SCH (21:00)
[2018-01-06] MEDS ORDERED: PETROLAT WHT OP SCH (21:00)
[2018-01-06] MEDS ORDERED: MIRTAZAPINE 15 MG PO SCH (21:00)
[2018-01-07] MEDS: oxyCODONE IR 5 MG TAB PO PRN ×5 (00:33→21:00)
[2018-01-07] MEDS: PANTOPRAZOLE SODIUM 40 MG TAB PO SCH (05:20)
[2018-01-07] MEDS ORDERED: NON-FORMULARY NEW DRUG (Psyllium Husk/Aspartame [Metamucil Fiber Singles Packet] 3.4 GM) PO SCH (06:00)
[2018-01-07] MEDS: LIDOCAINE 5% 1 EA PATCH TD SCH (07:53)
[2018-01-07] MEDS: RIVAROXABAN 10 MG TAB PO SCH (08:19)
[2018-01-07] MEDS: CARVEDILOL 3.125 MG TAB PO SCH ×2 (08:19→17:17)
[2018-01-07] MEDS: GABAPENTIN 300 MG CAP PO SCH ×3 (08:20→21:00)
[2018-01-07] MEDS: POTASSIUM CL 20 MEQ TAB PO SCH (08:20)
[2018-01-07] MEDS: FUROSEMIDE 40 MG TAB PO SCH ×2 (08:20→21:00)
[2018-01-07] MEDS ORDERED: PSYLLIUM METAMUCIL 1 PKT PO SCH (09:00)
--- NOTE | 2018-01-07 09:21 | SOAPPROG ---
SOAP Progress Note Assessment/Plan: Assessment: * Debility due to Guillain-[place] syndrome with gradual improvement. * Continue physical and occupational therapy towards discharge to home or alf facility with burden of care reduced to 1 person assist rather than 2 person assist. *Hypoxemia, multifactorial,, due to neuromuscular weakness of respiratory muscles as well as diastolic congestive heart failure. * Continue furosemide. Continue incentive spirometry and continue EzPAP positive airway pressure device QID, 10 minute treatment. * If she has further respiratory decompensation, consider a chest CT to evaluate for other possible etiologies. * Urinary retention with possible neurogenic bladder. We will continue the plan to attempt a voiding trial once her mobility is improved. * Atrial fibrillation. Continue rate control with carvedilol and anticoagulation with rivaroxaban. * Congestive heart failure. Continue carvedilol and furosemide. We will recheck BMP on 01/08/2018. * Anxiety. Continue diazepam at 1 mg p.o. twice daily p.r.n., and mirtazapine. * Was previously on diazepam 2.5 mg scheduled at bedtime. Observe for withdrawal syndrome, sleep disturbance or increased anxiety. * Pain control. Continue gabapentin 900 mg p.o. t.i.d., as well as acetaminophen and oxycodone both on a p.r.n. basis. 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 * Prophylaxis. Continue rivaroxaban. We will check INR from time to time, but is likely not a significant finding as she is on rivaroxaban rather than on a vitamin K antagonist. FOLLOWUP: She is to follow up with [facility], Dr. Gill, after discharge and she is to follow up with Cardiology in 1-2 months. 01/07/18 13:31 Subjective: No complaints this morning. Slept well. No dyspnea or cough. Happy to be back at inpatient rehabilitation. Objective: Vital Signs Temp Pulse Resp BP Pulse Ox 36.9 C 64 16 100/58 L 93 01/07/18 05:56 01/07/18 08:19 01/07/18 05:56 01/07/18 08:19 01/07/18 05:56 01/06/18 01/07/18 01/08/18 05:59 05:59 05:59 Intake Total 318 Output Total 650 Balance -332 Physical Exam - Physical Exam General Appearance: WD/WN, alert, no apparent distress Respiratory: normal breath sounds, No crackles, No rhonchi, No wheezing Cardiac/Chest: regular rate, rhythm, edema (1+ bilateral lower extremities), JVD (Sitting upright, to angle of jaw.), No diastolic murmur, No systolic murmur Skin: normal color, warm/dry Neuro/Psych: alert, normal mood/affect, oriented x 3, motor weakness (Eating a meal with normal utensils.) ICD10 Worksheet Patient Problems: Problems Problem Status Onset Acute exacerbation of congestive heart failure Acute Atrial fibrillation Acute Congestive heart failure Acute Fever Acute Guillain-[place] syndrome Acute chronic disease mgmt/transitional care Acute Generalized anxiety disorder Chronic Insomnia Chronic Sedative dependence with current use Chronic
[2018-01-07] MEDS ORDERED: PSYLLIUM METAMUCIL 1 PKT PO PRN (09:35)
[2018-01-07] MEDS: MIRTAZAPINE 15 MG TAB PO SCH (21:00)
[2018-01-07] MEDS: PETROLAT,WHT/MIN OIL/SOD CHL 3.5 GM OPHT.OINT OP SCH (21:28)
[2018-01-08] MEDS: oxyCODONE IR 5 MG TAB PO PRN ×5 (04:20→20:25)
[2018-01-08] MEDS: PANTOPRAZOLE SODIUM 40 MG TAB PO SCH (06:17)
[2018-01-08 08:27] LABS: PLATELET COUNT 254 10^3/uL (150-400)
[2018-01-08] MEDS: POTASSIUM CL 20 MEQ TAB PO SCH (09:42)
[2018-01-08] MEDS: FUROSEMIDE 40 MG TAB PO SCH ×2 (09:42→21:09)
[2018-01-08] MEDS: RIVAROXABAN 10 MG TAB PO SCH (09:42)
[2018-01-08] MEDS: GABAPENTIN 300 MG CAP PO SCH ×3 (09:42→21:09)
[2018-01-08] MEDS: CARVEDILOL 3.125 MG TAB PO SCH ×2 (09:43→17:49)
[2018-01-08] MEDS: LIDOCAINE 5% 1 EA PATCH TD SCH (09:43)
--- NOTE | 2018-01-08 11:05 | SOAPPROG ---
SOAP Progress Note Assessment/Plan: 72-year-old female with Guillain-[place] syndrome, diastolic heart failure with acute care rehospitalization for hypoxia and pulmonary edema readmitted for rehabilitation. Today's update: Clinically seems to be doing well but BNP today was 418. She also has an increase in her bicarb. Potassium okay. She may need additional diuresis, currently on Lasix 40 mg twice daily. She still has some symptoms of fluid overload including 1+ pitting edema. Otherwise, participating well in therapies. A total of 35 min was spent on the floor, the majority of which was spent in counseling and coordination of care regarding fluid management. Also ordered weights today. Her positive pressure airway device is pending delivery in a week or so. * Debility due to Guillain-[place] syndrome with gradual improvement. * Continue physical and occupational therapy towards discharge to home or care home facility with burden of care reduced to 1 person assist rather than 2 person assist. *Hypoxemia, multifactorial,, due to neuromuscular weakness of respiratory muscles as well as diastolic congestive heart failure. * Continue furosemide. Continue incentive spirometry and continue EzPAP positive airway pressure device QID, 10 minute treatment. * If she has further respiratory decompensation, consider a chest CT to evaluate for other possible etiologies. * Neuromuscular weakness treated with positive pressure airway device, however device is pending delivery in a week or so. * Urinary retention with possible neurogenic bladder. We will continue the plan to attempt a voiding trial once her mobility is improved. * Atrial fibrillation. Continue rate control with carvedilol and anticoagulation with rivaroxaban. * Congestive heart failure. Continue carvedilol and furosemide. We will recheck BMP on 01/08/2018. * Daily weights, checking now * Anxiety. Continue diazepam at 1 mg p.o. twice daily p.r.n., and mirtazapine. * Was previously on diazepam 2.5 mg scheduled at bedtime. Observe for withdrawal syndrome, sleep disturbance or increased anxiety. * Pain control. Continue gabapentin 900 mg p.o. t.i.d., as well as acetaminophen and oxycodone both on a p.r.n. basis. 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 * Prophylaxis. Continue rivaroxaban. We will check INR from time to time, but is likely not a significant finding as she is on rivaroxaban rather than on a vitamin K antagonist. FOLLOWUP: She is to follow up with [facility], Dr. Gill, after discharge and she is to follow up with Cardiology in 1-2 months. She also needs follow-up with Dr. Davis in Physical Medicine Rehabilitation. 01/08/18 11:02 01/08/18 11:06 Subjective: Chief complaint: Oxygenation status and fluid status No acute events overnight. Patient's family endorses that the patient looks much better and patient denies any new shortness of breath or chest pain, no new numbness, tingling, or weakness. She does not feel particularly fluid overloaded at this point. Her positive pressure airway device is pending delivery in a week or so. Objective: Vital Signs Temp Pulse Resp BP Pulse Ox 36.6 C 72 16 118/64 93 01/08/18 07:06 01/08/18 09:43 01/08/18 07:06 01/08/18 09:43 01/08/18 07:06 Laboratory Results 01/08/18 06:35 01/08/18 06:35 01/07/18 01/08/18 01/09/18 05:59 05:59 05:59 Intake Total 318 350 118 Output Total 650 1550 Balance -332 -1200 118 Physical Exam - Physical Exam General Appearance: WD/WN, alert, no apparent distress EENT: No scleral icterus (R), No scleral icterus (L) Respiratory: lungs clear, normal breath sounds, other (On oxygen by nasal cannula), No respiratory distress, No accessory muscle use Cardiac/Chest: normal peripheral pulses, regular rate, rhythm, edema (1+) Skin: normal color, warm/dry, No cyanosis, No diaphoresis, No pallor Extremities: non-tender, pedal edema, swelling, other (Warm) Neuro/Psych: alert, normal mood/affect, oriented x 3, motor weakness ICD10 Worksheet Patient Problems: Problems Problem Status Onset Acute exacerbation of congestive heart failure Acute Atrial fibrillation Acute Congestive heart failure Acute Fever Acute Guillain-[place] syndrome Acute chronic disease mgmt/transitional care Acute Generalized anxiety disorder Chronic Insomnia Chronic Sedative dependence with current use Chronic
[2018-01-08] MEDS: MIRTAZAPINE 15 MG TAB PO SCH (21:09)
[2018-01-08] MEDS: PETROLAT,WHT/MIN OIL/SOD CHL 3.5 GM OPHT.OINT OP SCH (21:12)
[2018-01-09] MEDS: oxyCODONE IR 5 MG TAB PO PRN ×6 (00:24→21:07)
[2018-01-09] MEDS: PANTOPRAZOLE SODIUM 40 MG TAB PO SCH (06:07)
[2018-01-09] MEDS: POTASSIUM CL 20 MEQ TAB PO SCH (08:21)
[2018-01-09] MEDS: FUROSEMIDE 40 MG TAB PO SCH ×2 (08:21→20:43)
[2018-01-09] MEDS: CARVEDILOL 3.125 MG TAB PO SCH ×2 (08:22→18:12)
[2018-01-09] MEDS: GABAPENTIN 300 MG CAP PO SCH ×3 (08:22→20:43)
[2018-01-09] MEDS: LIDOCAINE 5% 1 EA PATCH TD SCH (08:22)
[2018-01-09] MEDS: RIVAROXABAN 10 MG TAB PO SCH (08:22)
--- NOTE | 2018-01-09 13:44 | SOAPPROG ---
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 NO EVIDENCE ON TODAY'S EXAM OF FLUID OVERLOAD. NO LOWER EXTREMITY EDEMA. LUNGS ARE CLEAR. 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 * PHYSICAL THERAPY REPORTS SHE CONTINUES TO HAVE TRUNK WEAKNESS BUT IS 50% IMPROVED COMPARED TO ADMISSION. PAIN AND SHE IS 1% SLIDING BOARD TRANSFER ON. SHE IS USING 1 L PER O2 DURING PT AND OT SESSIONS. OCCUPATIONAL THERAPY REPORTS SHE HAS LONG SITTING IN BED, DRESSING IN BED, REQUIRES ASSISTANCE WITH LOWER EXTREMITY DRESSING. SHE IS MODERATE TO MAX ASSIST WITH LOWER EXTREMITY DRESSING, CONTACT GUARD ASSIST WITH UPPER EXTREMITY DRESSING. *Hypoxemia, multifactorial,, due to neuromuscular weakness of respiratory muscles as well as diastolic congestive heart failure. * Continue furosemide. Continue incentive spirometry and continue EzPAP positive airway pressure device-I HAVE RECOMMENDED SHE INCREASE THIS TO 10 OR 20 REPETITIONS PER HOUR WHILE AWAKE. * If she has further respiratory decompensation, consider a chest CT to evaluate for other possible etiologies. * Neuromuscular weakness treated with positive pressure airway device, however device is pending delivery in a week or so. * Urinary retention with possible neurogenic bladder. We will continue the plan to attempt a voiding trial once her mobility is improved. WILL DISCUSS WITH NURSING ABOUT DISCONTINUING HER HARLEY CATHETER TODAY WITH VOIDING TRIAL AND POSTVOID BLADDER SCAN. * Atrial fibrillation. Continue rate control with carvedilol and anticoagulation with rivaroxaban. * Congestive heart failure. Continue carvedilol and furosemide. THIS HAS GREATLY IMPROVED BY EXAM. * SHE IS CLOSE TO HER BASELINE WEIGHT. WILL CHECK BMP FOR TOMORROW. * Anxiety. Continue diazepam at 1 mg p.o. twice daily p.r.n., and mirtazapine. * Was previously on diazepam 2.5 mg scheduled at bedtime. Observe for withdrawal syndrome, sleep disturbance or increased anxiety. * Pain control. Continue gabapentin 900 mg p.o. t.i.d., as well as acetaminophen and oxycodone both on a p.r.n. basis. 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 * Prophylaxis. Continue rivaroxaban. We will check INR from time to time, but is likely not a significant finding as she is on rivaroxaban rather than on a vitamin K antagonist. FOLLOWUP: She is to follow up with [facility], Dr. Gill, after discharge and she is to follow up with Cardiology in 1-2 months. She also needs follow-up with Dr. Davis in Physical Medicine Rehabilitation. Plan: 01/09/18 13:46 Subjective: SHE REPORTS THAT THE SENSATION TO HER FEET HAVE BEGUN TO RETURN. NURSING REPORTS SHE WAS 89% ON ROOM AIR AND INCREASED TO 94% ON 1 L O2. LAST NIGHT SHE HAD 600 CC IN HER HARLEY BAG, 2 HR LATER 700 CC. NURSING REPORTS HER WEIGHT IS DOWN TO 141 LB WHICH IS CLOSE TO HER BASELINE. Objective: Vital Signs Temp Pulse Resp BP Pulse Ox 36.8 C 63 15 96/47 L 94 01/09/18 06:35 01/09/18 08:22 01/08/18 19:56 01/09/18 08:22 01/09/18 06:35 Laboratory Results 01/08/18 06:35 01/08/18 06:35 01/08/18 01/09/18 01/10/18 05:59 05:59 05:59 Intake Total 350 354 Output Total 1550 1650 325 Balance -1200 -6789 -325 Physical Exam - Physical Exam General Appearance: WD/WN, alert, no apparent distress Respiratory: lungs clear, normal breath sounds, No crackles Cardiac/Chest: No edema Abdomen: non-tender, other (SLIGHTLY PROTUBERANT) Skin: warm/dry, other (SLIGHT ERYTHEMA RIGHT BUTTOCK) Extremities: No swelling Neuro/Psych: alert, oriented x 3, other (OVERALL UPPER AND LOWER EXTREMITY STRENGTH CONTINUES TO RETURN, ESPECIALLY COMPARED TO 2 WEEKS PRIOR.) ICD10 Worksheet Patient Problems: Problems Problem Status Onset Acute exacerbation of congestive heart failure Acute Atrial fibrillation Acute Congestive heart failure Acute Fever Acute Guillain-Coy syndrome Acute chronic disease mgmt/transitional care Acute Generalized anxiety disorder Chronic Insomnia Chronic Sedative dependence with current use Chronic
[2018-01-09] MEDS: MIRTAZAPINE 15 MG TAB PO SCH (20:43)
[2018-01-09] MEDS: PETROLAT,WHT/MIN OIL/SOD CHL 3.5 GM OPHT.OINT OP SCH ×2 (20:45→20:51)
[2018-01-10] MEDS: oxyCODONE IR 5 MG TAB PO PRN ×6 (01:59→21:28)
[2018-01-10] MEDS: PANTOPRAZOLE SODIUM 40 MG TAB PO SCH (05:55)
[2018-01-10] MEDS: LIDOCAINE 5% 1 EA PATCH TD SCH (08:21)
[2018-01-10] MEDS: CARVEDILOL 3.125 MG TAB PO SCH ×2 (08:23→18:28)
[2018-01-10] MEDS: FUROSEMIDE 40 MG TAB PO SCH ×2 (08:23→20:31)
[2018-01-10] MEDS: GABAPENTIN 300 MG CAP PO SCH ×3 (08:24→20:31)
[2018-01-10] MEDS: POTASSIUM CL 20 MEQ TAB PO SCH (08:25)
[2018-01-10] MEDS: RIVAROXABAN 10 MG TAB PO SCH (08:26)
--- NOTE | 2018-01-10 11:12 | SOAPPROG ---
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 NO EVIDENCE ON TODAY'S EXAM OF FLUID OVERLOAD. NO LOWER EXTREMITY EDEMA. LUNGS ARE CLEAR. * Debility due to Guillain-Clayton syndrome with gradual improvement. * PHYSICAL THERAPY REPORTS SHE CONTINUES TO HAVE TRUNK WEAKNESS BUT IS 50% IMPROVED COMPARED TO ADMISSION. SHE IS USING 1 L PER O2 DURING PT AND OT SESSIONS. OCCUPATIONAL THERAPY REPORTS SHE HAS LONG SITTING IN BED, DRESSING IN BED, REQUIRES ASSISTANCE WITH LOWER EXTREMITY DRESSING. SHE IS MODERATE TO MAX ASSIST WITH LOWER EXTREMITY DRESSING, CONTACT GUARD ASSIST WITH UPPER EXTREMITY DRESSING. *Hypoxemia, multifactorial due to neuromuscular weakness of respiratory muscles as well as diastolic congestive heart failure. LUNGS ARE CLEAR TO AUSCULTATION * Continue furosemide. Continue incentive spirometry and continue EzPAP positive airway pressure device-I HAVE RECOMMENDED SHE INCREASE THIS TO 10 OR 20 REPETITIONS PER HOUR WHILE AWAKE. * If she has further respiratory decompensation, consider a chest CT to evaluate for other possible etiologies. * Neuromuscular weakness treated with positive pressure airway device, however device is pending delivery in a week or so. * Urinary retention with possible neurogenic bladder. We will continue the plan to attempt a voiding trial once her mobility is improved. SHE FAILED VOLUNTARY VOIDING TRIAL YESTERDAY AND THE HARLEY CATHETER WAS REPLACED. HAVE ADVISED PATIENT AND HER THAT WE CAN REPEAT THIS TOMORROW. WILL ALSO ASK PHYSICAL THERAPY IF THEY CAN WORK ON SOME PELVIC FLOOR EXERCISES WITH HER. * Atrial fibrillation. Continue rate control with carvedilol and anticoagulation with rivaroxaban. * Congestive heart failure. Continue carvedilol and furosemide. NO OVERT SIGNS OF CONGESTIVE HEART FAILURE TODAY. BMP THIS MORNING SHOWED SODIUM 141, POTASSIUM 4.1 BUN 11, CREATININE 0.8 * Anxiety. Continue diazepam at 1 mg p.o. twice daily p.r.n., and mirtazapine. * Was previously on diazepam 2.5 mg scheduled at bedtime. Observe for withdrawal syndrome, sleep disturbance or increased anxiety. * Pain control. Continue gabapentin 900 mg p.o. t.i.d., as well as acetaminophen and oxycodone both on a p.r.n. basis. 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 * Prophylaxis. Continue rivaroxaban. We will check INR from time to time, but is likely not a significant finding as she is on rivaroxaban rather than on a vitamin K antagonist. FOLLOWUP: She is to follow up with [facility], Dr. Gill, after discharge and she is to follow up with Cardiology in 1-2 months. She also needs follow-up with Dr. Davis in Physical Medicine Rehabilitation. Plan: 01/09/18 13:46 01/10/18 11:10 Subjective: NO COMPLAINTS PER PATIENT. SHE REPORTS CONTINUED DYSESTHETIC PAIN IN THE LOWER EXTREMITIES PARTICULARLY THE LEGS WELL THE HANDS. THIS IS WELL CONTROLLED WITH HER CURRENT PAIN MEDICATIONS. THE HARLEY WAS REMOVED YESTERDAY AND OF VOLUNTARY VOID WAS ATTEMPTED BUT FAILED. THEREFORE THE HARLEY CATHETER WAS REINSERTED. SHE IS ALSO COMPLAINING OF SOME LOW BACK PAIN UNCHANGED FROM PREVIOUS EXAMS. Objective: Vital Signs Temp Pulse Resp BP Pulse Ox 36.7 C 67 16 112/60 92 01/10/18 08:00 01/10/18 08:00 01/10/18 08:00 01/10/18 08:00 01/10/18 08:00 Laboratory Results 01/08/18 06:35 01/10/18 06:00 01/09/18 01/10/18 01/11/18 05:59 05:59 05:59 Intake Total 354 280 Output Total 1650 2425 Balance -1296 -2425 280 Physical Exam - Physical Exam General Appearance: WD/WN, alert, no apparent distress Respiratory: lungs clear, normal breath sounds Cardiac/Chest: No edema Abdomen: normal bowel sounds, non-tender, soft Back: Other (NO PARATHORACIC OR PARALUMBAR MUSCLE SPASM) Skin: normal color Neuro/Psych: normal mood/affect, oriented x 3, motor weakness, sensory deficit ICD10 Worksheet Patient Problems: Problems Problem Status Onset Acute exacerbation of congestive heart failure Acute Atrial fibrillation Acute Congestive heart failure Acute Fever Acute Guillain-Clayton syndrome Acute chronic disease mgmt/transitional care Acute Generalized anxiety disorder Chronic Insomnia Chronic Sedative dependence with current use Chronic
[2018-01-10] MEDS: POLYETHYLENE GLYCOL 3350 17 GM PKT PO PRN (17:26)
[2018-01-10] MEDS: MIRTAZAPINE 15 MG TAB PO SCH (20:31)
[2018-01-10] MEDS: PETROLAT,WHT/MIN OIL/SOD CHL 3.5 GM OPHT.OINT OP SCH ×2 (20:32→20:33)
[2018-01-11] MEDS: oxyCODONE IR 5 MG TAB PO PRN ×4 (00:39→21:29)
[2018-01-11] MEDS: PANTOPRAZOLE SODIUM 40 MG TAB PO SCH (05:22)
[2018-01-11] MEDS: CARVEDILOL 3.125 MG TAB PO SCH ×3 (07:46→18:12)
[2018-01-11] MEDS: POTASSIUM CL 20 MEQ TAB PO SCH (08:29)
[2018-01-11] MEDS: LIDOCAINE 5% 1 EA PATCH TD SCH (08:29)
[2018-01-11] MEDS: RIVAROXABAN 10 MG TAB PO SCH (08:29)
[2018-01-11] MEDS: FUROSEMIDE 40 MG TAB PO SCH ×2 (08:29→21:30)
[2018-01-11] MEDS: GABAPENTIN 300 MG CAP PO SCH ×4 (08:29→21:31)
--- NOTE | 2018-01-11 10:54 | SOAPPROG ---
SOAP Progress Note Assessment/Plan: Assessment: SOAP Progress Note Assessment/Plan: 72-year-old female with Guillain-[place] syndrome, diastolic heart failure with acute care rehospitalization for hypoxia and pulmonary edema readmitted for rehabilitation. NO EVIDENCE ON TODAY'S EXAM OF FLUID OVERLOAD. NO LOWER EXTREMITY EDEMA. LUNGS ARE CLEAR. * Debility due to Guillain-[place] syndrome with gradual improvement. SHE PULLED HERSELF UP INTO STANDING POSITION 3 TIMES IN THERAPY TODAY. SHE CONTINUES TO HAVE SLOW RETURN OF MOTOR FUNCTION IN THE LOWER EXTREMITIES WITH THE HIP FLEXORS , QUADRICEPS AND HAMSTRINGS THE WEAKEST. SHE HAS FAIRLY GOOD ANKLE DORSI AND PLANTAR FLEXION AND FAIRLY GOOD TOE FLEXION. * PHYSICAL THERAPY REPORTS SHE CONTINUES TO HAVE TRUNK WEAKNESS BUT IS 50% IMPROVED COMPARED TO ADMISSION. SHE IS USING 1 L PER O2 DURING PT AND OT SESSIONS. OCCUPATIONAL THERAPY REPORTS SHE HAS LONG SITTING IN BED, DRESSING IN BED, REQUIRES ASSISTANCE WITH LOWER EXTREMITY DRESSING. SHE IS MODERATE TO MAX ASSIST WITH LOWER EXTREMITY DRESSING, CONTACT GUARD ASSIST WITH UPPER EXTREMITY DRESSING. *Hypoxemia, multifactorial due to neuromuscular weakness of respiratory muscles as well as diastolic congestive heart failure. LUNGS ARE CLEAR TO AUSCULTATION * Continue furosemide. Continue incentive spirometry and continue EzPAP positive airway pressure device-I HAVE RECOMMENDED SHE INCREASE THIS TO 10 OR 20 REPETITIONS PER HOUR WHILE AWAKE. * If she has further respiratory decompensation, consider a chest CT to evaluate for other possible etiologies. * Neuromuscular weakness treated with positive pressure airway device, however device is pending delivery in a week or so. * Urinary retention with possible neurogenic bladder. WILL ASK NURSING TO REPEAT SPONTANEOUS VOLUNTARILY A VOIDING TRIAL TODAY. * Atrial fibrillation. Continue rate control with carvedilol and anticoagulation with rivaroxaban. * Congestive heart failure. Continue carvedilol and furosemide. NO OVERT SIGNS OF CONGESTIVE HEART FAILURE TODAY. BMP THIS MORNING SHOWED SODIUM 141, POTASSIUM 4.1 BUN 11, CREATININE 0.8 * Anxiety. Continue diazepam at 1 mg p.o. twice daily p.r.n., and mirtazapine. * Was previously on diazepam 2.5 mg scheduled at bedtime. Observe for withdrawal syndrome, sleep disturbance or increased anxiety. * Pain control. THIS CONTINUES TO BE AN ISSUE. SHE STATES THAT THE PARESTHESIAS IN HER HANDS AND FEET CONTINUE TO BE SOMEWHAT BOTHERSOME, HOWEVER NURSING HAS INFORMED ME THAT SHE IS TAKING OXYCODONE ON A FAIRLY REGULAR BASIS ; YESTERDAY SHE HAD 5 MG AT 2:00 A.M., 6:15 A.M., 9:40 A.M., 3:30 P.M., 9:30 P.M., MIDNIGHT AND 530 IN THIS MORNING AND THERE IS NEW CONCERN THAT SHE MAY BE COMING DEPENDENT/TOLERANT TO THIS. SHE IS CURRENTLY ON gabapentin 900 mg p.o. t.i.d. AND WILL INCREASE THIS TO 900 FOUR TIMES DAILY. 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 * Prophylaxis. Continue rivaroxaban. We will check INR from time to time, but is likely not a significant finding as she is on rivaroxaban rather than on a vitamin K antagonist. FOLLOWUP: She is to follow up with [facility], Dr. Gill, after discharge and she is to follow up with Cardiology in 1-2 months. She also needs follow-up with Dr. Davis in Physical Medicine Rehabilitation. Plan: 01/09/18 13:46 01/10/18 11:10 01/11/18 10:54 Subjective: SHE REPORTS THAT SHE STOOD UP 3 TIMES IN PHYSICAL THERAPY EARLIER TODAY AND SHE IS QUITE ENCOURAGED ABOUT THIS. SHE ALSO STATES THAT SHE CONTINUES TO HAVE BOTHERSOME PARESTHESIAS IN HER HANDS AND FEET. SHE ALSO RELAYS THAT HER PAIN CONTROL REGARDING THIS COULD BE IMPROVED. SHE ALSO REPORTS THAT SHE HAD A LARGE VOLUNTARY BOWEL MOVEMENT LAST P.M.. SHE REPORTS SHE HAS BEEN USING THE INCENTIVE SPIROMETER AT LEAST 10 PUFFS PER HOUR. Objective: Vital Signs Temp Pulse Resp BP Pulse Ox 36.8 C 67 16 98/37 L 93 01/11/18 05:55 01/11/18 08:25 01/11/18 05:55 01/11/18 08:25 01/11/18 08:25 Laboratory Results 01/08/18 06:35 01/10/18 06:00 01/10/18 01/11/18 01/12/18 05:59 05:59 05:59 Intake Total 1870 Output Total 2270 2000 Balance -2425 -130 Physical Exam - Physical Exam General Appearance: WD/WN, alert, no apparent distress Respiratory: lungs clear, normal breath sounds Cardiac/Chest: No edema Abdomen: non-tender, soft Skin: warm/dry Neuro/Psych: alert, normal mood/affect, oriented x 3, motor weakness, sensory deficit (UPPER EXTREMITY MOTOR EXAM 4/5 DELTOIDS, BICEPS, TRICEPS, WRIST AND FINGER EXTENSORS. LOWER EXTREMITY MOTOR EXAM: 3+ 4-RIGHT AND LEFT TIBIALIS ANTERIOR, GASTROCSOLEUS COMPLEX. UNABLE TO LIFT RIGHT AND LEFT HEEL OFF BED GREATER THAN A FEW MM. DECREASED QUADRICEPS SETTING BILATERALLY.) ICD10 Worksheet Patient Problems: Problems Problem Status Onset Acute exacerbation of congestive heart failure Acute Atrial fibrillation Acute Congestive heart failure Acute Fever Acute Guillain-[place] syndrome Acute chronic disease mgmt/transitional care Acute Generalized anxiety disorder Chronic Insomnia Chronic Sedative dependence with current use Chronic
[2018-01-11] MEDS: traMADol 50 MG TAB PO PRN (18:11)
[2018-01-11] MEDS: MIRTAZAPINE 15 MG TAB PO SCH (21:31)
[2018-01-11] MEDS: PETROLAT,WHT/MIN OIL/SOD CHL 3.5 GM OPHT.OINT OP SCH (23:22)
[2018-01-12] MEDS: oxyCODONE IR 5 MG TAB PO PRN ×2 (02:21→09:08)
[2018-01-12] MEDS: GABAPENTIN 300 MG CAP PO SCH ×4 (06:05→21:19)
[2018-01-12] MEDS: PANTOPRAZOLE SODIUM 40 MG TAB PO SCH (06:06)
[2018-01-12] MEDS: CARVEDILOL 3.125 MG TAB PO SCH ×2 (08:58→17:35)
[2018-01-12] MEDS: RIVAROXABAN 10 MG TAB PO SCH (08:59)
[2018-01-12] MEDS: POTASSIUM CL 20 MEQ TAB PO SCH (09:00)
[2018-01-12] MEDS: FUROSEMIDE 40 MG TAB PO SCH ×2 (09:00→21:18)
[2018-01-12] MEDS: LIDOCAINE 5% 1 EA PATCH TD SCH (09:00)
[2018-01-12] MEDS: traMADol 50 MG TAB PO PRN ×2 (14:57→21:30)
--- NOTE | 2018-01-12 17:43 | SOAPPROG ---
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 NO EVIDENCE ON TODAY'S EXAM OF FLUID OVERLOAD. NO LOWER EXTREMITY EDEMA. LUNGS ARE CLEAR. * Debility due to Guillain-Houston syndrome with gradual improvement. The whole year lift has been DC. She is using the slide board with assistance. He is pulling herself up to standing position several times per therapy session. *Hypoxemia, multifactorial due to neuromuscular weakness of respiratory muscles as well as diastolic congestive heart failure. LUNGS ARE CLEAR TO AUSCULTATION * Continue furosemide. Continue incentive spirometry and continue EzPAP positive airway pressure device-I HAVE RECOMMENDED SHE INCREASE THIS TO 10 OR 20 REPETITIONS PER HOUR WHILE AWAKE. * If she has further respiratory decompensation, consider a chest CT to evaluate for other possible etiologies. * Neuromuscular weakness treated with positive pressure airway device, however device is pending delivery in a week or so. * Urinary retention with possible neurogenic bladder. She is making progress with her voluntary voids. The plan is to keep the [employer] out offer her the urinal every 2 hr and after voluntary voids straight cath if there is postvoid residual of 350-400. * Atrial fibrillation. Continue rate control with carvedilol and anticoagulation with rivaroxaban. * Congestive heart failure. Continue carvedilol and furosemide. NO OVERT SIGNS OF CONGESTIVE HEART FAILURE TODAY. * Anxiety. Continue diazepam at 1 mg p.o. twice daily p.r.n., and mirtazapine. * Was previously on diazepam 2.5 mg scheduled at bedtime. Observe for withdrawal syndrome, sleep disturbance or increased anxiety. * Pain control. -have increased gabapentin 900 four times daily and started tramadol 50 three times daily. Patient encouraged to continue to wean herself off of the Oxycodone. 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 * Prophylaxis. Continue rivaroxaban. We will check INR from time to time, but is likely not a significant finding as she is on rivaroxaban rather than on a vitamin K antagonist. FOLLOWUP: She is to follow up with [facility], Dr. Gill, after discharge and she is to follow up with Cardiology in 1-2 months. She also needs follow-up with Dr. Davis in Physical Medicine Rehabilitation. Plan: 01/09/18 13:46 01/10/18 11:10 01/11/18 10:54 01/12/18 17:40 Subjective: She feels that she is making progress with her bladder program. She voided voluntarily 150 cc this morning and was cathed for 300. She reports no noticeable change in neuropathic pain since the gabapentin was increased to 900 four times daily. She was also started on tramadol 50 three times daily yesterday. She reports that she is weaning herself off the oxycodone. She reports she is very fatigued from physical therapy this morning and reports some chest wall tenderness following therapy. Objective: Vital Signs Temp Pulse Resp BP Pulse Ox 36.6 C 75 16 118/44 L 91 L 01/12/18 06:09 01/12/18 17:35 01/12/18 06:09 01/12/18 17:35 01/12/18 06:09 Laboratory Results 01/08/18 06:35 01/10/18 06:00 01/11/18 01/12/18 01/13/18 05:59 05:59 05:59 Intake Total 1870 1135 360 Output Total 1999 883 1125 Balance -130 396 -765 Physical Exam - Physical Exam General Appearance: no apparent distress Respiratory: lungs clear, normal breath sounds Cardiac/Chest: No edema Abdomen: non-tender, soft Skin: warm/dry Neuro/Psych: motor weakness (Lower extremity motor deficits unchanged from yesterday's exam), sensory deficit (Hyperesthesias in the hands and feet) ICD10 Worksheet Patient Problems: Problems Problem Status Onset Acute exacerbation of congestive heart failure Acute Atrial fibrillation Acute Congestive heart failure Acute Fever Acute Guillain-Houston syndrome Acute chronic disease mgmt/transitional care Acute Generalized anxiety disorder Chronic Insomnia Chronic Sedative dependence with current use Chronic
[2018-01-12] MEDS: MIRTAZAPINE 15 MG TAB PO SCH (21:18)
[2018-01-12] MEDS: PETROLAT,WHT/MIN OIL/SOD CHL 3.5 GM OPHT.OINT OP SCH (21:20)
[2018-01-12] MEDS: BETHANECHOL 10 MG TAB PO SCH (21:21)
[2018-01-13] MEDS: BETHANECHOL 10 MG TAB PO SCH ×4 (05:31→20:59)
[2018-01-13] MEDS: PANTOPRAZOLE SODIUM 40 MG TAB PO SCH (05:31)
[2018-01-13] MEDS: GABAPENTIN 300 MG CAP PO SCH ×4 (05:31→20:59)
[2018-01-13] MEDS: POTASSIUM CL 20 MEQ TAB PO SCH (08:25)
[2018-01-13] MEDS: FUROSEMIDE 40 MG TAB PO SCH (08:26)
[2018-01-13] MEDS: traMADol 50 MG TAB PO PRN ×3 (08:26→20:25)
[2018-01-13] MEDS: RIVAROXABAN 10 MG TAB PO SCH (08:27)
[2018-01-13] MEDS: LIDOCAINE 5% 1 EA PATCH TD SCH (08:56)
[2018-01-13] MEDS: CARVEDILOL 3.125 MG TAB PO SCH ×3 (10:17→17:04)
--- NOTE | 2018-01-13 12:01 | SOAPPROG ---
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 Today's update: Appears euvolemic, creatinine stable at 0.8. Potassium slightly low at 3.5. Plan to decrease the furosemide to 20 mg twice a day, maintaining the potassium supplement at the same level. Rechecking a basic metabolic panel on . Stopping the Lidoderm patch as she has not been using it. Starting tamsulosin 0.4 mg daily for decreased ability to fully void. A total of 35 min was spent on the care of the patient, the majority of which was spent counseling and coordination of care regarding bladder management after neurological compromise. * Debility due to Guillain-Shapleigh syndrome with gradual improvement. She no longer needs a Sadie lift. She is using the slide board with assistance. He is pulling herself up to standing position several times per therapy session. Continuing with physical therapy, occupational therapy. *Hypoxemia, multifactorial due to neuromuscular weakness of respiratory muscles as well as diastolic congestive heart failure. * Continue management of CHF below. * Respiratory therapy to evaluate again, the green threshold PEP device was intended to take the place of the EZ-PAP device that she was using as an inpatient. Appreciate additional recommendations from Magen. * If she has further respiratory decompensation, consider a chest CT to evaluate for other possible etiologies. * Urinary retention with possible neurogenic bladder. She had substantial urinary retention, most recently catheterized for 600 mL. * Reinsert Solis catheter * Start tamsulosin 0.4 mg daily to relax bladder outlet sphincter * Plan to repeat a voiding trial in a few days time. * Atrial fibrillation. Continue rate control with carvedilol and anticoagulation with rivaroxaban. * Congestive heart failure. * Continue carvedilol * Decreasing furosemide to 20 mg twice a day. * Potassium supplementation at the same dose. * Anxiety. Continue diazepam at 1 mg p.o. twice daily p.r.n., and mirtazapine. * Was previously on diazepam 2.5 mg scheduled at bedtime. Observe for withdrawal syndrome, sleep disturbance or increased anxiety. * Pain control. * gabapentin 900 four times daily and started tramadol 50 three times daily. * Patient encouraged to continue to wean herself off of the Oxycodone. 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 * Prophylaxis. * Continue rivaroxaban. * We will check INR from time to time, but is likely not a significant finding as she is on rivaroxaban rather than on a vitamin K antagonist. FOLLOWUP: She is to follow up with [facility], Dr. Gill, after discharge and she is to follow up with Cardiology in 1-2 months. She also needs follow-up with Dr. Davis in Physical Medicine Rehabilitation. Recommend follow up with Urology after discharge. 01/08/18 11:02 01/08/18 11:06 01/13/18 11:54 Subjective: Chief complaint: Fluid status and participation No acute events overnight. The patient endorsed good participation in therapies and feels like she is making good neurological progress as well. She does not feel fluid overloaded, she has had difficulty having complete voids. She was recent catheter eyes for 600 mL after attempting to void. Weight is continuing to improve, last weight was 62.9 kg, down from 64.5 a day or 2 ago. Denies any orthostatic hypotension. She also states that her threshold PEP is broken. Also spoke with Magen from Respiratory therapy who noted that the device is to take the place of the EZ-PAP. He will see her later today Objective: Vital Signs Temp Pulse Resp BP Pulse Ox 37.2 C 72 16 104/48 L 93 01/13/18 06:29 01/13/18 10:17 01/13/18 06:29 01/13/18 10:17 01/13/18 06:29 Laboratory Results 01/08/18 06:35 01/13/18 06:00 01/12/18 01/13/18 01/14/18 05:59 05:59 05:59 Intake Total 1135 560 118 Output Total 850 2125 600 Balance 453 -5842 -646 Physical Exam - Physical Exam General Appearance: WD/WN, alert, no apparent distress EENT: No scleral icterus (R), No scleral icterus (L) Respiratory: lungs clear, normal breath sounds, No respiratory distress, No accessory muscle use, No rales, No rhonchi, No wheezing Cardiac/Chest: normal peripheral pulses, regular rate, rhythm, No edema Skin: normal color, warm/dry, No cyanosis, No diaphoresis Extremities: non-tender, No pedal edema, No swelling Neuro/Psych: alert, normal mood/affect, oriented x 3, other (Continues to have decreased strength in the trunk, extremities, especially in the right leg. Cough is stronger, no longer having difficulty closing the left eye) ICD10 Worksheet Patient Problems: Problems Problem Status Onset Acute exacerbation of congestive heart failure Acute Atrial fibrillation Acute Congestive heart failure Acute Fever Acute Guillain-Shapleigh syndrome Acute chronic disease mgmt/transitional care Acute Generalized anxiety disorder Chronic Insomnia Chronic Sedative dependence with current use Chronic
[2018-01-13] MEDS: TAMSULOSIN HCL 0.4 MG CAP PO SCH (14:10)
[2018-01-13] MEDS: FUROSEMIDE 20 MG TAB PO SCH (14:25)
[2018-01-13] MEDS: MIRTAZAPINE 15 MG TAB PO SCH (20:59)
[2018-01-13] MEDS: PETROLAT,WHT/MIN OIL/SOD CHL 3.5 GM OPHT.OINT OP SCH (23:41)
[2018-01-14] MEDS: traMADol 50 MG TAB PO PRN ×3 (04:05→18:41)
[2018-01-14] MEDS: PANTOPRAZOLE SODIUM 40 MG TAB PO SCH (06:29)
[2018-01-14] MEDS: BETHANECHOL 10 MG TAB PO SCH ×4 (06:29→21:33)
[2018-01-14] MEDS: GABAPENTIN 300 MG CAP PO SCH ×4 (06:30→21:32)
[2018-01-14] MEDS: RIVAROXABAN 10 MG TAB PO SCH (08:16)
[2018-01-14] MEDS: CARVEDILOL 3.125 MG TAB PO SCH ×2 (08:17→17:43)
[2018-01-14] MEDS: FUROSEMIDE 20 MG TAB PO SCH ×2 (08:17→15:02)
[2018-01-14] MEDS: POTASSIUM CL 20 MEQ TAB PO SCH (08:17)
[2018-01-14] MEDS: TAMSULOSIN HCL 0.4 MG CAP PO SCH (08:18)
--- NOTE | 2018-01-14 15:38 | SOAPPROG ---
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 * Beginning to stand with assistance. Moderate assistance for bed mobility. Contact guard to minimal assist for sliding board transfers as of 01/14/2018. * Continue physical and occupational therapy towards discharge to home or assisted facility with burden of care reduced to 1 person assist rather than 2 person assist. *Hypoxemia, multifactorial,, due to neuromuscular weakness of respiratory muscles as well as diastolic congestive heart failure. * Continue furosemide; dose reduced from 40 mg twice daily to 20 mg twice daily on 01/14/2018. Continue incentive spirometry and continue positive airway pressure device per instructions of Respiratory therapy. * If she has further respiratory decompensation, consider a chest CT to evaluate for other possible etiologies. * Urinary retention with possible neurogenic bladder. * Now voiding with improved residuals and no need to catheterize, on bethanechol 10 mg four times daily and tamsulosin 0.4 mg q.day. * Atrial fibrillation. Continue rate control with carvedilol and anticoagulation with rivaroxaban. * Congestive heart failure. Continue carvedilol and furosemide. * Anxiety. Continue mirtazapine. Not using diazepam. * Pain control. Adequate with gabapentin 900 mg four times daily and p.r.n. tramadol 50 mg which she is using approximately three times daily. 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 * Prophylaxis. Continue rivaroxaban. We will check INR from time to time, but is likely not a significant finding as she is on rivaroxaban rather than on a vitamin K antagonist. FOLLOWUP: She is to follow up with [facility], Dr. Gill, after discharge and she is to follow up with Cardiology in 1-2 months. This patient needs a wheelchair. She has a mobility limitation that significantly impairs 1 or more mobility mobility related ADLs in the home. Functional deficit cannot be resolved with a walker or cane. Her home is adequate for accessing rooms, maneuvering space and surfaces. Wheelchair will significantly improve her ability to participate in mobility related ADLs and the patient will use it regularly. She has not expressed and unwillingness to use the wheelchair. She has sufficient physical and mental ability to safely use a wheelchair. She needs to have swing away/retractable arm rests so that she can move the arm rests out of the way to perform slide board transfers to chair or bed. 01/14/18 15:39 Subjective: No complaints. Resting this afternoon after therapies. She reports she did not rest in bed until 730 last night and was quite fatigued after day being up. She feels that she is urinating much more normally and her postvoid residuals have been reduced. Pain is adequately controlled with increased gabapentin and tramadol; no longer using oxycodone. No cough no dyspnea. Objective: Vital Signs Temp Pulse Resp BP Pulse Ox 36.7 C 65 16 103/48 L 92 01/14/18 06:21 01/14/18 08:17 01/14/18 06:21 01/14/18 08:17 01/14/18 11:04 Laboratory Results 01/08/18 06:35 01/13/18 06:00 01/13/18 01/14/18 01/15/18 05:59 05:59 05:59 Intake Total 560 776 Output Total 2120 1050 350 Balance -1565 -274 -350 Physical Exam - Physical Exam General Appearance: WD/WN, alert, no apparent distress Respiratory: normal breath sounds, No crackles, No rhonchi, No wheezing Cardiac/Chest: regular rate, rhythm, JVD (To angle of jaw), No edema, No diastolic murmur, No systolic murmur Skin: normal color, warm/dry Neuro/Psych: alert, normal mood/affect, oriented x 3, other (Assist for bed mobility; unable to roll on to side independently.) ICD10 Worksheet Patient Problems: Problems Problem Status Onset Acute exacerbation of congestive heart failure Acute Atrial fibrillation Acute Congestive heart failure Acute Fever Acute Guillain-[place] syndrome Acute chronic disease mgmt/transitional care Acute Generalized anxiety disorder Chronic Insomnia Chronic Sedative dependence with current use Chronic
[2018-01-14] MEDS: MIRTAZAPINE 15 MG TAB PO SCH (21:33)
[2018-01-14] MEDS: PETROLAT,WHT/MIN OIL/SOD CHL 3.5 GM OPHT.OINT OP SCH (22:15)
[2018-01-15] MEDS: traMADol 50 MG TAB PO PRN ×4 (02:34→20:33)
[2018-01-15] MEDS: BETHANECHOL 10 MG TAB PO SCH ×4 (06:23→20:33)
[2018-01-15] MEDS: PANTOPRAZOLE SODIUM 40 MG TAB PO SCH (06:23)
[2018-01-15] MEDS: GABAPENTIN 300 MG CAP PO SCH ×4 (06:23→21:50)
[2018-01-15] MEDS: FUROSEMIDE 20 MG TAB PO SCH ×2 (09:00→14:39)
[2018-01-15] MEDS: TAMSULOSIN HCL 0.4 MG CAP PO SCH (09:01)
[2018-01-15] MEDS: RIVAROXABAN 10 MG TAB PO SCH (09:01)
[2018-01-15] MEDS: CARVEDILOL 3.125 MG TAB PO SCH ×2 (09:01→17:35)
[2018-01-15] MEDS: POTASSIUM CL 20 MEQ TAB PO SCH (09:03)
--- NOTE | 2018-01-15 10:21 | SOAPPROG ---
SOAP Progress Note Assessment/Plan: 72-year-old female with Guillain-[place] syndrome, diastolic heart failure with acute care rehospitalization for hypoxia and pulmonary edema readmitted for rehabilitation. Today's update: Working with nursing on getting consistent postvoid residuals and documenting catheterization volumes. Solis was not placed after my last evaluation, has continued to have some elevated postvoid residuals though lower this morning. Euvolemic on her present dose of Lasix and potassium, labs reflect potassium is normal and creatinine is stable. A total of 35 min was spent on the floor in the care of the patient, the majority was spent in the counseling coordination of care regarding neurogenic bladder and recording of residuals. 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 Impairments in mobility and self-care * Beginning to stand with assistance. Moderate assistance for bed mobility. Contact guard to minimal assist for sliding board transfers as of 01/14/2018. * Continue physical and occupational therapy towards discharge to home or assisted facility with burden of care reduced to 1 person assist rather than 2 person assist. *Hypoxemia, multifactorial,, due to neuromuscular weakness of respiratory muscles as well as diastolic congestive heart failure. * Continue furosemide; dose reduced from 40 mg twice daily to 20 mg twice daily on 01/14/2018. Continue incentive spirometry and continue positive airway pressure device per instructions of Respiratory therapy. * If she has further respiratory decompensation, consider a chest CT to evaluate for other possible etiologies. * Urinary retention with possible neurogenic bladder. Monitor closely as she has inconsistent recording of postvoid residuals and has had some high values. Lower this morning. * on bethanechol 10 mg four times daily and tamsulosin 0.4 mg q.day. * Atrial fibrillation. Continue rate control with carvedilol and anticoagulation with rivaroxaban. * Congestive heart failure. Continue carvedilol and furosemide. Changed to cardiac diet. * Anxiety. Continue mirtazapine. Not using diazepam. * Pain control. Adequate with gabapentin 900 mg four times daily and p.r.n. tramadol 50 mg which she is using approximately three times daily. 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 * Prophylaxis. Continue rivaroxaban. We will check INR from time to time, but is likely not a significant finding as she is on rivaroxaban rather than on a vitamin K antagonist. FOLLOWUP: She is to follow up with [facility], Dr. Gill, after discharge and she is to follow up with Cardiology in 1-2 months. This patient needs a wheelchair. She has a mobility limitation that significantly impairs 1 or more mobility mobility related ADLs in the home. Functional deficit cannot be resolved with a walker or cane. Her home is adequate for accessing rooms, maneuvering space and surfaces. Wheelchair will significantly improve her ability to participate in mobility related ADLs and the patient will use it regularly. She has not expressed and unwillingness to use the wheelchair. She has sufficient physical and mental ability to safely use a wheelchair. She needs to have swing away/retractable arm rests so that she can move the arm rests out of the way to perform slide board transfers to chair or bed. 01/08/18 11:02 01/08/18 11:06 01/13/18 11:54 01/15/18 10:18 Subjective: Chief complaint: Urinary retention No acute events overnight. Patient endorses no new shortness of breath or chest pain, no new numbness, tingling, or weakness. She feels she continues to have increasing strength. She is happy that this morning her postvoid residuals were low. Denies any difficulty urinating, frequency of urination, or painful urination. Objective: Vital Signs Temp Pulse Resp BP Pulse Ox 36.6 C 64 14 112/52 L 94 01/15/18 08:00 01/15/18 09:01 01/15/18 08:00 01/15/18 09:01 01/15/18 08:00 Laboratory Results 01/08/18 06:35 01/15/18 06:00 01/14/18 01/15/18 01/16/18 05:59 05:59 05:59 Intake Total 776 440 300 Output Total 1050 1150 175 Balance -274 -710 125 Physical Exam - Physical Exam General Appearance: alert, no apparent distress EENT: No scleral icterus (R), No scleral icterus (L) Respiratory: No respiratory distress, No accessory muscle use Cardiac/Chest: normal peripheral pulses, regular rate, rhythm, No edema Skin: normal color, warm/dry, No cyanosis Extremities: No pedal edema, No swelling Neuro/Psych: alert, normal mood/affect, motor weakness (Global, improving strength in the lower limbs) ICD10 Worksheet Patient Problems: Problems Problem Status Onset Acute exacerbation of congestive heart failure Acute Atrial fibrillation Acute Congestive heart failure Acute Fever Acute Guillain-O'Fallon syndrome Acute chronic disease mgmt/transitional care Acute Generalized anxiety disorder Chronic Insomnia Chronic Sedative dependence with current use Chronic
[2018-01-15] MEDS: MIRTAZAPINE 15 MG TAB PO SCH (20:33)
[2018-01-15] MEDS: PETROLAT,WHT/MIN OIL/SOD CHL 3.5 GM OPHT.OINT OP SCH (20:57)
[2018-01-16] MEDS: traMADol 50 MG TAB PO PRN ×4 (02:42→22:11)
[2018-01-16] MEDS: PANTOPRAZOLE SODIUM 40 MG TAB PO SCH (06:21)
[2018-01-16] MEDS: BETHANECHOL 10 MG TAB PO SCH ×4 (06:21→22:06)
[2018-01-16] MEDS: FUROSEMIDE 20 MG TAB PO SCH ×2 (09:12→14:21)
[2018-01-16] MEDS: CARVEDILOL 3.125 MG TAB PO SCH ×2 (09:12→18:38)
[2018-01-16] MEDS: GABAPENTIN 300 MG CAP PO SCH ×3 (09:13→22:06)
[2018-01-16] MEDS: POTASSIUM CL 20 MEQ TAB PO SCH (09:15)
[2018-01-16] MEDS: TAMSULOSIN HCL 0.4 MG CAP PO SCH (09:16)
[2018-01-16] MEDS: RIVAROXABAN 10 MG TAB PO SCH (09:17)
--- NOTE | 2018-01-16 09:56 | SOAPPROG ---
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 * Functional independence measure 63 as of 01/09/2018, increased to 74 as of 01/16. Beginning to stand with front wheeled walker and contact guard to minimal assistance. 1 person assist for sliding board transfers the 2 person assist with nursing for transfer to/from shower chair. Independent with grooming and hygiene at the wheelchair level. Independent for upper body dressing. 2 person assist for lower body dressing to stand and high pants. * Continue physical and occupational therapy towards discharge to home. *Hypoxemia, multifactorial,, due to neuromuscular weakness of respiratory muscles as well as diastolic congestive heart failure. * Continue furosemide; dose reduced from 40 mg twice daily to 20 mg twice daily on 01/14/2018. Continue incentive spirometry and continue positive airway pressure device per instructions of Respiratory therapy. * If she has further respiratory decompensation, consider a chest CT to evaluate for other possible etiologies. * Urinary retention with possible neurogenic bladder. * Now voiding with improved residuals and no need to catheterize, on bethanechol 10 mg four times daily and tamsulosin 0.4 mg q.day. * Atrial fibrillation. Continue rate control with carvedilol and anticoagulation with rivaroxaban. * Congestive heart failure. Continue carvedilol and furosemide. * Anxiety. Continue mirtazapine. Not using diazepam. * Pain control. * Tapering gabapentin from 900 mg four times daily to 900 mg three times daily. Continue p.r.n. tramadol 50 mg. * Plan to continue tapering and gabapentin if she tolerates lower dose. 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 * Prophylaxis. Continue rivaroxaban. We will check INR from time to time, but is likely not a significant finding as she is on rivaroxaban rather than on a vitamin K antagonist. FOLLOWUP: She is to follow up with [facility], Dr. Gill, after discharge and she is to follow up with Cardiology in 1-2 months. This patient needs a wheelchair. She has a mobility limitation that significantly impairs 1 or more mobility mobility related ADLs in the home. Functional deficit cannot be resolved with a walker or cane. Her home is adequate for accessing rooms, maneuvering space and surfaces. Wheelchair will significantly improve her ability to participate in mobility related ADLs and the patient will use it regularly. She has not expressed and unwillingness to use the wheelchair. She has sufficient physical and mental ability to safely use a wheelchair. She needs to have swing away/retractable arm rests so that she can move the arm rests out of the way to perform slide board transfers to chair or bed. Attended staffing, 15 min. Discussed with case management, dietitian, nursing, PT, OT. Continue plan for discharge 01/30/2018. With progress in rehabilitation family now plans to bring her home rather than interim SNF stay. Considering options of ramp for stairs in the garage versus hydraulic left. Will need home visit prior to discharge home. Will have home RN, PT, OT. 01/16/18 11:46 Subjective: Had shooting pains in shins last night. Thinks it might be because she is standing up more in beginning to ambulate. Otherwise pain control is adequate and she slept well. No cough or dyspnea. No fevers or chills. Objective: Vital Signs Temp Pulse Resp BP Pulse Ox 36.6 C 78 16 122/50 H 94 01/16/18 06:33 01/16/18 09:04 01/16/18 06:33 01/16/18 09:04 01/16/18 09:04 Laboratory Results 01/08/18 06:35 01/15/18 06:00 01/15/18 01/16/18 01/17/18 05:59 05:59 05:59 Intake Total 440 1000 Output Total 1150 925 175 Balance -710 75 -175 - Time Spent With Patient Time Spent With Patient: Greater than 35 min floor time today, including more than 50% of time in coordination care during staffing meeting, and counseling patient and . Physical Exam - Physical Exam General Appearance: WD/WN, alert, no apparent distress Respiratory: normal breath sounds, No decreased breath sounds, No crackles, No rhonchi, No wheezing Cardiac/Chest: regular rate, rhythm, JVD (To angle of jaw), No edema, No diastolic murmur, No systolic murmur Skin: normal color, warm/dry Neuro/Psych: alert, normal mood/affect, oriented x 3 ICD10 Worksheet Patient Problems: Problems Problem Status Onset Acute exacerbation of congestive heart failure Acute Atrial fibrillation Acute Congestive heart failure Acute Fever Acute Guillain-Logan syndrome Acute chronic disease mgmt/transitional care Acute Generalized anxiety disorder Chronic Insomnia Chronic Sedative dependence with current use Chronic
[2018-01-16] MEDS: MIRTAZAPINE 15 MG TAB PO SCH (22:06)
[2018-01-17] MEDS: BETHANECHOL 10 MG TAB PO SCH ×4 (05:54→21:32)
[2018-01-17] MEDS: traMADol 50 MG TAB PO PRN ×4 (05:54→23:46)
[2018-01-17] MEDS: PANTOPRAZOLE SODIUM 40 MG TAB PO SCH (05:54)
[2018-01-17] MEDS: PETROLAT,WHT/MIN OIL/SOD CHL 3.5 GM OPHT.OINT OP SCH (07:38)
[2018-01-17] MEDS: POTASSIUM CL 20 MEQ TAB PO SCH (08:25)
[2018-01-17] MEDS: RIVAROXABAN 10 MG TAB PO SCH (08:25)
[2018-01-17] MEDS: CARVEDILOL 3.125 MG TAB PO SCH ×2 (08:25→17:44)
[2018-01-17] MEDS: FUROSEMIDE 20 MG TAB PO SCH ×2 (08:25→15:50)
[2018-01-17] MEDS: GABAPENTIN 300 MG CAP PO SCH ×3 (08:25→21:32)
[2018-01-17] MEDS: TAMSULOSIN HCL 0.4 MG CAP PO SCH (08:25)
--- NOTE | 2018-01-17 10:36 | SOAPPROG ---
SOAP Progress Note Assessment/Plan: Assessment/Plan: Ms. 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 * Functional independence measure 63 as of 01/09/2018, increased to 74 as of 01/16. Beginning to stand with front wheeled walker and contact guard to minimal assistance. 1 person assist for sliding board transfers the 2 person assist with nursing for transfer to/from shower chair. Independent with grooming and hygiene at the wheelchair level. Independent for upper body dressing. 2 person assist for lower body dressing to stand and high pants. * Continue physical and occupational therapy towards discharge to home. *Hypoxemia, multifactorial,, due to neuromuscular weakness of respiratory muscles as well as diastolic congestive heart failure. * Continue furosemide; dose reduced from 40 mg twice daily to 20 mg twice daily on 01/14/2018. Continue incentive spirometry and continue positive airway pressure device per instructions of Respiratory therapy. * If she has further respiratory decompensation, consider a chest CT to evaluate for other possible etiologies. * Urinary retention with possible neurogenic bladder. * Now voiding with improved residuals and no need to catheterize, on bethanechol 10 mg four times daily and tamsulosin 0.4 mg q.day. * Atrial fibrillation. Continue rate control with carvedilol and anticoagulation with rivaroxaban. * Congestive heart failure. Continue carvedilol and furosemide. * Anxiety. Continue mirtazapine. Not using diazepam. * Pain control. * Tapering gabapentin from 900 mg four times daily to 900 mg three times daily. Continue p.r.n. tramadol 50 mg. * Plan to continue tapering and gabapentin if she tolerates lower dose. 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 * Prophylaxis. Continue rivaroxaban. We will check INR from time to time, but is likely not a significant finding as she is on rivaroxaban rather than on a vitamin K antagonist. FOLLOWUP: She is to follow up with [facility], Dr. Gill, after discharge and she is to follow up with Cardiology in 1-2 months. Today's report - Pt looks much better today then last time when seen by this provider. she has made amazing gains and really progressing towards increased I. We will run a UA today for reports of burning with urination. RN will also perform a vaginal check to assure that doesn't have abrasions around the urethra nor yeast infection. Pt with no new respiratory changes even with recent decrease of her furosemide. 01/17/18 10:31 Subjective: Doing really well - has been able to start taking steps with therapy. She is noticing some burning with urination over the last 24hrs. Not feeling sick otherwise. Not sure if she might have cleaned too well during the shower. No other new concerns today. Objective: Vital Signs Temp Pulse Resp BP Pulse Ox 36.6 C 66 14 114/57 L 90 L 01/17/18 05:59 01/17/18 08:25 01/17/18 05:59 01/17/18 08:25 01/17/18 08:31 Laboratory Results 01/08/18 06:35 01/15/18 06:00 01/16/18 01/17/18 01/18/18 05:59 05:59 05:59 Intake Total 1000 486 780 Output Total 925 740 310 Balance 75 -254 470 Physical Exam - Physical Exam General Appearance: alert, no apparent distress Respiratory: lungs clear, normal breath sounds Cardiac/Chest: other (no edema, regular rate) Abdomen: non-tender, soft Neuro/Psych: alert, normal mood/affect ICD10 Worksheet Patient Problems: Problems Problem Status Onset Acute exacerbation of congestive heart failure Acute Atrial fibrillation Acute Congestive heart failure Acute Fever Acute Guillain-Crandall syndrome Acute chronic disease mgmt/transitional care Acute Generalized anxiety disorder Chronic Insomnia Chronic Sedative dependence with current use Chronic
[2018-01-17] MEDS: MIRTAZAPINE 15 MG TAB PO SCH (21:32)
[2018-01-18] MEDS: PETROLAT,WHT/MIN OIL/SOD CHL 3.5 GM OPHT.OINT OP SCH ×2 (03:52→21:14)
[2018-01-18] MEDS: traMADol 50 MG TAB PO PRN ×4 (05:26→23:50)
[2018-01-18] MEDS: PANTOPRAZOLE SODIUM 40 MG TAB PO SCH (05:27)
[2018-01-18] MEDS: BETHANECHOL 10 MG TAB PO SCH ×4 (06:00→21:01)
[2018-01-18] MEDS: PROMETHAZINE HCL 25 MG TAB PO PRN ×2 (08:15→14:54)
[2018-01-18] MEDS: CARVEDILOL 3.125 MG TAB PO SCH ×2 (09:10→17:11)
[2018-01-18] MEDS: FUROSEMIDE 20 MG TAB PO SCH ×2 (09:11→14:49)
[2018-01-18] MEDS: TAMSULOSIN HCL 0.4 MG CAP PO SCH (09:11)
[2018-01-18] MEDS: RIVAROXABAN 10 MG TAB PO SCH (09:12)
[2018-01-18] MEDS: POTASSIUM CL 20 MEQ TAB PO SCH (09:14)
[2018-01-18] MEDS: GABAPENTIN 300 MG CAP PO SCH ×3 (09:14→21:01)
--- NOTE | 2018-01-18 09:49 | SOAPPROG ---
SOAP Progress Note Assessment/Plan: Assessment/Plan: Ms. 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 * Functional independence measure 63 as of 01/09/2018, increased to 74 as of 01/16. Beginning to stand with front wheeled walker and contact guard to minimal assistance. 1 person assist for sliding board transfers the 2 person assist with nursing for transfer to/from shower chair. Independent with grooming and hygiene at the wheelchair level. Independent for upper body dressing. 2 person assist for lower body dressing to stand and high pants. * Continue physical and occupational therapy towards discharge to home. *Hypoxemia, multifactorial,, due to neuromuscular weakness of respiratory muscles as well as diastolic congestive heart failure. * Continue furosemide; dose reduced from 40 mg twice daily to 20 mg twice daily on 01/14/2018. Continue incentive spirometry and continue positive airway pressure device per instructions of Respiratory therapy. * If she has further respiratory decompensation, consider a chest CT to evaluate for other possible etiologies. * Urinary retention with possible neurogenic bladder. * Now voiding with improved residuals and no need to catheterize, on bethanechol 10 mg four times daily and tamsulosin 0.4 mg q.day. * Atrial fibrillation. Continue rate control with carvedilol and anticoagulation with rivaroxaban. * Congestive heart failure. Continue carvedilol and furosemide. * Anxiety. Continue mirtazapine. Not using diazepam. * Pain control. * Tapering gabapentin from 900 mg four times daily to 900 mg three times daily. Continue p.r.n. tramadol 50 mg. * Plan to continue tapering and gabapentin if she tolerates lower dose. 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 * Prophylaxis. Continue rivaroxaban. We will check INR from time to time, but is likely not a significant finding as she is on rivaroxaban rather than on a vitamin K antagonist. FOLLOWUP: She is to follow up with [facility], Dr. Gill, after discharge and she is to follow up with Cardiology in 1-2 months. Today's report - Urine is negative and no further burning with urination. Pt having mild nausea without other associated symptoms. Will add simethicone to provide support. Has anti-emetics on board already. Continue to monitor and add labs as indicated. 01/18/18 09:46 Subjective: Feeling pretty good up until this morning. Having a little nausea - she experienced this quite often at home. Has a "weak" stomach. No other pains, no stomach pain, no fevers/chills, no diarrhea or cramping. Had a good BM yesterday - no blood in the stool. feeling a bit better since she had the phenergan. Objective: Vital Signs Temp Pulse Resp BP Pulse Ox 36.8 C 69 14 120/58 L 94 01/18/18 05:28 01/18/18 05:28 01/18/18 05:28 01/18/18 05:28 01/18/18 09:08 Laboratory Results 01/08/18 06:35 01/15/18 06:00 01/17/18 01/18/18 01/19/18 05:59 05:59 05:59 Intake Total 486 1900 Output Total 740 203 200 Balance -254 -135 -200 Physical Exam - Physical Exam General Appearance: alert, mild distress Respiratory: lungs clear, normal breath sounds Cardiac/Chest: regular rate, rhythm Abdomen: normal bowel sounds, non-tender Neuro/Psych: alert, normal mood/affect ICD10 Worksheet Patient Problems: Problems Problem Status Onset Acute exacerbation of congestive heart failure Acute Atrial fibrillation Acute Congestive heart failure Acute Fever Acute Guillain-[place] syndrome Acute chronic disease mgmt/transitional care Acute Generalized anxiety disorder Chronic Insomnia Chronic Sedative dependence with current use Chronic
[2018-01-18] MEDS: SIMETHICONE 80 MG TAB CHEW PO SCH ×4 (10:34→21:01)
[2018-01-18] MEDS: MIRTAZAPINE 15 MG TAB PO SCH (21:01)
[2018-01-19] MEDS ORDERED: LORazepam 2 MG/ML INJ ONE (01:36)
[2018-01-19] MEDS: PANTOPRAZOLE SODIUM 40 MG TAB PO SCH (06:07)
[2018-01-19] MEDS: traMADol 50 MG TAB PO PRN ×3 (06:07→19:17)
[2018-01-19] MEDS: BETHANECHOL 10 MG TAB PO SCH ×4 (06:07→20:48)
[2018-01-19] MEDS: CARVEDILOL 3.125 MG TAB PO SCH ×2 (08:18→17:15)
[2018-01-19] MEDS: FUROSEMIDE 20 MG TAB PO SCH ×2 (08:19→15:29)
[2018-01-19] MEDS: RIVAROXABAN 10 MG TAB PO SCH (08:19)
[2018-01-19] MEDS: POTASSIUM CL 20 MEQ TAB PO SCH (08:19)
[2018-01-19] MEDS: GABAPENTIN 300 MG CAP PO SCH ×3 (08:19→20:47)
[2018-01-19] MEDS: SIMETHICONE 80 MG TAB CHEW PO SCH ×2 (08:19→08:25)
[2018-01-19] MEDS: TAMSULOSIN HCL 0.4 MG CAP PO SCH (08:20)
[2018-01-19] MEDS ORDERED: PETROLAT,WHT/MIN OIL/SOD CHL 3.5 GM OPHT.OINT OP PRN (12:08)
[2018-01-19] MEDS ORDERED: SIMETHICONE 80 MG TAB CHEW PO PRN (12:08)
--- NOTE | 2018-01-19 12:15 | SOAPPROG ---
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 * Functional independence measure 63 as of 01/09/2018, increased to 74 as of 01/16. Beginning to stand with front wheeled walker and contact guard to minimal assistance. 1 person assist for sliding board transfers. Independent with grooming and hygiene at the wheelchair level. Independent for upper body dressing. 1 person assist for lower body dressing to stand and high pants. * Continue physical and occupational therapy towards discharge to home. * Left Achilles tendon pain. Likely due to increased activity. She declines offer of and said due to GI intolerance. Advise icing. *Hypoxemia, multifactorial,, due to neuromuscular weakness of respiratory muscles as well as diastolic congestive heart failure. * Continue furosemide; dose reduced from 40 mg twice daily to 20 mg twice daily on 01/14/2018. Continue incentive spirometry and continue positive airway pressure device per instructions of Respiratory therapy. * If she has further respiratory decompensation, consider a chest CT to evaluate for other possible etiologies. * Anemia. * Unclear etiology * Normocytic but hypochromic with reduced MCHC. * Recheck CBC and check iron panel in AM 01/20/2018. * Urinary retention with possible neurogenic bladder. * Now voiding with improved residuals and no need to catheterize, on bethanechol 10 mg four times daily and tamsulosin 0.4 mg q.day. * Atrial fibrillation. Continue rate control with carvedilol and anticoagulation with rivaroxaban. * Congestive heart failure. Continue carvedilol and furosemide. * Check BMP, BNP in AM 01/20/2018. * Anxiety. Continue mirtazapine. Not using diazepam. * Pain control. * Tapering gabapentin from 900 mg four times daily to 900 mg three times daily. Continue p.r.n. tramadol 50 mg. * Plan to continue tapering and gabapentin if she tolerates lower dose. 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 * Prophylaxis. Continue rivaroxaban. We will check INR from time to time, but is likely not a significant finding as she is on rivaroxaban rather than on a vitamin K antagonist. FOLLOWUP: She is to follow up with [facility], Dr. Gill, after discharge and she is to follow up with Cardiology in 1-2 months. This patient needs a wheelchair. She has a mobility limitation that significantly impairs 1 or more mobility mobility related ADLs in the home. Functional deficit cannot be resolved with a walker or cane. Her home is adequate for accessing rooms, maneuvering space and surfaces. Wheelchair will significantly improve her ability to participate in mobility related ADLs and the patient will use it regularly. She has not expressed and unwillingness to use the wheelchair. She has sufficient physical and mental ability to safely use a wheelchair. She needs to have swing away/retractable arm rests so that she can move the arm rests out of the way to perform slide board transfers to chair or bed. Continue plan for discharge 01/30/2018. With progress in rehabilitation family now plans to bring her home rather than interim SNF stay. Considering options of ramp for stairs in the garage versus hydraulic left. Will need home visit prior to discharge home. Will have home RN, PT, OT. 01/19/18 12:10 Subjective: Complains of left Achilles tendon pain. She thinks it is because she has been a lot more active, working on transfers. Otherwise no complaints. No cough or dyspnea, no fevers or chills. Objective: Vital Signs Temp Pulse Resp BP Pulse Ox 36.6 C 69 14 116/52 L 92 01/19/18 08:22 01/19/18 08:22 01/19/18 08:22 01/19/18 08:22 01/19/18 08:22 Laboratory Results 01/08/18 06:35 01/15/18 06:00 01/18/18 01/19/18 01/20/18 05:59 05:59 05:59 Intake Total 1900 918 100 Output Total 2035 1525 Balance -135 -607 100 Physical Exam - Physical Exam General Appearance: WD/WN, alert, no apparent distress Respiratory: No respiratory distress, No accessory muscle use Skin: normal color, warm/dry Extremities: other (Very tender left posterior medial Achilles tendon) Neuro/Psych: alert, normal mood/affect, oriented x 3 ICD10 Worksheet Patient Problems: Problems Problem Status Onset Acute exacerbation of congestive heart failure Acute Atrial fibrillation Acute Congestive heart failure Acute Fever Acute Guillain-Plainfield syndrome Acute chronic disease mgmt/transitional care Acute Generalized anxiety disorder Chronic Insomnia Chronic Sedative dependence with current use Chronic
[2018-01-19] MEDS: oxyCODONE IR 5 MG TAB PO PRN (16:46)
[2018-01-19] MEDS ORDERED: BISACODYL 10 MG SUPP PR ONE (17:42)
[2018-01-19] MEDS: MIRTAZAPINE 15 MG TAB PO SCH (20:48)
[2018-01-20] MEDS: traMADol 50 MG TAB PO PRN ×4 (01:14→18:57)
[2018-01-20] MEDS: PANTOPRAZOLE SODIUM 40 MG TAB PO SCH (06:09)
[2018-01-20] MEDS: BETHANECHOL 10 MG TAB PO SCH ×4 (06:09→20:53)
[2018-01-20 08:22] LABS: PLATELET COUNT 230 10^3/uL (150-400)
[2018-01-20] MEDS: CARVEDILOL 3.125 MG TAB PO SCH ×2 (08:25→17:42)
[2018-01-20] MEDS: GABAPENTIN 300 MG CAP PO SCH ×3 (08:26→20:53)
[2018-01-20] MEDS: TAMSULOSIN HCL 0.4 MG CAP PO SCH (08:27)
[2018-01-20] MEDS: RIVAROXABAN 10 MG TAB PO SCH (08:28)
[2018-01-20] MEDS: POTASSIUM CL 20 MEQ TAB PO SCH (08:29)
[2018-01-20] MEDS: FUROSEMIDE 20 MG TAB PO SCH ×2 (08:29→15:04)
--- NOTE | 2018-01-20 10:05 | SOAPPROG ---
SOAP Progress Note Assessment/Plan: 72-year-old female with Guillain-[place] syndrome, diastolic heart failure with acute care rehospitalization for hypoxia and pulmonary edema readmitted for rehabilitation. Today's update: Patient seems to be doing extremely well, progressing well in therapies and is now at 1 person assist level, her is happy with progress and can do this level of care at home per her report. Patient was re- weight is 63 kg, consistent with prior weights. Fluid status looks good. A total of 25 min was spent on the floor in the care of the patient, the majority of which was spent counseling coordination of care regarding discharge coordination. 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 * Functional independence measure 63 as of 01/09/2018, increased to 74 as of 01/16. Beginning to stand with front wheeled walker and contact guard to minimal assistance. 1 person assist for sliding board transfers. Independent with grooming and hygiene at the wheelchair level. Independent for upper body dressing. 1 person assist for lower body dressing to stand and high pants. * Continue physical and occupational therapy towards discharge to home. * Left Achilles tendon pain. Likely due to increased activity. She declines offer of and said due to GI intolerance. Advise icing. *Hypoxemia, multifactorial,, due to neuromuscular weakness of respiratory muscles as well as diastolic congestive heart failure. * Continue furosemide; dose reduced from 40 mg twice daily to 20 mg twice daily on 01/14/2018. Continue incentive spirometry and continue positive airway pressure device per instructions of Respiratory therapy. * If she has further respiratory decompensation, consider a chest CT to evaluate for other possible etiologies. * Anemia. Improving on 01/20/2018. She has a slightly low total iron binding capacity as well as low iron saturation. Iron is normal * Unclear etiology, suggests some element of anemia of chronic disease * Normocytic but hypochromic with reduced MCHC. * Urinary retention with possible neurogenic bladder. Improving * bethanechol 10 mg four times daily and tamsulosin 0.4 mg q.day. * Atrial fibrillation. Continue rate control with carvedilol and anticoagulation with rivaroxaban. * Congestive heart failure. Continue carvedilol and furosemide. BNP on 2017 is 145 * Anxiety. Continue mirtazapine. Not using diazepam. * Pain control. * Tapering gabapentin from 900 mg four times daily to 900 mg three times daily. Continue p.r.n. tramadol 50 mg. * Plan to continue tapering and gabapentin if she tolerates lower dose. 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 * Prophylaxis. Continue rivaroxaban. We will check INR from time to time, but is likely not a significant finding as she is on rivaroxaban rather than on a vitamin K antagonist. FOLLOWUP: She is to follow up with [facility], Dr. Gill, after discharge and she is to follow up with Cardiology in 1-2 months. Follow-up with [facility]rology. Continue plan for discharge 01/30/2018. With progress in rehabilitation family now plans to bring her home rather than interim SNF stay. Considering options of ramp for stairs in the garage versus hydraulic left. Will need home visit prior to discharge home. Will have home RN, PT, OT. 01/08/18 11:02 01/08/18 11:06 01/13/18 11:54 01/15/18 10:18 01/20/18 10:01 01/20/18 10:06 Subjective: Chief complaint: Neurological progress No acute events overnight. Patient denies any new shortness of breath or chest pain, no new numbness, tingling, or weakness. Working well with therapies, down to 1 person assistance and her has been there doing cares with her. Plan to discharge home with him as an physician assistant. Objective: Vital Signs Temp Pulse Resp BP Pulse Ox 36.5 C 81 16 102/55 L 93 01/20/18 08:00 01/20/18 08:25 01/20/18 08:00 01/20/18 08:25 01/20/18 08:00 Laboratory Results 01/20/18 06:00 01/20/18 06:00 01/19/18 01/20/18 01/21/18 05:59 05:59 05:59 Intake Total 918 575 Output Total 1525 300 Balance -607 275 Physical Exam - Physical Exam General Appearance: alert, no apparent distress EENT: No scleral icterus (R), No scleral icterus (L) Respiratory: No respiratory distress, No accessory muscle use Cardiac/Chest: normal peripheral pulses, regular rate, rhythm, No edema Skin: normal color, warm/dry, No cyanosis, No diaphoresis Extremities: No pedal edema, No swelling Neuro/Psych: alert, normal mood/affect, oriented x 3 ICD10 Worksheet Patient Problems: Problems Problem Status Onset Acute exacerbation of congestive heart failure Acute Atrial fibrillation Acute Congestive heart failure Acute Fever Acute Guillain-Fredericks[place] syndrome Acute chronic disease mgmt/transitional care Acute Generalized anxiety disorder Chronic Insomnia Chronic Sedative dependence with current use Chronic
[2018-01-20] MEDS: BISACODYL 10 MG SUPP PR PRN (16:13)
[2018-01-20] MEDS: PROMETHAZINE HCL 25 MG TAB PO PRN (16:13)
[2018-01-20] MEDS: MIRTAZAPINE 15 MG TAB PO SCH (20:53)
[2018-01-21] MEDS: traMADol 50 MG TAB PO PRN ×4 (03:04→22:27)
[2018-01-21] MEDS: PANTOPRAZOLE SODIUM 40 MG TAB PO SCH (05:49)
[2018-01-21] MEDS: BETHANECHOL 10 MG TAB PO SCH ×4 (05:50→21:09)
[2018-01-21] MEDS: FUROSEMIDE 20 MG TAB PO SCH ×2 (07:42→14:35)
[2018-01-21] MEDS: POTASSIUM CL 20 MEQ TAB PO SCH (07:42)
[2018-01-21] MEDS: RIVAROXABAN 10 MG TAB PO SCH (07:43)
[2018-01-21] MEDS: GABAPENTIN 300 MG CAP PO SCH ×3 (07:43→21:10)
[2018-01-21] MEDS: TAMSULOSIN HCL 0.4 MG CAP PO SCH (07:43)
[2018-01-21] MEDS: CARVEDILOL 3.125 MG TAB PO SCH ×2 (07:43→18:19)
--- NOTE | 2018-01-21 13:36 | SOAPPROG ---
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 * Functional independence measure 63 as of 01/09/2018, increased to 74 as of 01/16. Beginning to stand with front wheeled walker and contact guard to minimal assistance. 1 person assist for sliding board transfers. Independent with grooming and hygiene at the wheelchair level. Independent for upper body dressing. 1 person assist for lower body dressing to stand and high pants. * Continue physical and occupational therapy towards discharge to home. * Left Achilles tendon pain, resolved. Likely due to increased activity. She declined offer of NSAID due to GI intolerance. Advise icing. *Hypoxemia, multifactorial,, due to neuromuscular weakness of respiratory muscles as well as diastolic congestive heart failure. * Continue furosemide; dose reduced from 40 mg twice daily to 20 mg twice daily on 01/14/2018. Continue incentive spirometry and continue positive airway pressure device per instructions of Respiratory therapy. * If she has further respiratory decompensation, consider a chest CT to evaluate for other possible etiologies. * Anemia. * Normocytic but hypochromic with reduced MCHC. * Improving on CBC 2 06/12/2018. Iron panel with very minimal deficiency. Can likely be repleted with regular diet. Will not prescribe iron supplement. * Urinary retention with possible neurogenic bladder. * Now voiding with improved residuals and no need to catheterize, on bethanechol 10 mg four times daily and tamsulosin 0.4 mg q.day. * Atrial fibrillation. Continue rate control with carvedilol and anticoagulation with rivaroxaban. * Congestive heart failure. Continue carvedilol and furosemide. * Basic metabolic profile within normal limits 01/20/2018; tolerating diuresis. * BNP normalized. * Anxiety. Continue mirtazapine. Not using diazepam. * Pain control. * Tapering gabapentin from 900 mg four times daily to 900 mg three times daily. Continue p.r.n. tramadol 50 mg. * Plan to continue tapering and gabapentin if she tolerates lower dose. 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 * Prophylaxis. Continue rivaroxaban. We will check INR from time to time, but is likely not a significant finding as she is on rivaroxaban rather than on a vitamin K antagonist. FOLLOWUP: She is to follow up with [facility], Dr. Gill, after discharge and she is to follow up with Cardiology in 1-2 months. This patient needs a wheelchair. She has a mobility limitation that significantly impairs 1 or more mobility mobility related ADLs in the home. Functional deficit cannot be resolved with a walker or cane. Her home is adequate for accessing rooms, maneuvering space and surfaces. Wheelchair will significantly improve her ability to participate in mobility related ADLs and the patient will use it regularly. She has not expressed and unwillingness to use the wheelchair. She has sufficient physical and mental ability to safely use a wheelchair. She needs to have swing away/retractable arm rests so that she can move the arm rests out of the way to perform slide board transfers to chair or bed. Continue plan for discharge 01/30/2018. With progress in rehabilitation family now plans to bring her home rather than interim SNF stay. Considering options of ramp for stairs in the garage versus hydraulic left. Will need home visit prior to discharge home. Will have home RN, PT, OT. 01/21/18 13:33 Subjective: No complaints. Chronic back pain and neuropathic pain in feet are adequately controlled. Sleeping well. No cough or dyspnea. Objective: Vital Signs Temp Pulse Resp BP Pulse Ox 37.1 C 68 16 126/68 H 94 01/21/18 08:00 01/21/18 08:00 01/21/18 08:00 01/21/18 07:43 01/21/18 08:00 Laboratory Results 01/20/18 06:00 01/20/18 06:00 01/20/18 01/21/18 01/22/18 05:59 05:59 05:59 Intake Total 575 728 Output Total 600 950 200 Balance -25 -222 -200 Physical Exam - Physical Exam General Appearance: WD/WN, alert, no apparent distress Respiratory: No respiratory distress, No accessory muscle use Skin: normal color, warm/dry Neuro/Psych: alert, normal mood/affect, oriented x 3, other (Stat self propelling wheelchair practicing kitchen tasks with OT.) ICD10 Worksheet Patient Problems: Problems Problem Status Onset Acute exacerbation of congestive heart failure Acute Atrial fibrillation Acute Congestive heart failure Acute Fever Acute Guillain-Whitehouse syndrome Acute chronic disease mgmt/transitional care Acute Generalized anxiety disorder Chronic Insomnia Chronic Sedative dependence with current use Chronic
[2018-01-21] MEDS: MIRTAZAPINE 15 MG TAB PO SCH (21:09)
[2018-01-22] MEDS: traMADol 50 MG TAB PO PRN ×3 (04:27→19:19)
[2018-01-22] MEDS: PANTOPRAZOLE SODIUM 40 MG TAB PO SCH (05:29)
[2018-01-22] MEDS: BETHANECHOL 10 MG TAB PO SCH ×4 (05:29→21:32)
[2018-01-22] MEDS: CARVEDILOL 3.125 MG TAB PO SCH ×2 (08:28→18:21)
[2018-01-22] MEDS: RIVAROXABAN 10 MG TAB PO SCH (08:28)
[2018-01-22] MEDS: TAMSULOSIN HCL 0.4 MG CAP PO SCH (08:28)
[2018-01-22] MEDS: GABAPENTIN 300 MG CAP PO SCH ×3 (08:29→21:36)
[2018-01-22] MEDS: FUROSEMIDE 20 MG TAB PO SCH ×2 (08:29→15:55)
[2018-01-22] MEDS: POTASSIUM CL 20 MEQ TAB PO SCH (08:29)
--- NOTE | 2018-01-22 09:47 | SOAPPROG ---
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 Today's update: Patient had nontraumatic pain on her left Achilles a few days ago with some exercise. Tenderness at the Achilles tendon insertion. Likely a mild strain or enthesopathy. The Achilles tendon is intact. Okay to continue therapies, being gentle on the foot. Otherwise doing well. A total of 20 min was spent on the floor in the care of the patient, the majority of which was spent in the counseling and coordination of care regarding diagnosis of Achilles issues above and discussion of treatment and options. 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 Impairments in mobility and self-care * Functional independence measure 63 as of 01/09/2018, increased to 74 as of 01/16. Beginning to stand with front wheeled walker and contact guard to minimal assistance. 1 person assist for sliding board transfers. Independent with grooming and hygiene at the wheelchair level. Independent for upper body dressing. 1 person assist for lower body dressing to stand and high pants. * Continue physical and occupational therapy towards discharge to home. * Left Achilles tendon pain, improved. Mild enthesopathy, Achilles intact. Continue gentle rehabilitation *Hypoxemia, multifactorial,, due to neuromuscular weakness of respiratory muscles as well as diastolic congestive heart failure. * Continue furosemide; dose reduced from 40 mg twice daily to 20 mg twice daily on 01/14/2018. Continue incentive spirometry and continue positive airway pressure device per instructions of Respiratory therapy. * If she has further respiratory decompensation, consider a chest CT to evaluate for other possible etiologies. * Anemia. * Normocytic but hypochromic with reduced MCHC. * Improving on CBC 2 06/12/2018. Iron panel with very minimal deficiency. Can likely be repleted with regular diet. Will not prescribe iron supplement. * Urinary retention with possible neurogenic bladder. * Now voiding with improved residuals and no need to catheterize, on bethanechol 10 mg four times daily and tamsulosin 0.4 mg q.day. * Atrial fibrillation. Continue rate control with carvedilol and anticoagulation with rivaroxaban. * Congestive heart failure. Continue carvedilol and furosemide. * Basic metabolic profile within normal limits 01/20/2018; tolerating diuresis. * BNP normalized. * Anxiety. Continue mirtazapine. Not using diazepam. * Pain control. * Tapering gabapentin from 900 mg four times daily to 900 mg three times daily. Continue p.r.n. tramadol 50 mg. * Plan to continue tapering and gabapentin if she tolerates lower dose. 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 * Prophylaxis. Continue rivaroxaban. We will check INR from time to time, but is likely not a significant finding as she is on rivaroxaban rather than on a vitamin K antagonist. FOLLOWUP: She is to follow up with [facility], Dr. Gill, after discharge and she is to follow up with Cardiology in 1-2 months. Recommend physiatry follow-up Continue plan for discharge 01/30/2018. With progress in rehabilitation family now plans to bring her home rather than interim SNF stay. Considering options of ramp for stairs in the garage versus hydraulic left. Will need home visit prior to discharge home. Will have home RN, PT, OT. 01/08/18 11:02 01/08/18 11:06 01/13/18 11:54 01/15/18 10:18 01/20/18 10:01 01/20/18 10:06 01/22/18 09:44 01/22/18 09:48 Subjective: Chief complaint: Left Achilles pain No acute events overnight. Patient endorsed a nontraumatic etiology of some left-sided heel pain when she was working with therapies. No redness or abnormal swelling noted by the patient. Therapist feels there may be some swelling on that side. No new sensory loss or weakness. Patient denies any new shortness of breath pain, no new numbness, tingling, or weakness in general. Feels that the Achilles has been improving. Objective: Vital Signs Temp Pulse Resp BP Pulse Ox 36.6 C 70 16 108/55 L 93 01/22/18 08:00 01/22/18 08:28 01/22/18 08:00 01/22/18 08:28 01/22/18 08:00 Laboratory Results 01/20/18 06:00 01/20/18 06:00 01/21/18 01/22/18 01/23/18 05:59 05:59 05:59 Intake Total 728 200 Output Total 950 200 Balance -222 0 Physical Exam - Physical Exam General Appearance: WD/WN, alert, no apparent distress Respiratory: No respiratory distress, No accessory muscle use Cardiac/Chest: normal peripheral pulses, regular rate, rhythm, No edema Skin: normal color, warm/dry, No cyanosis, No diaphoresis Extremities: other (She had tenderness to palpation only at the insertion of the Achilles tendon. Minimal swelling, no surrounding erythema or warmth. Achilles tendon was intact on ft stretch and calf squeeze) Neuro/Psych: alert, normal mood/affect, oriented x 3, other (Global weakness improving) ICD10 Worksheet Patient Problems: Problems Problem Status Onset Acute exacerbation of congestive heart failure Acute Atrial fibrillation Acute Congestive heart failure Acute Fever Acute Guillain-Caldwell syndrome Acute chronic disease mgmt/transitional care Acute Generalized anxiety disorder Chronic Insomnia Chronic Sedative dependence with current use Chronic
[2018-01-22] MEDS: MIRTAZAPINE 15 MG TAB PO SCH (21:32)
[2018-01-23] MEDS: PANTOPRAZOLE SODIUM 40 MG TAB PO SCH (05:06)
[2018-01-23] MEDS: traMADol 50 MG TAB PO PRN ×3 (05:06→18:44)
[2018-01-23] MEDS: BETHANECHOL 10 MG TAB PO SCH ×4 (05:06→21:34)
[2018-01-23] MEDS: FUROSEMIDE 20 MG TAB PO SCH ×2 (08:38→16:11)
[2018-01-23] MEDS: CARVEDILOL 3.125 MG TAB PO SCH ×2 (08:38→18:24)
[2018-01-23] MEDS: POTASSIUM CL 20 MEQ TAB PO SCH (08:39)
[2018-01-23] MEDS: RIVAROXABAN 10 MG TAB PO SCH (08:39)
[2018-01-23] MEDS: GABAPENTIN 300 MG CAP PO SCH ×3 (08:39→21:34)
[2018-01-23] MEDS: TAMSULOSIN HCL 0.4 MG CAP PO SCH (08:40)
--- NOTE | 2018-01-23 12:52 | SOAPPROG ---
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 Impairments in mobility and self-care * Functional independence measure 63 as of 01/09/2018, increased to 74 as of 01/16. Beginning to stand with front wheeled walker and contact guard to minimal assistance. 1 person assist for sliding board transfers. Independent with grooming and hygiene at the wheelchair level. Independent for upper body dressing. 1 person assist for lower body dressing to stand and high pants. PHYSICAL THERAPY IS WORKING ON EXTENDING DURATION OF STANDING PERIODS. * Continue physical and occupational therapy towards discharge to home. * Left Achilles tendonitis-patient offered but refused implementation of nonsteroidal anti-inflammatories including Celebrex. Patient advised to ice 20 min several times per day. Gentle heel cord stretching. *Hypoxemia, multifactorial,, due to neuromuscular weakness of respiratory muscles as well as diastolic congestive heart failure. LUNGS ARE CLEAR. SHE IS BACK TO HER BASELINE WEIGHT. * Continue furosemide; dose reduced from 40 mg twice daily to 20 mg twice daily on 01/14/2018. Continue incentive spirometry and continue positive airway pressure device per instructions of Respiratory therapy. * If she has further respiratory decompensation, consider a chest CT to evaluate for other possible etiologies. * Anemia. * Normocytic but hypochromic with reduced MCHC. * Improving on CBC 2 06/12/2018. Iron panel with very minimal deficiency. Can likely be repleted with regular diet. Will not prescribe iron supplement. * Urinary retention with possible neurogenic bladder. * Now voiding with improved residuals and no need to catheterize, on bethanechol 10 mg four times daily and tamsulosin 0.4 mg q.day. * Atrial fibrillation. Continue rate control with carvedilol and anticoagulation with rivaroxaban. * Congestive heart failure. Continue carvedilol and furosemide. * Basic metabolic profile within normal limits 01/20/2018; tolerating diuresis. * BNP normalized. * Anxiety. Continue mirtazapine. Not using diazepam. * Pain control. * Tapering gabapentin from 900 mg four times daily to 900 mg three times daily. Continue p.r.n. tramadol 50 mg. * Plan to continue tapering and gabapentin if she tolerates lower dose. 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 * Prophylaxis. Continue rivaroxaban. We will check INR from time to time, but is likely not a significant finding as she is on rivaroxaban rather than on a vitamin K antagonist. FOLLOWUP: She is to follow up with [facility], Dr. Gill, after discharge and she is to follow up with Cardiology in 1-2 months. Recommend physiatry follow-up Continue plan for discharge: TEAM MEETING TODAY, TENTATIVE DISCHARGE SET FOR 01/30/2018. With progress in rehabilitation family now plans to bring her home rather than interim SNF stay. Considering options of ramp for stairs in the garage versus hydraulic left. Will need home visit prior to discharge home. Will have home RN, PT, OT. Subjective: SHE HAS NO NEW COMPLAINTS. SHE DENIES SHORTNESS OF BREATH. SHE HAS A LITTLE BIT OF LOWER EXTREMITY DISCOMFORT WHILE SLEEPING WHICH TENDS TO AWAKEN HER, HOWEVER THIS IS RELIEVED WHEN THE ANKLE BOOTS ARE REMOVED. Objective: Vital Signs Temp Pulse Resp BP Pulse Ox 36.7 C 79 16 111/49 L 95 01/23/18 05:57 01/23/18 08:38 01/23/18 05:57 01/23/18 08:38 01/23/18 12:40 Laboratory Results 01/20/18 06:00 01/20/18 06:00 01/22/18 01/23/18 01/24/18 05:59 05:59 05:59 Intake Total 200 1265 600 Output Total 200 Balance 0 1265 600 Physical Exam - Physical Exam General Appearance: WD/WN, alert, no apparent distress Respiratory: chest non-tender, lungs clear, normal breath sounds Abdomen: non-tender, soft Neuro/Psych: normal mood/affect, motor weakness (3-/5 RIGHT AND LEFT HIP FLEXORS , QUADRICEPS, HAMSTRINGS AND TIBIALIS ANTERIOR) ICD10 Worksheet Patient Problems: Problems Problem Status Onset Acute exacerbation of congestive heart failure Acute Atrial fibrillation Acute Congestive heart failure Acute Fever Acute Guillain-[place] syndrome Acute chronic disease mgmt/transitional care Acute Generalized anxiety disorder Chronic Insomnia Chronic Sedative dependence with current use Chronic
[2018-01-23] MEDS: MIRTAZAPINE 15 MG TAB PO SCH (21:35)
[2018-01-24] MEDS: traMADol 50 MG TAB PO PRN ×4 (00:33→19:12)
[2018-01-24] MEDS: PANTOPRAZOLE SODIUM 40 MG TAB PO SCH (06:03)
[2018-01-24] MEDS: BETHANECHOL 10 MG TAB PO SCH ×4 (06:03→21:17)
[2018-01-24] MEDS: RIVAROXABAN 10 MG TAB PO SCH (08:23)
[2018-01-24] MEDS: POTASSIUM CL 20 MEQ TAB PO SCH (08:23)
[2018-01-24] MEDS: GABAPENTIN 300 MG CAP PO SCH ×3 (08:23→21:17)
[2018-01-24] MEDS: FUROSEMIDE 20 MG TAB PO SCH ×2 (08:24→15:39)
[2018-01-24] MEDS: CARVEDILOL 3.125 MG TAB PO SCH ×2 (08:25→17:07)
[2018-01-24] MEDS: TAMSULOSIN HCL 0.4 MG CAP PO SCH (08:25)
--- NOTE | 2018-01-24 11:52 | SOAPPROG ---
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 Impairments in mobility and self-care * Functional independence measure 63 as of 01/09/2018, increased to 74 as of 01/16. Beginning to stand with front wheeled walker and contact guard to minimal assistance. 1 person assist for sliding board transfers. Independent with grooming and hygiene at the wheelchair level. Independent for upper body dressing. 1 person assist for lower body dressing to stand and high pants. PHYSICAL THERAPY IS WORKING ON EXTENDING DURATION OF STANDING PERIODS. * Continue physical and occupational therapy towards discharge to home. * Left Achilles tendonitis-patient offered but refused implementation of nonsteroidal anti-inflammatories including Celebrex. Patient advised to ice 20 min several times per day. Gentle heel cord stretching. Feeling better today *Hypoxemia, multifactorial,, due to neuromuscular weakness of respiratory muscles as well as diastolic congestive heart failure. LUNGS ARE CLEAR. SHE IS BACK TO HER BASELINE WEIGHT. * Continue furosemide; dose reduced from 40 mg twice daily to 20 mg twice daily on 01/14/2018. Continue incentive spirometry and continue positive airway pressure device per instructions of Respiratory therapy. * If she has further respiratory decompensation, consider a chest CT to evaluate for other possible etiologies. * Anemia. * Normocytic but hypochromic with reduced MCHC. * Improving on CBC 2 06/12/2018. Iron panel with very minimal deficiency. Can likely be repleted with regular diet. Will not prescribe iron supplement. * Urinary retention with possible neurogenic bladder. * Now voiding with improved residuals and no need to catheterize, on bethanechol 10 mg four times daily and tamsulosin 0.4 mg q.day. * Atrial fibrillation. Continue rate control with carvedilol and anticoagulation with rivaroxaban. * Congestive heart failure. Continue carvedilol and furosemide. * Basic metabolic profile within normal limits 01/20/2018; tolerating diuresis. * BNP normalized. * Anxiety. Continue mirtazapine. Not using diazepam. * Pain control. * Tapering gabapentin from 900 mg four times daily to 900 mg three times daily. Continue p.r.n. tramadol 50 mg. * Plan to continue tapering and gabapentin if she tolerates lower dose. 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 Plan: 01/24/18 11:52 01/24/18 19:23 Subjective: no new complaints walked in [place] today Objective: Vital Signs Temp Pulse Resp BP Pulse Ox 36.8 C 74 16 114/47 L 95 01/24/18 06:34 01/24/18 08:25 01/24/18 06:34 01/24/18 08:25 01/24/18 11:50 Laboratory Results 01/20/18 06:00 01/20/18 06:00 01/23/18 01/24/18 01/25/18 05:59 05:59 05:59 Intake Total 1265 1200 311 Output Total 100 Balance 1265 1200 211 Physical Exam - Physical Exam General Appearance: WD/WN, alert, no apparent distress Respiratory: lungs clear, normal breath sounds Cardiac/Chest: regular rate, rhythm Neuro/Psych: alert, normal mood/affect, oriented x 3 ICD10 Worksheet Patient Problems: Problems Problem Status Onset Acute exacerbation of congestive heart failure Acute Atrial fibrillation Acute Congestive heart failure Acute Fever Acute Guillain-Spe[place] syndrome Acute chronic disease mgmt/transitional care Acute Generalized anxiety disorder Chronic Insomnia Chronic Sedative dependence with current use Chronic
[2018-01-24] MEDS: MIRTAZAPINE 15 MG TAB PO SCH (21:17)
[2018-01-25] MEDS: traMADol 50 MG TAB PO PRN ×4 (01:04→20:10)
[2018-01-25] MEDS: BETHANECHOL 10 MG TAB PO SCH ×4 (06:14→21:42)
[2018-01-25] MEDS: PANTOPRAZOLE SODIUM 40 MG TAB PO SCH (06:14)
[2018-01-25] MEDS: POTASSIUM CL 20 MEQ TAB PO SCH (08:47)
[2018-01-25] MEDS: GABAPENTIN 300 MG CAP PO SCH ×3 (08:47→21:42)
[2018-01-25] MEDS: TAMSULOSIN HCL 0.4 MG CAP PO SCH (08:48)
[2018-01-25] MEDS: RIVAROXABAN 10 MG TAB PO SCH (08:48)
[2018-01-25] MEDS: CARVEDILOL 3.125 MG TAB PO SCH ×2 (08:49→17:21)
[2018-01-25] MEDS: POLYETHYLENE GLYCOL 3350 17 GM PKT PO PRN (08:59)
[2018-01-25] MEDS: FUROSEMIDE 20 MG TAB PO SCH ×2 (09:02→14:09)
[2018-01-25] MEDS: BISACODYL 10 MG SUPP PR PRN (16:11)
--- NOTE | 2018-01-25 19:26 | SOAPPROG ---
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 Impairments in mobility and self-care * Functional independence measure 63 as of 01/09/2018, increased to 74 as of 01/16. Beginning to stand with front wheeled walker and contact guard to minimal assistance. 1 person assist for sliding board transfers. Independent with grooming and hygiene at the wheelchair level. Independent for upper body dressing. 1 person assist for lower body dressing to stand and high pants. PHYSICAL THERAPY IS WORKING ON EXTENDING DURATION OF STANDING PERIODS. * Continue physical and occupational therapy towards discharge to home. * Left Achilles tendonitis-patient offered but refused implementation of nonsteroidal anti-inflammatories including Celebrex. Patient advised to ice 20 min several times per day. Gentle heel cord stretching. Feeling better today *Hypoxemia, multifactorial,, due to neuromuscular weakness of respiratory muscles as well as diastolic congestive heart failure. LUNGS ARE CLEAR. SHE IS BACK TO HER BASELINE WEIGHT. * Continue furosemide; dose reduced from 40 mg twice daily to 20 mg twice daily on 01/14/2018. Continue incentive spirometry and continue positive airway pressure device per instructions of Respiratory therapy. * If she has further respiratory decompensation, consider a chest CT to evaluate for other possible etiologies. * Anemia. * Normocytic but hypochromic with reduced MCHC. * Improving on CBC 2 06/12/2018. Iron panel with very minimal deficiency. Can likely be repleted with regular diet. Will not prescribe iron supplement. * Urinary retention with possible neurogenic bladder. * Now voiding with improved residuals and no need to catheterize, on bethanechol 10 mg four times daily and tamsulosin 0.4 mg q.day. * Atrial fibrillation. Continue rate control with carvedilol and anticoagulation with rivaroxaban. * Congestive heart failure. Continue carvedilol and furosemide. * Basic metabolic profile within normal limits 01/20/2018; tolerating diuresis. * BNP normalized. * Anxiety. Continue mirtazapine. Not using diazepam. * Pain control. * Tapering gabapentin from 900 mg four times daily to 900 mg three times daily. Continue p.r.n. tramadol 50 mg. * Plan to continue tapering and gabapentin if she tolerates lower dose. 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 Plan: 01/24/18 11:52 01/24/18 19:23 Subjective: Doing well. In good spirits. No new complaints Objective: Vital Signs Temp Pulse Resp BP Pulse Ox 36.4 C 84 16 108/60 92 01/25/18 18:35 01/25/18 18:35 01/25/18 18:35 01/25/18 18:35 01/25/18 18:35 Laboratory Results 01/20/18 06:00 01/20/18 06:00 01/24/18 01/25/18 01/26/18 05:59 05:59 05:59 Intake Total 1200 1311 800 Output Total 900 200 Balance 1200 411 600 Physical Exam - Physical Exam General Appearance: WD/WN, alert, no apparent distress Respiratory: lungs clear, normal breath sounds Cardiac/Chest: regular rate, rhythm Neuro/Psych: alert, normal mood/affect ICD10 Worksheet Patient Problems: Problems Problem Status Onset Acute exacerbation of congestive heart failure Acute Atrial fibrillation Acute Congestive heart failure Acute Fever Acute Guillain-[place] syndrome Acute chronic disease mgmt/transitional care Acute Generalized anxiety disorder Chronic Insomnia Chronic Sedative dependence with current use Chronic
[2018-01-25] MEDS: MIRTAZAPINE 15 MG TAB PO SCH (21:42)
[2018-01-26] MEDS: traMADol 50 MG TAB PO PRN ×4 (02:05→21:37)
[2018-01-26] MEDS: PANTOPRAZOLE SODIUM 40 MG TAB PO SCH (05:54)
[2018-01-26] MEDS: BETHANECHOL 10 MG TAB PO SCH ×4 (05:54→21:03)
[2018-01-26] MEDS: RIVAROXABAN 10 MG TAB PO SCH (08:45)
[2018-01-26] MEDS: POTASSIUM CL 10 MEQ TAB PO SCH (08:45)
[2018-01-26] MEDS: FUROSEMIDE 20 MG TAB PO SCH ×2 (08:45→15:32)
[2018-01-26] MEDS: TAMSULOSIN HCL 0.4 MG CAP PO SCH (08:46)
[2018-01-26] MEDS: GABAPENTIN 300 MG CAP PO SCH ×3 (08:46→21:02)
[2018-01-26] MEDS: CARVEDILOL 3.125 MG TAB PO SCH ×2 (08:48→17:58)
[2018-01-26] MEDS: POLYETHYLENE GLYCOL 3350 17 GM PKT PO PRN (08:49)
--- NOTE | 2018-01-26 12:24 | SOAPPROG ---
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 Impairments in mobility and self-care * Functional independence measure 63 as of 01/09/2018, increased to 74 as of 01/16. [facility] OCCUPATIONAL THERAPY REPORTS SHE IS GROOMING INDEPENDENTLY FROM HER WHEELCHAIR. SHE IS USING A WALKER TO STAND AND PULL ON LOWER EXTREMITY CLOTHING WITH MINIMAL ASSIST. SHE IS CONTACT GUARD ASSIST WITH TRANSFERS. SHE NEEDS SUPERVISION FOR BATHING. SHE IS PERFORMING A STAND PIVOT TRANSFER FROM THE WHEELCHAIR TO THE SHOWER BENCH. LISA MEETING AND THIS MORNING. PATIENT IS ALMOST INDEPENDENT WITH BED MOBILITY. SHE IS INDEPENDENT WITH WHEELCHAIR MOBILITY. SHE IS STANDING AND WALKING 8-10 FEET WITH THE FWW. * Left Achilles tendonitis-patient offered but refused implementation of nonsteroidal anti-inflammatories including Celebrex. Patient advised to ice 20 min several times per day. Gentle heel cord stretching. *Hypoxemia, multifactorial,, due to neuromuscular weakness of respiratory muscles as well as diastolic congestive heart failure. SHE IS STILL DESATURATING A LITTLE BIT AT NIGHT AND DOWN TO ABOUT 87% AND THIS IS MOST LIKELY DUE TO MILD WEAKNESS OF THE ACCESSORY BREATHING MUSCLES AND DIAPHRAGM WHICH ARE MORE EFFICIENT IN THE SUPINE POSITION. WILL MAKE ARRANGEMENTS FOR HER TO GO HOME ON SUPPLEMENTAL O2. * Continue furosemide; dose reduced from 40 mg twice daily to 20 mg twice daily on 01/14/2018. Continue incentive spirometry and continue positive airway pressure device per instructions of Respiratory therapy. * Anemia. * Normocytic but hypochromic with reduced MCHC. * Improving on CBC 2 06/12/2018. Iron panel with very minimal deficiency. Can likely be repleted with regular diet. Will not prescribe iron supplement. * Urinary retention with possible neurogenic bladder. * On bethanechol 10 mg four times daily and tamsulosin 0.4 mg q.day. She is no longer getting postvoid residuals. To help simplify her medication regimen, will change urine clean dosage to 10 mg three times daily, and will monitor voiding schedule and check a postvoid residual if necessary. Will monitor for urinary incontinence. * Atrial fibrillation. Continue rate control with carvedilol and anticoagulation with rivaroxaban. * Congestive heart failure. Continue carvedilol and furosemide. * Basic metabolic profile within normal limits 01/20/2018; tolerating diuresis. * BNP normalized. * Anxiety. Continue mirtazapine. Not using diazepam. * Pain control. * Tapering gabapentin from 900 mg four times daily to 900 mg three times daily. Continue p.r.n. tramadol 50 mg. * Plan to continue tapering and gabapentin if she tolerates lower dose. 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 * Prophylaxis. Continue rivaroxaban. We will check INR from time to time, but is likely not a significant finding as she is on rivaroxaban rather than on a vitamin K antagonist. FOLLOWUP: She is to follow up with [facility], Dr. Gill, after discharge and she is to follow up with Cardiology in 1-2 months. Recommend physiatry follow-up Continue plan for discharge: DISCHARGE SET FOR 01/30/2018. With progress in rehabilitation family now plans to bring her home rather than interim SNF stay. Considering options of ramp for stairs in the garage versus hydraulic left. Will need home visit prior to discharge home. Will have home RN, PT, OT. 01/26/18 12:07 Subjective: She reports she had a good weekend. No problems reported by patient and nursing staff. She denies shortness of breath or chest pain. She does not have an issue with pain. She reports continence of urine. Objective: Vital Signs Temp Pulse Resp BP Pulse Ox 36.9 C 85 16 118/57 L 94 01/26/18 06:13 01/26/18 08:48 01/26/18 06:13 01/26/18 08:48 01/26/18 06:13 Laboratory Results 01/20/18 06:00 01/20/18 06:00 01/25/18 01/26/18 01/27/18 05:59 05:59 05:59 Intake Total 1311 1200 480 Output Total 900 500 250 Balance 411 700 230 Physical Exam - Physical Exam General Appearance: WD/WN, alert, no apparent distress Respiratory: lungs clear, normal breath sounds Cardiac/Chest: edema (Trace edema lower legs) Abdomen: normal bowel sounds, non-tender, soft Skin: normal color, warm/dry Neuro/Psych: motor weakness (Right quadriceps 3-/5, left 4/5 hip flexors 2/5 bilaterally. Right ankle dorsiflexors slightly weaker than left and less than do neutral position bilaterally.) ICD10 Worksheet Patient Problems: Problems Problem Status Onset Acute exacerbation of congestive heart failure Acute Atrial fibrillation Acute Congestive heart failure Acute Fever Acute Guillain-[place] syndrome Acute chronic disease mgmt/transitional care Acute Generalized anxiety disorder Chronic Insomnia Chronic Sedative dependence with current use Chronic
[2018-01-26] MEDS ORDERED: SENNOSIDES/DOCUSATE SODIUM TAB PO PRN ×2 (12:27→13:16)
[2018-01-26] MEDS: MIRTAZAPINE 15 MG TAB PO SCH (21:02)
[2018-01-27] MEDS: traMADol 50 MG TAB PO PRN ×4 (03:42→22:08)
[2018-01-27] MEDS: PANTOPRAZOLE SODIUM 40 MG TAB PO SCH (05:34)
[2018-01-27] MEDS: CARVEDILOL 3.125 MG TAB PO SCH ×2 (08:30→17:47)
[2018-01-27] MEDS: BETHANECHOL 10 MG TAB PO SCH ×3 (08:32→20:59)
[2018-01-27] MEDS: FUROSEMIDE 20 MG TAB PO SCH ×2 (08:32→16:01)
[2018-01-27] MEDS: GABAPENTIN 300 MG CAP PO SCH ×3 (08:32→20:59)
[2018-01-27] MEDS: POTASSIUM CL 10 MEQ TAB PO SCH (08:32)
[2018-01-27] MEDS: TAMSULOSIN HCL 0.4 MG CAP PO SCH (08:33)
[2018-01-27] MEDS: RIVAROXABAN 10 MG TAB PO SCH (08:33)
--- NOTE | 2018-01-27 10:56 | SOAPPROG ---
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 Today's update: Patient is doing well, no new acute issues. A total of 15 min was spent on the floor in the care of the patient, the majority of which was spent in counseling coordination of care regarding rehabilitation progress. Repeat potassium tomorrow given her diuretic use and potassium supplementation. 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 Impairments in mobility and self-care * Functional independence measure 63 as of 01/09/2018, increased to 74 as of 01/16. Grooming and only from wheelchair, using walker to stand pole on the lower extremity clothing with minimal assistance. She is ambulating with some assistance and independent wheelchair bili. Stand pivot transfer from the wheelchair to shower bench. * Left Achilles tendonitis-patient offered but refused implementation of nonsteroidal anti-inflammatories including Celebrex. Patient advised to ice 20 min several times per day. Gentle heel cord stretching. *Hypoxemia, multifactorial,, due to neuromuscular weakness of respiratory muscles as well as diastolic congestive heart failure. Supplemental oxygen for nighttime. * Continue furosemide; dose reduced from 40 mg twice daily to 20 mg twice daily on 01/14/2018. Continue incentive spirometry and continue positive airway pressure device per instructions of Respiratory therapy. * Anemia. * Normocytic but hypochromic with reduced MCHC. * Improving on CBC 2 06/12/2018. Iron panel with very minimal deficiency. Can likely be replated with regular diet. Will not prescribe iron supplement. * Urinary retention with possible neurogenic bladder. * On bethanechol 10 mg four times daily and tamsulosin 0.4 mg q.day. She is no longer getting postvoid residuals. To help simplify her medication regimen, will change urine clean dosage to 10 mg three times daily, and will monitor voiding schedule and check a postvoid residual if necessary. Will monitor for urinary incontinence. * Atrial fibrillation. Continue rate control with carvedilol and anticoagulation with rivaroxaban. * Congestive heart failure. Continue carvedilol and furosemide. * Basic metabolic profile within normal limits 01/20/2018; tolerating diuresis. * BNP normalized. * Anxiety. Continue mirtazapine. Not using diazepam. * Pain control. * Tapering gabapentin from 900 mg four times daily to 900 mg three times daily. Continue p.r.n. tramadol 50 mg. * Plan to continue tapering and gabapentin if she tolerates lower dose. 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 * Prophylaxis. Continue rivaroxaban. We will check INR from time to time, but is likely not a significant finding as she is on rivaroxaban rather than on a vitamin K antagonist. FOLLOWUP: She is to follow up with [facility], Dr. Gill, after discharge and she is to follow up with Cardiology in 1-2 months. Recommend physiatry follow-up Continue plan for discharge: DISCHARGE SET FOR 01/30/2018. Considering options of ramp for stairs in the garage versus hydraulic left. Will need home visit prior to discharge home. Will have home RN, PT, OT. 01/08/18 11:02 01/08/18 11:06 01/13/18 11:54 01/15/18 10:18 01/20/18 10:01 01/20/18 10:06 01/22/18 09:44 01/22/18 09:48 01/27/18 10:52 01/27/18 10:55 Subjective: Chief complaint: Rehabilitation progress No acute overnight. Patient endorses no new shortness of breath or chest pain, no new numbness, tingling, or weakness it she feels that functionally she is doing very well and things are improving across the board. She is looking forward to going home soon. No questions from family who was in the room. She states that her edema level is sore, responsive to lifting her legs Objective: Vital Signs Temp Pulse Resp BP Pulse Ox 36.8 C 77 16 126/67 H 94 01/27/18 06:48 01/27/18 08:30 01/27/18 06:48 01/27/18 08:30 01/27/18 06:48 Laboratory Results 01/20/18 06:00 01/20/18 06:00 01/26/18 01/27/18 01/28/18 05:59 05:59 05:59 Intake Total 1200 780 Output Total 500 850 Balance 700 -70 Physical Exam - Physical Exam General Appearance: WD/WN, alert, no apparent distress EENT: No scleral icterus (R), No scleral icterus (L) Respiratory: other (Increasing strength of cough, not normal but probably 50% of normal), No respiratory distress, No accessory muscle use Cardiac/Chest: normal peripheral pulses, regular rate, rhythm, edema (Trace) Skin: normal color, warm/dry, No cyanosis Extremities: non-tender, No calf tenderness Neuro/Psych: alert, normal mood/affect, oriented x 3, other (Global weakness, improving) ICD10 Worksheet Patient Problems: Problems Problem Status Onset Acute exacerbation of congestive heart failure Acute Atrial fibrillation Acute Congestive heart failure Acute Fever Acute Guillain-[place] syndrome Acute chronic disease mgmt/transitional care Acute Generalized anxiety disorder Chronic Insomnia Chronic Sedative dependence with current use Chronic
[2018-01-27] MEDS: MIRTAZAPINE 15 MG TAB PO SCH (20:58)
[2018-01-28] MEDS: traMADol 50 MG TAB PO PRN ×3 (04:09→20:02)
[2018-01-28] MEDS: PANTOPRAZOLE SODIUM 40 MG TAB PO SCH (05:44)
[2018-01-28] MEDS: GABAPENTIN 300 MG CAP PO SCH ×3 (09:10→21:27)
[2018-01-28] MEDS: CARVEDILOL 3.125 MG TAB PO SCH ×2 (09:11→17:52)
[2018-01-28] MEDS: RIVAROXABAN 10 MG TAB PO SCH (09:11)
[2018-01-28] MEDS: BETHANECHOL 10 MG TAB PO SCH ×3 (09:11→21:27)
[2018-01-28] MEDS: POTASSIUM CL 10 MEQ TAB PO SCH (09:11)
[2018-01-28] MEDS: FUROSEMIDE 20 MG TAB PO SCH ×2 (09:11→16:09)
[2018-01-28] MEDS: TAMSULOSIN HCL 0.4 MG CAP PO SCH (09:11)
--- NOTE | 2018-01-28 10:05 | SOAPPROG ---
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 Impairments in mobility and self-care. HER HER AMBULATION THUS FAR IS CONFINED TO THE PT GYM USING THE FWW. SHE IS ALSO STANDING IN THE PARALLEL BARS. SHE STATES THAT WHEN SHE WALKS SHE DOES NOT EXPERIENCE KNEE OR ANKLE INSTABILITY. * Functional independence measure 63 as of 01/09/2018, increased to 74 as of 01/16. Grooming and only from wheelchair, using walker to stand pole on the lower extremity clothing with minimal assistance. She is ambulating with some assistance and independent wheelchair bili. Stand pivot transfer from the wheelchair to shower bench. * Left Achilles tendonitis-patient offered but refused implementation of nonsteroidal anti-inflammatories including Celebrex. Patient advised to ice 20 min several times per day. Gentle heel cord stretching. *Hypoxemia, multifactorial,, due to neuromuscular weakness of respiratory muscles as well as diastolic congestive heart failure. Supplemental oxygen for nighttime. * Continue furosemide; dose reduced from 40 mg twice daily to 20 mg twice daily on 01/14/2018. Continue incentive spirometry and continue positive airway pressure device per instructions of Respiratory therapy. * Anemia. * Normocytic but hypochromic with reduced MCHC. * Improving on CBC 2 06/12/2018. Iron panel with very minimal deficiency. Can likely be replated with regular diet. Will not prescribe iron supplement. * Urinary retention with possible neurogenic bladder. * On bethanechol 10 mg four times daily and tamsulosin 0.4 mg q.day. She is no longer getting postvoid residuals. To help simplify her medication regimen, will change urine clean dosage to 10 mg three times daily, and will monitor voiding schedule and check a postvoid residual if necessary. Will monitor for urinary incontinence. * Atrial fibrillation. Continue rate control with carvedilol and anticoagulation with rivaroxaban. * Congestive heart failure. Continue carvedilol and furosemide. * Basic metabolic profile within normal limits 01/20/2018; tolerating diuresis. * SODIUM FROM 01/28 FOR 141, POTASSIUM 4.5 * Anxiety. Continue mirtazapine. Not using diazepam. * Pain control. * SHE REPORTS THAT HER NEUROPATHIC PAIN IS WELL CONTROLLED ON GABAPENTIN 300 MG THREE TIMES DAILY. DISCHARGE IS SET FOR 01/30 Subjective: She has no complaints. She is pleased with her progress in therapy. She reports mild lower extremity neuropathic pain which she states is well controlled with the gabapentin 300 three times daily. She reports that her ramp is being installed to her home today. Objective: Vital Signs Temp Pulse Resp BP Pulse Ox 36.6 C 75 17 101/51 L 93 01/28/18 08:00 01/28/18 09:11 01/28/18 08:00 01/28/18 09:11 01/28/18 08:00 Laboratory Results 01/20/18 06:00 01/28/18 06:00 01/27/18 01/28/18 01/29/18 05:59 05:59 05:59 Intake Total 780 300 250 Output Total 850 200 100 Balance -70 100 150 Physical Exam - Physical Exam General Appearance: no apparent distress Respiratory: lungs clear, normal breath sounds Cardiac/Chest: No edema Abdomen: non-tender, soft Extremities: No swelling, No Davonte's sign Neuro/Psych: motor weakness (3/5 right and left hip flexors 3+/5 right and left quadriceps she can actively dorsiflex both ankles to neutral.) ICD10 Worksheet Patient Problems: Problems Problem Status Onset Acute exacerbation of congestive heart failure Acute Atrial fibrillation Acute Congestive heart failure Acute Fever Acute Guillain-[place] syndrome Acute chronic disease mgmt/transitional care Acute Generalized anxiety disorder Chronic Insomnia Chronic Sedative dependence with current use Chronic
[2018-01-28] MEDS: MIRTAZAPINE 15 MG TAB PO SCH (21:27)
[2018-01-29] MEDS: traMADol 50 MG TAB PO PRN ×4 (02:03→21:19)
[2018-01-29] MEDS: PANTOPRAZOLE SODIUM 40 MG TAB PO SCH (06:04)
[2018-01-29] MEDS: FUROSEMIDE 20 MG TAB PO SCH ×2 (08:32→15:02)
[2018-01-29] MEDS: BETHANECHOL 10 MG TAB PO SCH ×3 (08:32→20:59)
[2018-01-29] MEDS: RIVAROXABAN 10 MG TAB PO SCH (08:32)
[2018-01-29] MEDS: POTASSIUM CL 10 MEQ TAB PO SCH (08:32)
[2018-01-29] MEDS: GABAPENTIN 300 MG CAP PO SCH ×3 (08:32→20:59)
[2018-01-29] MEDS: TAMSULOSIN HCL 0.4 MG CAP PO SCH (08:32)
[2018-01-29] MEDS: CARVEDILOL 3.125 MG TAB PO SCH ×2 (08:35→18:07)
--- NOTE | 2018-01-29 10:14 | SOAPPROG ---
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 Impairments in mobility and self-care. HER HER AMBULATION THUS FAR IS CONFINED TO THE PT GYM USING THE FWW. SHE IS ALSO STANDING IN THE PARALLEL BARS. SHE STOOD THIS MORNING TO BRUSH HER TEETH WITH EFW WA WITH THE SINK. SHE STATES THAT WHEN SHE WALKS SHE DOES NOT EXPERIENCE KNEE OR ANKLE INSTABILITY. * Functional independence measure 63 as of 01/09/2018, increased to 74 as of 01/16. Grooming and only from wheelchair, using walker to stand pole on the lower extremity clothing with minimal assistance. She is ambulating with some assistance and independent wheelchair bili. Stand pivot transfer from the wheelchair to shower bench. *Hypoxemia, multifactorial-RESOLVED * Anemia--ASYMPTOMATIC. HER BLOOD PRESSURE THIS MORNING WAS 110/51 * Normocytic but hypochromic with reduced MCHC. * Improving on CBC 2 06/12/2018. Iron panel with very minimal deficiency. Can likely be replated with regular diet. Will not prescribe iron supplement. * Urinary retention with possible neurogenic bladder. * On bethanechol 10 mg four times daily and tamsulosin 0.4 mg q.day. She is no longer getting postvoid residuals. To help simplify her medication regimen, will change urine clean dosage to 10 mg three times daily, and will monitor voiding schedule and check a postvoid residual if necessary. Will monitor for urinary incontinence. * Atrial fibrillation. Continue rate control with carvedilol and anticoagulation with rivaroxaban. * Congestive heart failure. Continue carvedilol and furosemide. * Basic metabolic profile within normal limits 01/20/2018; tolerating diuresis. * SODIUM FROM 01/28 FOR 141, POTASSIUM 4.5 * Anxiety. Continue mirtazapine. Not using diazepam. * Pain control. * SHE REPORTS THAT HER NEUROPATHIC PAIN IS WELL CONTROLLED ON GABAPENTIN 300 MG THREE TIMES DAILY. DISCHARGE IS SET FOR 01/30. WILL COMPLETE DISCHARGE PAPERWORK AND DICTATED DISCHARGE SUMMARY TODAY. DISCUSSED HER CASE WITH THE [employer] ARTIST WHO REPORTS THAT SHE WILL HAVE HOME PT AND OT. FOLLOW-UP APPOINTMENTS WITH HER PHYSICIANS ARE BEING ARRANGED 01/29/18 10:12 Subjective: NO COMPLAINTS. SHE DENIES FEELING LIGHTHEADED OR DIZZINESS. SHE REPORTS LOWER EXTREMITY PAIN IS WELL CONTROLLED. SHE IS WALKING 15 FT WITH THE AFTER PW. SHE REPORTS THAT SHE STOOD AT THE SINK TODAY TO PRESSURE TEETH. Objective: Vital Signs Temp Pulse Resp BP Pulse Ox 36.7 C 74 16 110/51 L 93 01/29/18 06:27 01/29/18 08:35 01/29/18 06:27 01/29/18 08:35 01/29/18 06:27 Laboratory Results 01/20/18 06:00 01/28/18 06:00 01/28/18 01/29/18 01/30/18 05:59 05:59 05:59 Intake Total 300 918 240 Output Total 200 950 Balance 100 -32 240 Physical Exam - Physical Exam General Appearance: WD/WN, alert, no apparent distress Respiratory: chest non-tender, lungs clear, normal breath sounds Abdomen: normal bowel sounds, non-tender, soft Neuro/Psych: motor weakness (BILATERAL LOWER EXTREMITY WEAKNESS WITH THE RIGHT LOWER EXTREMITY SLIGHTLY STRONGER THAN THE LEFT. 2+ 3-/5 LEFT HIP FLEXORS AND QUADRICEPS. NEUROLOGICAL EXAM HAS BEEN ESSENTIALLY STABLE OVER THE PAST FEW DAYS.) ICD10 Worksheet Patient Problems: Problems Problem Status Onset Acute exacerbation of congestive heart failure Acute Atrial fibrillation Acute Congestive heart failure Acute Fever Acute Guillain-[place] syndrome Acute chronic disease mgmt/transitional care Acute Generalized anxiety disorder Chronic Insomnia Chronic Sedative dependence with current use Chronic
--- NOTE | 2018-01-29 12:05 | PDOREHIP ---
Admission [facility] - Admission - 3 Day Assessment Period Admission Date/Day 1: 01/06/18 Day 2: 01/07/18 Day 3: 01/08/18 - Active Diagnoses Comorbidities and Co-existing Conditions at Admission: 71148. None of the Above - Skin Conditions # Stage 1 Pressure Ulcers-Admission: 0 # Stage 2 Pressure Ulcers-Admission: 0 # Stage 3 Pressure Ulcers-Admission: 0 # Stage 4 Pressure Ulcers-Admission: 0 # Unstageable Pressure Ulcers (Non-remove Dress)-Admission: 0 # Unstageable Pressure Ulcers (Slough/Eschar)-Admission: 0 # Unstageable Pressure Ulcers (Deep Tissue Injury)-Admission: 0 Discharge [facility] - Discharge - 3 Day Assessment Period 2 Days Prior to Anticipated Discharge Date: 01/28/18 1 Day Prior to Anticipated Discharge Date: 01/29/18 Anticipated Discharge Date: 01/30/18
--- NOTE | 2018-01-29 15:04 | GDS ---
[f rep st] DISCHARGE SUMMARY Time of dictation: 1:56 p.m. IMPAIRMENT GROUP: 3.4. 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 ETIOLOGIC DIAGNOSIS: Guillain-[place] syndrome. HISTORY OF PRESENT ILLNESS: Patient was readmitted to inpatient rehabilitation services on 01/06/2018 following a 6-day stay at [facility] for respiratory failure. Evaluation at the hospital at that time included echocardiogram, which showed diastolic dysfunction. Cardiac catheterization showed normal heart pressures on the right and left heart with no significant coronary artery disease. She was started on the EzPAP positive airway pressure breathing to maintain lung expansion and to increase functional residual capacity. Pulmonary Medicine was consulted, and she was found to have nocturnal hypoxia, felt to be secondary to neuromuscular weakness and shallow breathing while sleeping. Initially, her overnight oxygen was 4-5 L, but was weaned down to 2 L at night during her inpatient rehabilitation stay. She was seen by physical therapy, Occupational therapy, and speech therapy. She had bladder retraining, and eventually her Solis catheter was removed and her bladder training was deemed successful as she was able to void spontaneously with very small postvoid residuals. The postvoid residuals were eventually discontinued secondary to full bladder emptying. She also regained continence of bowel. She progressed in physical therapy, so that at the time of discharge , she was able to ambulate about 25 feet with the FWW and was able to stand at her sink to brush her teeth with FWW. Medical issues that were addressed during this inpatient rehab stay included hypoxemia (which improved to the point where she needed only 2 L O2 per nasal cannula at night), urinary retention (which was treated with tamsulosin 0.4 mg daily), atrial fibrillation , congestive heart failure (treated with carvedilol,furosemide, and potassium supplementation), pain control (which included gabapentin 300 3 times a day) and dysphagia (which resolved so that she could tolerate a regular diet and thin liquids.) At the time of discharge, her lower extremity motor exam showed 3 /5 right and left hip flexors, 3+/5 right and left quadriceps, and active dorsiflexion to neutral. She was not using any ankle/foot orthotics. DISCHARGE PHYSICAL EXAMINATION: GENERAL: In good spirits. Comfortable seated in wheelchair. HEENT: Pupils equal, round, AND reactive to light accommodation. EOMI. NECK: Supple. No lymphadenopathy. LUNGS: Clear to auscultation. CARDIAC: Irregularly irregular heart rate. No lower extremity edema. No calf tenderness. NEUROLOGIC: 3/5 right and left hip flexors while seated, 3+/5 right and left quadriceps, but she was not able to fully extend right and left knees to neutral position. Ankle dorsiflexion to neutral. No lower extremity spasticity. ABDOMEN: Soft and nontender. Normoactive bowel sounds DISCHARGE MEDICATIONS: Included acetaminophen 650 p.o. q.4 hours, Coreg 3.125 mg p.o. daily, diazepam 1 p.o. twice daily p.r.n., Lasix 20 mg twice daily, gabapentin 900 t.i.d., Remeron 50 mg p.o. q.h.s., Oxycodone, Protonix 40 mg daily, potassium chloride 20 mEq daily. She will be discontinued off the Xarelto upon discharge. She was given a prescription to begin aspirin 81 mg per day. DISCHARGE DISPOSITION: She will receive home PT, OT, and nursing. She will have followup with her primary care physician, Dr. Serrano, on 02/04. She also has followup with Dr. Nilesh Lee with [facility]. She will have followup with [facility]. She will also return home with supplemental oxygen 1-2 L per nasal cannula. /[id number]/MODL MTDD
[2018-01-29] MEDS: MIRTAZAPINE 15 MG TAB PO SCH (20:59)
[2018-01-30] MEDS: traMADol 50 MG TAB PO PRN ×2 (04:56→11:05)
[2018-01-30] MEDS: PANTOPRAZOLE SODIUM 40 MG TAB PO SCH (06:31)
[2018-01-30] MEDS: GABAPENTIN 300 MG CAP PO SCH (08:37)
[2018-01-30] MEDS: POTASSIUM CL 10 MEQ TAB PO SCH (08:38)
[2018-01-30] MEDS: RIVAROXABAN 10 MG TAB PO SCH (08:38)
[2018-01-30] MEDS: BETHANECHOL 10 MG TAB PO SCH (08:38)
[2018-01-30] MEDS: CARVEDILOL 3.125 MG TAB PO SCH (08:38)
[2018-01-30] MEDS: TAMSULOSIN HCL 0.4 MG CAP PO SCH (08:38)
[2018-01-30] MEDS: FUROSEMIDE 20 MG TAB PO SCH (08:38)
[2018-01-30 08:42] VITALS: BP 109/58; PULSE 80
[2018-01-30 10:55] VITALS: RESP 16; TEMP 97.5; O2SAT 93
== END 2018-01-30 11:00 | disposition home or self-care (01) | DRG 95 ==
LOC: BREH 15:30
PROVIDERS: ADMIT Internal Medicine; ATTEND Internal Medicine
PROC: F07M3ZZ Motor Function Treatment of Musculoskeletal System - Whole Body (ICD-10-PCS; principal; 2018-01-06)
PROC: F0636ZZ Communicative/Cognitive Integration Skills Treatment of Neurological System - Whole Body (ICD-10-PCS; principal; 2018-01-06)
PROC: F08Z7ZZ Vocational Activities and Functional Community or Work Reintegration Skills Treatment (ICD-10-PCS; principal; 2018-01-06)
DX: G61.0 Guillain-Barre syndrome (principal); D64.9 Anemia, unspecified; I50.32 Chronic diastolic (congestive) heart failure; R09.02 Hypoxemia; I48.91 Unspecified atrial fibrillation; Z79.01 Long term (current) use of anticoagulants; M54.30 Sciatica, unspecified side; I11.0 Hypertensive heart disease with heart failure; R33.9 Retention of urine, unspecified; F41.9 Anxiety disorder, unspecified; G43.909 Migraine, unspecified, not intractable, without status migrainosus; Z87.891 Personal history of nicotine dependence; R13.10 Dysphagia, unspecified
CPT/HCPCS: 97110-GO; 97110-GP; 97112-GO; 97112-GP; 97116-GP; 97162-GP; 97167-GO; 97530-GO; 97530-GP; 97535-GO; 97542-GO; 97542-GP; 99366-GO; J1200; J2060